=== PATIENT | female | born 1975 | race Caucasian/White ===

== ENCOUNTER 2018-01-26 22:02 | Emergency (ER) | payer MEDICARE, MEDICAID, SELFPAY ==
[2018-01-26 22:21] VITALS: BP 124/90; PULSE 96; RESP 17; TEMP 36.3; O2SAT 100; BMI 39.9
[2018-01-26 22:28] VITALS: BP 124/90; PULSE 86; O2SAT 95
[2018-01-26 22:32] VITALS: BP 124/90; PULSE 86; RESP 17; TEMP 36.3; O2SAT 95; BMI 39.9
--- NOTE | 2018-01-26 22:41 | PC.NURSE ---
Pt states increased swelling in bi-lat legs x 5 days, takes Lasix daily. 2+ pitting edema with pedal pulses present and 5/10 pain. Denies CP/SOB, states diffuse rash all over trunk and under neath breasts onset yesterday with itching, hx of staph infections.
--- NOTE | 2018-01-26 22:48 | DI.RAD.S_ITS ---
PROCEDURE: XR CHEST 2V INDICATIONS: swelling TECHNIQUE: 2 views of the chest were acquired. COMPARISON: [facility], , CHEST 2VW, 08/28/2010, 13:34. FINDINGS: Surgical changes and devices: None. Lungs and pleura: No pleural effusions or pneumothorax. Lungs showed diffuse, bilateral perihilar interstitial infiltrate, extending into both upper lobes, right greater than left. No septal lines or pleural effusions. Mediastinum: Mediastinal contours are normal. Heart size is normal. Bones and chest wall: No suspicious bony abnormalities. Soft tissues appear unremarkable. IMPRESSION: 1. Bilateral perihilar pulmonary infiltrates, likely pneumonia but other etiologies including allergenic or noncardiac pulmonary edema not excluded. Dictated by: Ramon Butcher M.D. on 01/27/2018 at 8:00 Approved by: Ramon Butcher M.D. on 01/27/2018 at 8:03
[2018-01-26] MEDS: HYDROMORPHONE 0.5 MG INJ IV (23:00)
[2018-01-26 23:02] LABS: Add Manual Diff / Slide Review NO; Basophils Percent Auto 0.6 % (0-2); Eosinophils Percent Auto 2.7 % (2-4); Hematocrit 34.4 % (36-46); Hemoglobin 11.4 g/dL (12.0-16.0); Lymphocytes Percent Auto 36.1 % (25-40); Mean Corpuscular HGB Conc 33.1 % (30-36); Mean Corpuscular Hemoglobin 26.9 PG (26-34); Mean Corpuscular Volume 81.3 fL (80-100); Monocytes Percent Auto 8.6 % (3-14); Neutrophils Absolute Auto 5600 /uL (3000-5900); Platelet Count 364 X10^3/uL (150-400); Red Blood Cell Count 4.23 X10^6/uL (4.0-5.2); Red Cell Distribution Width 16.5 % (11.6-14.8); White Blood Cell Count 10.8 X10^3/uL (4.5-11.0)
[2018-01-26 23:05] LABS: BUN Creatinine Ratio 14.3 (6-22); Blood Urea Nitrogen 10 mg/dL (7-17); Calcium 9.3 mg/dL (8.4-10.2); Carbon Dioxide 30 mmol/L (22-32); Chloride 100 mmol/L (98-107); Estimated Glomerular Filt Rate > 60.0 mL/min (>60); Glucose 98 mg/dL (70-100); HEMOLYSIS < 15 (0-50); Potassium 3.9 mmol/L (3.4-5.1); Sodium 139 mmol/L (137-145)
[2018-01-26 23:20] LABS: Procalcitonin < 0.05 ng/mL (<0.5)
[2018-01-26 23:25] LABS: B Type Natriuretic Peptide 51.4 (<100)
[2018-01-26 23:48] VITALS: BP 107/67; PULSE 78; O2SAT 97
[2018-01-27] MEDS: OXYCODONE/ACETAMINOPHEN 5/325 TABLET 2 TAB PO (00:06)
--- NOTE | 2018-01-27 04:52 | ED_ITS ---
HPI - Extremity Problem General Chief complaint: Extremity Problem,Nontraumatic Stated complaint: STATES ADEMA IN LEGS,RASH ON BODY Time Seen by Provider: 01/26/18 22:19 Source: patient and family Mode of arrival: ambulatory Limitations: no limitations History of Present Illness HPI Narrative: Patient presents with some mild lower extremity edema over the past few days. She denies pain, erythema, warmth or injury. She has a history of lower extremity edema and has been taking Lasix for sometime. She does state that she's been taking a bit of extra lasix daily for the past few days. She denies SOB, fever, or chills. Additionally patient complains of episodes of rash on her back that are intermittent and currently resolved. Finally she complains of some rectal pain on BM, she denies blood on her stool MD Complaint: extremity swelling Onset (ago): day(s) Pain Consistency: constant Location: lower extremity Quality: aching Radiation: none Relieving factors: nothing Exacerbating factors: nothing Associated symptoms: rash Related Data Home Medications Medication Instructions Recorded Confirmed Acetaminophen/Aspirin/Caffei 1 tab PO PRN #0 05/14/11 (#EXCEDRIN 250 MG-250 MG-65 MG) HYDROXYZINE HCL (#ATARAX) 50 mg PO TID #0 05/14/11 LIDOCAINE 1 patch TOPICAL QDAYP #0 05/14/11 Loratadine 10 mg PO Q DAY #0 05/14/11 duloxetine [Cymbalta] 60 mg PO Q DAY #0 05/14/11 omeprazole magnesium [Prilosec OTC] 20 mg PO BID #0 05/14/11 [FIORICET] PRN #0 05/12/12 Previous Rx's Medication Instructions Recorded azithromycin [Zithromax Z-Rikki] 250 mg PO QDAY #6 tab 05/08/17 oxycodone-acetaminophen [Percocet] 1 tab PO Q4HP PRN #7 tab 05/08/17 Allergies Allergy/AdvReac Type Severity Reaction Status Date / Time levofloxacin [LEVOFLOXACIN] Allergy Unknown Verified 01/26/18 22:59 Penicillins [PENICILLINS] Allergy Unknown Verified 01/26/18 22:59 Sulfa (Sulfonamide Allergy Unknown Verified 01/26/18 22:59 Antibiotics) [SULFA (SULFONAMIDE ANTIBIOTICS)] trimethoprim [TRIMETHOPRIM] Allergy Unknown Verified 01/26/18 22:59 Review of Systems Review of Systems All systems reviewed & are unremarkable except as noted in HPI and below Constitutional Denies chills, Denies fever(s), Denies lethargy and Denies weakness Eyes Denies change in vision, Denies eye discharge, Denies irritation and Denies loss of vision ENT Ears, Nose, Mouth, and Throat: Denies change in voice, Denies neck pain and Denies sore throat Cardiovascular Denies chest pain, Denies irregular heart rhythm, Denies lightheadedness, Denies palpitations, Denies dyspnea, Denies dyspnea on exertion and Denies orthopnea Respiratory Denies cough, Denies dyspnea, Denies dyspnea on exertion and Denies wheezing Gastrointestinal Gastrointestinal: Reports as per HPI, Denies abdominal pain, Denies change in bowel habits, Denies diarrhea, Denies nausea and Denies vomiting Genitourinary Denies hematuria, Denies flank pain, Denies urinary incontinence and Denies urinary urgency Musculoskeletal Denies neck pain Integumentary/Breasts Denies pruritus, Denies erythema, Reports rash and Denies wounds Neurologic Denies confusion, Denies loss of vision and Denies weakness Psychiatric Denies anxiety, Denies confusion, Denies depression, Denies homicidal ideation and Denies suicidal ideation Endocrine Denies palpitations Hematologic/Lymphatic Denies easy bruising Allergic/Immunologic Denies wheezing Exam Narrative Exam Narrative: 42F appears uncomfortable and a bit anxious Initial Vital Signs Initial Vital Signs: Vital Signs Temperature 97.4 F L 01/26/18 22:21 Pulse Rate 96 H 01/26/18 22:21 Respiratory Rate 17 01/26/18 22:21 Blood Pressure 124/90 H 01/26/18 22:21 Pulse Oximetry 100 01/26/18 22:21 Const General: cooperative, well developed and in distress Nutritional Appearance: well nourished Orientation: alert, awake, oriented x3 and not confused HENNM Head: normocephalic and atraumatic Ears: external ears normal and TM's normal bilaterally Nose: external nose normal and No nasal discharge Face and sinus: sinuses nontender, face symmetric, no sinus tenderness and No dry mucous membranes Mouth: oral mucosae normal and moist mucous membranes Teeth and gingiva: dentition normal Throat: tonsils normal and uvula midline Neck Neck: normal visual inspection, trachea midline, No lymphadenopathy, No midline deformity and No JVD Lymphatic: No lymphedema Chest Chest: normal inspection of the chest Cardio Rate: regular rate Rhythm: regular rhythm Heart Sounds: no click, no gallops, no murmurs and no rubs Pulses: normal peripheral pulses Back/Spine/Pelvis Back: normal to inspection Cervical Spine: normal cervical lordosis Thoracic/Lumbar Spine: thoracic and lumbar spine normal to inspection Skin General: no rashes or lesions noted, No jaundice and No petechiae Neuro General: alert, awake and oriented x3 Cognition: normal cognition Speech: speech normal Gait: normal gait Motor: muscle tone normal throughout Sensory Exam: no sensory deficits noted DTR's: Rt Patellar: 1+ and Lt Patellar: 1+ Extrem Right lower extremity: edema Details: pitting and 1+ Left lower extremity: edema Details: pitting and 1+ Psych Appearance: well kempt Mental Status: mental status grossly normal Attitude: cooperative Thought Content: normal and suicidality Judgment: judgment good Course Orders Ordered: ED Orders 01/26/18 22:25 B Type Natriuretic Peptide Stat Basic Metabolic Panel Stat Complete Blood Count AUTO DIFF Stat Procalcitonin Stat 01/26/18 22:48 XR chest 2V Stat Discontinued Medications Hydromorphone HCl (Dilaudid) 0.5 mg IV NOW ONE Stop: 01/26/18 22:50 Last Admin: 01/26/18 23:00 Dose: 0.5 mg Oxycodone/Acetaminophen (Percocet 5/325) 2 tab PO NOW ONE Stop: 01/27/18 00:01 Last Admin: 01/27/18 00:06 Dose: 2 tab Vital Signs - 8 hr 01/26/18 22:21 01/26/18 22:28 01/26/18 22:32 Temperature 97.4 F L 97.4 F L Pulse Rate 96 H 86 86 Respiratory Rate 17 17 Blood Pressure 124/90 H 124/90 H Blood Pressure [Left Arm] 124/90 H Pulse Oximetry 100 95 95 01/26/18 23:48 Temperature Pulse Rate 78 Respiratory Rate Blood Pressure Blood Pressure [Left Arm] 107/67 Pulse Oximetry 97 MDM - Extremity (Nontraumatic) Lab Data Result diagrams: 01/26/18 22:25 01/26/18 22:25 Lab Results 01/26/18 01/26/18 01/26/18 Range/Units 22:25 22:25 22:25 WBC 10.8 (4.5-11.0) X10^3/uL RBC 4.23 (4.0-5.2) X10^6/uL Hgb 11.4 L (12.0-16.0) g/dL Hct 34.4 L (36-46) % MCV 81.3 (80-100) fL MCH 26.9 (26-34) PG MCHC 33.1 (30-36) % RDW 16.5 H (11.6-14.8) % Plt Count 364 (150-400) X10^3/uL Neut % (Auto) 52.0 (50-75) % Lymph % (Auto) 36.1 (25-40) % Bollinger % (Auto) 8.6 (3-14) % Eos % (Auto) 2.7 (2-4) % Baso % (Auto) 0.6 (0-2) % Neut # (Auto) 5600 (7952-0757) /uL Sodium 139 (137-145) mmol/L Potassium 3.9 (3.4-5.1) mmol/L Chloride 100 (98-107) mmol/L Carbon Dioxide 30 (22-32) mmol/L BUN 10 (7-17) mg/dL Creatinine 0.70 (0.52-1.04) mg/dL Estimated GFR > 60.0 (>60) mL/min BUN/Creatinine Ratio 14.3 (6-22) Glucose 98 (70-100) mg/dL Calcium 9.3 (8.4-10.2) mg/dL B-Natriuretic Peptide 51.4 (<100) Procalcitonin < 0.05 (<0.5) ng/mL Discharge Plan Departure Patient Disposition: Home, Self-Care Clinical Impression: Dependent edema, External hemorrhoid Discharge Date/Time: 01/27/18 00:15 Interventions: ED Discharge Assessment Last Done: 01/27/18 00:14 Instructions: DI for Hemorrhoids, DI for Dependent Edema Activity Restrictions/Additional Instructions: *You have been diagnosed with [ bilateral dependent edema ] *What to do: * continue to take medications as directed, but please call when you get home so we can discuss how to alter your Lasix *Follow up with your primary care provider in 2-3 days, call tomrorow for appointment *Return to ER if you should have any new, worsening or concerning symptoms Prescriptions: No Action duloxetine [Cymbalta] 60 MG capsule,delayed release(DR/EC) 60 mg PO Q DAY Qty: 0 RF: 0 omeprazole magnesium [Prilosec OTC] 20 MG tablet,delayed release (DR/EC) 20 mg PO BID Qty: 0 RF: 0 HYDROXYZINE HCL (#ATARAX) 50 mg PO TID Qty: 0 RF: 0 Acetaminophen/Aspirin/Caffei (#EXCEDRIN 250 MG-250 MG-65 MG) 1 tab PO PRN Qty: 0 RF: 0 LIDOCAINE 1 patch Topical QDAYP Qty: 0 RF: 0 Loratadine 10 mg PO Q DAY Qty: 0 RF: 0 [FIORICET] PRN Qty: 0 RF: 0 azithromycin [Zithromax Z-Rikki] 250 MG tablet 250 mg PO QDAY Qty: 6 RF: 0 oxycodone-acetaminophen [Percocet] 5 MG/325 MG tablet 1 tab PO Q4HP PRNQty: 7 RF: 0 Referrals: Alex Montoya MD [Primary Care Provider] -
== END 2018-01-27 00:15 | disposition home or self-care (01) ==
PROVIDERS: Emergency Provider Emergency Medicine; Family Provider Anesthesiology Pain Medicine; PCP Internal Medicine
DX: K64.4 Residual hemorrhoidal skin tags (principal); R60.9 Edema, unspecified
CPT/HCPCS: 36591; 71046; 80048; 81003; 83880; 84145; 85025; 96374; 99282; 99285; J1170

== ENCOUNTER 2018-10-31 08:04 | Emergency (ER) | payer MEDICARE, MEDICAID, SELFPAY ==
[2018-10-31] VITALS (29 sets, daily range): BP systolic 91–130; BP diastolic 47–106; PULSE 15–102; RESP 9–24; TEMP 36.7; O2SAT 81–99; BMI 45.7
--- NOTE | 2018-10-31 08:18 | ED.SOB ---
HPI - SOB/Dyspnea General Chief Complaint: Shortness of Breath/Dyspnea Stated Complaint: Pneumonia Time Seen by Provider: 10/31/18 08:11 Source: patient, family and EMS Mode of arrival: EMS Limitations: no limitations History of Present Illness 43-year-old female smoker with extensive medical history including cryptogenic organizing pneumonia, chronic pain on methadone, morbid obesity presents from the methadone clinic where they noted her pulse ox to be 42%. They activated EMS, administered bronchodilators. On arrival EMS noted her pulse ox to be 57 and patient in moderate respiratory distress. She was continued on bronchodilators and put on a non-rebreather and pulse ox pumped to the mid to upper 80s. On arrival patient is admittedly a bit better but still clearly working period 2 weeks ago she was discharged from [facility] after a 10 day visit including an intubation, for hypoxic respiratory failure thought likely due to a viral etiology. She has multiple antibiotic allergies and was treated with aztreonam, azithromycin, and vancomycin. MD Complaint: shortness of breath and cough Onset (ago): hour(s) Context: recent illness Related Data Home Medications Medication Instructions Recorded Confirmed oidswtr-lcgzpfikbzhwu-zaepweow 1 tab PO PRN PRN #0 05/14/11 10/31/18 [Excedrin Extra Strength] duloxetine [Cymbalta] 60 mg PO BID #0 05/14/11 10/31/18 albuterol sulfate [ProAir HFA] 1 puff INHALATION BID 10/31/18 10/31/18 ptznztogtc-xsfnmfjmuncxg-xyqb 1 tab PO BID PRN 10/31/18 10/31/18 dapsone 100 mg PO DAILY 10/31/18 10/31/18 diclofenac sodium [Voltaren] 1 applic TOPICAL PRN PRN 10/31/18 10/31/18 fluticasone propion-salmeterol 1 puff INHALATION BID 10/31/18 10/31/18 [Advair Diskus] fluticasone propionate 1 spray INTRANASAL DAILY 10/31/18 10/31/18 gabapentin 900 mg PO TID 10/31/18 10/31/18 glipizide 5 mg PO DAILY 10/31/18 10/31/18 hydroxyzine pamoate 50 mg PO DAILY 10/31/18 10/31/18 levothyroxine 300 mcg PO DAILY 10/31/18 10/31/18 methadone 145 mg PO DAILY 10/31/18 10/31/18 omeprazole 40 mg PO BID 10/31/18 10/31/18 prednisone 1 dose PO DIRECTED 10/31/18 10/31/18 quetiapine 300 mg PO QPM 10/31/18 10/31/18 Allergies Allergy/AdvReac Type Severity Reaction Status Date / Time levofloxacin [LEVOFLOXACIN] Allergy Unknown Verified 01/26/18 22:59 Penicillins [PENICILLINS] Allergy Unknown Verified 01/26/18 22:59 Sulfa (Sulfonamide Allergy Unknown Verified 01/26/18 22:59 Antibiotics) [SULFA (SULFONAMIDE ANTIBIOTICS)] trimethoprim [TRIMETHOPRIM] Allergy Unknown Verified 01/26/18 22:59 Review of Systems Constitutional Denies chills, Denies fever(s), Denies lethargy and Denies weakness Eyes Denies change in vision, Denies eye discharge, Denies irritation and Denies loss of vision ENT Ears, Nose, Mouth, and Throat: Denies change in voice, Denies neck pain and Denies sore throat Cardiovascular Denies chest pain, Denies irregular heart rhythm, Denies lightheadedness, Denies palpitations, Reports dyspnea, Reports dyspnea on exertion and Denies orthopnea Respiratory Reports cough, Reports dyspnea, Reports dyspnea on exertion and Denies wheezing Gastrointestinal Gastrointestinal: Denies abdominal pain, Denies change in bowel habits, Denies diarrhea, Denies nausea and Denies vomiting Genitourinary Denies hematuria, Denies flank pain, Denies urinary incontinence and Denies urinary urgency Musculoskeletal Denies neck pain Integumentary/Breasts Denies pruritus, Denies erythema, Denies rash and Denies wounds Neurologic Denies confusion, Denies loss of vision and Denies weakness Psychiatric Denies anxiety, Denies confusion, Denies depression, Denies homicidal ideation and Denies suicidal ideation Endocrine Denies palpitations Hematologic/Lymphatic Denies easy bruising Allergic/Immunologic Denies wheezing PFSH Social History Smoking Status: Current every day smoker Social History Smoking Status: Current every day smoker Exam Narrative Exam Narrative: GENERAL: 43F severely ill, morbidly obese in respiratory distress HEAD: Atraumatic. Normocephalic. No temporal or scalp tenderness. EYES: Pupils equal round and reactive. Extraocular motions intact. No scleral icterus. No injection or drainage. ENT: Nose without bleeding, purulent drainage or septal hematoma. Throat without erythema, tonsillar hypertrophy or exudate. Uvula midline. Airway patent. NECK: Trachea midline. No JVD or lymphadenopathy. Supple, nontender, no meningeal signs. CARDIOVASCULAR: Regular rate and rhythm without murmurs, gallops, or rubs. RESPIRATORY: Decreased breath sounds bilaterally with prolonged expiratory phase, crackles throughout and expiratory wheeze GASTROINTESTINAL: Abdomen soft, non-tender, nondistended. No hepato-splenomegaly, or palpable masses. No guarding. EXTREMITIES: No clubbing, cyanosis, or edema. No joint tenderness, effusion, or edema noted. BACK: Nontender without deformity or crepitance. No flank tenderness. NEURO: AOx3. SKIN: No rash or erythema. Initial Vital Signs Initial Vital Signs: Vital Signs Temperature 98.1 F 10/31/18 08:16 Pulse Rate 102 H 10/31/18 08:16 Respiratory Rate 24 10/31/18 08:16 Blood Pressure 91/65 10/31/18 08:16 Pulse Oximetry 82 L 10/31/18 08:16 Course Course Narrative: sepsis considered a possibility on arrival. Patient pancultured, respiratory panel ordered. Records requested from [facility] Patient met criteria for severe sepsis at 8:34 a.m. with lactate of 5.2. Fluid bolus of 30 cc/kilogram initiated Orders Ordered: ED Orders 10/31/18 08:12 XR chest 1V Stat 10/31/18 08:34 B Type Natriuretic Peptide Stat Complete Blood Count AUTO DIFF Stat Comprehensive Metabolic Panel Stat Lactate (Lactic Acid) Stat Procalcitonin Stat Respiratory Panel (Film Array) Stat Troponin & CK Cardiac Panel Stat 10/31/18 08:37 Arterial Blood Gas Stat 10/31/18 09:03 Blood Culture Stat 10/31/18 09:40 UA Complete [Urinalysis and Microscopic] Stat 10/31/18 09:57 CT angio chest PE protocol Stat 10/31/18 10:40 Lactate 2HR (Lactic Acid Rflx) Stat 10/31/18 11:49 Arterial Blood Gas Stat 10/31/18 15:06 Lactate 2HR (Lactic Acid Rflx) Stat Discontinued Medications Aztreonam 1 gm/ Dextrose 50 mls @ 100 mls/hr IV NOW ONE Stop: 10/31/18 08:53 Last Infusion: 10/31/18 09:58 Dose: 0 mls/hr Admin: 10/31/18 09:21 Dose: 100 mls/hr Azithromycin 500 mg/ Dextrose 250 mls @ 250 mls/hr IV NOW ONE Stop: 10/31/18 08:54 Last Infusion: 10/31/18 11:19 Dose: 0 mls/hr Admin: 10/31/18 10:12 Dose: 250 mls/hr Sodium Chloride (Normal Saline 0.9%) 3,742.14 mls @ 1,247.38 mls/hr 30 ml/kg infuse over 3 hr (3742.14 ml) IV NOW ONE Stop: 10/31/18 12:07 Last Infusion: 10/31/18 12:19 Dose: 0 mls/hr Admin: 10/31/18 09:20 Dose: 1,247.38 mls/hr Methylprednisolone (Solu-Medrol 125 Mg Vial) 125 mg IV NOW ONE Stop: 10/31/18 08:42 Last Admin: 10/31/18 08:52 Dose: 125 mg Reevaluation(s) Reevaluation #1: patient beginning to decompensate, some mental status change and sats are now in the low 80s. I have called for BiPAP patient doing quite well on BiPap, will not need intubation. [facility] can transport BiPap. Awaiting bed assignement Time: 11:04 Consultations Consultation #1: With just received a call back from [facility] and given clinical information to the transfer center. Images have been pushed Dr. Banuelos ([facility]) consulted and he agrees patient will require transfer. Will accept patient, will call back with bed assignment Time: 11:04 Consultation #2: call back from [facility]. We can now activate [facility], they have a bed Time: 15:37 Vital Signs - 8 hr 10/31/18 08:16 10/31/18 08:30 10/31/18 09:18 Temperature 98.1 F Pulse Rate 102 H 102 H 94 H Respiratory Rate 24 22 22 Blood Pressure 91/65 Blood Pressure [Left Arm] 101/57 L 119/64 Pulse Oximetry 82 L 91 90 L 10/31/18 09:43 10/31/18 09:51 10/31/18 10:18 Temperature Pulse Rate 97 H 95 H 88 Respiratory Rate 22 20 Blood Pressure Blood Pressure [Left Arm] 104/79 112/69 116/60 Pulse Oximetry 97 94 87 L 10/31/18 10:54 10/31/18 11:10 10/31/18 11:30 Temperature Pulse Rate 91 H 87 Respiratory Rate 22 Blood Pressure 109/79 Blood Pressure [Left Arm] 103/67 104/76 Pulse Oximetry 81 L 99 10/31/18 11:39 10/31/18 11:43 10/31/18 12:19 Temperature Pulse Rate 91 H 90 15 L Respiratory Rate 18 15 Blood Pressure Blood Pressure [Left Arm] 108/64 108/64 124/103 H Pulse Oximetry 96 99 89 L 10/31/18 12:48 10/31/18 13:30 10/31/18 14:15 Temperature Pulse Rate 89 89 84 Respiratory Rate 18 20 12 Blood Pressure Blood Pressure [Left Arm] 130/90 124/106 H 118/76 Pulse Oximetry 91 94 94 10/31/18 14:36 10/31/18 15:21 Temperature Pulse Rate 82 70 Respiratory Rate 11 L 9 L Blood Pressure Blood Pressure [Left Arm] 112/73 115/59 L Pulse Oximetry 95 88 L MDM - SOB/Dyspnea Lab Data Result diagrams: 10/31/18 08:34 10/31/18 08:34 Lab Results 10/31/18 10/31/18 10/31/18 Range/Units 08:34 08:34 08:34 WBC (4.5-11.0) X10^3/uL RBC (4.0-5.2) X10^6/uL Hgb (12.0-16.0) g/dL Hct (36-46) % MCV (80-100) fL MCH (26-34) PG MCHC (30-36) % RDW (11.6-14.8) % Plt Count (150-400) X10^3/uL Neut % (Auto) (50-75) % Lymph % (Auto) (25-40) % [place] % (Auto) (3-14) % Eos % (Auto) (2-4) % Baso % (Auto) (0-2) % Neut # (Auto) (9802-7094) /uL Lymph # (Auto) (6005-3101) /uL [place] # (Auto) (0-900) /uL Eos # (Auto) (0-450) /uL Baso # (Auto) (0-100) /uL ABG pH (7.35-7.45) ABG pCO2 (35-45) mmHg ABG pO2 (80-100) mmHg ABG HCO3 (22-26) mmol/L ABG Total CO2 (21-31) mmol/L ABG O2 Saturation (95-100) % ABG Base Excess (-2-2) mmol/L FiO2 Sodium (137-145) mmol/L Potassium (3.4-5.1) mmol/L Chloride (98-107) mmol/L Carbon Dioxide (22-32) mmol/L BUN (7-17) mg/dL Creatinine (0.52-1.04) mg/dL Estimated GFR (>60) mL/min BUN/Creatinine Ratio (6-22) Glucose (70-100) mg/dL Lactate (0.7-2.1) mmol/L Calcium (8.4-10.2) mg/dL Total Bilirubin (0.2-1.3) mg/dL AST (14-36) IU/L ALT (9-52) IU/L Alkaline Phosphatase (38-126) U/L Total Creatine Kinase 96 (30-135) U/L CK-MB (CK-2) TNP CK-MB (CK-2) Rel Index TNP Troponin I < 0.012 (0.01-0.034) ng/mL B-Natriuretic Peptide 153 H (<100) Total Protein (6.3-8.2) g/dL Albumin (3.5-5.0) g/dL Globulin (1.7-4.1) g/dL Albumin/Globulin Ratio (1.0-2.8) Procalcitonin (<0.5) ng/mL Urine Color Urine Appearance Urine pH (4.5-8.0) Ur Specific [place] (1.000-1.035) Urine Protein (Negative) Urine Glucose (UA) (Negative) g/dL Urine Ketones (NEGATIVE) Urine Occult Blood (Negative) Urine Nitrate (Negative) Urine Bilirubin (NEGATIVE) Urine Urobilinogen (0.2) E.U./dL Ur Leukocyte Esterase (NEGATIVE) Urine RBC (0-5/HPF) Urine WBC (0-5/HPF) Ur Squamous Epith Cells (0-5/HPF) Urine Bacteria (None) Ur Culture Indicated? Chlamy pneumoniae PCR Not detected (Not Detect) Adenovirus (PCR) Not detected (Not Detect) B.parapertussis DNA PCR Not detected (Not Detect) Coronavirus OC43 (PCR) Not detected (Not Detect) Coronavirus HKU1 (PCR) Not detected (Not Detect) Coronavirus 229E (PCR) Not detected (Not Detect) Coronavirus NL63 (PCR) Not detected (Not Detect) Human Metapneumovir PCR Not detected (Not Detect) Influenza Type A (PCR) Not detected (Not Detect) Influenza Type B (PCR) Not detected (Not Detect) M. pneumoniae (PCR) Not detected (Not Detect) Parainfluenza 1 (PCR) Not detected (Not Detect) Parainfluenza 2 (PCR) Not detected (Not Detect) Parainfluenza 3 (PCR) Not detected (Not Detect) Parainfluenza 4 (PCR) Not detected (Not Detect) RSV (PCR) Not detected (Not Detect) Entero/Rhino (PCR) Not detected (Not Detect) 10/31/18 10/31/18 10/31/18 Range/Units 08:34 08:34 08:34 WBC 16.0 H (4.5-11.0) X10^3/uL RBC 4.16 (4.0-5.2) X10^6/uL Hgb 10.2 L (12.0-16.0) g/dL Hct 32.5 L (36-46) % MCV 78.0 L (80-100) fL MCH 24.4 L (26-34) PG MCHC 31.3 (30-36) % RDW 20.0 H (11.6-14.8) % Plt Count 402 H (150-400) X10^3/uL Neut % (Auto) 88.0 H (50-75) % Lymph % (Auto) 8.2 L (25-40) % [place] % (Auto) 2.6 L (3-14) % Eos % (Auto) 0.2 L (2-4) % Baso % (Auto) 1.0 (0-2) % Neut # (Auto) 65803 H (6976-3830) /uL Lymph # (Auto) 1300 (9397-9289) /uL [place] # (Auto) 400 (0-900) /uL Eos # (Auto) 0 (0-450) /uL Baso # (Auto) 200 H (0-100) /uL ABG pH (7.35-7.45) ABG pCO2 (35-45) mmHg ABG pO2 (80-100) mmHg ABG HCO3 (22-26) mmol/L ABG Total CO2 (21-31) mmol/L ABG O2 Saturation (95-100) % ABG Base Excess (-2-2) mmol/L FiO2 Sodium 137 (137-145) mmol/L Potassium 4.0 (3.4-5.1) mmol/L Chloride 100 (98-107) mmol/L Carbon Dioxide 24 (22-32) mmol/L BUN 18 H (7-17) mg/dL Creatinine 0.80 (0.52-1.04) mg/dL Estimated GFR > 60.0 (>60) mL/min BUN/Creatinine Ratio 22.5 H (6-22) Glucose 197 H (70-100) mg/dL Lactate (0.7-2.1) mmol/L Calcium 9.0 (8.4-10.2) mg/dL Total Bilirubin 0.7 (0.2-1.3) mg/dL AST 58 H (14-36) IU/L ALT 23 (9-52) IU/L Alkaline Phosphatase 112 (38-126) U/L Total Creatine Kinase (30-135) U/L CK-MB (CK-2) CK-MB (CK-2) Rel Index Troponin I (0.01-0.034) ng/mL B-Natriuretic Peptide (<100) Total Protein 6.5 (6.3-8.2) g/dL Albumin 3.4 L (3.5-5.0) g/dL Globulin 3.1 (1.7-4.1) g/dL Albumin/Globulin Ratio 1.1 (1.0-2.8) Procalcitonin 2.17 H (<0.5) ng/mL Urine Color Urine Appearance Urine pH (4.5-8.0) Ur Specific [place] (1.000-1.035) Urine Protein (Negative) Urine Glucose (UA) (Negative) g/dL Urine Ketones (NEGATIVE) Urine Occult Blood (Negative) Urine Nitrate (Negative) Urine Bilirubin (NEGATIVE) Urine Urobilinogen (0.2) E.U./dL Ur Leukocyte Esterase (NEGATIVE) Urine RBC (0-5/HPF) Urine WBC (0-5/HPF) Ur Squamous Epith Cells (0-5/HPF) Urine Bacteria (None) Ur Culture Indicated? Chlamy pneumoniae PCR (Not Detect) Adenovirus (PCR) (Not Detect) B.parapertussis DNA PCR (Not Detect) Coronavirus OC43 (PCR) (Not Detect) Coronavirus HKU1 (PCR) (Not Detect) Coronavirus 229E (PCR) (Not Detect) Coronavirus NL63 (PCR) (Not Detect) Human Metapneumovir PCR (Not Detect) Influenza Type A (PCR) (Not Detect) Influenza Type B (PCR) (Not Detect) M. pneumoniae (PCR) (Not Detect) Parainfluenza 1 (PCR) (Not Detect) Parainfluenza 2 (PCR) (Not Detect) Parainfluenza 3 (PCR) (Not Detect) Parainfluenza 4 (PCR) (Not Detect) RSV (PCR) (Not Detect) Entero/Rhino (PCR) (Not Detect) 10/31/18 10/31/18 10/31/18 Range/Units 08:34 08:37 09:40 WBC (4.5-11.0) X10^3/uL RBC (4.0-5.2) X10^6/uL Hgb (12.0-16.0) g/dL Hct (36-46) % MCV (80-100) fL MCH (26-34) PG MCHC (30-36) % RDW (11.6-14.8) % Plt Count (150-400) X10^3/uL Neut % (Auto) (50-75) % Lymph % (Auto) (25-40) % [place] % (Auto) (3-14) % Eos % (Auto) (2-4) % Baso % (Auto) (0-2) % Neut # (Auto) (7704-2825) /uL Lymph # (Auto) (3053-9523) /uL [place] # (Auto) (0-900) /uL Eos # (Auto) (0-450) /uL Baso # (Auto) (0-100) /uL ABG pH 7.38 (7.35-7.45) ABG pCO2 39.1 (35-45) mmHg ABG pO2 73 L (80-100) mmHg ABG HCO3 23 (22-26) mmol/L ABG Total CO2 24 (21-31) mmol/L ABG O2 Saturation 94 L (95-100) % ABG Base Excess -2.0 (-2-2) mmol/L FiO2 100 Sodium (137-145) mmol/L Potassium (3.4-5.1) mmol/L Chloride (98-107) mmol/L Carbon Dioxide (22-32) mmol/L BUN (7-17) mg/dL Creatinine (0.52-1.04) mg/dL Estimated GFR (>60) mL/min BUN/Creatinine Ratio (6-22) Glucose (70-100) mg/dL Lactate 5.2 H (0.7-2.1) mmol/L Calcium (8.4-10.2) mg/dL Total Bilirubin (0.2-1.3) mg/dL AST (14-36) IU/L ALT (9-52) IU/L Alkaline Phosphatase (38-126) U/L Total Creatine Kinase (30-135) U/L CK-MB (CK-2) CK-MB (CK-2) Rel Index Troponin I (0.01-0.034) ng/mL B-Natriuretic Peptide (<100) Total Protein (6.3-8.2) g/dL Albumin (3.5-5.0) g/dL Globulin (1.7-4.1) g/dL Albumin/Globulin Ratio (1.0-2.8) Procalcitonin (<0.5) ng/mL Urine Color Yellow Urine Appearance Clear Urine pH 5.0 (4.5-8.0) Ur Specific [place] >=1.030 H (1.000-1.035) Urine Protein 1+ H (Negative) Urine Glucose (UA) Negative (Negative) g/dL Urine Ketones Negative (NEGATIVE) Urine Occult Blood Negative (Negative) Urine Nitrate Negative (Negative) Urine Bilirubin Negative (NEGATIVE) Urine Urobilinogen 1.0 (0.2) E.U./dL Ur Leukocyte Esterase Negative (NEGATIVE) Urine RBC None seen (0-5/HPF) Urine WBC None seen (0-5/HPF) Ur Squamous Epith Cells >30 /hpf H (0-5/HPF) Urine Bacteria Moderate (10-30) H (None) Ur Culture Indicated? Cult not indicated Chlamy pneumoniae PCR (Not Detect) Adenovirus (PCR) (Not Detect) B.parapertussis DNA PCR (Not Detect) Coronavirus OC43 (PCR) (Not Detect) Coronavirus HKU1 (PCR) (Not Detect) Coronavirus 229E (PCR) (Not Detect) Coronavirus NL63 (PCR) (Not Detect) Human Metapneumovir PCR (Not Detect) Influenza Type A (PCR) (Not Detect) Influenza Type B (PCR) (Not Detect) M. pneumoniae (PCR) (Not Detect) Parainfluenza 1 (PCR) (Not Detect) Parainfluenza 2 (PCR) (Not Detect) Parainfluenza 3 (PCR) (Not Detect) Parainfluenza 4 (PCR) (Not Detect) RSV (PCR) (Not Detect) Entero/Rhino (PCR) (Not Detect) 10/31/18 10/31/18 10/31/18 Range/Units 10:40 11:49 15:06 WBC (4.5-11.0) X10^3/uL RBC (4.0-5.2) X10^6/uL Hgb (12.0-16.0) g/dL Hct (36-46) % MCV (80-100) fL MCH (26-34) PG MCHC (30-36) % RDW (11.6-14.8) % Plt Count (150-400) X10^3/uL Neut % (Auto) (50-75) % Lymph % (Auto) (25-40) % [place] % (Auto) (3-14) % Eos % (Auto) (2-4) % Baso % (Auto) (0-2) % Neut # (Auto) (2266-7015) /uL Lymph # (Auto) (9660-6411) /uL [place] # (Auto) (0-900) /uL Eos # (Auto) (0-450) /uL Baso # (Auto) (0-100) /uL ABG pH 7.31 L (7.35-7.45) ABG pCO2 43.6 (35-45) mmHg ABG pO2 163 H (80-100) mmHg ABG HCO3 22 (22-26) mmol/L ABG Total CO2 23 (21-31) mmol/L ABG O2 Saturation 99 (95-100) % ABG Base Excess -4.0 L (-2-2) mmol/L FiO2 100 Sodium (137-145) mmol/L Potassium (3.4-5.1) mmol/L Chloride (98-107) mmol/L Carbon Dioxide (22-32) mmol/L BUN (7-17) mg/dL Creatinine (0.52-1.04) mg/dL Estimated GFR (>60) mL/min BUN/Creatinine Ratio (6-22) Glucose (70-100) mg/dL Lactate 5.2 H 2.6 H (0.7-2.1) mmol/L Calcium (8.4-10.2) mg/dL Total Bilirubin (0.2-1.3) mg/dL AST (14-36) IU/L ALT (9-52) IU/L Alkaline Phosphatase (38-126) U/L Total Creatine Kinase (30-135) U/L CK-MB (CK-2) CK-MB (CK-2) Rel Index Troponin I (0.01-0.034) ng/mL B-Natriuretic Peptide (<100) Total Protein (6.3-8.2) g/dL Albumin (3.5-5.0) g/dL Globulin (1.7-4.1) g/dL Albumin/Globulin Ratio (1.0-2.8) Procalcitonin (<0.5) ng/mL Urine Color Urine Appearance Urine pH (4.5-8.0) Ur Specific [place] (1.000-1.035) Urine Protein (Negative) Urine Glucose (UA) (Negative) g/dL Urine Ketones (NEGATIVE) Urine Occult Blood (Negative) Urine Nitrate (Negative) Urine Bilirubin (NEGATIVE) Urine Urobilinogen (0.2) E.U./dL Ur Leukocyte Esterase (NEGATIVE) Urine RBC (0-5/HPF) Urine WBC (0-5/HPF) Ur Squamous Epith Cells (0-5/HPF) Urine Bacteria (None) Ur Culture Indicated? Chlamy pneumoniae PCR (Not Detect) Adenovirus (PCR) (Not Detect) B.parapertussis DNA PCR (Not Detect) Coronavirus OC43 (PCR) (Not Detect) Coronavirus HKU1 (PCR) (Not Detect) Coronavirus 229E (PCR) (Not Detect) Coronavirus NL63 (PCR) (Not Detect) Human Metapneumovir PCR (Not Detect) Influenza Type A (PCR) (Not Detect) Influenza Type B (PCR) (Not Detect) M. pneumoniae (PCR) (Not Detect) Parainfluenza 1 (PCR) (Not Detect) Parainfluenza 2 (PCR) (Not Detect) Parainfluenza 3 (PCR) (Not Detect) Parainfluenza 4 (PCR) (Not Detect) RSV (PCR) (Not Detect) Entero/Rhino (PCR) (Not Detect) Imaging Data CT scan - chest: Radiologist's impression: Patient: Carissa Gallardo RMR#: [id number] : 1975Acct:[id number] Age/Sex: 43 / FDate of Service: 10/31/18 Loc: ED Accession Number: [id number] Procedure: CT angio chest PE protocol Ordering Provider: Yadiel Bernal D.O. PROCEDURE: CT ANGIO CHEST PE PROTOCOL INDICATIONS: sudden hypoxia, chronic illness, recent prolonged admission TECHNIQUE: After the administration of intravenous contrast, 2 mm thick sections acquired from the pulmonary apices to the posterior costophrenic angles. 3-dimensional maximum intensity projection (MIP) coronal and sagittal reformats were then acquired through the thorax. For radiation dose reduction, the following was used: automated exposure control, adjustment of mA and/or kV according to patient size. COMPARISON: [facility], CT, CHEST HI-RESOLUTION, 11/28/2010, 17:02. [facility], CR, XR CHEST 2V, 01/26/2018, 22:31. [facility], CR, XR CHEST 1V, 10/31/2018, 8:32. FINDINGS: Image quality: Excellent. Pulmonary arteries: Pulmonary arteries are normal in size, and demonstrate no intraluminal filling defects to suggest central pulmonary embolism. Lungs and pleura: There are severe, widespread ill-defined patchy consolidative and diffuse groundglass opacities. In some areas possible crazy paving appearance. No definite focal consolidation. 8mm nodule seen within the right middle lobe on image 25 series 5. No pleural effusions or pneumothorax. Central and peripheral airways are patent. Mediastinum: Heart size is normal, without pericardial effusion. Mildly enlarged diffuse mediastinal or hilar adenopathy. Thoracic aorta is normal in caliber and enhancement. Esophagus is normal in caliber, without hiatal hernia. Bones and chest wall: No suspicious bony lesions. Ribs and thoracic spine appear intact throughout. Thyroid gland grossly unremarkable. No axillary or supraclavicular adenopathy. Abdomen: Visualized upper abdominal solid organs appear normal in the early arterial phase of enhancement. IMPRESSION: No evidence of pulmonary embolism. Severe extensive bilateral upper and lower lobe patchy consolidative and diffuse groundglass opacities. Findings raise possibility of atypical/viral pneumonia, potentially other inflammatory possibilities such as cryptogenic organizing pneumonia. Given the diffuse groundglass appearance, other statistically much less likely possibility such as pneumocystis infection versus pulmonary alveolar proteinosis, or chronic interstitial lung disease in the differential. Recommend close clinical correlation, and pulmonology consultation if not already performed. Widespread bilateral hilar and mediastinal lymphadenopathy of unknown age or clinical significance. Nonspecific 8 mm pulmonary nodule involving the right middle lobe. If clinically warranted followup with repeat noncontrast chest CT and 3 months to exclude malignant/metastatic possibilities (which would be unusual in this age demographic). Findings personally telephoned and discussed with Dr. Bernal in the emergency department at the time of study dictation. Dictated by: Tobias Rojas M.D. on 10/31/2018 at 10:21 Approved by: Tobias Rojas M.D. on 10/31/2018 at 10:36 Critical Care Time Critical Care Time: Yes Total Critical Care Time: 60 Attestation: The high probability of a clinically significant, sudden or life threatening deterioration of the respiratory[] system(s) required my full and direct attention, intervention and personal management. The aggregate critical care time was [60] minutes. This time is in addition to time spent performing reported procedures but includes the following: [x] Data Review and interpretation [x] Patient assessment and monitoring of vital signs [x] Documentation [x] Medication orders and management Discharge Plan Departure Patient Disposition: [facility] Clinical Impression: Acute and chronic respiratory failure with hypoxia, Severe sepsis Pneumonia Qualifiers: Pneumonia type: due to unspecified organism Laterality: bilateral Lung location: unspecified part of lung Qualified Code(s): J18.9 - Pneumonia, unspecified organism Prescriptions: No Action duloxetine [Cymbalta] 60 MG capsule,delayed release(DR/EC) 60 mg PO BID Qty: 0 RF: 0 Excedrin Extra Strength 250-250-65 mg Tablet 1 tab PO PRN PRN (Reason: PAIN OR HEADACHE) Qty: 0 RF: 0 fluticasone propion-salmeterol [Advair Diskus] 250-50 mcg/dose blister with device 1 puff Inhalation BID RF: 0 quetiapine 300 mg tablet 300 mg PO QPM RF: 0 levothyroxine 300 mcg tablet 300 mcg PO DAILY RF: 0 prednisone 20 mg tablet 1 dose PO DIRECTED RF: 0 hydroxyzine pamoate 50 mg capsule 50 mg PO DAILY RF: 0 omeprazole 40 mg capsule,delayed release(DR/EC) 40 mg PO BID RF: 0 [id number]-cvbylolgbdptn-cxbs 50-325-40 mg tablet 1 tab PO BID PRN (Reason: headache) RF: 0 dapsone 100 mg tablet 100 mg PO DAILY RF: 0 gabapentin 300 mg capsule 900 mg PO TID RF: 0 albuterol sulfate [ProAir HFA] 90 mcg/actuation HFA aerosol inhaler 1 puff Inhalation BID RF: 0 fluticasone propionate 50 mcg/actuation spray,suspension 1 spray Intranasal DAILY RF: 0 glipizide 5 mg tablet 5 mg PO DAILY RF: 0 diclofenac sodium [Voltaren] 1 % gel 1 applic topical PRN PRN (Reason: pain) RF: 0 methadone 10 mg Tablet 145 mg PO DAILY RF: 0 Referrals: Alex Montoya MD [Primary Care Provider] -
[2018-10-31 08:47] LABS: Add Manual Diff / Slide Review NO; Basophils Absolute Auto 200 /uL (0-100); Eosinophils Absolute Auto 0 /uL (0-450); Eosinophils Percent Auto 0.2 % (2-4); Hematocrit 32.5 % (36-46); Hemoglobin 10.2 g/dL (12.0-16.0); Lymphocytes Absolute Auto 1300 /uL (1100-4500); Lymphocytes Percent Auto 8.2 % (25-40); Mean Corpuscular HGB Conc 31.3 % (30-36); Mean Corpuscular Hemoglobin 24.4 PG (26-34); Monocytes Absolute Auto 400 /uL (0-900); Monocytes Percent Auto 2.6 % (3-14); Neutrophils Absolute Auto 14100 /uL (1500-7000); Platelet Count 402 X10^3/uL (150-400); Red Blood Cell Count 4.16 X10^6/uL (4.0-5.2)
[2018-10-31] MEDS: methylPREDNISolone 125 MG/2 ML VIAL IV (08:52)
[2018-10-31 08:57] LABS: Creatine Kinase 96 U/L (30-135)
[2018-10-31 08:59] LABS: Alanine Aminotransferase 23 IU/L (9-52); Albumin 3.4 g/dL (3.5-5.0); Albumin Globulin Ratio 1.1 (1.0-2.8); Alkaline Phosphatase 112 U/L (38-126); Aspartate Aminotransferase 58 IU/L (14-36); BUN Creatinine Ratio 22.5 (6-22); Bilirubin Total 0.7 mg/dL (0.2-1.3); Blood Urea Nitrogen 18 mg/dL (7-17); Carbon Dioxide 24 mmol/L (22-32); Chloride 100 mmol/L (98-107); Estimated Glomerular Filt Rate > 60.0 mL/min (>60); Globulin 3.1 g/dL (1.7-4.1); Glucose 197 mg/dL (70-100); HEMOLYSIS < 15 (0-50); Lactate (Lactic Acid) 5.2 mmol/L (0.7-2.1); Sodium 137 mmol/L (137-145); Total Protein 6.5 g/dL (6.3-8.2)
[2018-10-31 09:02] LABS: Fractionated Inspired Oxygen 100; HCO3 ABG 23 mmol/L (22-26); Oxygen Saturation ABG 94 % (95-100); PCO2 ABG 39.1 mmHg (35-45); PO2 ABG 73 mmHg (80-100); TCO2 ABG 24 mmol/L (21-31); pH ABG 7.38 (7.35-7.45)
--- NOTE | 2018-10-31 09:05 | ED_ITS ---
HPI - SOB/Dyspnea General Chief Complaint: Shortness of Breath/Dyspnea Stated Complaint: Pneumonia Time Seen by Provider: 10/31/18 08:11 Source: patient, family and EMS Mode of arrival: EMS Limitations: no limitations History of Present Illness 43-year-old female smoker with extensive medical history including cryptogenic organizing pneumonia, chronic pain on methadone, morbid obesity presents from the methadone clinic where they noted her pulse ox to be 42%. They activated EMS, administered bronchodilators. On arrival EMS noted her pulse ox to be 57 and patient in moderate respiratory distress. She was continued on bronchodilators and put on a non-rebreather and pulse ox pumped to the mid to upper 80s. On arrival patient is admittedly a bit better but still clearly working period 2 weeks ago she was discharged from [facility] after a 10 day visit including an intubation, for hypoxic respiratory failure thought likely due to a viral etiology. She has multiple antibiotic allergies and was treated with aztreonam, azithromycin, and vancomycin. MD Complaint: shortness of breath and cough Onset (ago): hour(s) Context: recent illness Related Data Home Medications Medication Instructions Recorded Confirmed gykudvs-htkrziujpckpo-erdyfluo 1 tab PO PRN PRN #0 05/14/11 10/31/18 [Excedrin Extra Strength] duloxetine [Cymbalta] 60 mg PO BID #0 05/14/11 10/31/18 albuterol sulfate [ProAir HFA] 1 puff INHALATION BID 10/31/18 10/31/18 iwrqhdatzq-rvvnqhqovuluy-htpr 1 tab PO BID PRN 10/31/18 10/31/18 dapsone 100 mg PO DAILY 10/31/18 10/31/18 diclofenac sodium [Voltaren] 1 applic TOPICAL PRN PRN 10/31/18 10/31/18 fluticasone propion-salmeterol 1 puff INHALATION BID 10/31/18 10/31/18 [Advair Diskus] fluticasone propionate 1 spray INTRANASAL DAILY 10/31/18 10/31/18 gabapentin 900 mg PO TID 10/31/18 10/31/18 glipizide 5 mg PO DAILY 10/31/18 10/31/18 hydroxyzine pamoate 50 mg PO DAILY 10/31/18 10/31/18 levothyroxine 300 mcg PO DAILY 10/31/18 10/31/18 methadone 145 mg PO DAILY 10/31/18 10/31/18 omeprazole 40 mg PO BID 10/31/18 10/31/18 prednisone 1 dose PO DIRECTED 10/31/18 10/31/18 quetiapine 300 mg PO QPM 10/31/18 10/31/18 Allergies Allergy/AdvReac Type Severity Reaction Status Date / Time levofloxacin [LEVOFLOXACIN] Allergy Unknown Verified 01/26/18 22:59 Penicillins [PENICILLINS] Allergy Unknown Verified 01/26/18 22:59 Sulfa (Sulfonamide Allergy Unknown Verified 01/26/18 22:59 Antibiotics) [SULFA (SULFONAMIDE ANTIBIOTICS)] trimethoprim [TRIMETHOPRIM] Allergy Unknown Verified 01/26/18 22:59 Review of Systems Constitutional Denies chills, Denies fever(s), Denies lethargy and Denies weakness Eyes Denies change in vision, Denies eye discharge, Denies irritation and Denies loss of vision ENT Ears, Nose, Mouth, and Throat: Denies change in voice, Denies neck pain and Denies sore throat Cardiovascular Denies chest pain, Denies irregular heart rhythm, Denies lightheadedness, Denies palpitations, Reports dyspnea, Reports dyspnea on exertion and Denies orthopnea Respiratory Reports cough, Reports dyspnea, Reports dyspnea on exertion and Denies wheezing Gastrointestinal Gastrointestinal: Denies abdominal pain, Denies change in bowel habits, Denies diarrhea, Denies nausea and Denies vomiting Genitourinary Denies hematuria, Denies flank pain, Denies urinary incontinence and Denies urinary urgency Musculoskeletal Denies neck pain Integumentary/Breasts Denies pruritus, Denies erythema, Denies rash and Denies wounds Neurologic Denies confusion, Denies loss of vision and Denies weakness Psychiatric Denies anxiety, Denies confusion, Denies depression, Denies homicidal ideation a nd Denies suicidal ideation Endocrine Denies palpitations Hematologic/Lymphatic Denies easy bruising Allergic/Immunologic Denies wheezing PFSH Social History Smoking Status: Current every day smoker Social History Smoking Status: Current every day smoker Exam Narrative Exam Narrative: GENERAL: 43F severely ill, morbidly obese in respiratory distress HEAD: Atraumatic. Normocephalic. No temporal or scalp tenderness. EYES: Pupils equal round and reactive. Extraocular motions intact. No scleral icterus. No injection or drainage. ENT: Nose without bleeding, purulent drainage or septal hematoma. Throat without erythema, tonsillar hypertrophy or exudate. Uvula midline. Airway patent. NECK: Trachea midline. No JVD or lymphadenopathy. Supple, nontender, no meningeal signs. CARDIOVASCULAR: Regular rate and rhythm without murmurs, gallops, or rubs. RESPIRATORY: Decreased breath sounds bilaterally with prolonged expiratory p hase, crackles throughout and expiratory wheeze GASTROINTESTINAL: Abdomen soft, non-tender, nondistended. No hepato- splenomegaly, or palpable masses. No guarding. EXTREMITIES: No clubbing, cyanosis, or edema. No joint tenderness, effusion, or edema noted. BACK: Nontender without deformity or crepitance. No flank tenderness. NEURO: AOx3. SKIN: No rash or erythema. Initial Vital Signs Initial Vital Signs: Vital Signs Temperature 98.1 F 10/31/18 08:16 Pulse Rate 102 H 10/31/18 08:16 Respiratory Rate 24 10/31/18 08:16 Blood Pressure 91/65 10/31/18 08:16 Pulse Oximetry 82 L 10/31/18 08:16 Course Course Narrative: sepsis considered a possibility on arrival. Patient pancultured, respiratory panel ordered. Records requested from [facility] Patient met criteria for severe sepsis at 8:34 a.m. with lactate of 5.2. Fluid bolus of 30 cc/kilogram initiated Orders Ordered: ED Orders 10/31/18 08:12 XR chest 1V Stat 10/31/18 08:34 B Type Natriuretic Peptide Stat Complete Blood Count AUTO DIFF Stat Comprehensive Metabolic Panel Stat Lactate (Lactic Acid) Stat Procalcitonin Stat Respiratory Panel (Film Array) Stat Troponin & CK Cardiac Panel Stat 10/31/18 08:37 Arterial Blood Gas Stat 10/31/18 09:03 Blood Culture Stat 10/31/18 09:40 UA Complete [Urinalysis and Microscopic] Stat 10/31/18 09:57 CT angio chest PE protocol Stat 10/31/18 10:40 Lactate 2HR (Lactic Acid Rflx) Stat 10/31/18 11:49 Arterial Blood Gas Stat 10/31/18 15:06 Lactate 2HR (Lactic Acid Rflx) Stat Discontinued Medications Aztreonam 1 gm/ Dextrose 50 mls @ 100 mls/hr IV NOW ONE Stop: 10/31/18 08:53 Last Infusion: 10/31/18 09:58 Dose: 0 mls/hr Admin: 10/31/18 09:21 Dose: 100 mls/hr Azithromycin 500 mg/ Dextrose 250 mls @ 250 mls/hr IV NOW ONE Stop: 10/31/18 08:54 Last Infusion: 10/31/18 11:19 Dose: 0 mls/hr Admin: 10/31/18 10:12 Dose: 250 mls/hr Sodium Chloride (Normal Saline 0.9%) 3,742.14 mls @ 1,247.38 mls/hr 30 ml/kg infuse over 3 hr (3742.14 ml) IV NOW ONE Stop: 10/31/18 12:07 Last Infusion: 10/31/18 12:19 Dose: 0 mls/hr Admin: 10/31/18 09:20 Dose: 1,247.38 mls/hr Methylprednisolone (Solu-Medrol 125 Mg Vial) 125 mg IV NOW ONE Stop: 10/31/18 08:42 Last Admin: 10/31/18 08:52 Dose: 125 mg Reevaluation(s) Reevaluation #1: patient beginning to decompensate, some mental status change and sats are now in the low 80s. I have called for BiPAP patient doing quite well on BiPap, will not need intubation. [facility] can transport BiPap. Awaiting bed assignement Time: 11:04 Consultations Consultation #1: With just received a call back from [facility] and given clinical information to the transfer center. Images have been pushed Dr. Banuelos ([facility]) consulted and he agrees patient will require transfer. Will accept patient, will call back with bed assignment Time: 11:04 Consultation #2: call back from [facility]. We can now activate [facility], they have a bed Time: 15:37 Vital Signs - 8 hr 10/31/18 08:16 10/31/18 08:30 10/31/18 09:18 Temperature 98.1 F Pulse Rate 102 H 102 H 94 H Respiratory Rate 24 22 22 Blood Pressure 91/65 Blood Pressure [Left Arm] 101/57 L 119/64 Pulse Oximetry 82 L 91 90 L 10/31/18 09:43 10/31/18 09:51 10/31/18 10:18 Temperature Pulse Rate 97 H 95 H 88 Respiratory Rate 22 20 Blood Pressure Blood Pressure [Left Arm] 104/79 112/69 116/60 Pulse Oximetry 97 94 87 L 10/31/18 10:54 10/31/18 11:10 10/31/18 11:30 Temperature Pulse Rate 91 H 87 Respiratory Rate 22 Blood Pressure 109/79 Blood Pressure [Left Arm] 103/67 104/76 Pulse Oximetry 81 L 99 10/31/18 11:39 10/31/18 11:43 10/31/18 12:19 Temperature Pulse Rate 91 H 90 15 L Respiratory Rate 18 15 Blood Pressure Blood Pressure [Left Arm] 108/64 108/64 124/103 H Pulse Oximetry 96 99 89 L 10/31/18 12:48 10/31/18 13:30 10/31/18 14:15 Temperature Pulse Rate 89 89 84 Respiratory Rate 18 20 12 Blood Pressure Blood Pressure [Left Arm] 130/90 124/106 H 118/76 Pulse Oximetry 91 94 94 10/31/18 14:36 10/31/18 15:21 Temperature Pulse Rate 82 70 Respiratory Rate 11 L 9 L Blood Pressure Blood Pressure [Left Arm] 112/73 115/59 L Pulse Oximetry 95 88 L MDM - SOB/Dyspnea Lab Data Result diagrams: 10/31/18 08:34 10/31/18 08:34 Lab Results 10/31/18 10/31/18 10/31/18 Range/Units 08:34 08:34 08:34 WBC (4.5-11.0) X10^3/uL RBC (4.0-5.2) X10^6/uL Hgb (12.0-16.0) g/dL Hct (36-46) % MCV (80-100) fL MCH (26-34) PG MCHC (30-36) % RDW (11.6-14.8) % Plt Count (150-400) X10^3/uL Neut % (Auto) (50-75) % Lymph % (Auto) (25-40) % [place] % (Auto) (3-14) % Eos % (Auto) (2-4) % Baso % (Auto) (0-2) % Neut # (Auto) (6015-8179) /uL Lymph # (Auto) (1060-0012) /uL [place] # (Auto) (0-900) /uL Eos # (Auto) (0-450) /uL Baso # (Auto) (0-100) /uL ABG pH (7.35-7.45) ABG pCO2 (35-45) mmHg ABG pO2 (80-100) mmHg ABG HCO3 (22-26) mmol/L ABG Total CO2 (21-31) mmol/L ABG O2 Saturation (95-100) % ABG Base Excess (-2-2) mmol/L FiO2 Sodium (137-145) mmol/L Potassium (3.4-5.1) mmol/L Chloride (98-107) mmol/L Carbon Dioxide (22-32) mmol/L BUN (7-17) mg/dL Creatinine (0.52-1.04) mg/dL Estimated GFR (>60) mL/min BUN/Creatinine Ratio (6-22) Glucose (70-100) mg/dL Lactate (0.7-2.1) mmol/L Calcium (8.4-10.2) mg/dL Total Bilirubin (0.2-1.3) mg/dL AST (14-36) IU/L ALT (9-52) IU/L Alkaline Phosphatase (38-126) U/L Total Creatine Kinase 96 (30-135) U/L CK-MB (CK-2) TNP CK-MB (CK-2) Rel Index TNP Troponin I < 0.012 (0.01-0.034) ng/mL B-Natriuretic Peptide 153 H (<100) Total Protein (6.3-8.2) g/dL Albumin (3.5-5.0) g/dL Globulin (1.7-4.1) g/dL Albumin/Globulin Ratio (1.0-2.8) Procalcitonin (<0.5) ng/mL Urine Color Urine Appearance Urine pH (4.5-8.0) Ur Specific Boaz (1.000-1.035) Urine Protein (Negative) Urine Glucose (UA) (Negative) g/dL Urine Ketones (NEGATIVE) Urine Occult Blood (Negative) Urine Nitrate (Negative) Urine Bilirubin (NEGATIVE) Urine Urobilinogen (0.2) E.U./dL Ur Leukocyte Esterase (NEGATIVE) Urine RBC (0-5/HPF) Urine WBC (0-5/HPF) Ur Squamous Epith Cells (0-5/HPF) Urine Bacteria (None) Ur Culture Indicated? Chlamy pneumoniae PCR Not detected (Not Detect) Adenovirus (PCR) Not detected (Not Detect) B.parapertussis DNA PCR Not detected (Not Detect) Coronavirus OC43 (PCR) Not detected (Not Detect) Coronavirus HKU1 (PCR) Not detected (Not Detect) Coronavirus 229E (PCR) Not detected (Not Detect) Coronavirus NL63 (PCR) Not detected (Not Detect) Human Metapneumovir PCR Not detected (Not Detect) Influenza Type A (PCR) Not detected (Not Detect) Influenza Type B (PCR) Not detected (Not Detect) M. pneumoniae (PCR) Not detected (Not Detect) Parainfluenza 1 (PCR) Not detected (Not Detect) Parainfluenza 2 (PCR) Not detected (Not Detect) Parainfluenza 3 (PCR) Not detected (Not Detect) Parainfluenza 4 (PCR) Not detected (Not Detect) RSV (PCR) Not detected (Not Detect) Entero/Rhino (PCR) Not detected (Not Detect) 10/31/18 10/31/18 10/31/18 Range/Units 08:34 08:34 08:34 WBC 16.0 H (4.5-11.0) X10^3/uL RBC 4.16 (4.0-5.2) X10^6/uL Hgb 10.2 L (12.0-16.0) g/dL Hct 32.5 L (36-46) % MCV 78.0 L (80-100) fL MCH 24.4 L (26-34) PG MCHC 31.3 (30-36) % RDW 20.0 H (11.6-14.8) % Plt Count 402 H (150-400) X10^3/uL Neut % (Auto) 88.0 H (50-75) % Lymph % (Auto) 8.2 L (25-40) % [place] % (Auto) 2.6 L (3-14) % Eos % (Auto) 0.2 L (2-4) % Baso % (Auto) 1.0 (0-2) % Neut # (Auto) 51850 H (2227-8811) /uL Lymph # (Auto) 1300 (7332-8529) /uL [place] # (Auto) 400 (0-900) /uL Eos # (Auto) 0 (0-450) /uL Baso # (Auto) 200 H (0-100) /uL ABG pH (7.35-7.45) ABG pCO2 (35-45) mmHg ABG pO2 (80-100) mmHg ABG HCO3 (22-26) mmol/L ABG Total CO2 (21-31) mmol/L ABG O2 Saturation (95-100) % ABG Base Excess (-2-2) mmol/L FiO2 Sodium 137 (137-145) mmol/L Potassium 4.0 (3.4-5.1) mmol/L Chloride 100 (98-107) mmol/L Carbon Dioxide 24 (22-32) mmol/L BUN 18 H (7-17) mg/dL Creatinine 0.80 (0.52-1.04) mg/dL Estimated GFR > 60.0 (>60) mL/min BUN/Creatinine Ratio 22.5 H (6-22) Glucose 197 H (70-100) mg/dL Lactate (0.7-2.1) mmol/L Calcium 9.0 (8.4-10.2) mg/dL Total Bilirubin 0.7 (0.2-1.3) mg/dL AST 58 H (14-36) IU/L ALT 23 (9-52) IU/L Alkaline Phosphatase 112 (38-126) U/L Total Creatine Kinase (30-135) U/L CK-MB (CK-2) CK-MB (CK-2) Rel Index Troponin I (0.01-0.034) ng/mL B-Natriuretic Peptide (<100) Total Protein 6.5 (6.3-8.2) g/dL Albumin 3.4 L (3.5-5.0) g/dL Globulin 3.1 (1.7-4.1) g/dL Albumin/Globulin Ratio 1.1 (1.0-2.8) Procalcitonin 2.17 H (<0.5) ng/mL Urine Color Urine Appearance Urine pH (4.5-8.0) Ur Specific Boaz (1.000-1.035) Urine Protein (Negative) Urine Glucose (UA) (Negative) g/dL Urine Ketones (NEGATIVE) Urine Occult Blood (Negative) Urine Nitrate (Negative) Urine Bilirubin (NEGATIVE) Urine Urobilinogen (0.2) E.U./dL Ur Leukocyte Esterase (NEGATIVE) Urine RBC (0-5/HPF) Urine WBC (0-5/HPF) Ur Squamous Epith Cells (0-5/HPF) Urine Bacteria (None) Ur Culture Indicated? Chlamy pneumoniae PCR (Not Detect) Adenovirus (PCR) (Not Detect) B.parapertussis DNA PCR (Not Detect) Coronavirus OC43 (PCR) (Not Detect) Coronavirus HKU1 (PCR) (Not Detect) Coronavirus 229E (PCR) (Not Detect) Coronavirus NL63 (PCR) (Not Detect) Human Metapneumovir PCR (Not Detect) Influenza Type A (PCR) (Not Detect) Influenza Type B (PCR) (Not Detect) M. pneumoniae (PCR) (Not Detect) Parainfluenza 1 (PCR) (Not Detect) Parainfluenza 2 (PCR) (Not Detect) Parainfluenza 3 (PCR) (Not Detect) Parainfluenza 4 (PCR) (Not Detect) RSV (PCR) (Not Detect) Entero/Rhino (PCR) (Not Detect) 10/31/18 10/31/18 10/31/18 Range/Units 08:34 08:37 09:40 WBC (4.5-11.0) X10^3/uL RBC (4.0-5.2) X10^6/uL Hgb (12.0-16.0) g/dL Hct (36-46) % MCV (80-100) fL MCH (26-34) PG MCHC (30-36) % RDW (11.6-14.8) % Plt Count (150-400) X10^3/uL Neut % (Auto) (50-75) % Lymph % (Auto) (25-40) % [place] % (Auto) (3-14) % Eos % (Auto) (2-4) % Baso % (Auto) (0-2) % Neut # (Auto) (5380-0923) /uL Lymph # (Auto) (7712-5468) /uL [place] # (Auto) (0-900) /uL Eos # (Auto) (0-450) /uL Baso # (Auto) (0-100) /uL ABG pH 7.38 (7.35-7.45) ABG pCO2 39.1 (35-45) mmHg ABG pO2 73 L (80-100) mmHg ABG HCO3 23 (22-26) mmol/L ABG Total CO2 24 (21-31) mmol/L ABG O2 Saturation 94 L (95-100) % ABG Base Excess -2.0 (-2-2) mmol/L FiO2 100 Sodium (137-145) mmol/L Potassium (3.4-5.1) mmol/L Chloride (98-107) mmol/L Carbon Dioxide (22-32) mmol/L BUN (7-17) mg/dL Creatinine (0.52-1.04) mg/dL Estimated GFR (>60) mL/min BUN/Creatinine Ratio (6-22) Glucose (70-100) mg/dL Lactate 5.2 H (0.7-2.1) mmol/L Calcium (8.4-10.2) mg/dL Total Bilirubin (0.2-1.3) mg/dL AST (14-36) IU/L ALT (9-52) IU/L Alkaline Phosphatase (38-126) U/L Total Creatine Kinase (30-135) U/L CK-MB (CK-2) CK-MB (CK-2) Rel Index Troponin I (0.01-0.034) ng/mL B-Natriuretic Peptide (<100) Total Protein (6.3-8.2) g/dL Albumin (3.5-5.0) g/dL Globulin (1.7-4.1) g/dL Albumin/Globulin Ratio (1.0-2.8) Procalcitonin (<0.5) ng/mL Urine Color Yellow Urine Appearance Clear Urine pH 5.0 (4.5-8.0) Ur Specific Boaz >=1.030 H (1.000-1.035) Urine Protein 1+ H (Negative) Urine Glucose (UA) Negative (Negative) g/dL Urine Ketones Negative (NEGATIVE) Urine Occult Blood Negative (Negative) Urine Nitrate Negative (Negative) Urine Bilirubin Negative (NEGATIVE) Urine Urobilinogen 1.0 (0.2) E.U./dL Ur Leukocyte Esterase Negative (NEGATIVE) Urine RBC None seen (0-5/HPF) Urine WBC None seen (0-5/HPF) Ur Squamous Epith Cells >30 /hpf H (0-5/HPF) Urine Bacteria Moderate (10-30) H (None) Ur Culture Indicated? Cult not indicated Chlamy pneumoniae PCR (Not Detect) Adenovirus (PCR) (Not Detect) B.parapertussis DNA PCR (Not Detect) Coronavirus OC43 (PCR) (Not Detect) Coronavirus HKU1 (PCR) (Not Detect) Coronavirus 229E (PCR) (Not Detect) Coronavirus NL63 (PCR) (Not Detect) Human Metapneumovir PCR (Not Detect) Influenza Type A (PCR) (Not Detect) Influenza Type B (PCR) (Not Detect) M. pneumoniae (PCR) (Not Detect) Parainfluenza 1 (PCR) (Not Detect) Parainfluenza 2 (PCR) (Not Detect) Parainfluenza 3 (PCR) (Not Detect) Parainfluenza 4 (PCR) (Not Detect) RSV (PCR) (Not Detect) Entero/Rhino (PCR) (Not Detect) 10/31/18 10/31/18 10/31/18 Range/Units 10:40 11:49 15:06 WBC (4.5-11.0) X10^3/uL RBC (4.0-5.2) X10^6/uL Hgb (12.0-16.0) g/dL Hct (36-46) % MCV (80-100) fL MCH (26-34) PG MCHC (30-36) % RDW (11.6-14.8) % Plt Count (150-400) X10^3/uL Neut % (Auto) (50-75) % Lymph % (Auto) (25-40) % [place] % (Auto) (3-14) % Eos % (Auto) (2-4) % Baso % (Auto) (0-2) % Neut # (Auto) (5097-6572) /uL Lymph # (Auto) (0603-9468) /uL [place] # (Auto) (0-900) /uL Eos # (Auto) (0-450) /uL Baso # (Auto) (0-100) /uL ABG pH 7.31 L (7.35-7.45) ABG pCO2 43.6 (35-45) mmHg ABG pO2 163 H (80-100) mmHg ABG HCO3 22 (22-26) mmol/L ABG Total CO2 23 (21-31) mmol/L ABG O2 Saturation 99 (95-100) % ABG Base Excess -4.0 L (-2-2) mmol/L FiO2 100 Sodium (137-145) mmol/L Potassium (3.4-5.1) mmol/L Chloride (98-107) mmol/L Carbon Dioxide (22-32) mmol/L BUN (7-17) mg/dL Creatinine (0.52-1.04) mg/dL Estimated GFR (>60) mL/min BUN/Creatinine Ratio (6-22) Glucose (70-100) mg/dL Lactate 5.2 H 2.6 H (0.7-2.1) mmol/L Calcium (8.4-10.2) mg/dL Total Bilirubin (0.2-1.3) mg/dL AST (14-36) IU/L ALT (9-52) IU/L Alkaline Phosphatase (38-126) U/L Total Creatine Kinase (30-135) U/L CK-MB (CK-2) CK-MB (CK-2) Rel Index Troponin I (0.01-0.034) ng/mL B-Natriuretic Peptide (<100) Total Protein (6.3-8.2) g/dL Albumin (3.5-5.0) g/dL Globulin (1.7-4.1) g/dL Albumin/Globulin Ratio (1.0-2.8) Procalcitonin (<0.5) ng/mL Urine Color Urine Appearance Urine pH (4.5-8.0) Ur Specific Boaz (1.000-1.035) Urine Protein (Negative) Urine Glucose (UA) (Negative) g/dL Urine Ketones (NEGATIVE) Urine Occult Blood (Negative) Urine Nitrate (Negative) Urine Bilirubin (NEGATIVE) Urine Urobilinogen (0.2) E.U./dL Ur Leukocyte Esterase (NEGATIVE) Urine RBC (0-5/HPF) Urine WBC (0-5/HPF) Ur Squamous Epith Cells (0-5/HPF) Urine Bacteria (None) Ur Culture Indicated? Chlamy pneumoniae PCR (Not Detect) Adenovirus (PCR) (Not Detect) B.parapertussis DNA PCR (Not Detect) Coronavirus OC43 (PCR) (Not Detect) Coronavirus HKU1 (PCR) (Not Detect) Coronavirus 229E (PCR) (Not Detect) Coronavirus NL63 (PCR) (Not Detect) Human Metapneumovir PCR (Not Detect) Influenza Type A (PCR) (Not Detect) Influenza Type B (PCR) (Not Detect) M. pneumoniae (PCR) (Not Detect) Parainfluenza 1 (PCR) (Not Detect) Parainfluenza 2 (PCR) (Not Detect) Parainfluenza 3 (PCR) (Not Detect) Parainfluenza 4 (PCR) (Not Detect) RSV (PCR) (Not Detect) Entero/Rhino (PCR) (Not Detect) Imaging Data CT scan - chest: Radiologist's impression: Patient: Carissa Gallardo RMR#: [id number] : 1975Acct:[id number] Age/Sex: 43 / FDate of Service: 10/31/18 Loc: ED Accession Number: [id number] Procedure: CT angio chest PE protocol Ordering Provider: Yadiel Bernal D.O. PROCEDURE: CT ANGIO CHEST PE PROTOCOL INDICATIONS: sudden hypoxia, chronic illness, recent prolonged admission TECHNIQUE: After the administration of intravenous contrast, 2 mm thick sections acquired from the pulmonary apices to the posterior costophrenic angles. 3-dimensional maximum intensity projection (MIP) coronal and sagittal reformats were then acquired through the thorax. For radiation dose reduction, the following was used: automated exposure control, adjustment of mA and/or kV according to patient size. COMPARISON: [facility], CT, CHEST HI-RESOLUTION, 11/28/2010, 17:02. [facility], CR, XR CHEST 2V, 01/26/2018, 22:31. [facility], CR, XR CHEST 1V, 10/31/2018, 8:32. FINDINGS: Image quality: Excellent. Pulmonary arteries: Pulmonary arteries are normal in size, and demonstrate no intraluminal filling defects to suggest central pulmonary embolism. Lungs and pleura: There are severe, widespread ill-defined patchy consolidative and diffuse groundglass opacities. In some areas possible crazy paving appearance. No definite focal consolidation. 8mm nodule seen within the right middle lobe on image 25 series 5. No pleural effusions or pneumothorax. Central and peripheral airways are patent. Mediastinum: Heart size is normal, without pericardial effusion. Mildly enlarged diffuse mediastinal or hilar adenopathy. Thoracic aorta is normal in caliber and enhancement. Esophagus is normal in caliber, without hiatal hernia. Bones and chest wall: No suspicious bony lesions. Ribs and thoracic spine appear intact throughout. Thyroid gland grossly unremarkable. No axillary or supraclavicular adenopathy. Abdomen: Visualized upper abdominal solid organs appear normal in the early arterial phase of enhancement. IMPRESSION: No evidence of pulmonary embolism. Severe extensive bilateral upper and lower lobe patchy consolidative and diffuse groundglass opacities. Findings raise possibility of atypical/viral pneumonia, potentially other inflammatory possibilities such as cryptogenic organizing pneumonia. Given the diffuse groundglass appearance, other statistically much less likely possibility such as pneumocystis infection versus pulmonary alveolar proteinosis, or chronic interstitial lung disease in the differential. Recommend close clinical correlation, and pulmonology consultation if not already performed. Widespread bilateral hilar and mediastinal lymphadenopathy of unknown age or clinical significance. Nonspecific 8 mm pulmonary nodule involving the right middle lobe. If clinically warranted followup with repeat noncontrast chest CT and 3 months to exclude malignant/metastatic possibilities (which would be unusual in this age demographic). Findings personally telephoned and discussed with Dr. Bernal in the emergency department at the time of study dictation. Dictated by: Tobias Rojas M.D. on 10/31/2018 at 10:21 Approved by: Tobias Rojas M.D. on 10/31/2018 at 10:36 Critical Care Time Critical Care Time: Yes Total Critical Care Time: 60 Attestation: The high probability of a clinically significant, sudden or life threatening deterioration of the respiratory[] system(s) required my full and direct attention, intervention and personal management. The aggregate critical care time was [60] minutes. This time is in addition to time spent performing reported procedures but includes the following: [x] Data Review and interpretation [x] Patient assessment and monitoring of vital signs [x] Documentation [x] Medication orders and management Discharge Plan Departure Patient Disposition: [facility] Clinical Impression: Acute and chronic respiratory failure with hypoxia, Severe sepsis Pneumonia Qualifiers: Pneumonia type: due to unspecified organism Laterality: bilateral Lung location: unspecified part of lung Qualified Code(s): J18.9 - Pneumonia, unspecified organism Prescriptions: No Action duloxetine [Cymbalta] 60 MG capsule,delayed release(DR/EC) 60 mg PO BID Qty: 0 RF: 0 Excedrin Extra Strength 250-250-65 mg Tablet 1 tab PO PRN PRN (Reason: PAIN OR HEADACHE) Qty: 0 RF: 0 fluticasone propion-salmeterol [Advair Diskus] 250-50 mcg/dose blister with device 1 puff Inhalation BID RF: 0 quetiapine 300 mg tablet 300 mg PO QPM RF: 0 levothyroxine 300 mcg tablet 300 mcg PO DAILY RF: 0 prednisone 20 mg tablet 1 dose PO DIRECTED RF: 0 hydroxyzine pamoate 50 mg capsule 50 mg PO DAILY RF: 0 omeprazole 40 mg capsule,delayed release(DR/EC) 40 mg PO BID RF: 0 rlxjtgpmpw-jhnuspjarwvaw-ppdp 50-325-40 mg tablet 1 tab PO BID PRN (Reason: headache) RF: 0 dapsone 100 mg tablet 100 mg PO DAILY RF: 0 gabapentin 300 mg capsule 900 mg PO TID RF: 0 albuterol sulfate [ProAir HFA] 90 mcg/actuation HFA aerosol inhaler 1 puff Inhalation BID RF: 0 fluticasone propionate 50 mcg/actuation spray,suspension 1 spray Intranasal DAILY RF: 0 glipizide 5 mg tablet 5 mg PO DAILY RF: 0 diclofenac sodium [Voltaren] 1 % gel 1 applic topical PRN PRN (Reason: pain) RF: 0 methadone 10 mg Tablet 145 mg PO DAILY RF: 0 Referrals: Alex Montoya MD [Primary Care Provider] -
[2018-10-31 09:11] LABS: Troponin I < 0.012 ng/mL (0.01-0.034)
[2018-10-31 09:12] LABS: B Type Natriuretic Peptide 153 (<100)
--- NOTE | 2018-10-31 09:16 | PC.NURSE ---
Assisted pt on the bedside commode and back to bed, with exertion, pt desat to 70's with NRB.
[2018-10-31] MEDS: SODIUM CHLORIDE 0.9% 1247.38 ML IV (09:20)
[2018-10-31] MEDS: AZTREONAM 1 GM in DEXTROSE 5 % IN WATER 50 ML 100 ML IV (09:21)
[2018-10-31 09:24] LABS: Procalcitonin 2.17 ng/mL (<0.5)
--- NOTE | 2018-10-31 09:57 | DI.CT.S_ITS ---
PROCEDURE: CT ANGIO CHEST PE PROTOCOL INDICATIONS: sudden hypoxia, chronic illness, recent prolonged admission TECHNIQUE: After the administration of intravenous contrast, 2 mm thick sections acquired from the pulmonary apices to the posterior costophrenic angles. 3-dimensional maximum intensity projection (MIP) coronal and sagittal reformats were then acquired through the thorax. For radiation dose reduction, the following was used: automated exposure control, adjustment of mA and/or kV according to patient size. COMPARISON: [facility], CT, CHEST HI-RESOLUTION, 11/28/2010, 17:02. [facility], CR, XR CHEST 2V, 01/26/2018, 22:31. [facility], CR, XR CHEST 1V, 10/31/2018, 8:32. FINDINGS: Image quality: Excellent. Pulmonary arteries: Pulmonary arteries are normal in size, and demonstrate no intraluminal filling defects to suggest central pulmonary embolism. Lungs and pleura: There are severe, widespread ill-defined patchy consolidative and diffuse groundglass opacities. In some areas possible crazy paving appearance. No definite focal consolidation. 8mm nodule seen within the right middle lobe on image 25 series 5. No pleural effusions or pneumothorax. Central and peripheral airways are patent. Mediastinum: Heart size is normal, without pericardial effusion. Mildly enlarged diffuse mediastinal or hilar adenopathy. Thoracic aorta is normal in caliber and enhancement. Esophagus is normal in caliber, without hiatal hernia. Bones and chest wall: No suspicious bony lesions. Ribs and thoracic spine appear intact throughout. Thyroid gland grossly unremarkable. No axillary or supraclavicular adenopathy. Abdomen: Visualized upper abdominal solid organs appear normal in the early arterial phase of enhancement. IMPRESSION: No evidence of pulmonary embolism. Severe extensive bilateral upper and lower lobe patchy consolidative and diffuse groundglass opacities. Findings raise possibility of atypical/viral pneumonia, potentially other inflammatory possibilities such as cryptogenic organizing pneumonia. Given the diffuse groundglass appearance, other statistically much less likely possibility such as pneumocystis infection versus pulmonary alveolar proteinosis, or chronic interstitial lung disease in the differential. Recommend close clinical correlation, and pulmonology consultation if not already performed. Widespread bilateral hilar and mediastinal lymphadenopathy of unknown age or clinical significance. Nonspecific 8 mm pulmonary nodule involving the right middle lobe. If clinically warranted followup with repeat noncontrast chest CT and 3 months to exclude malignant/metastatic possibilities (which would be unusual in this age demographic). Findings personally telephoned and discussed with Dr. Bernal in the emergency department at the time of study dictation. Dictated by: Tobias Rojas M.D. on 10/31/2018 at 10:21 Approved by: Tobias Rojas M.D. on 10/31/2018 at 10:36
[2018-10-31 10:12] LABS: Adenovirus Not Detected (Not Detect); Bordetella pertussis Not Detected (Not Detect); Chlamydophila pneumoniae Not Detected (Not Detect); Coronavirus 229E Not Detected (Not Detect); Coronavirus HKU1 Not Detected (Not Detect); Coronavirus NL 63 Not Detected (Not Detect); Coronavirus OC43 Not Detected (Not Detect); Human Metapneumovirus Not Detected (Not Detect); Human Rhinovirus/Enterovirus Not Detected (Not Detect); Influenza A Not Detected (Not Detect); Influenza B Not Detected (Not Detect); Mycoplasma pneumoniae Not Detected (Not Detect); Parainfluenza Virus 1 Not Detected (Not Detect); Parainfluenza Virus 2 Not Detected (Not Detect); Parainfluenza Virus 3 Not Detected (Not Detect); Parainfluenza Virus 4 Not Detected (Not Detect); Respiratory Syncytial Virus Not Detected (Not Detect)
[2018-10-31] MEDS: AZITHROMYCIN 500 MG in DEXTROSE 5% IN WATER 250 ML IV (10:12)
[2018-10-31 10:40] LABS: Reflexed Lactate in 2 Hours Y
--- NOTE | 2018-10-31 10:57 | PC.NURSE ---
pt's lung sound increased coarse and appears to be more frequently sleepy but easily aroused from sleep. O2 sat to 80-83% on NRB,>15L at this time. Informed DR. Bernal and RT.
[2018-10-31 11:02] LABS: Appearance Urine UA CLEAR; Bilirubin Urine UA NEGATIVE (NEGATIVE); Color Urine UA YELLOW; Glucose Urine UA NEGATIVE (Negative); Ketones Urine UA NEGATIVE (NEGATIVE); Leukocyte Esterase Urine UA NEGATIVE (NEGATIVE); Nitrite Urine UA NEGATIVE (Negative); Occult Blood Urine UA NEGATIVE (Negative); Protein Urine UA 1+ (Negative); Specific Gravity Urine UA >=1.030 (1.000-1.035)
[2018-10-31 11:03] LABS: RBC Urine None Seen (0-5/HPF); WBC Urine None Seen (0-5/HPF)
[2018-10-31 11:11] LABS: Lactate 2HR (Lactic Acid Rflx) 5.2 mmol/L (0.7-2.1)
[2018-10-31 11:11] LABS: Bacteria Urine Moderate (10-30); Culture Indicated Urine Cult Not Indicated; Squamous Epithelial Cell Urine >30 /HPF (0-5/HPF)
--- NOTE | 2018-10-31 11:20 | PC.NURSE ---
Bipap started per RTs at bedside and pt tolerating this well. O2 sat increased to 100%. Setting managed by RTs.
[2018-10-31 12:11] LABS: HCO3 ABG 22 mmol/L (22-26); Oxygen Saturation ABG 99 % (95-100); PCO2 ABG 43.6 mmHg (35-45); PO2 ABG 163 mmHg (80-100); TCO2 ABG 23 mmol/L (21-31); pH ABG 7.31 (7.35-7.45)
[2018-10-31 12:12] LABS: Fractionated Inspired Oxygen 100
--- NOTE | 2018-10-31 12:28 | PC.NURSE ---
Called Respiratory to come back and see patient related to her O2sat was dropping and so he bumped her Bipap up to 85%. Now she is satting around 93%.
[2018-10-31 15:20] LABS: Lactate 2HR (Lactic Acid Rflx) 2.6 mmol/L (0.7-2.1)
--- NOTE | 2018-10-31 15:37 | PC.NURSE ---
Phone report called to SUKI Wang at [address] for direct admit. All questions answered for continuation of care.
== END 2018-10-31 16:27 | disposition short-term general hospital (02) ==
PROVIDERS: Emergency Provider Emergency Medicine; Family Provider Anesthesiology Pain Medicine; PCP Internal Medicine
DX: J96.21 Acute and chronic respiratory failure with hypoxia (principal); A41.9 Sepsis, unspecified organism; J18.9 Pneumonia, unspecified organism
CPT/HCPCS: 36415; 36600; 51701; 71045; 71275; 80053; 81001; 82550; 82805; 83605; 83880; 84145; 84484; 85025; 87040; 87633; 93005; 93010; 94660; 96361; 96365; 96367; 99285; 99291; 99292; J2930; Q9967

== ENCOUNTER 2019-01-11 12:24 | Emergency (ER) | payer MEDICARE, MEDICAID, SELFPAY ==
[2018-10-31 11:30] VITALS: PULSE 88; RESP 19; O2SAT 98
[2019-01-11 12:30] VITALS: BP 122/110; PULSE 114; RESP 33; TEMP 36.6; O2SAT 96
[2019-01-11 13:00] VITALS: BP 129/86; PULSE 108; RESP 12
--- NOTE | 2019-01-11 13:02 | DI.RAD.S_ITS ---
PROCEDURE: XR CHEST 1V INDICATIONS: sob TECHNIQUE: One view of the chest was acquired. COMPARISON: [facility], CR, XR CHEST 2V, 01/26/2018, 22:31. [facility], CR, XR CHEST 1V, 10/31/2018, 8:32. FINDINGS: Surgical changes and devices: None. Lungs and pleura: Moderate chronic appearing interstitial pulmonary opacity. No definite superimposed acute process.. No pleural effusions or pneumothorax. Mediastinum: Mediastinal contours appear normal. Heart size is normal. Bones and chest wall: No suspicious bony lesions. Overlying soft tissues appear unremarkable. IMPRESSION: Moderate chronic interstitial lung disease. No definite acute superimposed process. Dictated by: Gregor Rodriguez M.D. on 01/11/2019 at 13:36 Approved by: Gregor Rodriguez M.D. on 01/11/2019 at 13:36
[2019-01-11 13:37] LABS: Add Manual Diff / Slide Review NO; Basophils Absolute Auto 100 /uL (0-100); Basophils Percent Auto 0.5 % (0-2); Eosinophils Absolute Auto 400 /uL (0-450); Eosinophils Percent Auto 1.9 % (2-4); Hematocrit 31.9 % (36-46); Hemoglobin 9.6 g/dL (12.0-16.0); Lymphocytes Absolute Auto 2300 /uL (1100-4500); Lymphocytes Percent Auto 10.8 % (25-40); Mean Corpuscular HGB Conc 30.2 % (30-36); Mean Corpuscular Hemoglobin 21.8 PG (26-34); Mean Corpuscular Volume 72.4 fL (80-100); Monocytes Absolute Auto 700 /uL (0-900); Monocytes Percent Auto 3.2 % (3-14); Neutrophils Absolute Auto 17500 /uL (1500-7000); Neutrophils Percent Auto 83.6 % (50-75); Platelet Count 400 X10^3/uL (150-400); Red Cell Distribution Width 22.3 % (11.6-14.8)
[2019-01-11 13:47] LABS: Alanine Aminotransferase 29 IU/L (9-52); Albumin 4.6 g/dL (3.5-5.0); Albumin Globulin Ratio 1.5 (1.0-2.8); Alkaline Phosphatase 80 U/L (38-126); Aspartate Aminotransferase 30 IU/L (14-36); BUN Creatinine Ratio 23.3 (6-22); Bilirubin Total 0.4 mg/dL (0.2-1.3); Blood Urea Nitrogen 14 mg/dL (7-17); Calcium 10.1 mg/dL (8.4-10.2); Carbon Dioxide 32 mmol/L (22-32); Chloride 91 mmol/L (98-107); Estimated Glomerular Filt Rate > 60.0 mL/min (>60); Globulin 3.1 g/dL (1.7-4.1); Glucose 212 mg/dL (70-100); HEMOLYSIS < 15 (0-50); Potassium 3.6 mmol/L (3.4-5.1); Sodium 137 mmol/L (137-145); Total Protein 7.7 g/dL (6.3-8.2)
[2019-01-11] MEDS: SODIUM CHLORIDE 0.9% 1,000 ML 500 ML IV (13:50)
[2019-01-11 14:00] VITALS: BP 106/91; PULSE 110; RESP 19; O2SAT 93
[2019-01-11 14:00] LABS: B Type Natriuretic Peptide < 100 (<100)
[2019-01-11] MEDS: KETOROLAC 60 MG/2 ML VIAL 30 MG IV (14:20)
[2019-01-11 14:25] LABS: Polychromasia 1+
[2019-01-11 14:26] LABS: Anisocytosis 2+; Hypochromasia 1+
[2019-01-11] MEDS: HYDROMORPHONE 1 MG INJ IV (14:29)
[2019-01-11 14:30] VITALS: BP 113/84; PULSE 110; RESP 26; O2SAT 97
--- NOTE | 2019-01-11 14:34 | DI.CT.S_ITS ---
PROCEDURE: CT CHEST W CON INDICATIONS: shortness of breath TECHNIQUE: After the administration of intravenous contrast, 5 mm thick sections acquired from the pulmonary apices to the posterior costophrenic angles. 7 mm thick coronal and sagittal MIP reformats were acquired. For radiation dose reduction, the following was used: automated exposure control, adjustment of mA and/or kV according to patient size. COMPARISON: [facility], CR, XR CHEST 1V, 01/11/2019, 14:05. [facility], CT, CT ANGIO CHEST PE PROTOCOL, 10/31/2018, 9:54. FINDINGS: Image quality: Excellent. Lungs and pleura: No acute air space opacities. Moderate chronic interstitial lung disease is present, as seen by same day plain film examination. No pleural effusions or pneumothorax. Central and peripheral airways are patent and normal in caliber. Mediastinum: Heart size is normal. No pericardial effusion. Decreased, a 14 mm short axis subcarinal adenopathy. Decreased, 10 mm short axis bilateral hilar adenopathy. Thoracic aorta and central pulmonary arteries are normal in size. Esophagus is normal in caliber. No hiatal hernia. Bones and chest wall: No suspicious bony lesions. No vertebral body compression fractures. No axillary or supraclavicular adenopathy by size criteria. Thyroid gland is within normal limits. Abdomen: Visualized upper abdominal solid organs appear normal. Upper abdominal bowel loops are normal in caliber. IMPRESSION: 1. No acute process. 2. Moderate chronic interstitial lung disease. 3. Resolving mediastinal and hilar adenopathy. Dictated by: Gregor Rodriguez M.D. on 01/11/2019 at 14:33 Approved by: Gregor Rodirguez M.D. on 01/11/2019 at 14:35
[2019-01-11 16:39] VITALS: BP 121/74; PULSE 119; RESP 21
[2019-01-11] MEDS: OXYCODONE/ACETAMINOPHEN 5/325 TABLET 2 TAB PO (16:53)
[2019-01-11 17:15] VITALS: BP 113/78; PULSE 115; RESP 18; O2SAT 95
--- NOTE | 2019-01-11 19:56 | ED.SOB ---
HPI - SOB/Dyspnea General Chief Complaint: Shortness of Breath/Dyspnea Stated Complaint: SOB with chest pain Source: patient and family Mode of arrival: EMS Limitations: no limitations History of Present Illness Patient comes to the emergency department complaining of shortness of breath after being discharged from [facility] several days ago. She states that she does not think that her oxygen concentrator is giving her enough oxygen. Patient was sent to [facility] after being found to have a complicated pneumonia, and proceeded to have a complicated course including respiratory failure, sepsis, and prolonged ventilator dependence. Patient states that after she was weaned from the ventilator, that respiratory therapy and physical therapy did work with her in the hospital. She also states that the interstate planner worked extensively to set up an outpatient plan for when the patient returned to [facility]. Patient states that she is still in the process of trying to get home health set up, but that her main problem right now is that her oxygen concentrator does not seem to be giving her as much oxygen at the same settings as the wall oxygen she received in the hospital. She states she has a cut the cellular equipment installer set at 5 L, which is what she normally uses at baseline. She states that sometimes after walking or exerting herself, and she has to turn the oxygen up to 6 L. Patient states that even when she turns the oxygen up to 6 L, still does not feel as though she is getting enough oxygen. Patient states she became so short of breath that her boyfriend checked the patient's oxygen saturation, was found to be 70% on her supplemental O2. Boyfriend called EMS, who found the patient initial oxygen level to be 84 on their monitor, but state that her sats quickly radha throughout the ride to the ED. Patient states that now, on our wall oxygen, she feels fine and has no complaints. Patient denies any return of fevers. No worsening cough. No other complaints at this time. Patient does note that her boyfriend is home all the time, and can help her with activities of daily living. Related Data Home Medications Medication Instructions Recorded Confirmed [id number]-[id number] 1 tab PO PRN PRN #0 05/14/11 10/31/18 [Excedrin Extra Strength] duloxetine [Cymbalta] 60 mg PO BID #0 05/14/11 10/31/18 albuterol sulfate [ProAir HFA] 1 puff INHALATION BID 10/31/18 10/31/18 xzqfkluqcu-bhflufwafcbxc-eijr 1 tab PO BID PRN 10/31/18 10/31/18 dapsone 100 mg PO DAILY 10/31/18 10/31/18 diclofenac sodium [Voltaren] 1 applic TOPICAL PRN PRN 10/31/18 10/31/18 fluticasone propion-salmeterol 1 puff INHALATION BID 10/31/18 10/31/18 [Advair Diskus] fluticasone propionate 1 spray INTRANASAL DAILY 10/31/18 10/31/18 gabapentin 900 mg PO TID 10/31/18 10/31/18 glipizide 5 mg PO DAILY 10/31/18 10/31/18 hydroxyzine pamoate 50 mg PO DAILY 10/31/18 10/31/18 levothyroxine 300 mcg PO DAILY 10/31/18 10/31/18 methadone 145 mg PO DAILY 10/31/18 10/31/18 omeprazole 40 mg PO BID 10/31/18 10/31/18 prednisone 1 dose PO DIRECTED 10/31/18 10/31/18 quetiapine 300 mg PO QPM 10/31/18 10/31/18 Allergies Allergy/AdvReac Type Severity Reaction Status Date / Time levofloxacin [LEVOFLOXACIN] Allergy Unknown Verified 01/11/19 12:30 Penicillins [PENICILLINS] Allergy Unknown Verified 01/11/19 12:30 Sulfa (Sulfonamide Allergy Unknown Verified 01/11/19 12:30 Antibiotics) [SULFA (SULFONAMIDE ANTIBIOTICS)] trimethoprim [TRIMETHOPRIM] Allergy Unknown Verified 01/11/19 12:30 morphine AdvReac Gastrointestinal Verified 01/11/19 14:24 Upset Review of Systems Review of Systems ROS Unobtainable: All systems reviewed & are unremarkable except as noted in HPI and below Constitutional Denies chills, Denies fever(s), Denies lethargy and Denies weakness Eyes Denies change in vision, Denies eye discharge, Denies irritation and Denies loss of vision ENT Ears, Nose, Mouth, and Throat: Denies change in voice, Denies neck pain and Denies sore throat Cardiovascular Denies chest pain, Denies irregular heart rhythm, Denies lightheadedness, Denies palpitations, Reports dyspnea, Reports dyspnea on exertion and Denies orthopnea Respiratory Denies cough, Reports dyspnea, Reports dyspnea on exertion and Denies wheezing Gastrointestinal Gastrointestinal: Denies abdominal pain, Denies change in bowel habits, Denies diarrhea, Denies nausea and Denies vomiting Genitourinary Denies hematuria, Denies flank pain, Denies urinary incontinence and Denies urinary urgency Musculoskeletal Denies neck pain Integumentary/Breasts Denies pruritus, Denies erythema, Denies rash and Denies wounds Neurologic Denies confusion, Denies loss of vision and Denies weakness Psychiatric Denies anxiety, Denies confusion, Denies depression, Denies homicidal ideation and Denies suicidal ideation Endocrine Denies palpitations Hematologic/Lymphatic Denies easy bruising Allergic/Immunologic Denies wheezing [facility] Social History Smoking Status: Former smoker Exam Initial Vital Signs Initial Vital Signs: Vital Signs Temperature 97.8 F 01/11/19 12:30 Pulse Rate 114 H 01/11/19 12:30 Respiratory Rate 33 H 01/11/19 12:30 Blood Pressure 122/110 H 01/11/19 12:30 Pulse Oximetry 96 01/11/19 12:30 Const General: cooperative and well developed Nutritional Appearance: well nourished Orientation: alert, awake, oriented x3 and not confused HENMT Head: normocephalic and atraumatic Ears: external ears normal and TM's normal bilaterally Nose: external nose normal and No nasal discharge Face and sinus: sinuses nontender, face symmetric, no sinus tenderness and No dry mucous membranes Mouth: oral mucosae normal and moist mucous membranes Teeth and gingiva: dentition normal Throat: tonsils normal and uvula midline Eyes General: appearance normal, both eyes and all related structures Eyelids: eyelids normal Conjunctivae: conjunctivae normal Sclera: sclerae normal Pupils: PERRL EOM: EOM intact bilaterally Neck Neck: normal visual inspection, trachea midline, No lymphadenopathy, No midline deformity and No JVD Lymphatic: No lymphedema Chest Chest: normal inspection of the chest Resp Effort & Inspection: normal respiratory effort, able to speak in complete sentences, no respiratory distress and no use of accessory muscles Auscultation: clear to auscultation bilaterally, diminished lung sounds (Mild, bilateral), no rhonchi and no wheezes Other: Patient speaks in full sentences without difficulty. Cardio Rate: regular rate Rhythm: regular rhythm Heart Sounds: no click, no gallops, no murmurs and no rubs Pulses: normal peripheral pulses GI Inspection: non-distended Palpation: soft, no hepatosplenomegaly, No guarding, No pulsatile mass and No tender Auscultation: normal bowel sounds Back/Spine/Pelvis Back: No CVA tenderness Cervical Spine: cervical ROM normal and No pain with cervical ROM Thoracic/Lumbar Spine: thoracic and lumbar spine normal to inspection Skin General: no rashes or lesions noted, No jaundice and No petechiae Neuro General: alert, oriented x3, gait normal and no focal motor deficits Speech: speech normal Extrem General: full ROM, no clubbing, cyanosis or edema, no pedal edema and no calf tenderness Psych Appearance: well kempt Mental Status: mental status grossly normal Attitude: cooperative Thought Content: normal and suicidality Judgment: judgment good Course Course Narrative: Patient was placed on her baseline 5 L of oxygen in the emergency department, and found to be feeling much better. She was worked up with labs, EKG, chest x-ray, and ultimately, CT scan of the chest. She was not found to have any further evidence of pneumonia. I felt that the patient's main issue was likely to do with her oxygen concentrator, I did have the respiratory therapist consult, and speak with Tim, who provides the patient's oxygen services. Tim did agree to go and meet the patient at her home after her emergency department visit this evening to provide her with an oxygen setup provide which she eats. Patient was feeling much better, and she was agreeable to the plan of discharge. We have discussed home management of symptoms, as well as the usual indications for return. Orders Ordered: Discontinued Medications Hydromorphone HCl (Dilaudid) 1 mg IV NOW ONE Stop: 01/11/19 14:28 Last Admin: 01/11/19 14:29 Dose: 1 mg Sodium Chloride (Normal Saline 0.9%) 1,000 mls @ 500 mls/hr IV BOLUS ONE Stop: 01/11/19 15:01 Last Infusion: 01/11/19 15:49 Dose: 0 mls/hr Admin: 01/11/19 13:50 Dose: 500 mls/hr Ketorolac Tromethamine (Toradol) 30 mg IV NOW ONE Stop: 01/11/19 14:06 Last Admin: 01/11/19 14:20 Dose: 30 mg Morphine Sulfate (Morphine) 4 mg IV NOW ONE Stop: 01/11/19 14:06 Last Admin: 01/11/19 14:29 Dose: Not Given Oxycodone/Acetaminophen (Percocet 5/325) 2 tab PO NOW ONE Stop: 01/11/19 16:50 Last Admin: 01/11/19 16:53 Dose: 2 tab Vital Signs - 8 hr 01/11/19 12:30 01/11/19 13:00 01/11/19 14:00 Temperature 97.8 F Pulse Rate 114 H 108 H 110 H Respiratory Rate 33 H 12 19 Blood Pressure 122/110 H Blood Pressure [Right Arm] 129/86 106/91 H Pulse Oximetry 96 93 01/11/19 14:30 01/11/19 16:39 01/11/19 17:15 Temperature Pulse Rate 110 H 119 H 115 H Respiratory Rate 26 H 21 18 Blood Pressure 113/78 Blood Pressure [Right Arm] 113/84 121/74 Pulse Oximetry 97 95 MDM - SOB/Dyspnea Medical Records Attestation: I reviewed the patient's medical records. Lab Data Attestation: I reviewed the patient's lab results. Result diagrams: 01/11/19 13:25 01/11/19 13:25 Lab Results 01/11/19 01/11/19 Range/Units 13:25 13:25 WBC 21.0 H (4.5-11.0) X10^3/uL RBC 4.40 (4.0-5.2) X10^6/uL Hgb 9.6 L (12.0-16.0) g/dL Hct 31.9 L (36-46) % MCV 72.4 L (80-100) fL MCH 21.8 L (26-34) PG MCHC 30.2 (30-36) % RDW 22.3 H (11.6-14.8) % Plt Count 400 (150-400) X10^3/uL Neut % (Auto) 83.6 H (50-75) % Lymph % (Auto) 10.8 L (25-40) % Adams % (Auto) 3.2 (3-14) % Eos % (Auto) 1.9 L (2-4) % Baso % (Auto) 0.5 (0-2) % Neut # (Auto) 78995 H (0914-5295) /uL Lymph # (Auto) 2300 (5477-3855) /uL Adams # (Auto) 700 (0-900) /uL Eos # (Auto) 400 (0-450) /uL Baso # (Auto) 100 (0-100) /uL RBC Morphology See below Polychromasia 1+ H Hypochromasia 1+ H Anisocytosis 2+ H Sodium 137 (137-145) mmol/L Potassium 3.6 (3.4-5.1) mmol/L Chloride 91 L (98-107) mmol/L Carbon Dioxide 32 (22-32) mmol/L BUN 14 (7-17) mg/dL Creatinine 0.60 (0.52-1.04) mg/dL Estimated GFR > 60.0 (>60) mL/min BUN/Creatinine Ratio 23.3 H (6-22) Glucose 212 H (70-100) mg/dL Calcium 10.1 (8.4-10.2) mg/dL Total Bilirubin 0.4 (0.2-1.3) mg/dL AST 30 (14-36) IU/L ALT 29 (9-52) IU/L Alkaline Phosphatase 80 (38-126) U/L B-Natriuretic Peptide < 100 (<100) Total Protein 7.7 (6.3-8.2) g/dL Albumin 4.6 (3.5-5.0) g/dL Globulin 3.1 (1.7-4.1) g/dL Albumin/Globulin Ratio 1.5 (1.0-2.8) Imaging Data Chest x-ray: Radiologist's impression: [address] [address] XRay Report Signed Patient: Carissa Gallardo RMR#: [id number] : 1975Acct:[id number] Age/Sex: 43 / FDate of Service: 01/11/19 Loc: ED Accession Number: [id number] Procedure: XR chest 1V Ordering Provider: Dorothy Guillermo MD PROCEDURE: XR CHEST 1V INDICATIONS: sob TECHNIQUE: One view of the chest was acquired. COMPARISON: [facility], CR, XR CHEST 2V, 01/26/2018, 22:31. [facility], CR, XR CHEST 1V, 10/31/2018, 8:32. FINDINGS: Surgical changes and devices: None. Lungs and pleura: Moderate chronic appearing interstitial pulmonary opacity. No definite superimposed acute process.. No pleural effusions or pneumothorax. Mediastinum: Mediastinal contours appear normal. Heart size is normal. Bones and chest wall: No suspicious bony lesions. Overlying soft tissues appear unremarkable. IMPRESSION: Moderate chronic interstitial lung disease. No definite acute superimposed process. Dictated by: Gregor Rodriguez M.D. on 01/11/2019 at 13:[address] scan - chest: Radiologist's impression: PROCEDURE: CT CHEST W CON INDICATIONS: shortness of breath TECHNIQUE: After the administration of intravenous contrast, 5 mm thick sections acquired from the pulmonary apices to the posterior costophrenic angles. 7 mm thick coronal and sagittal MIP reformats were acquired. For radiation dose reduction, the following was used: automated exposure control, adjustment of mA and/or kV according to patient size. COMPARISON: [facility], CR, XR CHEST 1V, 01/11/2019, 14:05. [facility], CT, CT ANGIO CHEST PE PROTOCOL, 10/31/2018, 9:54. FINDINGS: Image quality: Excellent. Lungs and pleura: No acute air space opacities. Moderate chronic interstitial lung disease is present, as seen by same day plain film examination. No pleural effusions or pneumothorax. Central and peripheral airways are patent and normal in caliber. Mediastinum: Heart size is normal. No pericardial effusion. Decreased, a 14 mm short axis subcarinal adenopathy. Decreased, 10 mm short axis bilateral hilar adenopathy. Thoracic aorta and central pulmonary arteries are normal in size. Esophagus is normal in caliber. No hiatal hernia. Bones and chest wall: No suspicious bony lesions. No vertebral body compression fractures. No axillary or supraclavicular adenopathy by size criteria. Thyroid gland is within normal limits. Abdomen: Visualized upper abdominal solid organs appear normal. Upper abdominal bowel loops are normal in caliber. IMPRESSION: 1. No acute process. 2. Moderate chronic interstitial lung disease. 3. Resolving mediastinal and hilar adenopathy. Dictated by: Gregor Rodriguez M.D. on 01/11/2019 at 14:33 Approved by: Gregor Rodriguez M.D. on 01/11/2019 at 14:35 Discharge Plan Departure Patient Disposition: Home Clinical Impression: Acute dyspnea, Hypoxia Discharge Date/Time: 01/11/19 17:17 Interventions: ED Discharge Assessment Last Done: 01/11/19 17:15 Instructions: DI for Shortness of Breath Activity Restrictions/Additional Instructions: Your labs, overall, looks good. Your white blood cell count is elevated, but given the steroids you have been on, this is not surprising. There is no evidence of an acute infection, and in fact, your CT scan shows that your lungs are improving. Tim has been contacted, and they will be coming to your house this evening to set up a better oxygen situation for you. Please continue your plans to meet with the home health representatives to make a plan that will work for assistance for you at home. Prescriptions: No Action duloxetine [Cymbalta] 60 MG capsule,delayed release(DR/EC) 60 mg PO BID Qty: 0 RF: 0 Excedrin Extra Strength 250-250-65 mg Tablet 1 tab PO PRN PRN (Reason: PAIN OR HEADACHE) Qty: 0 RF: 0 fluticasone propion-salmeterol [Advair Diskus] 250-50 mcg/dose blister with device 1 puff Inhalation BID RF: 0 quetiapine 300 mg tablet 300 mg PO QPM RF: 0 levothyroxine 300 mcg tablet 300 mcg PO DAILY RF: 0 prednisone 20 mg tablet 1 dose PO DIRECTED RF: 0 hydroxyzine pamoate 50 mg capsule 50 mg PO DAILY RF: 0 omeprazole 40 mg capsule,delayed release(DR/EC) 40 mg PO BID RF: 0 yzodgewlxb-qkaccanimnwvs-homs 50-325-40 mg tablet 1 tab PO BID PRN (Reason: headache) RF: 0 dapsone 100 mg tablet 100 mg PO DAILY RF: 0 gabapentin 300 mg capsule 900 mg PO TID RF: 0 albuterol sulfate [ProAir HFA] 90 mcg/actuation HFA aerosol inhaler 1 puff Inhalation BID RF: 0 fluticasone propionate 50 mcg/actuation spray,suspension 1 spray Intranasal DAILY RF: 0 glipizide 5 mg tablet 5 mg PO DAILY RF: 0 diclofenac sodium [Voltaren] 1 % gel 1 applic topical PRN PRN (Reason: pain) RF: 0 methadone 10 mg Tablet 145 mg PO DAILY RF: 0 Referrals: Alex Mnotoya MD [Primary Care Provider] -
== END 2019-01-11 17:17 | disposition home or self-care (01) ==
PROVIDERS: Emergency Provider Emergency Medicine; Family Provider Anesthesiology Pain Medicine; PCP Internal Medicine
DX: R06.00 Dyspnea, unspecified (principal); R09.02 Hypoxemia
CPT/HCPCS: 36591; 71045; 71260; 80053; 83880; 85025; 93005; 93010; 94770; 96361; 96374; 96375; 99284; 99285; J1170; J1885; J2270; Q9967

== ENCOUNTER 2020-05-24 13:49 | Emergency (ER) | payer MEDICARE, MEDICAID, SELFPAY ==
[2018-10-31 11:30] VITALS: PULSE 88; RESP 19; O2SAT 98
[2020-05-24] VITALS (28 sets, daily range): BP systolic 108–164; BP diastolic 63–96; PULSE 93–134; RESP 12–35; TEMP 36.7–38.3; O2SAT 92–100; BMI 44.9
--- NOTE | 2020-05-24 14:06 | DI.RAD.S_ITS ---
PROCEDURE: XR CHEST 1V INDICATIONS: cough TECHNIQUE: One view of the chest was acquired. COMPARISON: [facility], CT, CT CHEST W CON, 01/11/2019, 15:08. [facility], CR, XR CHEST 2V, 01/26/2018, 22:31. [facility], CR, XR CHEST 1V, 01/11/2019, 14:05. [facility], CR, XR CHEST 1V, 10/31/2018, 8:32. FINDINGS: Surgical changes and devices: None. Lungs and pleura: Lungs are abnormal, with a persistent alveolar prominence seen in this patient over several years, including 01/26/18. Alveolitis and pulmonary fibrosis appears superimposed. No pleural effusions or pneumothorax. Mediastinum: Mediastinal contours appear normal. Heart size is normal. Bones and chest wall: No suspicious bony lesions. Overlying soft tissues appear unremarkable. IMPRESSION: Alveolitis and pulmonary fibrosis appear superimpose associated with mildly reduced inspiratory volume and persistent interstitial prominence. Head Of Biology consultation is recommended if this has not yet been obtained. No definite focal new pneumonia found. Dictated by: Khai Garrett M.D. on 05/24/2020 at 15:47 Approved by: Khai Garrett M.D. on 05/24/2020 at 15:49
[2020-05-24 14:33] LABS: Add Manual Diff / Slide Review NO; Basophils Absolute Auto 100 /uL (0-100); Eosinophils Absolute Auto 200 /uL (0-450); Eosinophils Percent Auto 1.4 % (2-4); Hematocrit 36.7 % (36-46); Hemoglobin 11.5 g/dL (12.0-16.0); Lymphocytes Absolute Auto 4400 /uL (1100-4500); Lymphocytes Percent Auto 28.6 % (25-40); Mean Corpuscular HGB Conc 31.5 % (30-36); Mean Corpuscular Hemoglobin 25.1 PG (26-34); Mean Corpuscular Volume 79.6 fL (80-100); Monocytes Absolute Auto 1900 /uL (0-900); Monocytes Percent Auto 12.5 % (3-14); Neutrophils Absolute Auto 8600 /uL (1500-7000); Neutrophils Percent Auto 56.5 % (50-75); Platelet Count 369 X10^3/uL (150-400); Red Blood Cell Count 4.61 X10^6/uL (4.0-5.2); Red Cell Distribution Width 20.5 % (11.6-14.8); White Blood Cell Count 15.2 X10^3/uL (4.5-11.0)
[2020-05-24 14:45] LABS: Alanine Aminotransferase 33 IU/L (<35); Albumin 4.7 g/dL (3.5-5.0); Albumin Globulin Ratio 1.1 (1.0-2.8); Alkaline Phosphatase 131 U/L (38-126); Aspartate Aminotransferase 36 IU/L (14-36); BUN Creatinine Ratio 61.4 (6-22); Bilirubin Total 0.5 mg/dL (0.2-1.3); Blood Urea Nitrogen 54 mg/dL (7-17); Calcium 10.3 mg/dL (8.4-10.2); Chloride 81 mmol/L (98-107); Estimated Glomerular Filt Rate > 60.0 mL/min (>60); Globulin 4.1 g/dL (1.7-4.1); Glucose 476 mg/dL (70-100); Potassium 3.8 mmol/L (3.4-5.1); Sodium 132 mmol/L (137-145); Total Protein 8.8 g/dL (6.3-8.2)
[2020-05-24 14:46] LABS: Lactate (Lactic Acid) 3.4 mmol/L (0.7-2.1)
[2020-05-24 14:51] LABS: Anisocytosis 1+
[2020-05-24 14:52] LABS: HEMOLYSIS 16 (0-50)
[2020-05-24 14:53] LABS: Carbon Dioxide 40 mmol/L (22-32)
[2020-05-24 14:59] LABS: COVID19 -Nasal RAPID Negative (Negative)
[2020-05-24 15:04] LABS: Lipase 38 U/L (23-300); Magnesium 2.3 mg/dL (1.6-2.3)
[2020-05-24 15:06] LABS: Ketones (Beta-Hydroxybutyrate) 0.03 mmol/L (<0.27)
--- NOTE | 2020-05-24 15:08 | ED.GENADULT ---
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 She presents with increasing exertional dyspnea for the past 6 days, increasing sputum production over her baseline (chronically on dapsone and azithromycin), prolific vomiting yesterday who was significant nausea over the last 6 days, low-grade fevers and developing a blister over the heel of her right foot did increasingly painful. She is supposed to be taking chronic prednisone but has not been taking this recently because it makes her feel bad. She has been checking blood sugars at home and is noticed that they have been significantly elevated. She has not been formally diagnosed with diabetes but has been on insulin while hospitalized and on high doses of prednisone previously. Additionally she complains that her chronic low back pain seems to be worse, she has sciatic pain radiating into her left leg with numbness into the buttock and over the dorsum of the foot with increased paresthesias and hypersensitivity in the same distribution. She does not note increasing lower extremity edema and does not complain of orthopnea. Related Data Home Medications Medication Instructions Recorded Confirmed [id number] 1 tab PO PRN PRN #0 05/14/11 10/31/18 [Excedrin Extra Strength] duloxetine [Cymbalta] 60 mg PO BID #0 05/14/11 10/31/18 albuterol sulfate [ProAir HFA] 1 puff INHALATION BID 10/31/18 10/31/18 [id number] 1 tab PO BID PRN 10/31/18 10/31/18 dapsone 100 mg PO DAILY 10/31/18 10/31/18 diclofenac sodium [Voltaren] 1 applic TOPICAL PRN PRN 10/31/18 10/31/18 fluticasone propion-salmeterol 1 puff INHALATION BID 10/31/18 10/31/18 [Advair Diskus] fluticasone propionate 1 spray INTRANASAL DAILY 10/31/18 10/31/18 gabapentin 900 mg PO TID 10/31/18 10/31/18 glipizide 5 mg PO DAILY 10/31/18 10/31/18 hydroxyzine pamoate 50 mg PO DAILY 10/31/18 10/31/18 levothyroxine 300 mcg PO DAILY 10/31/18 10/31/18 methadone 145 mg PO DAILY 10/31/18 10/31/18 omeprazole 40 mg PO BID 10/31/18 10/31/18 prednisone 1 dose PO DIRECTED 10/31/18 10/31/18 quetiapine 300 mg PO QPM 10/31/18 10/31/18 Allergies Allergy/AdvReac Type Severity Reaction Status Date / Time levofloxacin [LEVOFLOXACIN] Allergy Unknown Verified 05/24/20 14:03 Penicillins [PENICILLINS] Allergy Unknown Verified 05/24/20 14:03 Sulfa (Sulfonamide Allergy Unknown Verified 05/24/20 14:03 Antibiotics) [SULFA (SULFONAMIDE ANTIBIOTICS)] trimethoprim [TRIMETHOPRIM] Allergy Unknown Verified 05/24/20 14:03 morphine AdvReac Gastrointestinal Verified 05/24/20 14:03 Upset Review of Systems <Yaneli Hay MD - Last Filed: 06/01/20 04:06> Review of Systems Narrative: Pertinent positive and negative findings as per HPI Remainder of review of systems is otherwise unremarkable for ENT: No sore throat, neck pain, ear pain : Dysuria, hematuria, flank pain MS: Muscle weakness, numbness, joint swelling or warmth Neuro: Syncope, dizziness, Psych: Depression, anxiety, suicidal ideation Patient History <Yaneli Hay MD - Last Filed: 06/01/20 04:06> Medical History Diabetes (Acute) Interstitial lung disease (Acute) Right sided sciatica (Acute) Surgical History H/O enucleation of right eyeball (Acute) Social History Smoking Status: Former smoker Smoking Status: Former smoker alcohol intake frequency: holidays/special occasions only Substance Use Type: does not use Exam <Yaneli Hay MD - Last Filed: 06/01/20 04:06> Narrative Exam Narrative: General: Healthy appearing, in mild distress. Able to give a complete and coherent history. 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 Left sclera and pupil are unremarkable Neck: No JVD, supple Respiratory: Lungs with crackles bilaterally in lower lung [place] without significant wheeze or consolidated findings. Full and symmetrical air movement, able to speak in full sentences but complains of significant dyspnea by the end of sentences despite oxygen saturations remaining in the upper 90s Cardiac: Mild tachycardia but otherwise Regular rate and rhythm no murmurs no bruits Abdomen: Soft, obese, nontender good bowel tones, no flank pain Skin: Warm and dry, slight flushing over her forearms and upper back without overt rash. Neurologic: Grossly neurologically intact with no obvious asymmetries or abnormalities Extremities: No trauma, well perfused, no lower extremity edema. A 1.5 cm in diameter blister over the right heel that is tender to the touch without significant surrounding erythema. Psych: Cooperative, appropriate insight and affect Heel blister is gently unroofed with an 18 gauge needle with non purulence serosanguineous fluid returned that is sent for culture Initial Vital Signs Initial Vital Signs: Vital Signs Temperature 98.1 F 05/24/20 13:52 Pulse Rate 112 H 05/24/20 13:52 Respiratory Rate 18 05/24/20 13:52 Blood Pressure 130/90 05/24/20 13:52 Pulse Oximetry 99 05/24/20 13:52 <Haris Mondragon MD - Last Filed: 05/25/20 07:27> Initial Vital Signs Initial Vital Signs: Vital Signs Temperature 98.1 F 05/24/20 13:52 Pulse Rate 112 H 05/24/20 13:52 Respiratory Rate 18 05/24/20 13:52 Blood Pressure 130/90 05/24/20 13:52 Pulse Oximetry 99 05/24/20 13:52 Course <Yaneli Hay MD - Last Filed: 06/01/20 04:06> Orders Ordered: Discontinued Medications Albuterol/Ipratropium (Duoneb) 3 ml INH NOW ONE Stop: 05/24/20 15:08 Last Admin: 05/24/20 15:39 Dose: Not Given Documented by: ANH Albuterol/Ipratropium (Duoneb) 3 ml INH NOW ONE Stop: 05/24/20 19:35 Last Admin: 05/24/20 19:45 Dose: 3 ml Documented by: ELMER Diphenhydramine HCl (Benadryl) 50 mg IV NOW ONE Stop: 05/24/20 19:43 Last Admin: 05/24/20 19:51 Dose: 50 mg Documented by: EMILE Diphenhydramine HCl (Benadryl) 25 mg IV NOW ONE Stop: 05/25/20 02:05 Last Admin: 05/25/20 02:12 Dose: 25 mg Documented by: MIGDALIA Hydromorphone HCl (Dilaudid) 0.5 mg IV Q15MIN PRN PRN Reason: Pain, Last Admin: 05/25/20 13:17 Dose: 0.5 mg Documented by: Admin: 05/25/20 04:25 Dose: 0.5 mg Documented by: Admin: 05/24/20 17:48 Dose: 0.5 mg Documented by: Admin: 05/24/20 16:10 Dose: 0.5 mg Documented by: EMILE Sodium Chloride (Normal Saline 0.9%) 1,000 mls @ 1,000 mls/hr IV BOLUS ONE Stop: 05/24/20 15:04 Last Infusion: 05/24/20 17:48 Dose: 0 mls/hr Documented by: Admin: 05/24/20 15:21 Dose: 1,000 mls/hr Documented by: EMILE Imipenem/Cilastatin Sodium 1, (000 mg/ Sodium Chloride) 250 mls @ 250 mls/hr IV NOW ONE Stop: 05/24/20 15:42 Last Infusion: 05/24/20 17:23 Dose: 0 mls/hr Documented by: Admin: 05/24/20 16:10 Dose: 250 mls/hr Documented by: EMILE Sodium Chloride (Normal Saline 0.9%) 1,000 mls @ 1,000 mls/hr IV BOLUS PRN PRN Reason: Fluid replacement Imipenem/Cilastatin Sodium 1, (000 mg/ Sodium Chloride) 250 mls @ 250 mls/hr IV NOW ONE Stop: 05/25/20 03:45 Last Infusion: 05/25/20 05:34 Dose: 0 mls/hr Documented by: Admin: 05/25/20 04:25 Dose: 250 mls/hr Documented by: MIGDALIA Sodium Chloride (Normal Saline 0.9%) 1,000 mls @ 150 mls/hr IV CONT SCOTTY Last Infusion: 05/25/20 13:28 Dose: 0 mls/hr Documented by: Infusion: 05/25/20 07:01 Dose: 150 mls/hr Documented by: Infusion: 05/25/20 05:11 Dose: 0 mls/hr Documented by: Admin: 05/25/20 04:24 Dose: 150 mls/hr Documented by: MIGDALIA Imipenem/Cilastatin Sodium 1, (000 mg/ Sodium Chloride) 250 mls @ 250 mls/hr IV NOW ONE Stop: 05/25/20 04:16 Last Admin: 05/25/20 04:27 Dose: Not Given Documented by: MIGDALIA Sodium Chloride (Normal Saline 0.9%) 1,000 mls @ 1,000 mls/hr IV BOLUS ONE Stop: 05/25/20 05:33 Last Infusion: 05/25/20 07:01 Dose: 0 mls/hr Documented by: Admin: 05/25/20 05:17 Dose: 1,000 mls/hr Documented by: MIGDALIA Sodium Chloride (Normal Saline 0.9%) 1,000 mls @ 1,000 mls/hr IV BOLUS PRN PRN Reason: Fluid replacement Insulin Human Regular (Humulin R) 10 unit SUBCUT NOW ONE Stop: 05/25/20 05:07 Last Admin: 05/25/20 05:12 Dose: 10 unit Documented by: MIGDALIA Cosigned by: HGUBERN Insulin Human Regular (Humulin R) 10 unit SUBCUT NOW ONE Stop: 05/25/20 12:35 Last Admin: 05/25/20 12:38 Dose: 10 unit Documented by: JOHN Cosigned by: KBARNHA Metoclopramide HCl (Reglan) 10 mg IV NOW ONE Stop: 05/25/20 02:05 Last Admin: 05/25/20 02:12 Dose: 10 mg Documented by: MIGDALIA Ondansetron HCl (Zofran) 4 mg IV NOW ONE Stop: 05/24/20 19:30 Last Admin: 05/24/20 19:37 Dose: 4 mg Documented by: EMILE Ondansetron HCl (Zofran) 4 mg IV NOW ONE Stop: 05/25/20 11:00 Last Admin: 05/25/20 11:05 Dose: 4 mg Documented by: DELL Oxycodone/Acetaminophen (Percocet 5/325) 2 tab PO NOW ONE Stop: 05/24/20 19:29 Last Admin: 05/24/20 19:37 Dose: 2 tab Documented by: EMILE Oxycodone/Acetaminophen (Percocet 5/325) 2 tab PO NOW ONE Stop: 05/24/20 23:23 Last Admin: 05/24/20 23:44 Dose: 2 tab Documented by: MIGDALIA Oxycodone/Acetaminophen (Percocet 5/325) 2 tab PO NOW ONE Stop: 05/25/20 07:12 Last Admin: 05/25/20 07:15 Dose: 2 tab Documented by: MIGDALIA Oxycodone/Acetaminophen (Percocet 5/325) 2 tab PO NOW ONE Stop: 05/25/20 11:00 Last Admin: 05/25/20 11:04 Dose: 2 tab Documented by: DELL Prednisone (Deltasone) 20 mg PO NOW ONE Stop: 05/24/20 18:28 Last Admin: 05/24/20 18:34 Dose: 20 mg Documented by: EMILE Prednisone (Deltasone) 20 mg PO NOW ONE Stop: 05/24/20 22:35 Last Admin: 05/24/20 22:37 Dose: 20 mg Documented by: EMILE Vital Signs Vital signs: Vital Signs - 8 hr 05/24/20 23:30 05/24/20 23:37 05/25/20 00:00 Temperature Pulse Rate 116 H 134 H 114 H Respiratory Rate 19 26 H 18 Blood Pressure 145/73 H 151/83 H Pulse Oximetry 96 92 98 05/25/20 00:30 05/25/20 01:00 05/25/20 01:12 Temperature Pulse Rate 114 H 114 H 131 H Respiratory Rate 16 22 Blood Pressure 153/79 H Pulse Oximetry 96 97 92 05/25/20 01:30 05/25/20 02:00 05/25/20 02:16 Temperature Pulse Rate 112 H 112 H 119 H Respiratory Rate Blood Pressure 155/69 H Pulse Oximetry 96 97 95 05/25/20 02:30 05/25/20 03:00 05/25/20 03:30 Temperature Pulse Rate 114 H 110 H 84 Respiratory Rate 24 29 H 15 Blood Pressure Pulse Oximetry 98 93 90 L 05/25/20 04:00 05/25/20 04:30 05/25/20 05:00 Temperature Pulse Rate 94 H 90 89 Respiratory Rate 14 15 14 Blood Pressure Pulse Oximetry 94 96 97 05/25/20 05:10 05/25/20 05:30 05/25/20 05:33 Temperature 98.5 F Pulse Rate 92 H 97 H Respiratory Rate 24 16 Blood Pressure 101/61 Pulse Oximetry 94 98 05/25/20 05:37 05/25/20 06:00 05/25/20 06:01 Temperature Pulse Rate 94 H 105 H 104 H Respiratory Rate 16 18 16 Blood Pressure 130/64 151/70 H Pulse Oximetry 99 97 97 05/25/20 06:30 05/25/20 07:00 05/25/20 07:03 Temperature Pulse Rate 97 H 99 H 100 H Respiratory Rate 14 13 25 H Blood Pressure 122/78 Pulse Oximetry 95 97 97 <Haris Mondragon MD - Last Filed: 05/25/20 07:27> Course Course Narrative: 06:50. 05/25/20. Care was transitioned from Dr. Hay at change of shift. The patient has restrictive airway disease, she is on 6 L of oxygen nasal cannula at home as a baseline. She arrived with productive cough, increased dyspnea. She underwent extensive evaluation. She has no fever, but she had elevated WBC count with a lactic acid level of 3.5. She has multiple medication allergies, imipenem was chosen as the antibiotic. IV fluids were initiated. A full bolus of IV fluids was paused by Dr. Hay, her evaluation was expanded. EKG shows normal sinus rhythm with no acute ST changes. Troponin and D-dimer were normal. A CT of chest revealed he restrictive airway disease, there was no evidence of PE. It is notable that an infiltrate was also not identified. Dr. Hay consult with the patient's paper core machine operator at the [facility], Dr. Wilson. The patient is supposed take prednisone, but voids prednisone to to not feeling well on the medication, and significant hyperglycemia. In addition antibiotic she was giving prednisone. With initial care her lactic acid decreased to 2.4. I evaluated the patient. She had bibasilar rales, but good movement of air. Cardiac evaluation was normal. She has been vomiting with cough in recent days. Her abdominal exam was benign. A urine sample revealed no is evidence of infection. She has productive cough, with underlying airway disease. She is treated as pneumonia and sepsis. The hospitalist at this hospital declined the patient, suggesting necessary treatment a facility with more capabilities. Dr. Snow had also discussed the case with another local hospital well as well as the [facility]. Multiple other hospitals were consulted, with no bed availability. I did discuss the case with at [facility]. I felt the patient was improving. Transfer was initially declined, from the patient was improving. However, with ongoing your evaluation, it is noted that her lactic acid level increased to 3.7. Imipenem has been repeated. IV fluids continue. The patient's vitals are stable. She is resting comfortably, she still appears to have improved. However with the ongoing concern of sepsis,Dr Malik was again consulted and has graciously accepted the patient. She will be transferred ALS to [facility] in [place]. Repeat labs, including another lactic acid level have been drawn prior to transfer. Danial Mondragon MD Orders Ordered: Discontinued Medications Albuterol/Ipratropium (Duoneb) 3 ml INH NOW ONE Stop: 05/24/20 15:08 Last Admin: 05/24/20 15:39 Dose: Not Given Documented by: ANH Albuterol/Ipratropium (Duoneb) 3 ml INH NOW ONE Stop: 05/24/20 19:35 Last Admin: 05/24/20 19:45 Dose: 3 ml Documented by: ELMER Diphenhydramine HCl (Benadryl) 50 mg IV NOW ONE Stop: 05/24/20 19:43 Last Admin: 05/24/20 19:51 Dose: 50 mg Documented by: EMILE Diphenhydramine HCl (Benadryl) 25 mg IV NOW ONE Stop: 05/25/20 02:05 Last Admin: 05/25/20 02:12 Dose: 25 mg Documented by: MIGDALIA Hydromorphone HCl (Dilaudid) 0.5 mg IV Q15MIN PRN PRN Reason: Pain, Last Admin: 05/25/20 13:17 Dose: 0.5 mg Documented by: Admin: 05/25/20 04:25 Dose: 0.5 mg Documented by: Admin: 05/24/20 17:48 Dose: 0.5 mg Documented by: Admin: 05/24/20 16:10 Dose: 0.5 mg Documented by: EMILE Sodium Chloride (Normal Saline 0.9%) 1,000 mls @ 1,000 mls/hr IV BOLUS ONE Stop: 05/24/20 15:04 Last Infusion: 05/24/20 17:48 Dose: 0 mls/hr Documented by: Admin: 05/24/20 15:21 Dose: 1,000 mls/hr Documented by: EMILE Imipenem/Cilastatin Sodium 1, (000 mg/ Sodium Chloride) 250 mls @ 250 mls/hr IV NOW ONE Stop: 05/24/20 15:42 Last Infusion: 05/24/20 17:23 Dose: 0 mls/hr Documented by: Admin: 05/24/20 16:10 Dose: 250 mls/hr Documented by: EMILE Sodium Chloride (Normal Saline 0.9%) 1,000 mls @ 1,000 mls/hr IV BOLUS PRN PRN Reason: Fluid replacement Imipenem/Cilastatin Sodium 1, (000 mg/ Sodium Chloride) 250 mls @ 250 mls/hr IV NOW ONE Stop: 05/25/20 03:45 Last Infusion: 05/25/20 05:34 Dose: 0 mls/hr Documented by: Admin: 05/25/20 04:25 Dose: 250 mls/hr Documented by: MIGDALIA Sodium Chloride (Normal Saline 0.9%) 1,000 mls @ 150 mls/hr IV CONT SCOTTY Last Infusion: 05/25/20 13:28 Dose: 0 mls/hr Documented by: Infusion: 05/25/20 07:01 Dose: 150 mls/hr Documented by: Infusion: 05/25/20 05:11 Dose: 0 mls/hr Documented by: Admin: 05/25/20 04:24 Dose: 150 mls/hr Documented by: MIGDALIA Imipenem/Cilastatin Sodium 1, (000 mg/ Sodium Chloride) 250 mls @ 250 mls/hr IV NOW ONE Stop: 05/25/20 04:16 Last Admin: 05/25/20 04:27 Dose: Not Given Documented by: MIGDALIA Sodium Chloride (Normal Saline 0.9%) 1,000 mls @ 1,000 mls/hr IV BOLUS ONE Stop: 05/25/20 05:33 Last Infusion: 05/25/20 07:01 Dose: 0 mls/hr Documented by: Admin: 05/25/20 05:17 Dose: 1,000 mls/hr Documented by: MIGDALIA Sodium Chloride (Normal Saline 0.9%) 1,000 mls @ 1,000 mls/hr IV BOLUS PRN PRN Reason: Fluid replacement Insulin Human Regular (Humulin R) 10 unit SUBCUT NOW ONE Stop: 05/25/20 05:07 Last Admin: 05/25/20 05:12 Dose: 10 unit Documented by: MIGDALIA Cosigned by: HGALMA Insulin Human Regular (Humulin R) 10 unit SUBCUT NOW ONE Stop: 05/25/20 12:35 Last Admin: 05/25/20 12:38 Dose: 10 unit Documented by: JOHN Cosigned by: KBARPAM Metoclopramide HCl (Reglan) 10 mg IV NOW ONE Stop: 05/25/20 02:05 Last Admin: 05/25/20 02:12 Dose: 10 mg Documented by: MIGDALIA Ondansetron HCl (Zofran) 4 mg IV NOW ONE Stop: 05/24/20 19:30 Last Admin: 05/24/20 19:37 Dose: 4 mg Documented by: EMILE Ondansetron HCl (Zofran) 4 mg IV NOW ONE Stop: 05/25/20 11:00 Last Admin: 05/25/20 11:05 Dose: 4 mg Documented by: DELL Oxycodone/Acetaminophen (Percocet 5/325) 2 tab PO NOW ONE Stop: 05/24/20 19:29 Last Admin: 05/24/20 19:37 Dose: 2 tab Documented by: EMILE Oxycodone/Acetaminophen (Percocet 5/325) 2 tab PO NOW ONE Stop: 05/24/20 23:23 Last Admin: 05/24/20 23:44 Dose: 2 tab Documented by: MIGDALIA Oxycodone/Acetaminophen (Percocet 5/325) 2 tab PO NOW ONE Stop: 05/25/20 07:12 Last Admin: 05/25/20 07:15 Dose: 2 tab Documented by: MIGDALIA Oxycodone/Acetaminophen (Percocet 5/325) 2 tab PO NOW ONE Stop: 05/25/20 11:00 Last Admin: 05/25/20 11:04 Dose: 2 tab Documented by: EDLL Prednisone (Deltasone) 20 mg PO NOW ONE Stop: 05/24/20 18:28 Last Admin: 05/24/20 18:34 Dose: 20 mg Documented by: EMILE Prednisone (Deltasone) 20 mg PO NOW ONE Stop: 05/24/20 22:35 Last Admin: 05/24/20 22:37 Dose: 20 mg Documented by: EMILE Vital Signs Vital signs: Vital Signs - 8 hr 05/24/20 23:30 05/24/20 23:37 05/25/20 00:00 Temperature Pulse Rate 116 H 134 H 114 H Respiratory Rate 19 26 H 18 Blood Pressure 145/73 H 151/83 H Pulse Oximetry 96 92 98 05/25/20 00:30 05/25/20 01:00 05/25/20 01:12 Temperature Pulse Rate 114 H 114 H 131 H Respiratory Rate 16 22 Blood Pressure 153/79 H Pulse Oximetry 96 97 92 05/25/20 01:30 05/25/20 02:00 05/25/20 02:16 Temperature Pulse Rate 112 H 112 H 119 H Respiratory Rate Blood Pressure 155/69 H Pulse Oximetry 96 97 95 05/25/20 02:30 05/25/20 03:00 05/25/20 03:30 Temperature Pulse Rate 114 H 110 H 84 Respiratory Rate 24 29 H 15 Blood Pressure Pulse Oximetry 98 93 90 L 05/25/20 04:00 05/25/20 04:30 05/25/20 05:00 Temperature Pulse Rate 94 H 90 89 Respiratory Rate 14 15 14 Blood Pressure Pulse Oximetry 94 96 97 05/25/20 05:10 05/25/20 05:30 05/25/20 05:33 Temperature 98.5 F Pulse Rate 92 H 97 H Respiratory Rate 24 16 Blood Pressure 101/61 Pulse Oximetry 94 98 05/25/20 05:37 05/25/20 06:00 05/25/20 06:01 Temperature Pulse Rate 94 H 105 H 104 H Respiratory Rate 16 18 16 Blood Pressure 130/64 151/70 H Pulse Oximetry 99 97 97 05/25/20 06:30 05/25/20 07:00 05/25/20 07:03 Temperature Pulse Rate 97 H 99 H 100 H Respiratory Rate 14 13 25 H Blood Pressure 122/78 Pulse Oximetry 95 97 97 Medical Decision Making <Yaneli Hay MD - Last Filed: 06/01/20 04:06> Medical Records Medical records reviewed: Yes I reviewed the patient's medical records. Lab Data Lab results reviewed: Yes I reviewed the patient's lab results. Lab results narrative: Anion gap of 11 Result diagrams: 05/25/20 06:44 05/25/20 06:44 Labs: Lab Results 05/24/20 05/24/20 05/24/20 Range/Units 14:20 14:20 14:20 WBC 15.2 H (4.5-11.0) X10^3/uL RBC 4.61 (4.0-5.2) X10^6/uL Hgb 11.5 L (12.0-16.0) g/dL Hct 36.7 (36-46) % MCV 79.6 L (80-100) fL MCH 25.1 L (26-34) PG MCHC 31.5 (30-36) % RDW 20.5 H (11.6-14.8) % Plt Count 369 (150-400) X10^3/uL Neut % (Auto) 56.5 (50-75) % Lymph % (Auto) 28.6 (25-40) % [place] % (Auto) 12.5 (3-14) % Eos % (Auto) 1.4 L (2-4) % Baso % (Auto) 1.0 (0-2) % Neut # (Auto) 8600 H (9833-4234) /uL Lymph # (Auto) 4400 (6596-1528) /uL [place] # (Auto) 1900 H (0-900) /uL Eos # (Auto) 200 (0-450) /uL Baso # (Auto) 100 (0-100) /uL RBC Morphology See below Hypochromasia Anisocytosis 1+ H D-Dimer (<230) ng/mL ABG pH (7.35-7.45) ABG pCO2 (35-45) mmHg ABG pO2 (80-100) mmHg ABG HCO3 (22-26) mmol/L ABG Total CO2 (21-31) mmol/L ABG O2 Saturation (95-100) % ABG Base Excess (-2-2) mmol/L FiO2 Sodium 132 L (137-145) mmol/L Potassium 3.8 (3.4-5.1) mmol/L Chloride 81 L (98-107) mmol/L Carbon Dioxide 40 H* (22-32) mmol/L BUN 54 H (7-17) mg/dL Creatinine 0.88 (0.52-1.04) mg/dL Estimated GFR > 60.0 (>60) mL/min BUN/Creatinine Ratio 61.4 H (6-22) Glucose 476 H (70-100) mg/dL Lactate (0.7-2.1) mmol/L Calcium 10.3 H (8.4-10.2) mg/dL Magnesium 2.3 (1.6-2.3) mg/dL Total Bilirubin 0.5 (0.2-1.3) mg/dL AST 36 (14-36) IU/L ALT 33 (<35) IU/L Alkaline Phosphatase 131 H (38-126) U/L Troponin I < 0.012 (0.01-0.034) ng/mL NT-Pro-B Natriuret Pep (<125) pg/mL Total Protein 8.8 H (6.3-8.2) g/dL Albumin 4.7 (3.5-5.0) g/dL Globulin 4.1 (1.7-4.1) g/dL Albumin/Globulin Ratio 1.1 (1.0-2.8) Lipase 38 (23-300) U/L Procalcitonin (<0.5) ng/mL Urine Color Urine Appearance Urine pH (4.5-8.0) Ur Specific [place] (1.000-1.035) Urine Protein (Negative) Urine Glucose (UA) (Negative) g/dL Urine Ketones (NEGATIVE) Urine Occult Blood (Negative) Urine Nitrate (Negative) Urine Bilirubin (NEGATIVE) Urine Urobilinogen (0.2) E.U./dL Ur Leukocyte Esterase (NEGATIVE) Urine RBC (0-5/HPF) Urine WBC (0-5/HPF) Ur Squamous Epith Cells (0-5/HPF) Urine Bacteria (None) Ur Culture Indicated? Ketones 0.03 (<0.27) mmol/L COVID-19 PCR (Negative) 05/24/20 05/24/20 05/24/20 Range/Units 14:20 14:20 14:20 WBC (4.5-11.0) X10^3/uL RBC (4.0-5.2) X10^6/uL Hgb (12.0-16.0) g/dL Hct (36-46) % MCV (80-100) fL MCH (26-34) PG MCHC (30-36) % RDW (11.6-14.8) % Plt Count (150-400) X10^3/uL Neut % (Auto) (50-75) % Lymph % (Auto) (25-40) % [place] % (Auto) (3-14) % Eos % (Auto) (2-4) % Baso % (Auto) (0-2) % Neut # (Auto) (5073-6650) /uL Lymph # (Auto) (8384-8935) /uL [place] # (Auto) (0-900) /uL Eos # (Auto) (0-450) /uL Baso # (Auto) (0-100) /uL RBC Morphology Hypochromasia Anisocytosis D-Dimer (<230) ng/mL ABG pH (7.35-7.45) ABG pCO2 (35-45) mmHg ABG pO2 (80-100) mmHg ABG HCO3 (22-26) mmol/L ABG Total CO2 (21-31) mmol/L ABG O2 Saturation (95-100) % ABG Base Excess (-2-2) mmol/L FiO2 Sodium (137-145) mmol/L Potassium (3.4-5.1) mmol/L Chloride (98-107) mmol/L Carbon Dioxide (22-32) mmol/L BUN (7-17) mg/dL Creatinine (0.52-1.04) mg/dL Estimated GFR (>60) mL/min BUN/Creatinine Ratio (6-22) Glucose (70-100) mg/dL Lactate 3.4 H (0.7-2.1) mmol/L Calcium (8.4-10.2) mg/dL Magnesium (1.6-2.3) mg/dL Total Bilirubin (0.2-1.3) mg/dL AST (14-36) IU/L ALT (<35) IU/L Alkaline Phosphatase (38-126) U/L Troponin I (0.01-0.034) ng/mL NT-Pro-B Natriuret Pep 110 (<125) pg/mL Total Protein (6.3-8.2) g/dL Albumin (3.5-5.0) g/dL Globulin (1.7-4.1) g/dL Albumin/Globulin Ratio (1.0-2.8) Lipase (23-300) U/L Procalcitonin 0.13 (<0.5) ng/mL Urine Color Urine Appearance Urine pH (4.5-8.0) Ur Specific [place] (1.000-1.035) Urine Protein (Negative) Urine Glucose (UA) (Negative) g/dL Urine Ketones (NEGATIVE) Urine Occult Blood (Negative) Urine Nitrate (Negative) Urine Bilirubin (NEGATIVE) Urine Urobilinogen (0.2) E.U./dL Ur Leukocyte Esterase (NEGATIVE) Urine RBC (0-5/HPF) Urine WBC (0-5/HPF) Ur Squamous Epith Cells (0-5/HPF) Urine Bacteria (None) Ur Culture Indicated? Ketones (<0.27) mmol/L COVID-19 PCR (Negative) 05/24/20 05/24/20 05/24/20 Range/Units 14:38 15:00 17:35 WBC (4.5-11.0) X10^3/uL RBC (4.0-5.2) X10^6/uL Hgb (12.0-16.0) g/dL Hct (36-46) % MCV (80-100) fL MCH (26-34) PG MCHC (30-36) % RDW (11.6-14.8) % Plt Count (150-400) X10^3/uL Neut % (Auto) (50-75) % Lymph % (Auto) (25-40) % [place] % (Auto) (3-14) % Eos % (Auto) (2-4) % Baso % (Auto) (0-2) % Neut # (Auto) (3171-0980) /uL Lymph # (Auto) (6558-1030) /uL [place] # (Auto) (0-900) /uL Eos # (Auto) (0-450) /uL Baso # (Auto) (0-100) /uL RBC Morphology Hypochromasia Anisocytosis D-Dimer < 200 (<230) ng/mL ABG pH (7.35-7.45) ABG pCO2 (35-45) mmHg ABG pO2 (80-100) mmHg ABG HCO3 (22-26) mmol/L ABG Total CO2 (21-31) mmol/L ABG O2 Saturation (95-100) % ABG Base Excess (-2-2) mmol/L FiO2 Sodium (137-145) mmol/L Potassium (3.4-5.1) mmol/L Chloride (98-107) mmol/L Carbon Dioxide (22-32) mmol/L BUN (7-17) mg/dL Creatinine (0.52-1.04) mg/dL Estimated GFR (>60) mL/min BUN/Creatinine Ratio (6-22) Glucose (70-100) mg/dL Lactate 2.4 H (0.7-2.1) mmol/L Calcium (8.4-10.2) mg/dL Magnesium (1.6-2.3) mg/dL Total Bilirubin (0.2-1.3) mg/dL AST (14-36) IU/L ALT (<35) IU/L Alkaline Phosphatase (38-126) U/L Troponin I (0.01-0.034) ng/mL NT-Pro-B Natriuret Pep (<125) pg/mL Total Protein (6.3-8.2) g/dL Albumin (3.5-5.0) g/dL Globulin (1.7-4.1) g/dL Albumin/Globulin Ratio (1.0-2.8) Lipase (23-300) U/L Procalcitonin (<0.5) ng/mL Urine Color Urine Appearance Urine pH (4.5-8.0) Ur Specific [place] (1.000-1.035) Urine Protein (Negative) Urine Glucose (UA) (Negative) g/dL Urine Ketones (NEGATIVE) Urine Occult Blood (Negative) Urine Nitrate (Negative) Urine Bilirubin (NEGATIVE) Urine Urobilinogen (0.2) E.U./dL Ur Leukocyte Esterase (NEGATIVE) Urine RBC (0-5/HPF) Urine WBC (0-5/HPF) Ur Squamous Epith Cells (0-5/HPF) Urine Bacteria (None) Ur Culture Indicated? Ketones (<0.27) mmol/L COVID-19 PCR Negative (Negative) 05/24/20 05/25/20 05/25/20 Range/Units 18:06 00:20 03:55 WBC (4.5-11.0) X10^3/uL RBC (4.0-5.2) X10^6/uL Hgb (12.0-16.0) g/dL Hct (36-46) % MCV (80-100) fL MCH (26-34) PG MCHC (30-36) % RDW (11.6-14.8) % Plt Count (150-400) X10^3/uL Neut % (Auto) (50-75) % Lymph % (Auto) (25-40) % [place] % (Auto) (3-14) % Eos % (Auto) (2-4) % Baso % (Auto) (0-2) % Neut # (Auto) (3599-8106) /uL Lymph # (Auto) (6921-9768) /uL [place] # (Auto) (0-900) /uL Eos # (Auto) (0-450) /uL Baso # (Auto) (0-100) /uL RBC Morphology Hypochromasia Anisocytosis D-Dimer (<230) ng/mL ABG pH 7.42 (7.35-7.45) ABG pCO2 58.6 H (35-45) mmHg ABG pO2 109 H (80-100) mmHg ABG HCO3 38 H (22-26) mmol/L ABG Total CO2 40 H (21-31) mmol/L ABG O2 Saturation 98 (95-100) % ABG Base Excess 14.0 H (-2-2) mmol/L FiO2 48 Sodium (137-145) mmol/L Potassium (3.4-5.1) mmol/L Chloride (98-107) mmol/L Carbon Dioxide (22-32) mmol/L BUN (7-17) mg/dL Creatinine (0.52-1.04) mg/dL Estimated GFR (>60) mL/min BUN/Creatinine Ratio (6-22) Glucose (70-100) mg/dL Lactate 3.5 H (0.7-2.1) mmol/L Calcium (8.4-10.2) mg/dL Magnesium (1.6-2.3) mg/dL Total Bilirubin (0.2-1.3) mg/dL AST (14-36) IU/L ALT (<35) IU/L Alkaline Phosphatase (38-126) U/L Troponin I (0.01-0.034) ng/mL NT-Pro-B Natriuret Pep (<125) pg/mL Total Protein (6.3-8.2) g/dL Albumin (3.5-5.0) g/dL Globulin (1.7-4.1) g/dL Albumin/Globulin Ratio (1.0-2.8) Lipase (23-300) U/L Procalcitonin (<0.5) ng/mL Urine Color Yellow Urine Appearance Clear Urine pH 7.0 (4.5-8.0) Ur Specific [place] 1.010 (1.000-1.035) Urine Protein Negative (Negative) Urine Glucose (UA) 2+ H (Negative) g/dL Urine Ketones Negative (NEGATIVE) Urine Occult Blood Trace-intact (Negative) Urine Nitrate Negative (Negative) Urine Bilirubin Negative (NEGATIVE) Urine Urobilinogen 0.2 (0.2) E.U./dL Ur Leukocyte Esterase Negative (NEGATIVE) Urine RBC None seen (0-5/HPF) Urine WBC None seen (0-5/HPF) Ur Squamous Epith Cells 0-1 /hpf D (0-5/HPF) Urine Bacteria Occasional (0-1) D (None) Ur Culture Indicated? Cult not indicated Ketones (<0.27) mmol/L COVID-19 PCR (Negative) 05/25/20 05/25/20 05/25/20 Range/Units 06:44 06:44 06:44 WBC 13.0 H (4.5-11.0) X10^3/uL RBC 4.20 (4.0-5.2) X10^6/uL Hgb 10.4 L (12.0-16.0) g/dL Hct 33.5 L (36-46) % MCV 79.6 L (80-100) fL MCH 24.7 L (26-34) PG MCHC 31.1 (30-36) % RDW 20.3 H (11.6-14.8) % Plt Count 327 (150-400) X10^3/uL Neut % (Auto) 64.1 (50-75) % Lymph % (Auto) 25.7 (25-40) % [place] % (Auto) 9.6 (3-14) % Eos % (Auto) 0.1 L (2-4) % Baso % (Auto) 0.5 (0-2) % Neut # (Auto) 8300 H (2377-7547) /uL Lymph # (Auto) 3400 (6448-2740) /uL [place] # (Auto) 1300 H (0-900) /uL Eos # (Auto) 0 (0-450) /uL Baso # (Auto) 100 (0-100) /uL RBC Morphology Not Reportable Hypochromasia 2+ H Anisocytosis 1+ H D-Dimer (<230) ng/mL ABG pH (7.35-7.45) ABG pCO2 (35-45) mmHg ABG pO2 (80-100) mmHg ABG HCO3 (22-26) mmol/L ABG Total CO2 (21-31) mmol/L ABG O2 Saturation (95-100) % ABG Base Excess (-2-2) mmol/L FiO2 Sodium 132 L (137-145) mmol/L Potassium 3.8 (3.4-5.1) mmol/L Chloride 85 L (98-107) mmol/L Carbon Dioxide 36 H (22-32) mmol/L BUN 39 H (7-17) mg/dL Creatinine 0.96 (0.52-1.04) mg/dL Estimated GFR > 60.0 (>60) mL/min BUN/Creatinine Ratio 40.6 H (6-22) Glucose 441 H (70-100) mg/dL Lactate 2.7 H (0.7-2.1) mmol/L Calcium 8.9 (8.4-10.2) mg/dL Magnesium (1.6-2.3) mg/dL Total Bilirubin 0.4 (0.2-1.3) mg/dL AST 34 (14-36) IU/L ALT 33 (<35) IU/L Alkaline Phosphatase 125 (38-126) U/L Troponin I (0.01-0.034) ng/mL NT-Pro-B Natriuret Pep (<125) pg/mL Total Protein 7.9 (6.3-8.2) g/dL Albumin 4.4 (3.5-5.0) g/dL Globulin 3.5 (1.7-4.1) g/dL Albumin/Globulin Ratio 1.3 (1.0-2.8) Lipase 40 (23-300) U/L Procalcitonin (<0.5) ng/mL Urine Color Urine Appearance Urine pH (4.5-8.0) Ur Specific [place] (1.000-1.035) Urine Protein (Negative) Urine Glucose (UA) (Negative) g/dL Urine Ketones (NEGATIVE) Urine Occult Blood (Negative) Urine Nitrate (Negative) Urine Bilirubin (NEGATIVE) Urine Urobilinogen (0.2) E.U./dL Ur Leukocyte Esterase (NEGATIVE) Urine RBC (0-5/HPF) Urine WBC (0-5/HPF) Ur Squamous Epith Cells (0-5/HPF) Urine Bacteria (None) Ur Culture Indicated? Ketones (<0.27) mmol/L COVID-19 PCR (Negative) 05/25/20 Range/Units 09:28 WBC (4.5-11.0) X10^3/uL RBC (4.0-5.2) X10^6/uL Hgb (12.0-16.0) g/dL Hct (36-46) % MCV (80-100) fL MCH (26-34) PG MCHC (30-36) % RDW (11.6-14.8) % Plt Count (150-400) X10^3/uL Neut % (Auto) (50-75) % Lymph % (Auto) (25-40) % [place] % (Auto) (3-14) % Eos % (Auto) (2-4) % Baso % (Auto) (0-2) % Neut # (Auto) (9396-4777) /uL Lymph # (Auto) (5689-5653) /uL [place] # (Auto) (0-900) /uL Eos # (Auto) (0-450) /uL Baso # (Auto) (0-100) /uL RBC Morphology Hypochromasia Anisocytosis D-Dimer (<230) ng/mL ABG pH (7.35-7.45) ABG pCO2 (35-45) mmHg ABG pO2 (80-100) mmHg ABG HCO3 (22-26) mmol/L ABG Total CO2 (21-31) mmol/L ABG O2 Saturation (95-100) % ABG Base Excess (-2-2) mmol/L FiO2 Sodium (137-145) mmol/L Potassium (3.4-5.1) mmol/L Chloride (98-107) mmol/L Carbon Dioxide (22-32) mmol/L BUN (7-17) mg/dL Creatinine (0.52-1.04) mg/dL Estimated GFR (>60) mL/min BUN/Creatinine Ratio (6-22) Glucose (70-100) mg/dL Lactate 2.6 H (0.7-2.1) mmol/L Calcium (8.4-10.2) mg/dL Magnesium (1.6-2.3) mg/dL Total Bilirubin (0.2-1.3) mg/dL AST (14-36) IU/L ALT (<35) IU/L Alkaline Phosphatase (38-126) U/L Troponin I (0.01-0.034) ng/mL NT-Pro-B Natriuret Pep (<125) pg/mL Total Protein (6.3-8.2) g/dL Albumin (3.5-5.0) g/dL Globulin (1.7-4.1) g/dL Albumin/Globulin Ratio (1.0-2.8) Lipase (23-300) U/L Procalcitonin (<0.5) ng/mL Urine Color Urine Appearance Urine pH (4.5-8.0) Ur Specific [place] (1.000-1.035) Urine Protein (Negative) Urine Glucose (UA) (Negative) g/dL Urine Ketones (NEGATIVE) Urine Occult Blood (Negative) Urine Nitrate (Negative) Urine Bilirubin (NEGATIVE) Urine Urobilinogen (0.2) E.U./dL Ur Leukocyte Esterase (NEGATIVE) Urine RBC (0-5/HPF) Urine WBC (0-5/HPF) Ur Squamous Epith Cells (0-5/HPF) Urine Bacteria (None) Ur Culture Indicated? Ketones (<0.27) mmol/L COVID-19 PCR (Negative) Point of Care Testing Glucose POC 350 Point of care testing: Point of Care Testing Glucose POC 350 ECG Data Attestation: I personally reviewed and interpreted this ECG as follows: Interpretation: Sinus rhythm at a rate of 100 Prolonged QT at 5:44 a.m. Normal axis no acute ischemic changes MDM Narrative Medical decision making narrative: 45-year-old woman with 6 days of increasing exertional dyspnea, increasingly productive cough fevers and elevated blood sugars with significant vomiting over the last 24 hours. Anion gap is 11 and she does not appear to be in acute DKA however with a blood sugar of almost 500 this certainly confirms a diagnosis of diabetes for her. She has not been taking her prednisone recently. Lactic acid is elevated and the possibility is sepsis is considered. She is not hypotensive and with her severe pulmonary lung disease and possibility of developing congestive heart failure aggressive fluid replacement is not initiated. With volume loss secondary to her vomiting yesterday gentle hydration is initiated and lactic acid will be replaced. Heel wound is cultured that this does not appear to be infected. She is Covid negative today will see if we can obtain a sputum sample. Possibility of PE is certainly entertain in a PE study will be ordered. She will be started on antibiotics in the form of imipenem given her multiple allergies and current dapsone and azithromycin regimen. 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 4:45 Dr Orr, case is reviewed. In light of the fever and increased sputum production he did recommend hospitalization with IV abx. Agreed with initial imipenem. Did recommend 20mg prdnisone daily. Would like to see her in his clinic in 1-2 weeks to follow-up on the interval appearance of the right middle lobe nodule described on the CT scan. CT scan is reviewed with him and with the absence of pulmonary embolism in absence of obvious dramatic progression of her interstitial disease or consolidated pneumonia did not feel that tertiary care admission would be required at this time. She will need at treatment and further management for her diabetes and may benefit from echocardiogram given the exertional dyspnea component of which she complains. Will review with our hospitalist for admission at this time. 5:[address] Mackey. She requested ABG, repeat lactic and BNP. Concerned that this may be too complex for [facility]. Will discuss as labs return. 5:50 Talked with Pulmonolgist at [facility], Dr Mcintyre, who recommends hospitalization at [facility], given her severe baseline disease and inability to offer additional pulmonary treatment should her condition worsen. <Haris Mondragon MD - Last Filed: 05/25/20 07:27> Lab Data Labs: Lab Results 05/24/20 05/24/20 05/24/20 Range/Units 14:20 14:20 14:20 WBC 15.2 H (4.5-11.0) X10^3/uL RBC 4.61 (4.0-5.2) X10^6/uL Hgb 11.5 L (12.0-16.0) g/dL Hct 36.7 (36-46) % MCV 79.6 L (80-100) fL MCH 25.1 L (26-34) PG MCHC 31.5 (30-36) % RDW 20.5 H (11.6-14.8) % Plt Count 369 (150-400) X10^3/uL Neut % (Auto) 56.5 (50-75) % Lymph % (Auto) 28.6 (25-40) % [place] % (Auto) 12.5 (3-14) % Eos % (Auto) 1.4 L (2-4) % Baso % (Auto) 1.0 (0-2) % Neut # (Auto) 8600 H (0360-2476) /uL Lymph # (Auto) 4400 (7071-6443) /uL [place] # (Auto) 1900 H (0-900) /uL Eos # (Auto) 200 (0-450) /uL Baso # (Auto) 100 (0-100) /uL RBC Morphology See below Hypochromasia Anisocytosis 1+ H D-Dimer (<230) ng/mL ABG pH (7.35-7.45) ABG pCO2 (35-45) mmHg ABG pO2 (80-100) mmHg ABG HCO3 (22-26) mmol/L ABG Total CO2 (21-31) mmol/L ABG O2 Saturation (95-100) % ABG Base Excess (-2-2) mmol/L FiO2 Sodium 132 L (137-145) mmol/L Potassium 3.8 (3.4-5.1) mmol/L Chloride 81 L (98-107) mmol/L Carbon Dioxide 40 H* (22-32) mmol/L BUN 54 H (7-17) mg/dL Creatinine 0.88 (0.52-1.04) mg/dL Estimated GFR > 60.0 (>60) mL/min BUN/Creatinine Ratio 61.4 H (6-22) Glucose 476 H (70-100) mg/dL Lactate (0.7-2.1) mmol/L Calcium 10.3 H (8.4-10.2) mg/dL Magnesium 2.3 (1.6-2.3) mg/dL Total Bilirubin 0.5 (0.2-1.3) mg/dL AST 36 (14-36) IU/L ALT 33 (<35) IU/L Alkaline Phosphatase 131 H (38-126) U/L Troponin I < 0.012 (0.01-0.034) ng/mL NT-Pro-B Natriuret Pep (<125) pg/mL Total Protein 8.8 H (6.3-8.2) g/dL Albumin 4.7 (3.5-5.0) g/dL Globulin 4.1 (1.7-4.1) g/dL Albumin/Globulin Ratio 1.1 (1.0-2.8) Lipase 38 (23-300) U/L Procalcitonin (<0.5) ng/mL Urine Color Urine Appearance Urine pH (4.5-8.0) Ur Specific [place] (1.000-1.035) Urine Protein (Negative) Urine Glucose (UA) (Negative) g/dL Urine Ketones (NEGATIVE) Urine Occult Blood (Negative) Urine Nitrate (Negative) Urine Bilirubin (NEGATIVE) Urine Urobilinogen (0.2) E.U./dL Ur Leukocyte Esterase (NEGATIVE) Urine RBC (0-5/HPF) Urine WBC (0-5/HPF) Ur Squamous Epith Cells (0-5/HPF) Urine Bacteria (None) Ur Culture Indicated? Ketones 0.03 (<0.27) mmol/L COVID-19 PCR (Negative) 05/24/20 05/24/20 05/24/20 Range/Units 14:20 14:20 14:20 WBC (4.5-11.0) X10^3/uL RBC (4.0-5.2) X10^6/uL Hgb (12.0-16.0) g/dL Hct (36-46) % MCV (80-100) fL MCH (26-34) PG MCHC (30-36) % RDW (11.6-14.8) % Plt Count (150-400) X10^3/uL Neut % (Auto) (50-75) % Lymph % (Auto) (25-40) % [place] % (Auto) (3-14) % Eos % (Auto) (2-4) % Baso % (Auto) (0-2) % Neut # (Auto) (1585-3730) /uL Lymph # (Auto) (7808-9413) /uL [place] # (Auto) (0-900) /uL Eos # (Auto) (0-450) /uL Baso # (Auto) (0-100) /uL RBC Morphology Hypochromasia Anisocytosis D-Dimer (<230) ng/mL ABG pH (7.35-7.45) ABG pCO2 (35-45) mmHg ABG pO2 (80-100) mmHg ABG HCO3 (22-26) mmol/L ABG Total CO2 (21-31) mmol/L ABG O2 Saturation (95-100) % ABG Base Excess (-2-2) mmol/L FiO2 Sodium (137-145) mmol/L Potassium (3.4-5.1) mmol/L Chloride (98-107) mmol/L Carbon Dioxide (22-32) mmol/L BUN (7-17) mg/dL Creatinine (0.52-1.04) mg/dL Estimated GFR (>60) mL/min BUN/Creatinine Ratio (6-22) Glucose (70-100) mg/dL Lactate 3.4 H (0.7-2.1) mmol/L Calcium (8.4-10.2) mg/dL Magnesium (1.6-2.3) mg/dL Total Bilirubin (0.2-1.3) mg/dL AST (14-36) IU/L ALT (<35) IU/L Alkaline Phosphatase (38-126) U/L Troponin I (0.01-0.034) ng/mL NT-Pro-B Natriuret Pep 110 (<125) pg/mL Total Protein (6.3-8.2) g/dL Albumin (3.5-5.0) g/dL Globulin (1.7-4.1) g/dL Albumin/Globulin Ratio (1.0-2.8) Lipase (23-300) U/L Procalcitonin 0.13 (<0.5) ng/mL Urine Color Urine Appearance Urine pH (4.5-8.0) Ur Specific [place] (1.000-1.035) Urine Protein (Negative) Urine Glucose (UA) (Negative) g/dL Urine Ketones (NEGATIVE) Urine Occult Blood (Negative) Urine Nitrate (Negative) Urine Bilirubin (NEGATIVE) Urine Urobilinogen (0.2) E.U./dL Ur Leukocyte Esterase (NEGATIVE) Urine RBC (0-5/HPF) Urine WBC (0-5/HPF) Ur Squamous Epith Cells (0-5/HPF) Urine Bacteria (None) Ur Culture Indicated? Ketones (<0.27) mmol/L COVID-19 PCR (Negative) 05/24/20 05/24/20 05/24/20 Range/Units 14:38 15:00 17:35 WBC (4.5-11.0) X10^3/uL RBC (4.0-5.2) X10^6/uL Hgb (12.0-16.0) g/dL Hct (36-46) % MCV (80-100) fL MCH (26-34) PG MCHC (30-36) % RDW (11.6-14.8) % Plt Count (150-400) X10^3/uL Neut % (Auto) (50-75) % Lymph % (Auto) (25-40) % [place] % (Auto) (3-14) % Eos % (Auto) (2-4) % Baso % (Auto) (0-2) % Neut # (Auto) (6935-1849) /uL Lymph # (Auto) (1895-7779) /uL [place] # (Auto) (0-900) /uL Eos # (Auto) (0-450) /uL Baso # (Auto) (0-100) /uL RBC Morphology Hypochromasia Anisocytosis D-Dimer < 200 (<230) ng/mL ABG pH (7.35-7.45) ABG pCO2 (35-45) mmHg ABG pO2 (80-100) mmHg ABG HCO3 (22-26) mmol/L ABG Total CO2 (21-31) mmol/L ABG O2 Saturation (95-100) % ABG Base Excess (-2-2) mmol/L FiO2 Sodium (137-145) mmol/L Potassium (3.4-5.1) mmol/L Chloride (98-107) mmol/L Carbon Dioxide (22-32) mmol/L BUN (7-17) mg/dL Creatinine (0.52-1.04) mg/dL Estimated GFR (>60) mL/min BUN/Creatinine Ratio (6-22) Glucose (70-100) mg/dL Lactate 2.4 H (0.7-2.1) mmol/L Calcium (8.4-10.2) mg/dL Magnesium (1.6-2.3) mg/dL Total Bilirubin (0.2-1.3) mg/dL AST (14-36) IU/L ALT (<35) IU/L Alkaline Phosphatase (38-126) U/L Troponin I (0.01-0.034) ng/mL NT-Pro-B Natriuret Pep (<125) pg/mL Total Protein (6.3-8.2) g/dL Albumin (3.5-5.0) g/dL Globulin (1.7-4.1) g/dL Albumin/Globulin Ratio (1.0-2.8) Lipase (23-300) U/L Procalcitonin (<0.5) ng/mL Urine Color Urine Appearance Urine pH (4.5-8.0) Ur Specific [place] (1.000-1.035) Urine Protein (Negative) Urine Glucose (UA) (Negative) g/dL Urine Ketones (NEGATIVE) Urine Occult Blood (Negative) Urine Nitrate (Negative) Urine Bilirubin (NEGATIVE) Urine Urobilinogen (0.2) E.U./dL Ur Leukocyte Esterase (NEGATIVE) Urine RBC (0-5/HPF) Urine WBC (0-5/HPF) Ur Squamous Epith Cells (0-5/HPF) Urine Bacteria (None) Ur Culture Indicated? Ketones (<0.27) mmol/L COVID-19 PCR Negative (Negative) 05/24/20 05/25/20 05/25/20 Range/Units 18:06 00:20 03:55 WBC (4.5-11.0) X10^3/uL RBC (4.0-5.2) X10^6/uL Hgb (12.0-16.0) g/dL Hct (36-46) % MCV (80-100) fL MCH (26-34) PG MCHC (30-36) % RDW (11.6-14.8) % Plt Count (150-400) X10^3/uL Neut % (Auto) (50-75) % Lymph % (Auto) (25-40) % [place] % (Auto) (3-14) % Eos % (Auto) (2-4) % Baso % (Auto) (0-2) % Neut # (Auto) (6152-4989) /uL Lymph # (Auto) (6292-2983) /uL [place] # (Auto) (0-900) /uL Eos # (Auto) (0-450) /uL Baso # (Auto) (0-100) /uL RBC Morphology Hypochromasia Anisocytosis D-Dimer (<230) ng/mL ABG pH 7.42 (7.35-7.45) ABG pCO2 58.6 H (35-45) mmHg ABG pO2 109 H (80-100) mmHg ABG HCO3 38 H (22-26) mmol/L ABG Total CO2 40 H (21-31) mmol/L ABG O2 Saturation 98 (95-100) % ABG Base Excess 14.0 H (-2-2) mmol/L FiO2 48 Sodium (137-145) mmol/L Potassium (3.4-5.1) mmol/L Chloride (98-107) mmol/L Carbon Dioxide (22-32) mmol/L BUN (7-17) mg/dL Creatinine (0.52-1.04) mg/dL Estimated GFR (>60) mL/min BUN/Creatinine Ratio (6-22) Glucose (70-100) mg/dL Lactate 3.5 H (0.7-2.1) mmol/L Calcium (8.4-10.2) mg/dL Magnesium (1.6-2.3) mg/dL Total Bilirubin (0.2-1.3) mg/dL AST (14-36) IU/L ALT (<35) IU/L Alkaline Phosphatase (38-126) U/L Troponin I (0.01-0.034) ng/mL NT-Pro-B Natriuret Pep (<125) pg/mL Total Protein (6.3-8.2) g/dL Albumin (3.5-5.0) g/dL Globulin (1.7-4.1) g/dL Albumin/Globulin Ratio (1.0-2.8) Lipase (23-300) U/L Procalcitonin (<0.5) ng/mL Urine Color Yellow Urine Appearance Clear Urine pH 7.0 (4.5-8.0) Ur Specific [place] 1.010 (1.000-1.035) Urine Protein Negative (Negative) Urine Glucose (UA) 2+ H (Negative) g/dL Urine Ketones Negative (NEGATIVE) Urine Occult Blood Trace-intact (Negative) Urine Nitrate Negative (Negative) Urine Bilirubin Negative (NEGATIVE) Urine Urobilinogen 0.2 (0.2) E.U./dL Ur Leukocyte Esterase Negative (NEGATIVE) Urine RBC None seen (0-5/HPF) Urine WBC None seen (0-5/HPF) Ur Squamous Epith Cells 0-1 /hpf D (0-5/HPF) Urine Bacteria Occasional (0-1) D (None) Ur Culture Indicated? Cult not indicated Ketones (<0.27) mmol/L COVID-19 PCR (Negative) 05/25/20 05/25/20 05/25/20 Range/Units 06:44 06:44 06:44 WBC 13.0 H (4.5-11.0) X10^3/uL RBC 4.20 (4.0-5.2) X10^6/uL Hgb 10.4 L (12.0-16.0) g/dL Hct 33.5 L (36-46) % MCV 79.6 L (80-100) fL MCH 24.7 L (26-34) PG MCHC 31.1 (30-36) % RDW 20.3 H (11.6-14.8) % Plt Count 327 (150-400) X10^3/uL Neut % (Auto) 64.1 (50-75) % Lymph % (Auto) 25.7 (25-40) % [place] % (Auto) 9.6 (3-14) % Eos % (Auto) 0.1 L (2-4) % Baso % (Auto) 0.5 (0-2) % Neut # (Auto) 8300 H (8317-4793) /uL Lymph # (Auto) 3400 (5925-8888) /uL [place] # (Auto) 1300 H (0-900) /uL Eos # (Auto) 0 (0-450) /uL Baso # (Auto) 100 (0-100) /uL RBC Morphology Not Reportable Hypochromasia 2+ H Anisocytosis 1+ H D-Dimer (<230) ng/mL ABG pH (7.35-7.45) ABG pCO2 (35-45) mmHg ABG pO2 (80-100) mmHg ABG HCO3 (22-26) mmol/L ABG Total CO2 (21-31) mmol/L ABG O2 Saturation (95-100) % ABG Base Excess (-2-2) mmol/L FiO2 Sodium 132 L (137-145) mmol/L Potassium 3.8 (3.4-5.1) mmol/L Chloride 85 L (98-107) mmol/L Carbon Dioxide 36 H (22-32) mmol/L BUN 39 H (7-17) mg/dL Creatinine 0.96 (0.52-1.04) mg/dL Estimated GFR > 60.0 (>60) mL/min BUN/Creatinine Ratio 40.6 H (6-22) Glucose 441 H (70-100) mg/dL Lactate 2.7 H (0.7-2.1) mmol/L Calcium 8.9 (8.4-10.2) mg/dL Magnesium (1.6-2.3) mg/dL Total Bilirubin 0.4 (0.2-1.3) mg/dL AST 34 (14-36) IU/L ALT 33 (<35) IU/L Alkaline Phosphatase 125 (38-126) U/L Troponin I (0.01-0.034) ng/mL NT-Pro-B Natriuret Pep (<125) pg/mL Total Protein 7.9 (6.3-8.2) g/dL Albumin 4.4 (3.5-5.0) g/dL Globulin 3.5 (1.7-4.1) g/dL Albumin/Globulin Ratio 1.3 (1.0-2.8) Lipase 40 (23-300) U/L Procalcitonin (<0.5) ng/mL Urine Color Urine Appearance Urine pH (4.5-8.0) Ur Specific [place] (1.000-1.035) Urine Protein (Negative) Urine Glucose (UA) (Negative) g/dL Urine Ketones (NEGATIVE) Urine Occult Blood (Negative) Urine Nitrate (Negative) Urine Bilirubin (NEGATIVE) Urine Urobilinogen (0.2) E.U./dL Ur Leukocyte Esterase (NEGATIVE) Urine RBC (0-5/HPF) Urine WBC (0-5/HPF) Ur Squamous Epith Cells (0-5/HPF) Urine Bacteria (None) Ur Culture Indicated? Ketones (<0.27) mmol/L COVID-19 PCR (Negative) 05/25/20 Range/Units 09:28 WBC (4.5-11.0) X10^3/uL RBC (4.0-5.2) X10^6/uL Hgb (12.0-16.0) g/dL Hct (36-46) % MCV (80-100) fL MCH (26-34) PG MCHC (30-36) % RDW (11.6-14.8) % Plt Count (150-400) X10^3/uL Neut % (Auto) (50-75) % Lymph % (Auto) (25-40) % [place] % (Auto) (3-14) % Eos % (Auto) (2-4) % Baso % (Auto) (0-2) % Neut # (Auto) (5294-2403) /uL Lymph # (Auto) (2101-3867) /uL [place] # (Auto) (0-900) /uL Eos # (Auto) (0-450) /uL Baso # (Auto) (0-100) /uL RBC Morphology Hypochromasia Anisocytosis D-Dimer (<230) ng/mL ABG pH (7.35-7.45) ABG pCO2 (35-45) mmHg ABG pO2 (80-100) mmHg ABG HCO3 (22-26) mmol/L ABG Total CO2 (21-31) mmol/L ABG O2 Saturation (95-100) % ABG Base Excess (-2-2) mmol/L FiO2 Sodium (137-145) mmol/L Potassium (3.4-5.1) mmol/L Chloride (98-107) mmol/L Carbon Dioxide (22-32) mmol/L BUN (7-17) mg/dL Creatinine (0.52-1.04) mg/dL Estimated GFR (>60) mL/min BUN/Creatinine Ratio (6-22) Glucose (70-100) mg/dL Lactate 2.6 H (0.7-2.1) mmol/L Calcium (8.4-10.2) mg/dL Magnesium (1.6-2.3) mg/dL Total Bilirubin (0.2-1.3) mg/dL AST (14-36) IU/L ALT (<35) IU/L Alkaline Phosphatase (38-126) U/L Troponin I (0.01-0.034) ng/mL NT-Pro-B Natriuret Pep (<125) pg/mL Total Protein (6.3-8.2) g/dL Albumin (3.5-5.0) g/dL Globulin (1.7-4.1) g/dL Albumin/Globulin Ratio (1.0-2.8) Lipase (23-300) U/L Procalcitonin (<0.5) ng/mL Urine Color Urine Appearance Urine pH (4.5-8.0) Ur Specific [place] (1.000-1.035) Urine Protein (Negative) Urine Glucose (UA) (Negative) g/dL Urine Ketones (NEGATIVE) Urine Occult Blood (Negative) Urine Nitrate (Negative) Urine Bilirubin (NEGATIVE) Urine Urobilinogen (0.2) E.U./dL Ur Leukocyte Esterase (NEGATIVE) Urine RBC (0-5/HPF) Urine WBC (0-5/HPF) Ur Squamous Epith Cells (0-5/HPF) Urine Bacteria (None) Ur Culture Indicated? Ketones (<0.27) mmol/L COVID-19 PCR (Negative) Point of Care Testing Glucose POC 350 Point of care testing: Point of Care Testing Glucose POC 350 Imaging Data Chest x-ray: Radiologist's Impression: [address] [address] XRay Report Signed Patient: Carissa Gallardo RMR#: [id number] : 1975Acct:[id number] Age/Sex: 45 / FDate of Service: 05/24/20 Loc: ED Accession Number: [id number] Procedure: XR chest 1V Ordering Provider: Yaneli Hay MD PROCEDURE: XR CHEST 1V INDICATIONS: cough TECHNIQUE: One view of the chest was acquired. COMPARISON: [facility], CT, CT CHEST W CON, 01/11/2019, 15:08. [facility], CR, XR CHEST 2V, 01/26/2018, 22:31. [facility], CR, XR CHEST 1V, 01/11/2019, 14:05. [facility], CR, XR CHEST 1V, 10/31/2018, 8:32. FINDINGS: Surgical changes and devices: None. Lungs and pleura: Lungs are abnormal, with a persistent alveolar prominence seen in this patient over several years, including 01/26/18. Alveolitis and pulmonary fibrosis appears superimposed. No pleural effusions or pneumothorax. Mediastinum: Mediastinal contours appear normal. Heart size is normal. Bones and chest wall: No suspicious bony lesions. Overlying soft tissues appear unremarkable. IMPRESSION: Alveolitis and pulmonary fibrosis appear superimpose associated with mildly reduced inspiratory volume and persistent interstitial prominence. [employer] consultation is recommended if this has not yet been obtained. No definite focal new pneumonia found. Dictated by: Khai Garrett M.D. on 05/24/2020 at 15:47 Approved by: Khai Garrett M.D. on 05/24/2020 at 15:49 CTA Chest: Radiologist's Impression: 42 Haris Mondragon MD Find Patient Imaging - Carissa Gallardo 45 F 1975 ACTIVITY DATE EXAM STATUS AUTHOR 05/24/20 15:59 Signed Breonna Ojeda 05/24/20 14:06 Signed Khai Garrett ORDER STATUS ORDER START ORDER DETAIL CT head/brain wo con Cancelled 05/24/20 20:[address] [place] [address] CT Scan Report Signed Patient: Carissa Gallardo RMR#: [id number] : 1975Acct:[id number] Age/Sex: 45 / FDate of Service: 05/24/20 Loc: ED Accession Number: [id number] Procedure: CT angio chest PE protocol Ordering Provider: Yaneli Hay MD PROCEDURE: CT ANGIO CHEST PE PROTOCOL INDICATIONS: exertional dypnea TECHNIQUE: After the administration of intravenous contrast, 2 mm thick sections acquired from the pulmonary apices to the posterior costophrenic angles. 3-dimensional maximum intensity projection (MIP) coronal and sagittal reformats were then acquired through the thorax. For radiation dose reduction, the following was used: automated exposure control, adjustment of mA and/or kV according to patient size. COMPAR[facility]: [facility] [place], [place], CT ANGIO CHEST PE PROTOCOL, 10/31/2018, 9:54. [facility] [place], CT, CT CHEST W CON, 01/11/2019, 15:08. FINDINGS: Image quality: Excellent. Pulmonary arteries: Pulmonary arteries are normal in size, and demonstrate no intraluminal filling defects to suggest central pulmonary embolism. Lungs and pleura: Prominent chronic interstitial lung disease is present, minimally progressive compared to 2019. No pleural effusions or consolidations are identified. There is a nodule identified within the right middle lobe on series 5, image 102 measuring 10 mm. This was not present in 2019. No pleural effusions or pneumothorax. Central and peripheral airways are patent. Mediastinum: Heart size is normal, without pericardial effusion. Mildly prominent mediastinal and hilar lymph nodes are present, relatively unchanged compared to prior exam. Thoracic aorta is normal in caliber and enhancement. Esophagus is normal in caliber, without hiatal hernia. Bones and chest wall: No suspicious bony lesions. Ribs and thoracic spine appear intact throughout. Thyroid gland is not visualized. No axillary or supraclavicular adenopathy. Abdomen: Visualized upper abdominal solid organs appear normal in the early arterial phase of enhancement. IMPRESSION: 1. No pulmonary embolism. 2. Mild progression of chronic interstitial lung disease. 3. Interval appearance of 10 mm right middle lobe nodule as above. It is overall nonspecific. Recommend interval follow-up as below. Fleischner Society criteria for SOLID lung nodule followup. Nodule size (mm)Low-risk patientHigh-risk patient<6 (single or multiple)No routine followup.Optional CT at 12 months. 6-8 (single or multiple)CT at 6-12 months, then optional CT at 18-24 mo.CT at 6-12 months, then CT at 18-24 months. >8 (single)CT, PET-CT, or biopsy at 3 months. Same as for low-risk pts. >8 (multiple)CT at 3-6 months, then optional CT at 18-24 mo.CT at 3-6 months, then CT at 18-24 months. Recommendations do not apply to lung cancer screening, patients with immunosuppression, or patients with known primary cancer. Dictated by: Breonna Ojeda M.D. on 05/24/2020 at 16:32 Approved by: Breonna Ojeda M.D. on 05/24/2020 at 16:36 <Haris Mondragon MD - Last Filed: 05/25/20 07:27> Critical Care Time Critical Care Time: Yes Total Critical Care Time: 120 Attestation: Critical care included initial evaluation of patient, review of EKG, radiology and lab data, multiple clinical decisions, and multiple consultations as detailed above. Discharge Plan Departure Patient Disposition: [facility] Clinical Impression: Interstitial lung disease, Acute hyperglycemia, Exertional dyspnea, Pneumonia Sepsis Qualifiers: Sepsis type: sepsis due to unspecified organism Sepsis acute organ dysfunction status: unspecified Qualified Code(s): A41.9 - Sepsis, unspecified organism Diabetes Qualifiers: Diabetes mellitus type: type 2 Diabetes mellitus manager long term care insulin use: without manager long term care use Discharge Date/Time: 05/25/20 13:30 Prescriptions: No Action duloxetine [Cymbalta] 60 MG capsule,delayed release(DR/EC) 60 mg PO BID Qty: 0 RF: 0 Excedrin Extra Strength 250-250-65 mg Tablet 1 tab PO PRN PRN (Reason: PAIN OR HEADACHE) Qty: 0 RF: 0 fluticasone propion-salmeterol [Advair Diskus] 250-50 mcg/dose blister with device 1 puff Inhalation BID RF: 0 quetiapine 300 mg tablet 300 mg PO QPM RF: 0 levothyroxine 300 mcg tablet 300 mcg PO DAILY RF: 0 prednisone 20 mg tablet 1 dose PO DIRECTED RF: 0 hydroxyzine pamoate 50 mg capsule 50 mg PO DAILY RF: 0 omeprazole 40 mg capsule,delayed release(DR/EC) 40 mg PO BID RF: 0 llkuuffpzk-ayqhtuwwgsbip-uqlg 50-325-40 mg tablet 1 tab PO BID PRN (Reason: headache) RF: 0 dapsone 100 mg tablet 100 mg PO DAILY RF: 0 gabapentin 300 mg capsule 900 mg PO TID RF: 0 albuterol sulfate [ProAir HFA] 90 mcg/actuation HFA aerosol inhaler 1 puff Inhalation BID RF: 0 fluticasone propionate 50 mcg/actuation spray,suspension 1 spray Intranasal DAILY RF: 0 glipizide 5 mg tablet 5 mg PO DAILY RF: 0 diclofenac sodium [Voltaren] 1 % gel 1 applic topical PRN PRN (Reason: pain) RF: 0 methadone 10 mg Tablet 145 mg PO DAILY RF: 0 Referrals: Alex Montoya MD [Primary Care Provider] - ED Sign-out <Yaneli aHy MD - Last Filed: 06/01/20 04:06> Cosign ED Attending Yeimiature Attestation: I was immediately available in the department for consultation throughout this patient's visit. I agree with documentation as above. Yaneli Hay MD
[2020-05-24 15:09] LABS: Procalcitonin 0.13 ng/mL (<0.5)
[2020-05-24 15:17] LABS: Troponin I < 0.012 ng/mL (0.01-0.034)
[2020-05-24] MEDS: SODIUM CHLORIDE 0.9% 1,000 ML 1000 ML IV (15:21)
[2020-05-24 15:27] LABS: D Dimer < 200 ng/mL (<230)
--- NOTE | 2020-05-24 15:59 | DI.CT.S_ITS ---
PROCEDURE: CT ANGIO CHEST PE PROTOCOL INDICATIONS: exertional dypnea TECHNIQUE: After the administration of intravenous contrast, 2 mm thick sections acquired from the pulmonary apices to the posterior costophrenic angles. 3-dimensional maximum intensity projection (MIP) coronal and sagittal reformats were then acquired through the thorax. For radiation dose reduction, the following was used: automated exposure control, adjustment of mA and/or kV according to patient size. COMPARISON: [facility], CT, CT ANGIO CHEST PE PROTOCOL, 10/31/2018, 9:54. [facility], CT, CT CHEST W CON, 01/11/2019, 15:08. FINDINGS: Image quality: Excellent. Pulmonary arteries: Pulmonary arteries are normal in size, and demonstrate no intraluminal filling defects to suggest central pulmonary embolism. Lungs and pleura: Prominent chronic interstitial lung disease is present, minimally progressive compared to 2019. No pleural effusions or consolidations are identified. There is a nodule identified within the right middle lobe on series 5, image 102 measuring 10 mm. This was not present in 2019. No pleural effusions or pneumothorax. Central and peripheral airways are patent. Mediastinum: Heart size is normal, without pericardial effusion. Mildly prominent mediastinal and hilar lymph nodes are present, relatively unchanged compared to prior exam. Thoracic aorta is normal in caliber and enhancement. Esophagus is normal in caliber, without hiatal hernia. Bones and chest wall: No suspicious bony lesions. Ribs and thoracic spine appear intact throughout. Thyroid gland is not visualized. No axillary or supraclavicular adenopathy. Abdomen: Visualized upper abdominal solid organs appear normal in the early arterial phase of enhancement. IMPRESSION: 1. No pulmonary embolism. 2. Mild progression of chronic interstitial lung disease. 3. Interval appearance of 10 mm right middle lobe nodule as above. It is overall nonspecific. Recommend interval follow-up as below. Fleischner Society criteria for SOLID lung nodule followup. Nodule size (mm)Low-risk patientHigh-risk patient<6 (single or multiple)No routine followup.Optional CT at 12 months. 6-8 (single or multiple)CT at 6-12 months, then optional CT at 18-24 mo.CT at 6-12 months, then CT at 18-24 months. >8 (single)CT, PET-CT, or biopsy at 3 months. Same as for low-risk pts. >8 (multiple)CT at 3-6 months, then optional CT at 18-24 mo.CT at 3-6 months, then CT at 18-24 months. Recommendations do not apply to lung cancer screening, patients with immunosuppression, or patients with known primary cancer. Dictated by: Breonna Ojeda M.D. on 05/24/2020 at 16:32 Approved by: Breonna Ojeda M.D. on 05/24/2020 at 16:36
[2020-05-24] MEDS: HYDROMORPHONE 0.5 MG INJ IV ×2 (16:10→17:48)
[2020-05-24] MEDS: IMIPENEM/CILASTATIN 1,000 MG in SODIUM CHLORIDE 0.9% 250 ML IV (16:10)
[2020-05-24 16:29] LABS: Reflexed Lactate in 2 Hours Y
[2020-05-24 17:56] LABS: Lactate 2HR (Lactic Acid Rflx) 2.4 mmol/L (0.7-2.1)
[2020-05-24] MEDS: predniSONE 20 MG TABLET PO ×2 (18:34→22:37)
[2020-05-24 19:00] LABS: Fractionated Inspired Oxygen 48; HCO3 ABG 38 mmol/L (22-26); Oxygen Saturation ABG 98 % (95-100); PCO2 ABG 58.6 mmHg (35-45); PO2 ABG 109 mmHg (80-100); TCO2 ABG 40 mmol/L (21-31); pH ABG 7.42 (7.35-7.45)
[2020-05-24 19:19] LABS: NT-proBNP (BNP-Adult 18+) 110 pg/mL (<125)
[2020-05-24] MEDS: OXYCODONE/ACETAMINOPHEN 5/325 TABLET 2 TAB PO ×2 (19:37→23:44)
[2020-05-24] MEDS: ONDANSETRON 4 MG/2 ML INJ IV (19:37)
[2020-05-24] MEDS: ALBUTEROL/IPRATROPIUM 3 ML AMPUL INH (19:45)
[2020-05-24] MEDS: diphenhydrAMINE 50 MG/ML VIAL IV (19:51)
--- NOTE | 2020-05-24 22:40 | PC.NURSE ---
On arrival patient also has a pustule/blister to her right foot.
--- NOTE | 2020-05-24 22:53 | PC.NURSE ---
Pt had episode Severe SOB, Sats on 6 LPM NC at 86% HR at 145BPM ST on monitor. Pt stated it will pass. Tachypneic at 50 RR. Pt returned to her usual rate of 120 on and 95% on 6LPM NC RR18. Notified Dr Mondragon, and new order received from Giancarlo to increase her steroids. Pt states this is not unusual to have these episodes.
[2020-05-24] MEDS: ONDANSETRON 4 MG/2 ML INJ (23:03)
[2020-05-25] VITALS (37 sets, daily range): BP systolic 101–155; BP diastolic 61–79; PULSE 84–131; RESP 13–35; TEMP 36.9–37.7; O2SAT 90–99
[2020-05-25 00:23] LABS: RBC Urine None Seen (0-5/HPF); WBC Urine None Seen (0-5/HPF)
[2020-05-25 00:24] LABS: Appearance Urine UA CLEAR; Bilirubin Urine UA NEGATIVE (NEGATIVE); Color Urine UA YELLOW; Glucose Urine UA 2+ g/dL (Negative); Ketones Urine UA NEGATIVE (NEGATIVE); Leukocyte Esterase Urine UA NEGATIVE (NEGATIVE); Nitrite Urine UA NEGATIVE (Negative); Occult Blood Urine UA TRACE-INTACT (Negative); Protein Urine UA NEGATIVE (Negative); Urobilinogen Urine UA 0.2 E.U./dL (0.2)
[2020-05-25 00:32] LABS: Squamous Epithelial Cell Urine 0-1 /HPF (0-5/HPF)
[2020-05-25 00:34] LABS: Bacteria Urine Occasional (0-1); Culture Indicated Urine Cult Not Indicated
[2020-05-25] MEDS: METOCLOPRAMIDE 10 MG/2 ML INJ IV (02:12)
[2020-05-25] MEDS: diphenhydrAMINE 50 MG/ML VIAL 25 MG IV (02:12)
[2020-05-25 04:14] LABS: Lactate (Lactic Acid) 3.5 mmol/L (0.7-2.1)
[2020-05-25] MEDS: SODIUM CHLORIDE 0.9% 1,000 ML 150 ML IV (04:24)
[2020-05-25] MEDS: IMIPENEM/CILASTATIN 1,000 MG in SODIUM CHLORIDE 0.9% 250 ML IV (04:25)
[2020-05-25] MEDS: HYDROMORPHONE 0.5 MG INJ IV ×2 (04:25→13:17)
[2020-05-25] MEDS: INSULIN REGULAR 100 UNIT/ML 3 ML VIAL 10 UNIT SUBCUT ×2 (05:12→12:38)
[2020-05-25] MEDS: SODIUM CHLORIDE 0.9% 1,000 ML 1000 ML IV (05:17)
[2020-05-25 06:01] LABS: Reflexed Lactate in 2 Hours Y
--- NOTE | 2020-05-25 06:59 | PC.NURSE ---
Report given to SUKI Carballo at [facility]. Will call back with bed #
[2020-05-25 07:07] LABS: Add Manual Diff / Slide Review NO; Basophils Absolute Auto 100 /uL (0-100); Basophils Percent Auto 0.5 % (0-2); Eosinophils Absolute Auto 0 /uL (0-450); Eosinophils Percent Auto 0.1 % (2-4); Hematocrit 33.5 % (36-46); Hemoglobin 10.4 g/dL (12.0-16.0); Lymphocytes Absolute Auto 3400 /uL (1100-4500); Lymphocytes Percent Auto 25.7 % (25-40); Mean Corpuscular HGB Conc 31.1 % (30-36); Mean Corpuscular Hemoglobin 24.7 PG (26-34); Mean Corpuscular Volume 79.6 fL (80-100); Monocytes Absolute Auto 1300 /uL (0-900); Monocytes Percent Auto 9.6 % (3-14); Neutrophils Absolute Auto 8300 /uL (1500-7000); Neutrophils Percent Auto 64.1 % (50-75); Platelet Count 327 X10^3/uL (150-400); Red Cell Distribution Width 20.3 % (11.6-14.8)
[2020-05-25] MEDS: OXYCODONE/ACETAMINOPHEN 5/325 TABLET 2 TAB PO ×2 (07:15→11:04)
[2020-05-25 07:20] LABS: Lactate (Lactic Acid) 2.7 mmol/L (0.7-2.1)
[2020-05-25 07:21] LABS: Alanine Aminotransferase 33 IU/L (<35); Albumin 4.4 g/dL (3.5-5.0); Albumin Globulin Ratio 1.3 (1.0-2.8); Alkaline Phosphatase 125 U/L (38-126); Aspartate Aminotransferase 34 IU/L (14-36); BUN Creatinine Ratio 40.6 (6-22); Bilirubin Total 0.4 mg/dL (0.2-1.3); Blood Urea Nitrogen 39 mg/dL (7-17); Calcium 8.9 mg/dL (8.4-10.2); Chloride 85 mmol/L (98-107); Estimated Glomerular Filt Rate > 60.0 mL/min (>60); Globulin 3.5 g/dL (1.7-4.1); Glucose 441 mg/dL (70-100); HEMOLYSIS < 15 (0-50); Lipase 40 U/L (23-300); Potassium 3.8 mmol/L (3.4-5.1); Sodium 132 mmol/L (137-145); Total Protein 7.9 g/dL (6.3-8.2)
[2020-05-25 07:27] LABS: Carbon Dioxide 36 mmol/L (22-32)
[2020-05-25 08:10] LABS: Anisocytosis 1+; Hypochromasia 2+
[2020-05-25 09:03] LABS: Reflexed Lactate in 2 Hours Y
[2020-05-25 09:50] LABS: Lactate 2HR (Lactic Acid Rflx) 2.6 mmol/L (0.7-2.1)
[2020-05-25] MEDS: ONDANSETRON 4 MG/2 ML INJ IV (11:05)
== END 2020-05-25 13:30 | disposition short-term general hospital (02) ==
PROVIDERS: Emergency Medicine; Emergency Provider Emergency Medicine; Family Provider Anesthesiology Pain Medicine; PCP Internal Medicine
DX: J84.9 Interstitial pulmonary disease, unspecified (principal); A41.9 Sepsis, unspecified organism; E11.65 Type 2 diabetes mellitus with hyperglycemia; Z79.4 Long term (current) use of insulin; R11.2 Nausea with vomiting, unspecified; R50.9 Fever, unspecified; S90.821A Blister (nonthermal), right foot, initial encounter
CPT/HCPCS: 36415; 36600; 71045; 71275; 80053; 81001; 82009; 82805; 82962; 83605; 83690; 83735; 83880; 84145; 84484; 85025; 85379; 87040; 87070; 87075; 87205; 87635; 93005; 94640; 96361; 96365; 96366; 96372; 96375; 96376; 99285; 99291; 99292; J0743; J1170; J1200; J2405; J2765; Q9967

== ENCOUNTER 2020-08-05 22:16 | Inpatient (IN) | payer MEDICARE, MEDICAID, SELFPAY ==
[2018-10-31 11:30] VITALS: PULSE 88; RESP 19; O2SAT 98
[2020-08-05 22:27] VITALS: BP 144/94; PULSE 95; RESP 20; TEMP 37.3; O2SAT 96; BMI 46.5
[2020-08-05 22:46] VITALS: PULSE 88; RESP 23; O2SAT 94
--- NOTE | 2020-08-05 22:51 | ED_ITS ---
HPI - Skin/Abscess/Foreign Bdy General Chief complaint: Shortness of Breath/Dyspnea Stated complaint: FEVER RASH ON THE RIGHT OF FACE SOB Time Seen by Provider: 08/05/20 22:16 Source: patient and family Mode of arrival: Wheelchair Limitations: no limitations History of Present Illness HPI narrative: 45F former smoker with interstitial lung disease, and immune compromise presents with a few days of worsening pain, swelling, and redness to the left side of her face. She felt some numbness and tingling prior to the presence of the rash. She has some pain and tingling in her nose and her left ear. She has some watering of her eye and claims some blurring to vision. She denies chest pain, N/V. She's had fever as high as 102 at home. She is chronically on 6 L of oxygen by nasal cannula and required increased rate upon arrival here. She has been noticing low grade fevers and increased work of breathing with increased oxygen use at home with minimal exertion. She is immunocompromised and takes Mycophenolate. Related Data Home Medications Medication Instructions Recorded Confirmed [id number]-tvanvvqlhkzvq-[id number] 1 tab PO PRN PRN #0 05/14/11 10/31/18 [Excedrin Extra Strength] duloxetine [Cymbalta] 60 mg PO BID #0 05/14/11 10/31/18 albuterol sulfate [ProAir HFA] 1 puff INHALATION BID 10/31/18 10/31/18 [id number]-fevnsrteebenw-yfim 1 tab PO BID PRN 10/31/18 10/31/18 dapsone 100 mg PO DAILY 10/31/18 10/31/18 diclofenac sodium [Voltaren] 1 applic TOPICAL PRN PRN 10/31/18 10/31/18 fluticasone propion-salmeterol 1 puff INHALATION BID 10/31/18 10/31/18 [Advair Diskus] fluticasone propionate 1 spray INTRANASAL DAILY 10/31/18 10/31/18 gabapentin 900 mg PO TID 10/31/18 10/31/18 glipizide 5 mg PO DAILY 10/31/18 10/31/18 hydroxyzine pamoate 50 mg PO DAILY 10/31/18 10/31/18 levothyroxine 300 mcg PO DAILY 10/31/18 10/31/18 methadone 145 mg PO DAILY 10/31/18 10/31/18 omeprazole 40 mg PO BID 10/31/18 10/31/18 prednisone 1 dose PO DIRECTED 10/31/18 10/31/18 quetiapine 300 mg PO QPM 10/31/18 10/31/18 Previous Rx's Medication Instructions Recorded doxycycline hyclate 100 mg PO BID #20 tab 08/06/20 valacyclovir 1,000 mg PO TID 10 Days #30 tab 08/06/20 Allergies Allergy/AdvReac Type Severity Reaction Status Date / Time levofloxacin [LEVOFLOXACIN] Allergy Unknown Verified 08/05/20 22:27 Penicillins [PENICILLINS] Allergy Unknown Verified 08/05/20 22:27 Sulfa (Sulfonamide Allergy Unknown Verified 08/05/20 22:27 Antibiotics) [SULFA (SULFONAMIDE ANTIBIOTICS)] trimethoprim [TRIMETHOPRIM] Allergy Unknown Verified 08/05/20 22:27 morphine AdvReac Gastrointestinal Verified 08/05/20 22:27 Upset Review of Systems Constitutional Constitutional: Denies chills, Denies fatigue, Denies fever(s), Denies frequent falls, Denies lethargy and Denies weakness Eyes Eyes: Reports change in vision, Denies eye discharge, Reports irritation and Denies loss of vision ENT Ears, Nose, Mouth, and Throat: Denies change in voice, Denies dizziness, Denies neck pain, Denies sore throat and Denies throat swelling Cardiovascular Cardiovascular: Denies chest pain, Denies irregular heart rhythm, Denies lightheadedness, Denies palpitations, Reports dyspnea, Denies dyspnea on ex ertion and Denies orthopnea Respiratory Respiratory: Denies cough, Reports dyspnea, Denies dyspnea on exertion and Denies wheezing Gastrointestinal Gastrointestinal: Denies abdominal pain, Denies change in bowel habits, Denies diarrhea, Denies nausea and Denies vomiting Musculoskeletal Musculoskeletal: Denies neck pain and Denies numbness Integumentary/Breasts Skin/Breast: Denies pruritus, Denies erythema, Denies rash and Denies wounds Neurologic Neurologic: Denies behavioral changes, Denies confusion, Denies dizziness, Denies frequent falls, Denies loss of vision, Denies numbness and Denies weak ness Psychiatric Psychiatric: Denies anxiety, Denies behavioral changes, Denies confusion, Denies depression, Denies homicidal ideation and Denies suicidal ideation Endocrine Endocrine: Denies fatigue, Denies flushing and Denies palpitations Hematologic/Lymphatic Hematologic/Lymphatic: Denies easy bruising Allergic/Immunologic Allergic/Immunologic: Denies urticaria, Denies throat swelling and Denies wheezing Patient History Medical History (Updated 08/06/20 @ 04:19 by Yadiel Bernal DO) Diabetes Interstitial lung disease Right sided sciatica Surgical History H/O enucleation of right eyeball Social History Smoking Status: Former smoker Smoking Status: Former smoker alcohol intake frequency: holidays/special occasions only Substance Use Type: does not use Exam Narrative Exam Narrative: GENERAL: [45] year old patient appears stated age. Well- nourished, well-developed patient, in mild distress. HEAD: Redness and warmth with tenderness to palpation of skin on forhead, temporal, left ear, left nostril. No drainage. No vessibles. EYES: Pupils equal round and reactive. Extraocular motions intact. No scleral icterus. No injection or drainage. No foreign body noted with Wood's lamp, upper lid inverted. No dye uptake with fluorescein and UV lamp. ENT: Nose without bleeding, purulent drainage. Throat without erythema, tonsillar hypertrophy or exudate. Airway patent. NECK: Trachea midline. Non tender CARDIOVASCULAR: Regular rate and rhythm without murmurs, gallops, or rubs. RESPIRATORY:Faint crackles throughout, no significant work of breathing. GASTROINTESTINAL: Abdomen soft, non-tender, nondistended. EXTREMITIES:1+ lower extremity, no joint tenderness. BACK: Nontender without deformity or crepitance. No flank tenderness. NEURO: AOx3. SKIN: No rash or erythema of visible areas Initial Vital Signs Initial Vital Signs: Vital Signs Temperature 99.1 F 08/05/20 22:27 Pulse Rate 95 H 08/05/20 22:27 Respiratory Rate 20 08/05/20 22:27 Blood Pressure 144/94 H 08/05/20 22:27 Pulse Oximetry 96 08/05/20 22:27 Course Course Course Narrative: ABG ordered, but she was difficult stick and venous sample obtained Orders Ordered: ED Orders 08/05/20 22:40 EKG-12 Lead Stat 08/05/20 23:10 Blood Culture Stat C-Reactive Protein Quant Stat Complete Blood Count AUTO DIFF Stat Comprehensive Metabolic Panel Stat D Dimer Stat Lactate Dehydrogenase Stat Lipase Stat Magnesium Stat NT-proBNP (BNP-Adult 18+) Stat Prothrombin Time INR Stat Troponin & CK Cardiac Panel Stat 08/05/20 23:18 COVID19 Stat 08/06/20 00:45 XR chest 1V Stat 08/06/20 01:29 Wound Culture and Gram Stain Stat 08/06/20 01:35 CT angio chest PE protocol Stat 08/06/20 02:52 Arterial Blood Gas Stat 08/06/20 04:09 Lactate (Lactic Acid) Stat 08/06/20 04:10 Procalcitonin Stat 08/06/20 04:15 Respiratory Panel (Film Array) Stat Sodium Chloride (Normal Saline 0.9%) 1,000 mls @ 125 mls/hr IV CONT SCOTTY Last Admin: 08/05/20 23:27 Dose: 125 mls/hr Documented by: FABIEN Ceftriaxone Sodium/Dextrose (Rocephin) 2 gm in 50 mls @ 100 mls/hr IV NOW ONE Stop: 08/06/20 04:30 Discontinued Medications Gabapentin (Gabapentin 300 Mg Capsule) 300 mg PO NOW ONE Stop: 08/05/20 23:47 Last Admin: 08/06/20 00:04 Dose: 300 mg Documented by: FABIEN Hydromorphone HCl (Hydromorphone 0.5 Mg Inj) 0.5 mg IV NOW ONE Stop: 08/06/20 00:47 Last Admin: 08/06/20 01:02 Dose: 0.5 mg Documented by: BAILEY Hydromorphone HCl (Hydromorphone 0.5 Mg Inj) 0.5 mg IV NOW ONE Stop: 08/06/20 01:46 Last Admin: 08/06/20 01:56 Dose: 0.5 mg Documented by: SCANAPO Hydromorphone HCl (Hydromorphone 1 Mg Inj) 1 mg IV NOW ONE Stop: 08/06/20 04:00 Vancomycin HCl/Dextrose (Vancomycin) 2,000 mg in 400 mls @ 200 mls/hr IV NOW ONE Stop: 08/06/20 01:40 Last Infusion: 08/06/20 02:12 Dose: 0 mls/hr Documented by: Admin: 08/06/20 00:04 Dose: 200 mls/hr Documented by: FABIEN Azithromycin 500 mg/ Dextrose 250 mls @ 250 mls/hr IV NOW ONE Stop: 08/06/20 04:00 Methylprednisolone (Methylprednisolone 125 Mg/2 Ml Vial) 125 mg IV NOW ONE Stop: 08/06/20 04:00 Proparacaine HCl (Proparacaine 0.5% Ophth Elaine) 1 drops EYE-RIGHT NOW ONE Stop: 08/05/20 22:38 Last Admin: 08/05/20 23:28 Dose: 1 drop Documented by: FABIEN Vital Signs Vital signs: Vital Signs - 8 hr 08/05/20 22:27 08/05/20 22:46 08/05/20 23:00 Temperature 99.1 F Pulse Rate 95 H 88 85 Respiratory Rate 20 23 22 Blood Pressure 144/94 H Pulse Oximetry 96 94 95 08/05/20 23:30 08/06/20 00:00 08/06/20 00:30 Temperature Pulse Rate 81 85 84 Respiratory Rate 23 30 H 23 Blood Pressure Pulse Oximetry 94 95 95 08/06/20 01:00 08/06/20 01:30 08/06/20 02:00 Temperature Pulse Rate 82 81 81 Respiratory Rate 24 19 22 Blood Pressure Pulse Oximetry 93 92 93 08/06/20 02:59 08/06/20 03:00 08/06/20 03:30 Temperature Pulse Rate 103 H 100 H 90 Respiratory Rate 29 H 18 26 H Blood Pressure 149/73 H Pulse Oximetry 83 L 86 L 92 MDM - Skin/Abscess/Foreign Bdy Lab Data Result diagrams: 08/05/20 23:10 08/05/20 23:10 Labs: Lab Results 08/05/20 08/05/20 08/05/20 Range/Units 23:10 23:10 23:10 WBC 15.0 H (4.5-11.0) X10^3/uL RBC 4.49 (4.0-5.2) X10^6/uL Hgb 10.6 L (12.0-16.0) g/dL Hct 34.8 L (36-46) % MCV 77.6 L (80-100) fL MCH 23.5 L (26-34) PG MCHC 30.3 (30-36) % RDW 24.9 H (11.6-14.8) % Plt Count 304 (150-400) X10^3/uL Neut % (Auto) 54.5 (50-75) % Lymph % (Auto) 32.9 (25-40) % [place] % (Auto) 6.6 (3-14) % Eos % (Auto) 5.7 H (2-4) % Baso % (Auto) 0.3 (0-2) % Neut # (Auto) 8200 H (0450-0524) /uL Lymph # (Auto) 4900 H (9934-4516) /uL [place] # (Auto) 1000 H (0-900) /uL Eos # (Auto) 900 H (0-450) /uL Baso # (Auto) 0 (0-100) /uL RBC Morphology See below Anisocytosis 3+ H PT (10.1-12.7) SECONDS INR (0.9-1.3) D-Dimer < 200 (<230) ng/mL ABG pH (7.35-7.45) ABG pCO2 (35-45) mmHg ABG pO2 (80-100) mmHg ABG HCO3 (22-26) mmol/L ABG Total CO2 (21-31) mmol/L ABG O2 Saturation (95-100) % ABG Base Excess (-2-2) mmol/L FiO2 Sodium (137-145) mmol/L Potassium (3.4-5.1) mmol/L Chloride (98-107) mmol/L Carbon Dioxide (22-32) mmol/L BUN (7-17) mg/dL Creatinine (0.52-1.04) mg/dL Estimated GFR (>60) mL/min BUN/Creatinine Ratio (6-22) Glucose (70-100) mg/dL Lactate (0.7-2.1) mmol/L Calcium (8.4-10.2) mg/dL Magnesium (1.6-2.3) mg/dL Total Bilirubin (0.2-1.3) mg/dL AST (14-36) IU/L ALT (<35) IU/L Alkaline Phosphatase (38-126) U/L Lactate Dehydrogenase 576 (313-618) U/L Total Creatine Kinase (30-135) U/L CK-MB (CK-2) (<2.37) ng/mL CK-MB (CK-2) Rel Index (1.5-5.0) % Troponin I (0.01-0.034) ng/mL C-Reactive Protein 2.6 H (<1.0) mg/dL NT-Pro-B Natriuret Pep (<125) pg/mL Total Protein (6.3-8.2) g/dL Albumin (3.5-5.0) g/dL Globulin (1.7-4.1) g/dL Albumin/Globulin Ratio (1.0-2.8) Lipase (23-300) U/L SARS-CoV-2 (PCR) (Negative) 08/05/20 08/05/20 08/05/20 Range/Units 23:10 23:10 23:10 WBC (4.5-11.0) X10^3/uL RBC (4.0-5.2) X10^6/uL Hgb (12.0-16.0) g/dL Hct (36-46) % MCV (80-100) fL MCH (26-34) PG MCHC (30-36) % RDW (11.6-14.8) % Plt Count (150-400) X10^3/uL Neut % (Auto) (50-75) % Lymph % (Auto) (25-40) % [place] % (Auto) (3-14) % Eos % (Auto) (2-4) % Baso % (Auto) (0-2) % Neut # (Auto) (5199-1038) /uL Lymph # (Auto) (6582-8932) /uL [place] # (Auto) (0-900) /uL Eos # (Auto) (0-450) /uL Baso # (Auto) (0-100) /uL RBC Morphology Anisocytosis PT 14.1 H (10.1-12.7) SECONDS INR 1.2 (0.9-1.3) D-Dimer (<230) ng/mL ABG pH (7.35-7.45) ABG pCO2 (35-45) mmHg ABG pO2 (80-100) mmHg ABG HCO3 (22-26) mmol/L ABG Total CO2 (21-31) mmol/L ABG O2 Saturation (95-100) % ABG Base Excess (-2-2) mmol/L FiO2 Sodium 137 (137-145) mmol/L Potassium 4.6 (3.4-5.1) mmol/L Chloride 96 L (98-107) mmol/L Carbon Dioxide 38 H (22-32) mmol/L BUN 19 H (7-17) mg/dL Creatinine 1.04 (0.52-1.04) mg/dL Estimated GFR 57.6 L (>60) mL/min BUN/Creatinine Ratio 18.3 (6-22) Glucose 164 H (70-100) mg/dL Lactate 1.6 (0.7-2.1) mmol/L Calcium 10.1 (8.4-10.2) mg/dL Magnesium 1.9 (1.6-2.3) mg/dL Total Bilirubin 0.3 (0.2-1.3) mg/dL AST 26 (14-36) IU/L ALT 25 (<35) IU/L Alkaline Phosphatase 77 (38-126) U/L Lactate Dehydrogenase (313-618) U/L Total Creatine Kinase 148 H (30-135) U/L CK-MB (CK-2) 6.65 H (<2.37) ng/mL CK-MB (CK-2) Rel Index 4.5 (1.5-5.0) % Troponin I < 0.012 (0.01-0.034) ng/mL C-Reactive Protein (<1.0) mg/dL NT-Pro-B Natriuret Pep 50 (<125) pg/mL Total Protein 7.9 (6.3-8.2) g/dL Albumin 4.4 (3.5-5.0) g/dL Globulin 3.5 (1.7-4.1) g/dL Albumin/Globulin Ratio 1.3 (1.0-2.8) Lipase 19 L (23-300) U/L SARS-CoV-2 (PCR) (Negative) 08/05/20 08/06/20 Range/Units 23:18 02:52 WBC (4.5-11.0) X10^3/uL RBC (4.0-5.2) X10^6/uL Hgb (12.0-16.0) g/dL Hct (36-46) % MCV (80-100) fL MCH (26-34) PG MCHC (30-36) % RDW (11.6-14.8) % Plt Count (150-400) X10^3/uL Neut % (Auto) (50-75) % Lymph % (Auto) (25-40) % [place] % (Auto) (3-14) % Eos % (Auto) (2-4) % Baso % (Auto) (0-2) % Neut # (Auto) (8149-9110) /uL Lymph # (Auto) (9522-5981) /uL [place] # (Auto) (0-900) /uL Eos # (Auto) (0-450) /uL Baso # (Auto) (0-100) /uL RBC Morphology Anisocytosis PT (10.1-12.7) SECONDS INR (0.9-1.3) D-Dimer (<230) ng/mL ABG pH 7.35 (7.35-7.45) ABG pCO2 57.5 H (35-45) mmHg ABG pO2 23 L* (80-100) mmHg ABG HCO3 32 H (22-26) mmol/L ABG Total CO2 33 H (21-31) mmol/L ABG O2 Saturation 33 L* (95-100) % ABG Base Excess 6.0 H (-2-2) mmol/L FiO2 44 Sodium (137-145) mmol/L Potassium (3.4-5.1) mmol/L Chloride (98-107) mmol/L Carbon Dioxide (22-32) mmol/L BUN (7-17) mg/dL Creatinine (0.52-1.04) mg/dL Estimated GFR (>60) mL/min BUN/Creatinine Ratio (6-22) Glucose (70-100) mg/dL Lactate (0.7-2.1) mmol/L Calcium (8.4-10.2) mg/dL Magnesium (1.6-2.3) mg/dL Total Bilirubin (0.2-1.3) mg/dL AST (14-36) IU/L ALT (<35) IU/L Alkaline Phosphatase (38-126) U/L Lactate Dehydrogenase (313-618) U/L Total Creatine Kinase (30-135) U/L CK-MB (CK-2) (<2.37) ng/mL CK-MB (CK-2) Rel Index (1.5-5.0) % Troponin I (0.01-0.034) ng/mL C-Reactive Protein (<1.0) mg/dL NT-Pro-B Natriuret Pep (<125) pg/mL Total Protein (6.3-8.2) g/dL Albumin (3.5-5.0) g/dL Globulin (1.7-4.1) g/dL Albumin/Globulin Ratio (1.0-2.8) Lipase (23-300) U/L SARS-CoV-2 (PCR) Negative (Negative) MDM Narrative Medical decision making narrative: Complex patient with complex history and multiple complaints. She will require hospitalization due to increased oxygen demand and bilateral pneumonia on chest CT. Her painful face rash has elements consistent with shingles with possible cellulitis superinfection. She would likely benefit from antiviral therapy. She is sick but stable, with normal lactate, BP in the 140s, HR in the 80s unless ambulatory. Critical Care Time Critical Care Time Critical Care Time: Yes Total Critical Care Time: 40 Attestation: The high probability of a clinically significant, sudden or life threatening deterioration of the [CV] system(s) required my full and direct attention, intervention and personal management. The aggregate critical care time was [40] minutes. This time is in addition to time spent performing reported procedures but includes the following: [x] Data Review and interpretation [x] Patient assessment and monitoring of vital signs [x] Documentation [x] Medication orders and management Discharge Plan Departure Patient Disposition: Admitted As Inpatient Clinical Impression: Acute on chronic respiratory failure with hypoxemia, Cellulitis of face Pneumonia Qualifiers: Pneumonia type: due to unspecified organism Laterality: bilateral Lung location: unspecified part of lung Qualified Code(s): J18.9 - Pneumonia, unspecified organism Shingles rash Qualifiers: Herpes zoster complications: unspecified herpes zoster complication Qualified Code(s): B02.8 - Zoster with other complications Admit Date/Time: 08/06/20 04:16 Admit Provider: Katie Rojas
[2020-08-05 23:00] VITALS: PULSE 85; RESP 22; O2SAT 95
[2020-08-05] MEDS: SODIUM CHLORIDE 0.9% 1,000 ML 125 ML IV (23:27)
[2020-08-05] MEDS: PROPARACAINE 0.5% OPHTH SOL 1 DROPS EYE-RIGHT (23:28)
[2020-08-05] MEDS: FLUORESCEIN 1 MG STRIP (23:28)
[2020-08-05 23:30] VITALS: PULSE 81; RESP 23; O2SAT 94
[2020-08-05 23:32] LABS: Basophils Absolute Auto 0 /uL (0-100); Basophils Percent Auto 0.3 % (0-2); Eosinophils Absolute Auto 900 /uL (0-450); Eosinophils Percent Auto 5.7 % (2-4); Hematocrit 34.8 % (36-46); Hemoglobin 10.6 g/dL (12.0-16.0); Lymphocytes Absolute Auto 4900 /uL (1100-4500); Lymphocytes Percent Auto 32.9 % (25-40); Mean Corpuscular HGB Conc 30.3 % (30-36); Mean Corpuscular Hemoglobin 23.5 PG (26-34); Mean Corpuscular Volume 77.6 fL (80-100); Monocytes Absolute Auto 1000 /uL (0-900); Monocytes Percent Auto 6.6 % (3-14); Neutrophils Absolute Auto 8200 /uL (1500-7000); Neutrophils Percent Auto 54.5 % (50-75); Platelet Count 304 X10^3/uL (150-400); Red Blood Cell Count 4.49 X10^6/uL (4.0-5.2); Red Cell Distribution Width 24.9 % (11.6-14.8)
[2020-08-05 23:33] LABS: Add Manual Diff / Slide Review SLIDE REVIEW
[2020-08-05 23:38] LABS: INR 1.2 (0.9-1.3); Prothrombin Time 14.1 SECONDS (10.1-12.7)
[2020-08-05 23:43] LABS: Alanine Aminotransferase 25 IU/L (<35); Albumin 4.4 g/dL (3.5-5.0); Albumin Globulin Ratio 1.3 (1.0-2.8); Alkaline Phosphatase 77 U/L (38-126); Aspartate Aminotransferase 26 IU/L (14-36); BUN Creatinine Ratio 18.3 (6-22); Bilirubin Total 0.3 mg/dL (0.2-1.3); Blood Urea Nitrogen 19 mg/dL (7-17); Calcium 10.1 mg/dL (8.4-10.2); Carbon Dioxide 38 mmol/L (22-32); Chloride 96 mmol/L (98-107); Creatine Kinase 148 U/L (30-135); Estimated Glomerular Filt Rate 57.6 mL/min (>60); Globulin 3.5 g/dL (1.7-4.1); Glucose 164 mg/dL (70-100); HEMOLYSIS < 15 (0-50); Lipase 19 U/L (23-300); Magnesium 1.9 mg/dL (1.6-2.3); Potassium 4.6 mmol/L (3.4-5.1); Sodium 137 mmol/L (137-145); Total Protein 7.9 g/dL (6.3-8.2)
[2020-08-05 23:45] LABS: C-Reactive Protein Quant 2.6 mg/dL (<1.0); Lactate Dehydrogenase 576 U/L (313-618)
[2020-08-05 23:46] LABS: COVID19 -Nasal RAPID Negative (Negative)
[2020-08-05 23:54] LABS: NT-proBNP (BNP-Adult 18+) 50 pg/mL (<125); Troponin I < 0.012 ng/mL (0.01-0.034)
[2020-08-05 23:58] LABS: CKMB % Relative Index 4.5 % (1.5-5.0); Creatine Kinase MB 6.65 ng/mL (<2.37)
[2020-08-06] VITALS (17 sets, daily range): BP systolic 82–149; BP diastolic 45–95; PULSE 68–122; RESP 9–30; TEMP 36.3–37.7; O2SAT 83–95; BMI 46.5
[2020-08-06] MEDS: GABAPENTIN 300 MG CAPSULE PO (00:04)
[2020-08-06] MEDS: VANCOMYCIN 2,000 MG/400 ML PIGGYBACK 200 MG IV (00:04)
--- NOTE | 2020-08-06 00:45 | DI.RAD.S_ITS ---
PROCEDURE: XR CHEST 1V INDICATIONS: shortness of breath TECHNIQUE: One view of the chest was acquired. COMPARISON: [facility], CT, CT ANGIO CHEST PE PROTOCOL, 08/06/2020, 2:02. [facility], CT, CT ANGIO CHEST PE PROTOCOL, 05/24/2020, 16:07. [facility], CT, CT CHEST W CON, 01/11/2019, 15:08. [facility], CR, XR CHEST 1V, 05/24/2020, 15:11. FINDINGS: Surgical changes and devices: None. Lungs and pleura: Generalized interstitial prominence is seen, which is worse than on the 05/24/2020 examination. Low lung volumes are noted. This causes a crowded appearance to the lung markings and limits evaluation. No pneumothorax or pleural effusions are seen. Mediastinum: The cardiac contours are within normal limits. The aorta demonstrates calcification and tortuosity. Bones and chest wall: No suspicious bony lesions. Age-appropriate bony degenerative changes are seen. Overlying soft tissues appear unremarkable. IMPRESSION: Interstitial prominence is seen throughout. The interstitial prominence is nonspecific, yet may be related to pulmonary edema. Note: No significant discrepancy from the preliminary report. Dictated by: Dm Whitmore M.D. on 08/06/2020 at 7:46 Approved by: Dm Whitmore M.D. on 08/06/2020 at 7:49
[2020-08-06] MEDS: HYDROMORPHONE 0.5 MG INJ IV ×7 (01:02→19:53)
--- NOTE | 2020-08-06 01:35 | DI.CT.S_ITS ---
PROCEDURE: CT ANGIO CHEST PE PROTOCOL INDICATIONS: shortness of breath, hypoxia TECHNIQUE: After the administration of intravenous contrast, 2 mm thick sections acquired from the pulmonary apices to the posterior costophrenic angles. 3-dimensional maximum intensity projection (MIP) coronal and sagittal reformats were then acquired through the thorax. For radiation dose reduction, the following was used: automated exposure control, adjustment of mA and/or kV according to patient size. COMPARISON: [facility], CR, XR CHEST 1V, 08/06/2020, 0:51. [facility], CR, XR CHEST 1V, 05/24/2020, 15:11. [facility], CT, CT CHEST W CON, 01/11/2019, 15:08. [facility], CR, XR CHEST 1V, 01/11/2019, 14:05. [facility], CT, CT ANGIO CHEST PE PROTOCOL, 10/31/2018, 9:54. [facility], CT, CT ANGIO CHEST PE PROTOCOL, 05/24/2020, 16:07. FINDINGS: Image quality: Excellent. Pulmonary arteries: Pulmonary arteries are normal in size, and demonstrate no intraluminal filling defects to suggest central pulmonary embolism. Lungs and pleura: Multiple areas of interstitial prominence can be seen. Emphysematous changes can be seen. A 1 cm right middle lobe pulmonary nodule is again seen. No pleural effusions or pneumothorax. Central and peripheral airways are patent. Mediastinum: Heart size is normal, without pericardial effusion. Mildly enlarged mediastinal and perihilar lymph nodes can be seen. Thoracic aorta is normal in caliber and enhancement. Esophagus is normal in caliber. There is a small hiatal hernia. Bones and chest wall: No suspicious bony lesions. Ribs and thoracic spine appear intact throughout. Thyroid gland is not well seen. No axillary or supraclavicular adenopathy. Abdomen: Visualized upper abdominal solid organs appear normal in the early arterial phase of enhancement. IMPRESSION: Negative for pulmonary embolism. Generalized interstitial prominence is seen. Pulmonary edema is suspected, although differential diagnosis includes infection. Emphysematous changes are seen. Borderline prominent mediastinal and perihilar lymph nodes are seen. 1 cm right middle lobe pulmonary nodule again seen. Incidental note is made of: Small hiatal hernia Note: No significant discrepancy from the preliminary report. Dictated by: Dm Whitmore M.D. on 08/06/2020 at 7:50 Approved by: Dm Whitmore M.D. on 08/06/2020 at 7:54
[2020-08-06 01:47] LABS: D Dimer < 200 ng/mL (<230)
[2020-08-06 02:18] LABS: Anisocytosis 3+
[2020-08-06 03:24] LABS: pH ABG 7.35 (7.35-7.45)
[2020-08-06 03:25] LABS: Fractionated Inspired Oxygen 44; HCO3 ABG 32 mmol/L (22-26); PCO2 ABG 57.5 mmHg (35-45); TCO2 ABG 33 mmol/L (21-31)
[2020-08-06 03:26] LABS: PO2 ABG 23 mmHg (80-100)
[2020-08-06 04:14] LABS: Lactate (Lactic Acid) 1.6 mmol/L (0.7-2.1)
[2020-08-06] MEDS: HYDROMORPHONE 1 MG INJ IV (04:20)
[2020-08-06] MEDS: methylPREDNISolone 125 MG/2 ML VIAL IV (04:20)
[2020-08-06] MEDS: CEFTRIAXONE 2 GM/50 ML FROZ.PIGGY IV (04:24)
[2020-08-06 04:41] LABS: Procalcitonin < 0.05 ng/mL (<0.5)
--- NOTE | 2020-08-06 06:37 | PM.HP.1 ---
History of Present Illness History of Present Illness Date Patient Seen: 08/06/20 Time Patient Seen: 05:30 Chief complaint: FEVER RASH ON THE RIGHT OF FACE SOB Narrative: Carissa Gallardo is a 45-year-old home O2 dependent female with a complicated medical history that includes interstitial lung disease, morbid obesity, diabetes type 2, history of acute exacerbation of bronchiectasis, chronic respiratory failure with hypoxia and hypercapnia and chronic pain presented to the emergency room with pain in her face predominantly the left side. She was treated for a cellulitis and a possible herpes zoster in the ED. she then ambulated to the bathroom and became quite hypoxic into the 60s and low 80s. She was then evaluated and found to have a bilateral basilar pneumonia based on findings it on CT. The patient was recently discharged from [facility] in May of this year for an acute exacerbation of bronchiectasis and acute respiratory failure and was given high dose steroids at that time. Given her diabetes they had to make a lot of insulin adjustments to correct for her increased hyperglycemia. The patient's main complaint is that since she has returned from [facility], her respiratory reserve seem to be decreasing and she can barely walk more than 20 ft before she gets winded. She uses 6 L of oxygen at home and when she ambulates she has to bump up the oxygen to 10 L. She is afebrile, denies chest pain, nausea vomiting, abdominal pain, dysuria, diarrhea or constipation. 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. Patient normally goes to the [facility] pulmonary service for respiratory issues. Her last hospitalization however was at [facility] and we do have records from [facility] from that hospital stay. Patient is afebrile, blood pressure 137/67, heart rate 100, respiratory rate of 19, oxygen saturation of 90% on 6 L, she weighs 127 kg with a BMI of 46.5. WBC was 15, RBC 4.49, hemoglobin 10.6, hematocrit 34.8, platelet count 304, VBG pH was 7.35 VBG pCO2 was 57.5 VBG PO2 was 23 VBG bicarb was 32 VBG total CO2 was 33 VBG oxygen saturation was 33% with an FiO2 of 44. Sodium is 137 potassium 4.6, chloride 96, CO2 38, creatinine 1.04, BUN 19, GFR is 57.6, glucose 164, lactate 1.6, calcium 10.1, magnesium 1.9, liver enzymes are within normal limits, total creatinine kinase was 148, CK-MB was 6.65, CRP was 2.6, procalcitonin was within normal limits, viral panel including COVID-19 PCRs were all negative. Patient History Medical History Diabetes Interstitial lung disease Right sided sciatica Surgical History H/O enucleation of right eyeball Family & Social History Family History (Updated 08/06/20 @ 06:55 by CLINTON Massey) Mother Adopted Other [id number] deficiency Social History: household members significant other,other Prior Living Arrangements Apartment/Condo Safety & Behavioral: Feels Safe in Current Yes Environment Been Physically Hurt or No Threatened By a Person Suicidal Ideation Description None Suicide Plan Description No Plan Tobacco & Substance use: Smoking Status Former smoker alcohol intake frequency holiday/special occasion Substance Use Type does not use Meds Home Medications and Allergies Home Medications Medication Instructions Recorded Confirmed Type albuterol sulfate [ProAir HFA] 1 puff INHALATION BID 10/31/18 08/06/20 History [id number] 1 tab PO BID PRN 10/31/18 08/06/20 History dapsone 100 mg PO DAILY 10/31/18 08/06/20 History diclofenac sodium [Voltaren] 1 applic TOPICAL PRN PRN 10/31/18 08/06/20 History fluticasone propion-salmeterol 1 puff INHALATION BID 10/31/18 08/06/20 History [Advair Diskus] fluticasone propionate 1 spray INTRANASAL DAILY 10/31/18 08/06/20 History gabapentin 900 mg PO TID 10/31/18 08/06/20 History hydroxyzine pamoate 50 mg PO DAILY 10/31/18 08/06/20 History levothyroxine 300 mcg PO DAILY 10/31/18 08/06/20 History methadone 190 mg PO DAILY 10/31/18 08/06/20 History omeprazole 40 mg PO BID 10/31/18 08/06/20 History quetiapine 300 mg PO QPM 10/31/18 08/06/20 History azithromycin 250 mg PO Q OTHER DAY 08/06/20 08/06/20 History doxycycline hyclate 100 mg PO BID #20 tab 08/06/20 Rx insulin NPH isoph U-100 human 60 unit SUBCUT QAM 08/06/20 08/06/20 History [Novolin N Flexpen] insulin NPH isoph U-100 human 15 unit SUBCUT BEDTIME 08/06/20 08/06/20 History [Novolin N NPH U-100 Insulin] metformin 500 mg PO DAILY 08/06/20 08/06/20 History valacyclovir 1,000 mg PO TID 10 Days #30 tab 08/06/20 Rx Allergies Allergy/AdvReac Type Severity Reaction Status Date / Time levofloxacin [LEVOFLOXACIN] Allergy Unknown Verified 08/05/20 22:27 Penicillins [PENICILLINS] Allergy Unknown Verified 08/05/20 22:27 Sulfa (Sulfonamide Allergy Unknown Verified 08/05/20 22:27 Antibiotics) [SULFA (SULFONAMIDE ANTIBIOTICS)] trimethoprim [TRIMETHOPRIM] Allergy Unknown Verified 08/05/20 22:27 morphine AdvReac Gastrointestinal Verified 08/05/20 22:27 Upset Review of Systems Review of Systems ROS: Yes All systems reviewed with the patient and are negative except as otherwise documented Exam Vital Signs (past 8 hours): - 08/05/20 22:46 08/05/20 23:00 08/05/20 23:30 Temperature Pulse Rate 88 85 81 Respiratory Rate 23 22 23 Blood Pressure Pulse Oximetry 94 95 94 08/06/20 00:00 08/06/20 00:30 08/06/20 01:00 Temperature Pulse Rate 85 84 82 Respiratory Rate 30 H 23 24 Blood Pressure Pulse Oximetry 95 95 93 08/06/20 01:30 08/06/20 02:00 08/06/20 02:59 Temperature Pulse Rate 81 81 103 H Respiratory Rate 19 22 29 H Blood Pressure Pulse Oximetry 92 93 83 L 08/06/20 03:00 08/06/20 03:30 08/06/20 05:18 Temperature 98.2 F Pulse Rate 100 H 90 100 H Respiratory Rate 18 26 H 19 Blood Pressure 149/73 H 137/67 Pulse Oximetry 86 L 92 90 L Oxygen Delivery Method Nasal Cannula Narrative Exam Narrative: Gen: Alert, oriented, morbidly obese 45 y.o. female, appears chronically ill HEENT: Right eye is enucleated, normocephalic, atraumatic, conjunctiva clear, sclera non-icteric, oral mucosa pink and moist Neck: supple, full ROM, no JVD, trachea is midline Resp: Diminished lung sounds, non-labored breathing on 6 liters CV: RRR, no murmur or rubs Abd: soft, non-tender, normoactive BTs Skin: Has sharply demarcated lesions on both sides of her forehead and the left side of her face with dry yellow deposits at her hairline Neuro: Alert and oriented X 4 w/no focal deficits. Speech clear and coherent. Extremities: moves all 4 extremities, is ambulatory, point tenderness of medial left calf and dorsal aspect of left foot Psyche: normal mood and affect. Objective Labs Result Diagrams: 08/05/20 23:10 08/05/20 23:10 Labs: Laboratory Results - last 24 hr 08/05/20 08/05/20 08/05/20 23:10 23:10 23:10 WBC 15.0 H RBC 4.49 Hgb 10.6 L Hct 34.8 L MCV 77.6 L MCH 23.5 L MCHC 30.3 RDW 24.9 H Plt Count 304 Neut % (Auto) 54.5 Lymph % (Auto) 32.9 [place] % (Auto) 6.6 Eos % (Auto) 5.7 H Baso % (Auto) 0.3 Neut # (Auto) 8200 H Lymph # (Auto) 4900 H [place] # (Auto) 1000 H Eos # (Auto) 900 H Baso # (Auto) 0 RBC Morphology See below Anisocytosis 3+ H PT INR D-Dimer < 200 ABG pH ABG pCO2 ABG pO2 ABG HCO3 ABG Total CO2 ABG O2 Saturation ABG Base Excess FiO2 Sodium Potassium Chloride Carbon Dioxide BUN Creatinine Estimated GFR BUN/Creatinine Ratio Glucose Lactate Calcium Magnesium Total Bilirubin AST ALT Alkaline Phosphatase Lactate Dehydrogenase 576 Total Creatine Kinase CK-MB (CK-2) CK-MB (CK-2) Rel Index Troponin I C-Reactive Protein 2.6 H NT-Pro-B Natriuret Pep Total Protein Albumin Globulin Albumin/Globulin Ratio Lipase Procalcitonin SARS-CoV-2 (PCR) 08/05/20 08/05/20 08/05/20 23:10 23:10 23:10 WBC RBC Hgb Hct MCV MCH MCHC RDW Plt Count Neut % (Auto) Lymph % (Auto) [place] % (Auto) Eos % (Auto) Baso % (Auto) Neut # (Auto) Lymph # (Auto) [place] # (Auto) Eos # (Auto) Baso # (Auto) RBC Morphology Anisocytosis PT 14.1 H INR 1.2 D-Dimer ABG pH ABG pCO2 ABG pO2 ABG HCO3 ABG Total CO2 ABG O2 Saturation ABG Base Excess FiO2 Sodium 137 Potassium 4.6 Chloride 96 L Carbon Dioxide 38 H BUN 19 H Creatinine 1.04 Estimated GFR 57.6 L BUN/Creatinine Ratio 18.3 Glucose 164 H Lactate 1.6 Calcium 10.1 Magnesium 1.9 Total Bilirubin 0.3 AST 26 ALT 25 Alkaline Phosphatase 77 Lactate Dehydrogenase Total Creatine Kinase 148 H CK-MB (CK-2) 6.65 H CK-MB (CK-2) Rel Index 4.5 Troponin I < 0.012 C-Reactive Protein NT-Pro-B Natriuret Pep 50 Total Protein 7.9 Albumin 4.4 Globulin 3.5 Albumin/Globulin Ratio 1.3 Lipase 19 L Procalcitonin SARS-CoV-2 (PCR) 08/05/20 08/05/20 08/06/20 23:10 23:18 02:52 WBC RBC Hgb Hct MCV MCH MCHC RDW Plt Count Neut % (Auto) Lymph % (Auto) [place] % (Auto) Eos % (Auto) Baso % (Auto) Neut # (Auto) Lymph # (Auto) [place] # (Auto) Eos # (Auto) Baso # (Auto) RBC Morphology Anisocytosis PT INR D-Dimer ABG pH 7.35 ABG pCO2 57.5 H ABG pO2 23 L* ABG HCO3 32 H ABG Total CO2 33 H ABG O2 Saturation 33 L* ABG Base Excess 6.0 H FiO2 44 Sodium Potassium Chloride Carbon Dioxide BUN Creatinine Estimated GFR BUN/Creatinine Ratio Glucose Lactate Calcium Magnesium Total Bilirubin AST ALT Alkaline Phosphatase Lactate Dehydrogenase Total Creatine Kinase CK-MB (CK-2) CK-MB (CK-2) Rel Index Troponin I C-Reactive Protein NT-Pro-B Natriuret Pep Total Protein Albumin Globulin Albumin/Globulin Ratio Lipase Procalcitonin < 0.05 SARS-CoV-2 (PCR) Negative Assessment & Plan Assessment & Plan narrative: Carissa Sami is a 45 y.o. female with a complex medical history include including poorly controlled diabetes type 2, morbid obesity, suspected interstitial lung disease, chronic pain will be admitted for further management of acute on chronic respiratory failure, and a suspected facial infection of a bacterial or candidal source. Acute on chronic respiratory failure, present on admission -when the patient ambulates her oxygen saturations dropped down into the 70s to mid low 80s on 6 L of O2 -I have requested respiratory see the patient for further management -she started on ceftriaxone and oral azithromycin, her 1st doses were administered to her in the emergency department -she was given Solu-Medrol 125 mg IV in the emergency department -CT was reported to me to have ruled out a PE, but had bilateral pleural effusions Facial cellulitis vs fungal infection -Ceftriaxone and valcyclovir was ordered to cover for this -After examination of the patient, this appears to be fungal in nature, or possibly a bacterial infection superimposed on a fungal infection and have not continued the valacyclovir -Wet mount and a fungal culture pending Poorly controlled diabetes type 2 -Her A1c was 9 in May 2020 and is now 6.8 -Steroid use also contributed to poor control -She will have lantus 50 units during the day and 15 units at night, medium dose correctional scale Chronic pain syndrome -Continue gabapentin 300 mg po tid -She takes methadone 190 mg daily and we will need to find out how she takes it throughout the day. It is dispensed from [facility] which is a [facility] VTE prophylaxis: Wells risk score: 0 Enoxaparin 40 mg subQ daily Consults: none Patient is admitted under inpatient status with expected length of stay greater than 2 midnights due to severity of presenting symptoms, risk of adverse event, and complexity of treatment plan. FEN:Saline lock, heart healty diet, BMP and magnesium in the am. Dispo: unknown at this time Code Status: Full code as discussed with patient COVID-19 COVID-19 status: Negative Result date/Date tested (Pos, Neg/Pending): 08/06/20 Scores Wells' Criteria for PE Clinical signs and symptoms of DVT: No PE is #1 Dx or equally likely: No Heart rate > 100: No Immobilization at least 3 days or surg in previous 4 weeks: No History of PE or DVT: No Hemoptysis: No Malignancy w/Treatment within 6 months or palliative: No Wells' PE Score total: 0
[2020-08-06 06:40] LABS: Adenovirus Not Detected (Not Detect); Bordetella pertussis Not Detected (Not Detect); Chlamydophila pneumoniae Not Detected (Not Detect); Coronavirus 229E Not Detected (Not Detect); Coronavirus HKU1 Not Detected (Not Detect); Coronavirus NL 63 Not Detected (Not Detect); Coronavirus OC43 Not Detected (Not Detect); Human Metapneumovirus Not Detected (Not Detect); Human Rhinovirus/Enterovirus Not Detected (Not Detect); Influenza A Not Detected (Not Detect); Influenza B Not Detected (Not Detect); Mycoplasma pneumoniae Not Detected (Not Detect); Parainfluenza Virus 1 Not Detected (Not Detect); Parainfluenza Virus 2 Not Detected (Not Detect); Parainfluenza Virus 3 Not Detected (Not Detect); Parainfluenza Virus 4 Not Detected (Not Detect); Respiratory Syncytial Virus Not Detected (Not Detect); SARS- CoV-2 Not Detected (Not Detecte)
[2020-08-06] MEDS: AZITHROMYCIN 500 MG in DEXTROSE 5% IN WATER 250 ML IV (06:58)
[2020-08-06] MEDS: KETOROLAC 30 MG/ML VIAL IV ×2 (06:58→16:48)
[2020-08-06 07:02] LABS: Hemoglobin A1C% w Est Avg Glu 6.8 % (4.0-6.0)
[2020-08-06 07:33] LABS: TSH w/ Reflex to FT4 < 0.02 uIU/mL (0.47-4.68)
[2020-08-06] MEDS: ALBUTEROL HFA MDI 60 PUFF/8 GM INHALER INH ×2 (08:34→21:59)
[2020-08-06] MEDS: FLUTICASONE/SALMETEROL 250/50 60 PUFF DISKUS INH ×2 (08:34→21:59)
[2020-08-06 08:47] LABS: Free T4, Direct Thyroxine 1.28 ng/dL (0.78-2.19)
[2020-08-06] MEDS: INSULIN ASPART 100 UNIT/ML INSULN PEN SUBCUT ×4 (10:01→22:22)
[2020-08-06] MEDS: INSULIN GLARGINE 100 UNIT/ML 3ML PEN 15 UNIT SUBCUT (10:02)
[2020-08-06] MEDS: ENOXAPARIN 40 MG/0.4 ML SYRINGE SUBCUT ×2 (10:04→21:47)
[2020-08-06] MEDS: LEVOTHYROXINE 100 MCG TABLET 300 MCG PO (10:04)
[2020-08-06] MEDS: hydrOXYzine pamoate 25 MG CAPSULE 50 MG PO (10:05)
[2020-08-06] MEDS: PANTOPRAZOLE 40 MG TABLET PO ×2 (10:05→21:46)
[2020-08-06] MEDS: ACETAMINOPHEN 325 MG TABLET 650 MG PO ×2 (10:05→16:56)
[2020-08-06] MEDS: GABAPENTIN 300 MG CAPSULE 900 MG PO ×3 (10:05→21:46)
[2020-08-06] MEDS: FLUTICASONE 120 SPRAY/16 GM SPRAY.SUSP NASAL (10:06)
[2020-08-06] MEDS: DAPSONE 100 MG TABLET PO (10:06)
--- NOTE | 2020-08-06 12:26 | CM.DANOTE ---
DCP: Case received, EMR reviewed. Called patient via her room phone, due to isolation precautions. Introduced self and role over the phone. Was able to get information from patient regarding her baseline mobility, as well as her current living situation prior to admission. DCP assessment completed with information currently available. Patient is a 45 year old female who admitted early this morning to the care of the hospitalist team. PCP: Dr. Montoya. Payer: confirmed: Medicare/Medicaid. Patient came to the hospital via private vehicle secondary to having a rash on her face, as well as some increased shortness of breath. Patient is immuno-compromised, and has history of interstitual lung disease. She is on 6 liters of oxygen at home. She also has had some history of falls. She holds current diagnosis of shingles, as well as pneumonia. Called patient in her room. She is alert and oriented. Stated, she is ambulatory, but does have a wheel-chair at home and a walker if needed. She resides in [place] with her family. Stated this is her mother and father, as well as sibling. P: DCP to continue to follow. Patient should be able to go home when she is medically stable. Vannessa Crain, SUKI/Machine Plate [employer]acker
[2020-08-06] MEDS: METHADONE INTENSOL 10 MG/ML ORAL.CONC 190 MG PO (12:33)
[2020-08-06] MEDS: TIZANIDINE 4 MG TABLET PO ×2 (14:29→21:47)
[2020-08-06 15:07] LABS: Add Manual Diff / Slide Review NO; Basophils Absolute Auto 0 /uL (0-100); Basophils Percent Auto 0.2 % (0-2); Eosinophils Absolute Auto 0 /uL (0-450); Eosinophils Percent Auto 0.1 % (2-4); Hemoglobin 10.3 g/dL (12.0-16.0); Lymphocytes Absolute Auto 1400 /uL (1100-4500); Lymphocytes Percent Auto 11.7 % (25-40); Mean Corpuscular HGB Conc 30.2 % (30-36); Mean Corpuscular Hemoglobin 23.8 PG (26-34); Mean Corpuscular Volume 78.8 fL (80-100); Monocytes Absolute Auto 200 /uL (0-900); Monocytes Percent Auto 1.5 % (3-14); Neutrophils Absolute Auto 10400 /uL (1500-7000); Neutrophils Percent Auto 86.5 % (50-75); Platelet Count 312 X10^3/uL (150-400); Red Blood Cell Count 4.31 X10^6/uL (4.0-5.2)
[2020-08-06 15:14] LABS: NT-proBNP (BNP-Adult 18+) 464 pg/mL (<125)
--- NOTE | 2020-08-06 15:29 | PM.PN.1 ---
Subjective Subjective Date Patient Seen: 08/06/20 Time Patient Seen: 16:17 Interval history: This is a 45-year-old female who looks approximately 20-30 years older than her real age. She has a large number of chronic medical issues, most notably chronic hypoxia, 6 L nasal cannula oxygen dependent for interstitial lung disease. She is also on methadone at high doses for a history of heroin use. ?I only smoked it, I didn't inject it.? She is refusing her diabetic diet. Her male friend, in the room with her informs me in a loud voice that he is her power of workers compensation defense attorney and knows all the details. He appears to be somewhat hypomanic in his nearly shouting description of her past medical events. It is sometimes hard for her to speak or for myself to discuss with her due to his interjections. She has a lot of medical detail to go over. 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 We discussed her facial rash which apparently was quite bright red but now has lightened up to light pink. At this point, given the dandruff present in her hairline, it appears to be a fairly severe seborrheic dermatitis rash but it may also have lightened in color because of the IV steroid dose given last night. It does not, any longer, appear to be viral or fungal or bacterial as had previously been discussed. She is apparently on 6 L nasal cannula oxygen at home with a chronic severe lung disease treated at [facility]. Exam Vital Signs (past 8 hours): - 08/06/20 08:00 08/06/20 08:34 08/06/20 12:00 Temperature 99 F 99.8 F H Pulse Rate 99 H 68 122 H Respiratory Rate 24 16 24 Blood Pressure 127/50 L 133/91 H Pulse Oximetry 95 93 94 Oxygen Delivery Method Nasal Cannula Oxygen Flow Rate 6 Narrative Exam Narrative: Alert and oriented x3. Striking appearance, significantly older than her actual age. Right eye missing Significant left-sided facial/hairline rash, light pink, slightly crossing the midline of the forehead, extending back into the hairline and behind the left ear, with concurrent left-sided hair dandruff. Heart is tachycardic with regular rhythm and there is no murmur. Lungs have wheezing on the left side. Extremities have no ankle edema Objective Labs Result Diagrams: 08/06/20 14:45 08/05/20 23:10 Labs: Laboratory Results - last 24 hr 08/05/20 08/05/20 08/05/20 23:10 23:10 23:10 WBC 15.0 H RBC 4.49 Hgb 10.6 L Hct 34.8 L MCV 77.6 L MCH 23.5 L MCHC 30.3 RDW 24.9 H Plt Count 304 Neut % (Auto) 54.5 Lymph % (Auto) 32.9 [place] % (Auto) 6.6 Eos % (Auto) 5.7 H Baso % (Auto) 0.3 Neut # (Auto) 8200 H Lymph # (Auto) 4900 H [place] # (Auto) 1000 H Eos # (Auto) 900 H Baso # (Auto) 0 RBC Morphology See below Anisocytosis 3+ H PT INR D-Dimer < 200 ABG pH ABG pCO2 ABG pO2 ABG HCO3 ABG Total CO2 ABG O2 Saturation ABG Base Excess FiO2 Sodium Potassium Chloride Carbon Dioxide BUN Creatinine Estimated GFR BUN/Creatinine Ratio Glucose Hemoglobin A1c Lactate Calcium Magnesium Total Bilirubin AST ALT Alkaline Phosphatase Lactate Dehydrogenase 576 Total Creatine Kinase CK-MB (CK-2) CK-MB (CK-2) Rel Index Troponin I C-Reactive Protein 2.6 H NT-Pro-B Natriuret Pep Total Protein Albumin Globulin Albumin/Globulin Ratio Lipase Procalcitonin TSH Free T4 Chlamy pneumoniae PCR Adenovirus (PCR) B.parapertussis DNA PCR Coronavirus OC43 (PCR) Coronavirus HKU1 (PCR) Coronavirus 229E (PCR) SARS-CoV-2 (PCR) Coronavirus NL63 (PCR) Human Metapneumovir PCR Influenza Type A (PCR) Influenza Type B (PCR) M. pneumoniae (PCR) Parainfluenza 1 (PCR) Parainfluenza 2 (PCR) Parainfluenza 3 (PCR) Parainfluenza 4 (PCR) RSV (PCR) Entero/Rhino (PCR) 08/05/20 08/05/20 08/05/20 23:10 23:10 23:10 WBC RBC Hgb Hct MCV MCH MCHC RDW Plt Count Neut % (Auto) Lymph % (Auto) [place] % (Auto) Eos % (Auto) Baso % (Auto) Neut # (Auto) Lymph # (Auto) [place] # (Auto) Eos # (Auto) Baso # (Auto) RBC Morphology Anisocytosis PT 14.1 H INR 1.2 D-Dimer ABG pH ABG pCO2 ABG pO2 ABG HCO3 ABG Total CO2 ABG O2 Saturation ABG Base Excess FiO2 Sodium 137 Potassium 4.6 Chloride 96 L Carbon Dioxide 38 H BUN 19 H Creatinine 1.04 Estimated GFR 57.6 L BUN/Creatinine Ratio 18.3 Glucose 164 H Hemoglobin A1c Lactate 1.6 Calcium 10.1 Magnesium 1.9 Total Bilirubin 0.3 AST 26 ALT 25 Alkaline Phosphatase 77 Lactate Dehydrogenase Total Creatine Kinase 148 H CK-MB (CK-2) 6.65 H CK-MB (CK-2) Rel Index 4.5 Troponin I < 0.012 C-Reactive Protein NT-Pro-B Natriuret Pep 50 Total Protein 7.9 Albumin 4.4 Globulin 3.5 Albumin/Globulin Ratio 1.3 Lipase 19 L Procalcitonin TSH Free T4 Chlamy pneumoniae PCR Adenovirus (PCR) B.parapertussis DNA PCR Coronavirus OC43 (PCR) Coronavirus HKU1 (PCR) Coronavirus 229E (PCR) SARS-CoV-2 (PCR) Coronavirus NL63 (PCR) Human Metapneumovir PCR Influenza Type A (PCR) Influenza Type B (PCR) M. pneumoniae (PCR) Parainfluenza 1 (PCR) Parainfluenza 2 (PCR) Parainfluenza 3 (PCR) Parainfluenza 4 (PCR) RSV (PCR) Entero/Rhino (PCR) 08/05/20 08/05/20 08/05/20 23:10 23:10 23:10 WBC RBC Hgb Hct MCV MCH MCHC RDW Plt Count Neut % (Auto) Lymph % (Auto) [place] % (Auto) Eos % (Auto) Baso % (Auto) Neut # (Auto) Lymph # (Auto) [place] # (Auto) Eos # (Auto) Baso # (Auto) RBC Morphology Anisocytosis PT INR D-Dimer ABG pH ABG pCO2 ABG pO2 ABG HCO3 ABG Total CO2 ABG O2 Saturation ABG Base Excess FiO2 Sodium Potassium Chloride Carbon Dioxide BUN Creatinine Estimated GFR BUN/Creatinine Ratio Glucose Hemoglobin A1c 6.8 H Lactate Calcium Magnesium Total Bilirubin AST ALT Alkaline Phosphatase Lactate Dehydrogenase Total Creatine Kinase CK-MB (CK-2) CK-MB (CK-2) Rel Index Troponin I C-Reactive Protein NT-Pro-B Natriuret Pep Total Protein Albumin Globulin Albumin/Globulin Ratio Lipase Procalcitonin < 0.05 TSH < 0.02 L Free T4 1.28 Chlamy pneumoniae PCR Adenovirus (PCR) B.parapertussis DNA PCR Coronavirus OC43 (PCR) Coronavirus HKU1 (PCR) Coronavirus 229E (PCR) SARS-CoV-2 (PCR) Coronavirus NL63 (PCR) Human Metapneumovir PCR Influenza Type A (PCR) Influenza Type B (PCR) M. pneumoniae (PCR) Parainfluenza 1 (PCR) Parainfluenza 2 (PCR) Parainfluenza 3 (PCR) Parainfluenza 4 (PCR) RSV (PCR) Entero/Rhino (PCR) 08/05/20 08/06/20 08/06/20 23:18 02:52 05:03 WBC RBC Hgb Hct MCV MCH MCHC RDW Plt Count Neut % (Auto) Lymph % (Auto) [place] % (Auto) Eos % (Auto) Baso % (Auto) Neut # (Auto) Lymph # (Auto) [place] # (Auto) Eos # (Auto) Baso # (Auto) RBC Morphology Anisocytosis PT INR D-Dimer ABG pH 7.35 ABG pCO2 57.5 H ABG pO2 23 L* ABG HCO3 32 H ABG Total CO2 33 H ABG O2 Saturation 33 L* ABG Base Excess 6.0 H FiO2 44 Sodium Potassium Chloride Carbon Dioxide BUN Creatinine Estimated GFR BUN/Creatinine Ratio Glucose Hemoglobin A1c Lactate Calcium Magnesium Total Bilirubin AST ALT Alkaline Phosphatase Lactate Dehydrogenase Total Creatine Kinase CK-MB (CK-2) CK-MB (CK-2) Rel Index Troponin I C-Reactive Protein NT-Pro-B Natriuret Pep Total Protein Albumin Globulin Albumin/Globulin Ratio Lipase Procalcitonin TSH Free T4 Chlamy pneumoniae PCR Not detected Adenovirus (PCR) Not detected B.parapertussis DNA PCR Not detected Coronavirus OC43 (PCR) Not detected Coronavirus HKU1 (PCR) Not detected Coronavirus 229E (PCR) Not detected SARS-CoV-2 (PCR) Negative Not detected Coronavirus NL63 (PCR) Not detected Human Metapneumovir PCR Not detected Influenza Type A (PCR) Not detected Influenza Type B (PCR) Not detected M. pneumoniae (PCR) Not detected Parainfluenza 1 (PCR) Not detected Parainfluenza 2 (PCR) Not detected Parainfluenza 3 (PCR) Not detected Parainfluenza 4 (PCR) Not detected RSV (PCR) Not detected Entero/Rhino (PCR) Not detected 08/06/20 14:45 WBC 12.0 H RBC 4.31 Hgb 10.3 L Hct 34.0 L MCV 78.8 L MCH 23.8 L MCHC 30.2 RDW 25.0 H Plt Count 312 Neut % (Auto) 86.5 H D Lymph % (Auto) 11.7 L D [place] % (Auto) 1.5 L Eos % (Auto) 0.1 L Baso % (Auto) 0.2 Neut # (Auto) 00394 H Lymph # (Auto) 1400 [place] # (Auto) 200 Eos # (Auto) 0 Baso # (Auto) 0 RBC Morphology Anisocytosis PT INR D-Dimer ABG pH ABG pCO2 ABG pO2 ABG HCO3 ABG Total CO2 ABG O2 Saturation ABG Base Excess FiO2 Sodium Potassium Chloride Carbon Dioxide BUN Creatinine Estimated GFR BUN/Creatinine Ratio Glucose Hemoglobin A1c Lactate Calcium Magnesium Total Bilirubin AST ALT Alkaline Phosphatase Lactate Dehydrogenase Total Creatine Kinase CK-MB (CK-2) CK-MB (CK-2) Rel Index Troponin I C-Reactive Protein NT-Pro-B Natriuret Pep Total Protein Albumin Globulin Albumin/Globulin Ratio Lipase Procalcitonin TSH Free T4 Chlamy pneumoniae PCR Adenovirus (PCR) B.parapertussis DNA PCR Coronavirus OC43 (PCR) Coronavirus HKU1 (PCR) Coronavirus 229E (PCR) SARS-CoV-2 (PCR) Coronavirus NL63 (PCR) Human Metapneumovir PCR Influenza Type A (PCR) Influenza Type B (PCR) M. pneumoniae (PCR) Parainfluenza 1 (PCR) Parainfluenza 2 (PCR) Parainfluenza 3 (PCR) Parainfluenza 4 (PCR) RSV (PCR) Entero/Rhino (PCR) [facility] Medical History (Updated 08/06/20 @ 16:42 by Nathan Chaparro MD) Diabetes Hypothyroidism (acquired) Interstitial lung disease Opioid use disorder Pulmonary edema Right sided sciatica Surgical History H/O enucleation of right eyeball Family History (Updated 08/06/20 @ 06:55 by CLINTON Massey) Mother Adopted Other [id number] deficiency Social History household members: significant other and other Smoking Status: Former smoker Assessment & Plan Assessment and plan (1) Opioid use disorder: Status: Acute Assessment & Plan narrative: Carissa Gallardo is a 45 y.o. female with a complex medical history include including poorly controlled diabetes type 2, morbid obesity, suspected interstitial lung disease and chronic pain who was admitted for chronic respiratory failure, and a suspected facial infection of a bacterial or candidal source. Acute on chronic respiratory failure, present on admission -when the patient ambulates her oxygen saturations dropped down into the 70s to mid low 80s on 6 L of O2 -she is on ceftriaxone and oral azithromycin, her 1st doses were administered to her in the emergency department -she was given Solu-Medrol 125 mg IV in the emergency department, with oral prednisone to be continued -CTA of the chest ruled out PE but did show bilateral pulmonary edema. It is unclear whether that is changed from her chronic appearance. Contrary to the initial verbal report there was no pleural effusion. -apparently due to missing 1 days dose of her torsemide the BNP is now up from 50 on admission 08/05 to 464 so the torsemide will be resumed. She insists that she does not have a significant congestive heart failure condition and takes the diuretic only for ?fluid retention.? -the white blood count has dropped from 15.0 to 12.0 on 08/06 Severe seborrheic dermatitis facial rash, present on admission, acute -Ceftriaxone and valcyclovir was ordered to cover for initial impressions of possible viral or bacterial cellulitis. -on the admission examination of the patient, this appeared to be fungal in nature, or possibly a bacterial infection superimposed on a fungal infection and so the valacyclovir was stopped -Wet mount and a fungal culture pending -08/06 exam is more consistent with seborrheic dermatitis so Nizoral cream and shampoo was added. The appearance may have changed significantly due to the IV steroids given on 08/05? Continue daily re-evaluation. Poorly controlled diabetes type 2 -Her A1c was 9 in May 2020 and is now 6.8 -Steroid use also contributed to poor control -She will have lantus 50 units during the day and 15 units at night, medium dose correctional scale -resume metformin and follow blood sugars Chronic pain syndrome -Continue gabapentin 300 mg po tid -She takes methadone 190 mg daily and we will need to find out how she takes it throughout the day. It is dispensed from the [facility] which is a [facility] Opiate use disorder, present on admission. Chronic -continue methadone 190 mg daily Hypothyroidism, present on admission. Chronic -on the admitting dose of 0.3 mg levothyroxine her TSH is less than 0.02 and the T4 is 1.28. -will decrease levothyroxine to 0.15 mg and defer further adjustments to her outpatient clinic. VTE prophylaxis: Wells risk score: 0 Enoxaparin 40 mg subQ daily Consults: none FEN:Saline lock, change to regular diet at patient insistence, BMP and magnesium in the am. Dispo: unknown at this time Code Status: Full code as discussed with patient
[2020-08-06 16:24] LABS: Anisocytosis 3+; Hypochromasia 1+; Microcytosis 1+
[2020-08-06] MEDS: KETOCONAZOLE 2% 1 APPLIC TOP (19:53)
[2020-08-06] MEDS: SENNOSIDES 8.6 MG TABLET 17.2 MG PO (21:46)
[2020-08-06] MEDS: predniSONE 20 MG TABLET PO (21:46)
[2020-08-06] MEDS: BENZONATATE 100 MG CAPSULE PO (21:46)
[2020-08-06] MEDS: QUETIAPINE 100 MG TABLET 400 MG PO (21:46)
[2020-08-06] MEDS: MIRTAZAPINE 15 MG TABLET 30 MG PO (21:47)
[2020-08-06] MEDS: INSULIN GLARGINE 100 UNIT/ML 3ML PEN 50 UNIT SUBCUT (21:48)
[2020-08-07] VITALS (10 sets, daily range): BP systolic 91–127; BP diastolic 49–75; PULSE 79–111; RESP 10–20; TEMP 36.8–37.6; O2SAT 90–98
[2020-08-07] MEDS: NALOXONE 0.4 MG/ML VIAL 0.2 MG IV (01:09)
[2020-08-07] MEDS: HYDROMORPHONE 0.5 MG INJ IV ×6 (01:12→18:45)
[2020-08-07 01:31] LABS: Enterococcus species Not Detected (Not Detect); Listeria monocytogenes Not Detected (Not Detect)
[2020-08-07 01:32] LABS: Acinetobacter baumannii Not Detected (Not Detect); E. coli Not Detected (Not Detect); Enterobacter cloacae complex Not Detected (Not Detect); Enterobacteriaceae species Not Detected (Not Detect); Haemophilus influenzae Not Detected (Not Detect); Methicillin-resistant gene Not Detected (Not Detect); Neisseria meningitidis Not Detected (Not Detect); Proteus species Not Detected (Not Detect); Pseudomonas aeruginosa Not Detected (Not Detect); Serratia marcescens Not Detected (Not Detect); Staphylococcus species Detected (Not Detect); Streptococcus agalactiae (Gr B Not Detected (Not Detect); Streptococcus pneumonia Not Detected (Not Detect); Streptococcus pyogenes (Gr A) Not Detected (Not Detect); Streptococcus species Not Detected (Not Detect)
[2020-08-07 01:33] LABS: Candida albicans Not Detected (Not Detect); Candida glabrata Not Detected (Not Detect); Candida krusei Not Detected (Not Detect); Candida parapsilosis Not Detected (Not Detect); Candida tropicalis Not Detected (Not Detect)
--- NOTE | 2020-08-07 03:30 | PC.NURSE ---
Addendum entered by Sveta Rossa R.N. 08/07/20 04:08: Lab called at 0115 to inform that blood cultures taken 08/05/2020 at 2310 tested positive for Staph Species. Provider RICHARD and charge SAHRON informed, no orders given. Original Note: At approx 0040 this RN entered room 208 to assess and take the vitals of pt. Pt was asleep in bed, on side, one hand clutching a carton of milk with dried milk crusted on the side of her face. This RN attempted to rouse her by voice, pt did not respond. Louder voice, no response again. Arm shake and sternal rub provided minimal response. This RN attempted to get a blood pressure reading while pt was lying on R side [0051]- BP 82/45, HR 82, RR 8-10, & SPO2 88% on 6L NC. This RN attempted to rouse pt again, received minimal response. Pulled pt over to back, pt slightly opened eyes to vigorous sternal rub, vitals taken [0054] supine- BP 96/49, HR 79, RR 10, SPO2 90% 6L NC. This RN called for another RN to bring her Narcan and administered 0.2 mg at around 0100. Pt awake within 20 seconds, HR elevated 130s-150s, expressing anxiety, AOx4, and upset. This RN remained at pt's side to assist in keeping her safe and calm. Pt stood to BSC and urinated approx 200 mL, shaking and upset, insisting that this RN provide ativan to calm down. This RN guided the pt through breathing exercises to bring HR down and SPO2 up. Pt eventually climbed back into bed and at 0105, expressing extreme pain and inability to move any further- 0.5 mg dilaudid given after discussing potential side effects and concerns over state of consciousness. Vitals were taken again lying right side [0110]- BP 123/73, HR 111, RR 14, SPO2 98% on 6L NC. Pt assured this RN that she felt better but still desired ativan. This RN left the room to examine the telemetry event at the station in the ICU and reported the event to coordinator SHARON and provider RICHARD. No abnormal rhythm noted. No orders received. Brief check on patient at 0151 showed pt lying R side, asleep, snoring, HR 98, RR 12, and SPO2 94% 6L NC.
[2020-08-07] MEDS: LEVOTHYROXINE 150 MCG TABLET PO (05:39)
[2020-08-07] MEDS: AZITHROMYCIN 250 MG TABLET 500 MG PO (05:39)
[2020-08-07] MEDS: KETOROLAC 30 MG/ML VIAL IV ×3 (05:39→22:15)
[2020-08-07] MEDS: CEFTRIAXONE 2 GM/50 ML FROZ.PIGGY IV (05:41)
[2020-08-07 06:32] LABS: Basophils Absolute Auto 100 /uL (0-100); Basophils Percent Auto 0.8 % (0-2); Eosinophils Absolute Auto 0 /uL (0-450); Eosinophils Percent Auto 0.2 % (2-4); Hematocrit 30.6 % (36-46); Hemoglobin 9.4 g/dL (12.0-16.0); Lymphocytes Absolute Auto 2700 /uL (1100-4500); Lymphocytes Percent Auto 18.8 % (25-40); Mean Corpuscular HGB Conc 30.6 % (30-36); Mean Corpuscular Hemoglobin 23.8 PG (26-34); Mean Corpuscular Volume 77.9 fL (80-100); Monocytes Absolute Auto 1000 /uL (0-900); Monocytes Percent Auto 7.3 % (3-14); Neutrophils Absolute Auto 10500 /uL (1500-7000); Neutrophils Percent Auto 72.9 % (50-75); Platelet Count 271 X10^3/uL (150-400); Red Blood Cell Count 3.93 X10^6/uL (4.0-5.2); Red Cell Distribution Width 24.9 % (11.6-14.8); White Blood Cell Count 14.4 X10^3/uL (4.5-11.0)
[2020-08-07 06:37] LABS: Add Manual Diff / Slide Review SLIDE REVIEW
[2020-08-07 06:42] LABS: BUN Creatinine Ratio 31.4 (6-22); Blood Urea Nitrogen 22 mg/dL (7-17); Calcium 9.9 mg/dL (8.4-10.2); Carbon Dioxide 31 mmol/L (22-32); Chloride 99 mmol/L (98-107); Estimated Glomerular Filt Rate > 60.0 mL/min (>60); Glucose 252 mg/dL (70-100); HEMOLYSIS < 15 (0-50); Potassium 4.7 mmol/L (3.4-5.1); Sodium 138 mmol/L (137-145)
[2020-08-07 06:46] LABS: C-Reactive Protein Quant 2.2 mg/dL (<1.0)
[2020-08-07 06:51] LABS: NT-proBNP (BNP-Adult 18+) 748 pg/mL (<125)
[2020-08-07 08:36] LABS: Anisocytosis 3+; Hypochromasia 1+; Poikilocytosis 1+
[2020-08-07] MEDS: INSULIN GLARGINE 100 UNIT/ML 3ML PEN 15 UNIT SUBCUT (09:32)
[2020-08-07] MEDS: INSULIN ASPART 100 UNIT/ML INSULN PEN SUBCUT ×3 (09:33→16:57)
[2020-08-07] MEDS: ENOXAPARIN 40 MG/0.4 ML SYRINGE SUBCUT ×2 (09:35→22:15)
[2020-08-07] MEDS: LORATADINE 10 MG TABLET PO (09:36)
[2020-08-07] MEDS: predniSONE 20 MG TABLET PO ×2 (09:36→22:18)
[2020-08-07] MEDS: hydrOXYzine pamoate 25 MG CAPSULE 50 MG PO (09:36)
[2020-08-07] MEDS: GABAPENTIN 300 MG CAPSULE 900 MG PO ×3 (09:36→22:17)
[2020-08-07] MEDS: PANTOPRAZOLE 40 MG TABLET PO ×2 (09:36→22:20)
[2020-08-07] MEDS: KETOCONAZOLE 2% 1 APPLIC TOP (09:36)
[2020-08-07] MEDS: METFORMIN XR 500 MG TABLET PO (09:37)
[2020-08-07] MEDS: MYCOPHENOLATE MOFETIL 500 MG TABLET 1000 MG PO ×2 (09:37→22:19)
[2020-08-07] MEDS: TORSEMIDE 100 MG TABLET PO (09:38)
[2020-08-07] MEDS: TIZANIDINE 4 MG TABLET PO (09:38)
[2020-08-07] MEDS: POTASSIUM CHLORIDE 10 MEQ TAB PO (09:38)
[2020-08-07] MEDS: FLUTICASONE 120 SPRAY/16 GM SPRAY.SUSP NASAL (09:49)
[2020-08-07] MEDS: SODIUM CHLORIDE 0.9% FLUSH 10 ML IV ×3 (09:50→15:45)
[2020-08-07] MEDS: ALBUTEROL HFA MDI 60 PUFF/8 GM INHALER INH ×2 (10:04→21:57)
[2020-08-07] MEDS: FLUTICASONE/SALMETEROL 250/50 60 PUFF DISKUS INH ×2 (10:04→21:57)
[2020-08-07] MEDS: BENZONATATE 100 MG CAPSULE PO ×2 (10:30→22:17)
[2020-08-07] MEDS: DAPSONE 100 MG TABLET PO (10:31)
[2020-08-07 12:00] LABS: Oxygen Saturation ABG 36 % (95-100)
[2020-08-07] MEDS: METHADONE INTENSOL 10 MG/ML ORAL.CONC 190 MG PO (12:08)
--- NOTE | 2020-08-07 14:15 | DI.CT.S_ITS ---
PROCEDURE: CT CHEST HIGH RESOLUTION INDICATIONS: ILD TECHNIQUE: Noncontrast 1.0 and 5.0 mm thick contiguous axial sections from the pulmonary apex to the posterior costophrenic angles, with 7 mm thick coronal and sagittal MIP reformats. 1 mm thick dynamic expiratory images acquired through the upper, mid, and lower lungs. 1.0 mm thick axial sections acquired from the pratima to the posterior costophrenic angles in the prone end-inspiration position. For radiation dose reduction, the following was used: automated exposure control, adjustment of mA and/or kV according to patient size. COMPARISON: [facility], CT, CT ANGIO CHEST PE PROTOCOL, 05/24/2020, 16:07. CT, CHEST HI-RESOLUTION, 07/26/2010, 16:02. [facility], CT, CT ANGIO CHEST PE PROTOCOL, 10/31/2018, 9:54. [facility], CT, CT ANGIO CHEST PE PROTOCOL, 08/06/2020, 2:02. FINDINGS: Image quality: Excellent. Lungs: Moderate to severe pulmonary fibrosis with honeycombing. There may be slight predilection to the upper lobes. Overall the ground-glass opacity appears resolved compared to 10/31/2018. The pulmonary process is substantially worsened compared to 2010. There is mild bronchiectasis. The central airways are clear. Right upper lobe pulmonary nodule measuring at 0.8 x 0.7 cm, (3/118), previously 1 x 0.9 cm on 10/31/2018. No significant air trapping. Pleura: No pleural effusions or pneumothorax. Mediastinum: Heart size is normal. No pericardial effusion. Thoracic aorta and central pulmonary arteries are normal in size. Esophagus is normal in caliber. Small hiatal hernia. Bones and chest wall: No suspicious bony lesions. No vertebral body compression fractures. Abdomen: Visualized upper abdominal solid organs and bowel loops appear normal. IMPRESSION: 1. Moderate to severe pulmonary fibrosis in this young patient. 2. Mild bronchiectasis. 3. Small right upper lobe pulmonary nodule measuring at 8 mm, stable since October 2018. Dictated by: Christian Busby M.D. on 08/07/2020 at 19:43 Approved by: Christian Busby M.D. on 08/07/2020 at 19:57
[2020-08-07] MEDS: TIZANIDINE 4 MG TABLET 6 MG PO ×2 (14:56→22:20)
--- NOTE | 2020-08-07 15:37 | PC.NURSE ---
Shift summary: Patient awake and alert, repositions independently in bed and up to BSC. continuous pulse ox shows o2 88-96% on 6L NC. Eating all her meals, voiding in BSC and had BM today. Rash to face and scalp improving per patient and her , area appears fungal light pink and dry skin flakes. Patient reports that it deutsch throughout the day. Patient complains of pain on and off, burning from her rash, intermittent back pain (chronic) and intermittent generalized pain. She reports the dilaudid as ordered has been the only medication that helps with her pain. She states the toradol as ordered is what helps with her other chronic generalized and back pain. Patient frequently calling to for snacks and juices or milk, patient educated on avoiding sugary drinks as she is on a carb controlled diet and has elevated blood sugars. Patient with call light within reach.
--- NOTE | 2020-08-07 15:51 | PM.PN.1 ---
Subjective Subjective Date Patient Seen: 08/07/20 Interval history: The patient is a 45-year-old female with a history of interstitial lung disease, chronic respiratory failure usually maintained on 6 L of oxygen, and some seborrheic dermatitis. The patient's rash around her face and scalp is improving. However that rash in the head persists. The patient has been under the care of Dr. gutierres at the [facility]. She has had multiple admissions to various institutions for worsening shortness of breath. She describes hypoxia with activity which is worse from her baseline. When she walks 20 ft she will desaturate into the 70s and 80s which is unusual for her. When she has had increasing episodes of hypoxia she has been hospitalized with antibiotic treatment and had had improvement of her symptoms. She presented again with acute on chronic respiratory failure prior to this admission. She came into the hospital as requested by her providers. She is undergoing care at the [facility] and has plans to follow-up with Dr. mcmanus to following a high-resolution CT and pulmonary function studies. Last evening the patient was found to be lethargic, there was concern regarding over sedation from narcotics, she was given Narcan. Patient reports she felt awful afterwards with twitching and jerking. She thought she was having a panic attack. She has been managed on her methadone for sometimes and tolerates it fairly well. Exam Vital Signs (past 8 hours): - 08/07/20 08:00 08/07/20 10:04 08/07/20 12:00 Temperature 98.3 F 98.8 F Pulse Rate 94 H 94 H 86 Respiratory Rate 19 18 20 Blood Pressure 92/64 91/53 L Pulse Oximetry 92 92 93 08/07/20 14:40 Temperature Pulse Rate Respiratory Rate Blood Pressure Pulse Oximetry 92 Oxygen Delivery Method Nasal Cannula Oxygen Flow Rate 6 Narrative Exam Narrative: Ill-appearing obese female lying in bed HEENT: Erythematous macular eruption around the scalp line in side of the face, there is mild erythema, there is denuding of the skin as well. Scalp has multiple patches as well Lungs: Decreased breath sounds bilaterally Cardiac exam: Regular rate rhythm normal S1-S2 Abdomen: Obese soft nontender Extremities: Exquisite hypersensitivity in the left lower extremity with minimal palpation, mild tender and tenderness in the right lower extremity Objective Labs Result Diagrams: 08/07/20 06:20 08/07/20 06:20 Labs: Laboratory Results - last 24 hr 08/05/20 08/06/20 08/06/20 23:10 02:52 14:45 WBC RBC Hgb Hct MCV MCH MCHC RDW Plt Count Neut % (Auto) Lymph % (Auto) [place] % (Auto) Eos % (Auto) Baso % (Auto) Neut # (Auto) Lymph # (Auto) [place] # (Auto) Eos # (Auto) Baso # (Auto) RBC Morphology Not Reportable Hypochromasia 1+ H Poikilocytosis Anisocytosis 3+ H Microcytosis 1+ H ABG O2 Saturation 36 L* Sodium Potassium Chloride Carbon Dioxide BUN Creatinine Estimated GFR BUN/Creatinine Ratio Glucose Calcium Magnesium C-Reactive Protein NT-Pro-B Natriuret Pep A. baumannii (PCR) Not detected Marianne albicans (PCR) Not detected C. glabrata (PCR) Not detected C. krusei (PCR) Not detected C. parapsilosis (PCR) Not detected C. tropicalis (PCR) Not detected Enterobacteriac sp PCR Not detected E. cloacae complex PCR Not detected Enterococcus sp PCR Not detected E. coli (PCR) Not detected H. influenzae (PCR) Not detected Klebsiella oxytoca PCR Not detected Klebsiella pneumoniae Not detected List. monocytogenes PCR Not detected N. meningitidis (PCR) Not detected Proteus species (PCR) Not detected Serratia marcescens PCR Not detected Staphylococcus sp PCR Detected H Staph aureus (PCR) Not detected mecA-Methicil Res Gene Not detected Streptococcus sp PCR Not detected Group A Strep (PCR) Not detected Strep agalactiae (PCR) Not detected Strep pneumoniae (PCR) Not detected P. aeruginosa (PCR) Not detected Oneyda/B-Vanco Res Genes Not Reportable KPC-Carbap Res Gene PCR Not Reportable 08/07/20 08/07/20 08/07/20 06:20 06:20 06:20 WBC 14.4 H RBC 3.93 L Hgb 9.4 L Hct 30.6 L MCV 77.9 L MCH 23.8 L MCHC 30.6 RDW 24.9 H Plt Count 271 Neut % (Auto) 72.9 Lymph % (Auto) 18.8 L [place] % (Auto) 7.3 Eos % (Auto) 0.2 L Baso % (Auto) 0.8 Neut # (Auto) 39606 H Lymph # (Auto) 2700 [place] # (Auto) 1000 H Eos # (Auto) 0 Baso # (Auto) 100 RBC Morphology See below Hypochromasia 1+ H Poikilocytosis 1+ H Anisocytosis 3+ H Microcytosis ABG O2 Saturation Sodium 138 Potassium 4.7 Chloride 99 Carbon Dioxide 31 BUN 22 H Creatinine 0.70 Estimated GFR > 60.0 BUN/Creatinine Ratio 31.4 H Glucose 252 H Calcium 9.9 Magnesium 2.0 C-Reactive Protein 2.2 H NT-Pro-B Natriuret Pep 748 H A. baumannii (PCR) Marianne albicans (PCR) C. glabrata (PCR) C. krusei (PCR) C. parapsilosis (PCR) C. tropicalis (PCR) Enterobacteriac sp PCR E. cloacae complex PCR Enterococcus sp PCR E. coli (PCR) H. influenzae (PCR) Klebsiella oxytoca PCR Klebsiella pneumoniae List. monocytogenes PCR N. meningitidis (PCR) Proteus species (PCR) Serratia marcescens PCR Staphylococcus sp PCR Staph aureus (PCR) mecA-Methicil Res Gene Streptococcus sp PCR Group A Strep (PCR) Strep agalactiae (PCR) Strep pneumoniae (PCR) P. aeruginosa (PCR) Oneyda/B-Vanco Res Genes KPC-Carbap Res Gene PCR PFSH Medical History (Updated 08/06/20 @ 16:42 by Nathan Chaparro MD) Diabetes Hypothyroidism (acquired) Interstitial lung disease Opioid use disorder Pulmonary edema Right sided sciatica Surgical History H/O enucleation of right eyeball Family History (Updated 08/06/20 @ 06:55 by CLINTON Massey) Mother Adopted Other [id number] deficiency Social History household members: significant other and other Smoking Status: Former smoker Assessment & Plan Assessment & Plan narrative: Rebekah Gallardo is a 45 y.o. female with a complex medical history include including poorly controlled diabetes type 2, morbid obesity, suspected interstitial lung disease and chronic pain who was admitted for chronic respiratory failure, and a suspected facial infection of a bacterial or candidal source. Acute on chronic respiratory failure, present on admission -patient has had a worsening of her chronic respiratory failure. She typically is maintained on 6 L of oxygen at home. However prior to admission she was desaturating significantly with minimal activity. This is new. -when the patient ambulates her oxygen saturations dropped down into the 70s to mid low 80s on 6 L of O2 -she is on ceftriaxone and oral azithromycin, her 1st doses were administered to her in the emergency department -she was given Solu-Medrol 125 mg IV in the emergency department, with oral prednisone to be continued -CTA of the chest ruled out PE but did show bilateral pulmonary edema. It is unclear whether that is changed from her chronic appearance. Contrary to the initial verbal report there was no pleural effusion. -apparently due to missing 1 days dose of her torsemide the BNP is now up from 50 on admission 08/05 to 464 so the torsemide will be resumed. She insists that she does not have a significant congestive heart failure condition and takes the diuretic only for ?fluid retention.? -will obtain high-resolution CT -will consult Dr. Dunn for further recommendations Severe seborrheic dermatitis facial rash, present on admission, acute -Ceftriaxone and valcyclovir was ordered to cover for initial impressions of possible viral or bacterial cellulitis. -on the admission examination of the patient, this appeared to be fungal in nature, or possibly a bacterial infection superimposed on a fungal infection and so the valacyclovir was stopped -Wet mount and a fungal culture pending -08/06 exam is more consistent with seborrheic dermatitis so Nizoral cream and shampoo was added. The appearance may have changed significantly due to the IV steroids given on 08/05? Continue daily re-evaluation. -Ms. Stubbs role shampoo ordered for the scalp as well Poorly controlled diabetes type 2 -Her A1c was 9 in May 2020 and is now 6.8 -Steroid use also contributed to poor control -She will have lantus 50 units during the day and 15 units at night, medium dose correctional scale -resume metformin and follow blood sugars Chronic pain syndrome -Continue gabapentin 300 mg po tid -She takes methadone 190 mg daily and we will need to find out how she takes it throughout the day. It is dispensed from the [facility] which is a [facility] center -patient is on methadone for chronic pain Opiate use disorder, present on admission. Chronic -continue methadone 190 mg daily Hypothyroidism, present on admission. Chronic -on the admitting dose of 0.3 mg levothyroxine her TSH is less than 0.02 and the T4 is 1.28. -will decrease levothyroxine to 0.15 mg and defer further adjustments to her outpatient clinic.
--- NOTE | 2020-08-07 17:38 | RT ---
Patient oxygen saturation decreased to 88% with ambulation on 6L NC, oxygen increased to 8L and patient oxygen saturation came back to 90%,. When patient is at rest 6L oxygen seems to be sufficient, she requires 8L with ambulation. Her concentrator at home is a 10L concentrator and allows her the freedom to make those changes. Patient may benefit from pulmonary rehab.
--- NOTE | 2020-08-07 17:40 | PC.NURSE ---
Addendum entered by Sara Marsh R.N. 08/07/20 23:35: Requests pain meds for 01/28 generalized pain. Toradol administered per emar. Spouse leaves for the evening. R.T. has administered treatment and replaced pulse oximeter following pt's shower this evening shift. Addendum entered by Sara Marsh R.N. 08/07/20 21:13: Pt sleeping soundly in bed. R.T. defers treatment until pt awake. Pt's spouse requests this sports book writer defer waking patient for meds at this time allowing pt to continue to sleep. Addendum entered by Sara Marsh R.N. 08/07/20 18:05: Informed Dr. Bermudez who is in house of pt's blood sugars greater than 400. Also informed MD of pt's diet order and the high concentration of carbohydrate foods arriving on pt's tray. Informed MD this sports book writer changed pt's diet order to carb consistent. Per Dr. Lara MD to adjust insulin for this patient as Dr. Bermudez reports pt has stated will not eat diabetic diet. This sports book writer corrected diet to original order of heart healthy. Original Note: Pt with blood sugar of 432. Dinner tray arrives and is heart healthy with mashed potatoes, mac and cheese, two milk cartons, two glasses of orange juice, dish of sliced oranges, christin food cake with strawberries and salad. One carton of milk removed from tray as well as both glasses of orange juice. Pt's diet changed to carbohydrate consistent by this sports book writer. IV dilaudid administered per pt request for generalized pain 01/28. 02 @ 6L per nc with continuous oximeter in place with saturation levels 94%. Spouse is rooming in. Contact precautions observed. Anti-fungal shampoo not available per pharmacy and this sports book writer informed pharmacist has spoken to Dr. Bermudez.
[2020-08-07] MEDS: INSULIN ASPART 100 UNIT/ML INSULN PEN 10 UNIT SUBCUT (18:45)
[2020-08-07] MEDS: INSULIN GLARGINE 100 UNIT/ML 3ML PEN 50 UNIT SUBCUT (22:13)
[2020-08-07] MEDS: SENNOSIDES 8.6 MG TABLET 17.2 MG PO (22:18)
[2020-08-07] MEDS: MIRTAZAPINE 15 MG TABLET 30 MG PO (22:19)
[2020-08-08] VITALS: BP 108/54; PULSE 84; RESP 18; TEMP 37.4; O2SAT 93
[2020-08-08] MEDS: HYDROMORPHONE 0.5 MG INJ IV ×6 (00:32→21:16)
[2020-08-08] MEDS: INSULIN ASPART 100 UNIT/ML INSULN PEN 10 UNIT SUBCUT ×4 (00:32→18:40)
[2020-08-08] MEDS: AZITHROMYCIN 250 MG TABLET 500 MG PO (06:07)
[2020-08-08] MEDS: CEFTRIAXONE 2 GM/50 ML FROZ.PIGGY IV (06:07)
[2020-08-08] MEDS: LEVOTHYROXINE 150 MCG TABLET PO (06:08)
[2020-08-08] MEDS: KETOROLAC 30 MG/ML VIAL IV ×2 (06:10→16:38)
[2020-08-08 08:00] VITALS: BP 110/54; PULSE 85; RESP 18; TEMP 36.6; O2SAT 95
[2020-08-08] MEDS: ALBUTEROL HFA MDI 60 PUFF/8 GM INHALER INH ×2 (08:50→20:35)
[2020-08-08] MEDS: FLUTICASONE/SALMETEROL 250/50 60 PUFF DISKUS INH ×2 (08:50→20:36)
[2020-08-08 08:51] VITALS: PULSE 72; RESP 14; O2SAT 98
[2020-08-08] MEDS: INSULIN GLARGINE 100 UNIT/ML 3ML PEN 30 UNIT SUBCUT (09:04)
[2020-08-08] MEDS: ENOXAPARIN 40 MG/0.4 ML SYRINGE SUBCUT ×2 (09:18→21:16)
[2020-08-08] MEDS: POTASSIUM CHLORIDE 10 MEQ TAB PO (09:19)
[2020-08-08] MEDS: MYCOPHENOLATE MOFETIL 500 MG TABLET 1000 MG PO ×2 (09:19→21:14)
[2020-08-08] MEDS: TIZANIDINE 4 MG TABLET 6 MG PO ×3 (09:19→21:13)
[2020-08-08] MEDS: hydrOXYzine pamoate 25 MG CAPSULE 50 MG PO (09:20)
[2020-08-08] MEDS: DAPSONE 100 MG TABLET PO (09:20)
[2020-08-08] MEDS: BUTALB/APAP/CAFFEINE 50/325/40 TABLET 1 EACH PO (09:20)
[2020-08-08] MEDS: TORSEMIDE 100 MG TABLET PO (09:20)
[2020-08-08] MEDS: LORATADINE 10 MG TABLET PO (09:21)
[2020-08-08] MEDS: BENZONATATE 100 MG CAPSULE PO ×2 (09:21→21:12)
[2020-08-08] MEDS: PANTOPRAZOLE 40 MG TABLET PO ×2 (09:21→21:12)
[2020-08-08] MEDS: GABAPENTIN 300 MG CAPSULE 900 MG PO ×2 (09:22→14:44)
[2020-08-08] MEDS: FLUTICASONE 120 SPRAY/16 GM SPRAY.SUSP NASAL (09:23)
[2020-08-08] MEDS: KETOCONAZOLE 2% 1 APPLIC TOP (09:29)
--- NOTE | 2020-08-08 11:23 | PC.NURSE ---
Patient called this morning upset and angry about her new diet restrictions regarding heart healthy and carb controlled changes to her diet. Patient states I am a grown ass woman and I will choose what I eat. Patient refused her prednisone stating if that's the problem with my sugars and you won't let me eat what I want Im not taking that. Dr. Bermudez notified and diet changed to regular diet.
[2020-08-08] MEDS: predniSONE 20 MG TABLET PO ×2 (12:38→21:16)
[2020-08-08] MEDS: METHADONE 10 MG TABLET 190 MG PO (13:42)
--- NOTE | 2020-08-08 15:27 | DIET.PN ---
Dietary Progress Note Assessment: Mrs Gallardo is a 45-year-old female with a past medical history that includes interstitial lung disease, home O2 dependence (6L), morbid obesity, diabetes type 2, history of acute exacerbation of bronchiectasis, chronic respiratory failure and chronic pain presented to the emergency room with pain in her face on the left side. She was treated for a cellulitis and a possible herpes zoster in the ED. She became quite hypoxic into the 60s and low 80s and was found to have a bilateral basilar pneumonia. She was placed on a heart healthy diet, but was not content with this decision and was placed on general. She reports improved appetite although she does not care for the hospital menu. She prefers red meat to our heart healthy menu. She is predominately immobile. HT: 65in WT: 280lb UBW: BMI: 46 (obese) Labs: A1c: 6.8 MNA: 10 Aníbal: 19 Nutrition Diagnosis: Overweight/obesity r/t not ready for diet/lifestyle change, physical inactivity aeb BMI more than normative standards (Obese class III), over consumption of high fat/energy dense foods, large amounts fo sedentary activity, physical limitation r/t diagnosis. Interventions: 1. Reviewed menu. Discussed importance of heart heathy/low sodium/carb consistent choices for improved lung function and fluid retention. Recommended moderate protein, high fiber for healthy weight management. Diet Order: General EER: 1900 michael @15 michael/kg (morbid obese); 100 g pro (0.8g/kg actual weight; 1.2g/kg adjusted weight) Monitoring/Evaluations: PO's, labs
[2020-08-08 16:30] VITALS: BP 120/84; PULSE 73; RESP 22; TEMP 37.1; O2SAT 92
--- NOTE | 2020-08-08 17:18 | P.PN_ITS ---
Subjective Subjective Date Patient Seen: 08/08/20 Interval history: Patient is a 45-year-old female with a history of interstitial lung disease who presented to the hospital for progressive hypoxemia with activity. The patient is normally on 6-10 L. she has had multiple hospitalizations over the past 10 months where she will get IV azithromycin and improvement in her lung function and then gradually have a decline in her functional status. This results in desaturation of her oxygenation with activity. Prior to this hospitalization she was desatting into the 70% range just with walking 20 ft or going to the bathroom. The patient is under the care of Dr. gutierres at the [facility]. He has scheduled several studies for her for further evaluation. In addition the patient has seborrheic dermatitis which was fairly severe on admission with treatment with the [place] a rail and [place] Blue for her scalp it has improved remarkably. She continues to be short of breath with minimal exertion. She continues to desaturate with minimal activity. Exam Vital Signs (past 8 hours): - 08/08/20 16:30 Temperature 98.8 F Pulse Rate 73 Respiratory Rate 22 Blood Pressure 120/84 Pulse Oximetry 92 Oxygen Delivery Method Nasal Cannula Oxygen Flow Rate 9 Narrative Exam Narrative: Pleasant female resting comfortably Lungs: Decreased breath sounds with coarse breath sounds bilaterally, no Velcro crackles are noted Cardiac exam: Regular rate and rhythm normal S1-S2 Abdomen: Soft nontender nondistended without hepatosplenomegaly Extremities: She has hypersensitivity of both extremities right greater than left Objective Labs Result Diagrams: 08/07/20 06:20 08/07/20 06:20 [facility] Medical History (Updated 08/06/20 @ 16:42 by Nathan Chaparro MD) Diabetes Hypothyroidism (acquired) Interstitial lung disease Opioid use disorder Pulmonary edema Right sided sciatica Surgical History H/O enucleation of right eyeball Family History (Updated 08/06/20 @ 06:55 by CLINTON Massey) Mother Adopted Other [id number] deficiency Social History household members: significant other and other Smoking Status: Former smoker Assessment & Plan Assessment & Plan narrative: Acute on chronic respiratory failure, present on admission -patient has had a worsening of her chronic respiratory failure. She typically is maintained on 6 L of oxygen at home. However prior to admission she was desaturating significantly with minimal activity. This is new. -when the patient ambulates her oxygen saturations dropped down into the 70s to mid low 80s on 6 L of O2 -she is on ceftriaxone and oral azithromycin, her 1st doses were administered to her in the emergency department -she was given Solu-Medrol 125 mg IV in the emergency department, with oral prednisone to be continued -CTA of the chest ruled out PE but did show bilateral pulmonary edema. It is unclear whether that is changed from her chronic appearance. Contrary to the initial verbal report there was no pleural effusion. -apparently due to missing 1 days dose of her torsemide the BNP is now up from 50 on admission 08/05 to 464 so the torsemide will be resumed. She insists that she does not have a significant congestive heart failure condition and takes the diuretic only for ?fluid retention.? -will obtain high-resolution CT, results reveal moderate to severe pulmonary fibrosis -will consult Dr. Dunn for further recommendations, he is out of the office today will follow-up with him tomorrow regarding further recommendation Severe seborrheic dermatitis facial rash, present on admission, acute -Ceftriaxone and valcyclovir was ordered to cover for initial impressions of possible viral or bacterial cellulitis. -on the admission examination of the patient, this appeared to be fungal in nature, or possibly a bacterial infection superimposed on a fungal infection and so the valacyclovir was stopped -Wet mount and a fungal culture pending -08/06 exam is more consistent with seborrheic dermatitis so Nizoral cream and shampoo was added. The appearance may have changed significantly due to the IV steroids given on 08/05? Continue daily re-evaluation. -Ms. Stubbs role shampoo ordered for the scalp as well -significantly improved Poorly controlled diabetes type 2 -Her A1c was 9 in May 2020 and is now 6.8 -Steroid use also contributed to poor control -She will have lantus 50 units during the day and 15 units at night, medium dose correctional scale -resume metformin and follow blood sugars -will continue to adjust insulin Chronic pain syndrome -discontinue gabapentin will start Lyrica -She takes methadone 190 mg daily and we will need to find out how she takes it throughout the day. It is dispensed from the [facility] which is a [facility] center -patient is on methadone for chronic pain Opiate use disorder, present on admission. Chronic -continue methadone 190 mg daily Hypothyroidism, present on admission. Chronic -on the admitting dose of 0.3 mg levothyroxine her TSH is less than 0.02 and the T4 is 1.28. -will decrease levothyroxine to 0.15 mg and defer further adjustments to her outpatient clinic.
[2020-08-08] MEDS: ACETAMINOPHEN 325 MG TABLET 650 MG PO (19:22)
[2020-08-08 20:36] VITALS: PULSE 70; RESP 18; O2SAT 92
[2020-08-08] MEDS: PREGABALIN 50 MG CAPSULE PO (21:12)
[2020-08-08] MEDS: MIRTAZAPINE 15 MG TABLET 30 MG PO (21:15)
[2020-08-08] MEDS: SENNOSIDES 8.6 MG TABLET 17.2 MG PO (21:15)
[2020-08-08] MEDS: QUETIAPINE 100 MG TABLET 400 MG PO (21:26)
[2020-08-08] MEDS: INSULIN GLARGINE 100 UNIT/ML 3ML PEN 60 UNIT SUBCUT (21:37)
--- NOTE | 2020-08-08 22:56 | PC.NURSE ---
Report received, care assumed 1530. Drowsy but arousable. Oriented x4. Borderline sats on 6-8 LNC, desats with activity. Otherwise VSS. C/o r/t facial rash; reports a burning sensation, improved with Dilaudid. Independent in room to BSC.
[2020-08-09 00:05] VITALS: BP 108/81; PULSE 90; RESP 18; TEMP 36.9; O2SAT 91
[2020-08-09] MEDS: INSULIN ASPART 100 UNIT/ML INSULN PEN 10 UNIT SUBCUT ×2 (00:50→08:20)
[2020-08-09] MEDS: HYDROMORPHONE 0.5 MG INJ IV ×3 (01:04→08:26)
[2020-08-09] MEDS: AZITHROMYCIN 250 MG TABLET 500 MG PO (04:41)
[2020-08-09] MEDS: CEFTRIAXONE 2 GM/50 ML FROZ.PIGGY IV (04:41)
[2020-08-09] MEDS: LEVOTHYROXINE 150 MCG TABLET PO (05:47)
[2020-08-09 06:15] LABS: Basophils Absolute Auto 100 /uL (0-100); Basophils Percent Auto 0.8 % (0-2); Eosinophils Absolute Auto 100 /uL (0-450); Eosinophils Percent Auto 0.8 % (2-4); Hematocrit 30.2 % (36-46); Hemoglobin 9.4 g/dL (12.0-16.0); Lymphocytes Absolute Auto 3000 /uL (1100-4500); Lymphocytes Percent Auto 22.1 % (25-40); Mean Corpuscular HGB Conc 31.2 % (30-36); Mean Corpuscular Hemoglobin 24.1 PG (26-34); Mean Corpuscular Volume 77.4 fL (80-100); Monocytes Absolute Auto 1400 /uL (0-900); Monocytes Percent Auto 10.3 % (3-14); Neutrophils Absolute Auto 9000 /uL (1500-7000); Platelet Count 277 X10^3/uL (150-400); Red Cell Distribution Width 25.2 % (11.6-14.8); White Blood Cell Count 13.6 X10^3/uL (4.5-11.0)
[2020-08-09 06:17] LABS: BUN Creatinine Ratio 49.3 (6-22); Blood Urea Nitrogen 37 mg/dL (7-17); Calcium 9.1 mg/dL (8.4-10.2); Carbon Dioxide 38 mmol/L (22-32); Chloride 90 mmol/L (98-107); Estimated Glomerular Filt Rate > 60.0 mL/min (>60); Glucose 330 mg/dL (70-100); HEMOLYSIS < 15 (0-50); Potassium 4.4 mmol/L (3.4-5.1); Sodium 133 mmol/L (137-145)
[2020-08-09 06:25] LABS: Add Manual Diff / Slide Review SLIDE REVIEW
[2020-08-09 07:25] LABS: Anisocytosis 2+
[2020-08-09 08:00] VITALS: BP 116/63; PULSE 72; RESP 16; TEMP 37.3; O2SAT 92
[2020-08-09] MEDS: FLUTICASONE/SALMETEROL 250/50 60 PUFF DISKUS INH ×2 (08:00→21:09)
[2020-08-09] MEDS: ALBUTEROL HFA MDI 60 PUFF/8 GM INHALER INH ×2 (08:00→21:08)
[2020-08-09 08:07] VITALS: PULSE 76; RESP 16; O2SAT 92
[2020-08-09] MEDS: FLUTICASONE 120 SPRAY/16 GM SPRAY.SUSP NASAL (08:07)
[2020-08-09] MEDS: KETOCONAZOLE 2% 1 APPLIC TOP (08:08)
[2020-08-09] MEDS: PANTOPRAZOLE 40 MG TABLET PO ×2 (08:13→21:02)
[2020-08-09] MEDS: hydrOXYzine pamoate 25 MG CAPSULE 50 MG PO (08:13)
[2020-08-09] MEDS: POTASSIUM CHLORIDE 10 MEQ TAB PO (08:13)
[2020-08-09] MEDS: KETOROLAC 30 MG/ML VIAL IV (08:13)
[2020-08-09] MEDS: LORATADINE 10 MG TABLET PO (08:13)
[2020-08-09] MEDS: PREGABALIN 50 MG CAPSULE PO ×2 (08:13→21:01)
[2020-08-09] MEDS: MYCOPHENOLATE MOFETIL 500 MG TABLET 1000 MG PO ×2 (08:13→21:01)
[2020-08-09] MEDS: ENOXAPARIN 40 MG/0.4 ML SYRINGE SUBCUT ×2 (08:14→21:01)
[2020-08-09] MEDS: predniSONE 20 MG TABLET PO ×2 (08:14→21:02)
[2020-08-09] MEDS: TIZANIDINE 4 MG TABLET 6 MG PO ×3 (08:14→21:02)
[2020-08-09] MEDS: TORSEMIDE 100 MG TABLET PO (08:14)
[2020-08-09] MEDS: INSULIN ASPART 100 UNIT/ML INSULN PEN SUBCUT ×4 (08:21→21:04)
[2020-08-09] MEDS: INSULIN GLARGINE 100 UNIT/ML 3ML PEN 40 UNIT SUBCUT (08:21)
[2020-08-09] MEDS: DAPSONE 100 MG TABLET PO (08:26)
[2020-08-09] MEDS: BENZONATATE 100 MG CAPSULE PO ×2 (08:26→21:02)
--- NOTE | 2020-08-09 11:15 | DIET.PN ---
Dietary Progress Note RD Note: Pt unhappy with Carb Consistent diet restrictions, pt to be on 30g limit per meal secondary to high BG (279, 322, 371, 305 this admit), to support lung function (mod/severe pulmonary fibrosis) and to support healing of rash (fungal/bacterial) on face. Pt called kitchen, left message to order breakfast which consisted of 204g CHO including: blueberry muffin, oatmeal c brown sugar and raisins, maldivian toast, breakfast potatoes, strawberry yogurt, 2 oranges, 2 orange juices, 2 milks and sausage. Pt received oatmeal, breakfast potatoes, sausage and 2 milks. Called kitchen 10x requesting missing items. Pts diet changed to general, pt received items. Pt declines ordering from Room Service and prefers to leave order on messaging system.
[2020-08-09] MEDS: HYDROMORPHONE 2 MG TABLET PO ×2 (12:11→21:19)
[2020-08-09] MEDS: METHADONE 10 MG TABLET 190 MG PO (12:12)
[2020-08-09 12:17] VITALS: BP 119/77; PULSE 71; RESP 16; TEMP 37.1; O2SAT 92
[2020-08-09] MEDS: INSULIN ASPART 100 UNIT/ML INSULN PEN 15 UNIT SUBCUT ×3 (12:18→21:04)
--- NOTE | 2020-08-09 14:48 | PM.CHAP ---
Short behavioral health therapist introduction. Pt not comfortable with longer visit. Will follow up. Pasha Edwards, Pastoral Care [phone]
--- NOTE | 2020-08-09 16:09 | PM.PN.1 ---
Subjective Subjective Date Patient Seen: 08/09/20 Interval history: Patient is a 45-year-old female with a history of interstitial lung disease who presented to the hospital for progressive hypoxemia with activity. The patient is normally on 6-10 L. she has had multiple hospitalizations over the past 10 months where she will get IV azithromycin and improvement in her lung function and then gradually have a decline in her functional status. This results in desaturation of her oxygenation with activity. Patient states her breathing is stable address but has not tried walking yet. Blood sugars have been quite high in the 400s since on steroids. Exam Vital Signs (past 8 hours): - 08/09/20 12:17 Temperature 98.8 F Pulse Rate 71 Respiratory Rate 16 Blood Pressure 119/77 Pulse Oximetry 92 Oxygen Delivery Method Nasal Cannula,Humidification Oxygen Flow Rate 8 Narrative Exam Narrative: General: Alert and in no acute distress at rest in bed Lungs: Coarse bilateral breath sounds without crackles or wheeze Abdomen: Soft and nontender Extremities: No edema Objective Labs Result Diagrams: 08/09/20 05:50 08/09/20 05:50 Labs: Laboratory Results - last 24 hr 08/09/20 08/09/20 05:50 05:50 WBC 13.6 H RBC 3.90 L Hgb 9.4 L Hct 30.2 L MCV 77.4 L MCH 24.1 L MCHC 31.2 RDW 25.2 H Plt Count 277 Neut % (Auto) 66.0 Lymph % (Auto) 22.1 L [place] % (Auto) 10.3 Eos % (Auto) 0.8 L Baso % (Auto) 0.8 Neut # (Auto) 9000 H Lymph # (Auto) 3000 [place] # (Auto) 1400 H Eos # (Auto) 100 Baso # (Auto) 100 RBC Morphology See below Anisocytosis 2+ H Sodium 133 L Potassium 4.4 Chloride 90 L Carbon Dioxide 38 H BUN 37 H Creatinine 0.75 Estimated GFR > 60.0 BUN/Creatinine Ratio 49.3 H Glucose 330 H Calcium 9.1 PFSH Medical History (Updated 08/06/20 @ 16:42 by Nathan Chaparro MD) Diabetes Hypothyroidism (acquired) Interstitial lung disease Opioid use disorder Pulmonary edema Right sided sciatica Surgical History H/O enucleation of right eyeball Family History (Updated 08/06/20 @ 06:55 by CLINTON Massey) Mother Adopted Other [id number] deficiency Social History household members: significant other and other Smoking Status: Former smoker Assessment & Plan Assessment & Plan narrative: 1. Acute on chronic respiratory failure, present on admission -patient has had a worsening of her chronic respiratory failure. She typically is maintained on 6 L of oxygen at home. However prior to admission she was desaturating significantly with minimal activity. This is new. -when the patient ambulates her oxygen saturations dropped down into the 70s to mid low 80s on 6 L of O2 -on high-resolution CT, results reveal moderate to severe pulmonary fibrosis -continue Rocephin and Zithromax -she was given Solu-Medrol 125 mg IV in the emergency department, with oral prednisone 40 mg q.d. to be continued -CTA of the chest ruled out PE -apparently due to missing 1 days dose of her torsemide the BNP is now up from 50 on admission 08/05 to 464 so the torsemide will be resumed. She insists that she does not have a significant congestive heart failure condition and takes the diuretic only for ?fluid retention.? -I have left a message for Dr Orr to call me regarding further recommendations on patient's care, he is her relay tester helper's and she is well-known to him 2. Severe seborrheic dermatitis facial rash, present on admission, acute -continue Nizoral cream and shampoo 3. Poorly controlled diabetes type 2 -acute hyperglycemia secondary to steroid and dietary non discretion, patient refuses carb controlled diet -Her A1c was 9 in May 2020 and is now 6.8 -Steroid use also contributed to poor control -She will have lantus 50 units during the day and 15 units at night -change sliding scale to high dose -resume metformin and follow blood sugars -will continue to adjust insulin 4. Chronic pain syndrome -discontinue gabapentin will start Lyrica -She takes methadone 190 mg daily and we will need to find out how she takes it throughout the day. It is dispensed from the [facility] which is a [facility] center -patient is on methadone for chronic pain 5. Opiate use disorder, present on admission. Chronic -continue methadone 190 mg daily 6. Hypothyroidism, present on admission. Chronic -on the admitting dose of 0.3 mg levothyroxine her TSH is less than 0.02 and the T4 is 1.28. -will decrease levothyroxine to 0.15 mg and defer further adjustments to her outpatient clinic.
[2020-08-09] MEDS: METFORMIN HCL 500 MG TABLET 1000 MG PO (17:15)
[2020-08-09 18:36] VITALS: BP 140/93; PULSE 74; RESP 20; TEMP 37.2; O2SAT 94
[2020-08-09] MEDS: MIRTAZAPINE 15 MG TABLET 30 MG PO (21:01)
[2020-08-09] MEDS: SENNOSIDES 8.6 MG TABLET 17.2 MG PO (21:02)
[2020-08-09 21:10] VITALS: PULSE 78; RESP 16; O2SAT 95
--- NOTE | 2020-08-09 23:26 | PC.NURSE ---
Patient reported pain 7/10, given PRN dilaudid with mild relief. Patient wanted to wait on taking her Quetiapine until maintenance technician 3rd shift comes on. She is independent in room. B, 303. Currently on 8 L o2 stating at 95.
[2020-08-10] VITALS (7 sets, daily range): BP systolic 97–118; BP diastolic 64–78; PULSE 69–75; RESP 18–22; TEMP 36.4–37.3; O2SAT 87–97
[2020-08-10] MEDS: QUETIAPINE 100 MG TABLET 400 MG PO ×2 (00:07→16:41)
[2020-08-10] MEDS: INSULIN GLARGINE 100 UNIT/ML 3ML PEN 60 UNIT SUBCUT ×2 (00:08→22:39)
--- NOTE | 2020-08-10 02:07 | PC.NURSE ---
Informed patient she has now had her PIV in the left AC for 4 days, and this is the time we usually discontinue the IV (after 4 days) and start a new IV. She declined and stated, I'm a very difficult stick. I'd like to keep this one in as long as we can. I've been babying it. Flushed PIV; it is still patent, intact and asymptomatic.
[2020-08-10] MEDS: CEFTRIAXONE 2 GM/50 ML FROZ.PIGGY IV (04:59)
[2020-08-10] MEDS: AZITHROMYCIN 250 MG TABLET 500 MG PO (04:59)
[2020-08-10] MEDS: LEVOTHYROXINE 150 MCG TABLET PO (05:00)
[2020-08-10] MEDS: HYDROMORPHONE 2 MG TABLET PO ×3 (05:03→20:27)
[2020-08-10] MEDS: KETOROLAC 30 MG/ML VIAL IV (05:05)
--- NOTE | 2020-08-10 05:15 | PC.NURSE ---
Addendum entered by Radha Oquendo R.N. 08/10/20 05:25: Pt states, Please tell the doctor I don't want the water pill today. Original Note: 0500 Pt reports 8/10 pain, all over. I offered to give her Toradol, and she said, Just give me all of the pain meds. I want the dilaudid, too. I told her I can give her the dilaudid and the anti-inflammatory, Toradol, but cannot administer anymore than that without dangers. Pt agreed.
[2020-08-10] MEDS: INSULIN ASPART 100 UNIT/ML INSULN PEN 15 UNIT SUBCUT ×3 (09:12→17:14)
[2020-08-10] MEDS: INSULIN ASPART 100 UNIT/ML INSULN PEN SUBCUT ×4 (09:12→22:40)
[2020-08-10] MEDS: INSULIN GLARGINE 100 UNIT/ML 3ML PEN 40 UNIT SUBCUT (09:13)
[2020-08-10] MEDS: KETOCONAZOLE 2% 1 APPLIC TOP (09:14)
[2020-08-10] MEDS: DICLOFENAC 1% GEL 100 GM 1 APPLIC TOP (09:16)
[2020-08-10] MEDS: PANTOPRAZOLE 40 MG TABLET PO ×2 (09:25→22:32)
[2020-08-10] MEDS: POTASSIUM CHLORIDE 10 MEQ TAB PO (09:25)
[2020-08-10] MEDS: MYCOPHENOLATE MOFETIL 500 MG TABLET 1000 MG PO ×2 (09:26→22:33)
[2020-08-10] MEDS: TIZANIDINE 4 MG TABLET 6 MG PO ×3 (09:26→22:32)
[2020-08-10] MEDS: hydrOXYzine pamoate 25 MG CAPSULE 50 MG PO (09:26)
[2020-08-10] MEDS: LORATADINE 10 MG TABLET PO (09:26)
[2020-08-10] MEDS: predniSONE 20 MG TABLET PO (09:26)
[2020-08-10] MEDS: PREGABALIN 50 MG CAPSULE PO ×2 (09:27→22:32)
[2020-08-10] MEDS: ENOXAPARIN 40 MG/0.4 ML SYRINGE SUBCUT (09:30)
[2020-08-10] MEDS: BENZONATATE 100 MG CAPSULE PO ×2 (09:35→22:33)
[2020-08-10] MEDS: DAPSONE 100 MG TABLET PO (09:35)
[2020-08-10] MEDS: METFORMIN HCL 500 MG TABLET 1000 MG PO ×2 (10:06→16:42)
[2020-08-10] MEDS: ALBUTEROL HFA MDI 60 PUFF/8 GM INHALER INH ×2 (10:17→19:56)
[2020-08-10] MEDS: FLUTICASONE/SALMETEROL 250/50 60 PUFF DISKUS INH ×2 (10:17→19:56)
[2020-08-10] MEDS: FLUTICASONE 120 SPRAY/16 GM SPRAY.SUSP NASAL (12:03)
[2020-08-10] MEDS: METHADONE 10 MG TABLET 190 MG PO (12:22)
--- NOTE | 2020-08-10 13:32 | P.PN_ITS ---
Subjective Subjective Date Patient Seen: 08/10/20 Interval history: Patient is a 45-year-old female with a history of interstitial lung disease who presented to the hospital for progressive hypoxemia with activity. The patient is normally on 6-10 L. she has had multiple hospitalizations over the past 10 months where she will get IV azithromycin and improvement in her lung function and then gradually have a decline in her functional status. This results in desaturation of her oxygenation with activity. Patient's blood sugars have remained quite high in the 400s on prednisone and di etary noncompliance. She also has been refusing her routine torsemide for diagnosis of pulmonary hypertension. She is presently on 8 L O2. Exam Vital Signs (past 8 hours): - 08/10/20 10:10 08/10/20 10:17 Temperature 98.3 F Pulse Rate 69 69 Respiratory Rate 18 18 Blood Pressure 115/76 Pulse Oximetry 92 96 Oxygen Delivery Method High Flow Nasal Cannula Oxygen Flow Rate 8 Narrative Exam Narrative: General: Alert and in no acute distress at rest in bed Lungs: Clear to auscultation Abdomen: Soft and nontender Extremities: No edema Objective Labs Result Diagrams: 08/09/20 05:50 08/09/20 05:50 [facility] Medical History (Updated 08/06/20 @ 16:42 by Nathan Chaparro MD) Diabetes Hypothyroidism (acquired) Interstitial lung disease Opioid use disorder Pulmonary edema Right sided sciatica Surgical History H/O enucleation of right eyeball Family History (Updated 08/06/20 @ 06:55 by CLINTON Massey) Mother Adopted Other [id number] deficiency Social History household members: significant other and other Smoking Status: Former smoker Assessment & Plan Assessment & Plan narrative: 1. Acute on chronic hypoxic respiratory failure, present on admission -patient has diagnoses of chronic bronchiectasis, interstitial lung disease/pulmonary fibrosis and pulmonary hypertension -she is maintained on 6 L of oxygen at home. However prior to admission she was desaturating into the 70's with minimal activity. This is new. -on high-resolution CT, results reveal moderate to severe pulmonary fibrosis, 8 mm right upper lung nodule stable since October 2018; CTA ruled out pulmonary embolism -continue Rocephin and Zithromax -decrease prednisone to 20 mg q.d. due to severe hyperglycemia, she was given Solu-Medrol 125 mg IV in the emergency department -continue torsemide 100 mg q.d. which I recommended patient try taking at least 3 days a week if she can't tolerate it every day -continue dapsone and mycophenolate per home routine -left message on 08/09 for patient's electrical wiring lineman Dr Haris Orr at [facility] requesting a call regarding further recommendations on patient's care but have not heard back yet -requested ambulatory trial this a.m. to assess patient's O2 sats -sputum culture 2. Severe seborrheic dermatitis facial rash, present on admission, acute -improving, continue Nizoral cream 3. Poorly controlled diabetes type 2 -acute hyperglycemia secondary to steroid and dietary non discretion, patient refuses carb controlled diet -Her A1c was 9 in May 2020 and is now 6.8 -continue Lantus 40 units a.m. and 60 units bedtime while on prednisone, NovoLog 15 units with meals, continue high-dose sliding scale -resume metformin and follow blood sugars -will continue to adjust insulin 4. Chronic pain syndrome with opiate dependency -discontinue gabapentin will start Lyrica although not sure Lyrica covered by health plan and probably should be back on gabapentin on discharge -She takes methadone 190 mg daily and we will need to find out how she takes it throughout the day. It is dispensed from the [facility] which is a [facility] -patient is on methadone for chronic pain 5. Hypothyroidism, present on admission. Chronic -on the admitting dose of 0.3 mg levothyroxine her TSH is less than 0.02 and the T4 is 1.28. -will decrease levothyroxine to 0.2 mg and defer further adjustments to her outpatient clinic. Patient with improving course in possibly will be able to discharge tomorrow to follow-up with her electrical wiring lineman.
--- NOTE | 2020-08-10 19:18 | PC.NURSE ---
ambulation trial 1900 pt up to ambulate in hallway with 8L portable O2. Pt ambulated from room 208 to 210 and had to take a seat in WC. Pt states back pain and feeling SOB both contributing factors. O2 checked and is 94%. Pt up to ambulate again this time from room 210 to 213 and then turned around and back to room 209 before needing to sit down. O2 checked and was 87% and pt SOB. O2 sats rebounded to mid 90s in less than 1 min. pt states longest distance she would need to travel at home is approx 150 feet from her home to her vehicle.
[2020-08-10] MEDS: MIRTAZAPINE 15 MG TABLET 30 MG PO (22:32)
[2020-08-10] MEDS: SENNOSIDES 8.6 MG TABLET 17.2 MG PO (22:32)
[2020-08-11] MEDS: LEVOTHYROXINE 100 MCG TABLET 200 MCG PO (05:52)
[2020-08-11 07:42] VITALS: PULSE 66; RESP 24; O2SAT 95
[2020-08-11] MEDS: ALBUTEROL HFA MDI 60 PUFF/8 GM INHALER INH (07:44)
[2020-08-11] MEDS: FLUTICASONE/SALMETEROL 250/50 60 PUFF DISKUS INH (07:44)
[2020-08-11] MEDS: INSULIN GLARGINE 100 UNIT/ML 3ML PEN 40 UNIT SUBCUT (08:12)
[2020-08-11] MEDS: INSULIN ASPART 100 UNIT/ML INSULN PEN 15 UNIT SUBCUT ×2 (08:13→12:34)
[2020-08-11] MEDS: POTASSIUM CHLORIDE 10 MEQ TAB PO (08:23)
[2020-08-11] MEDS: PREGABALIN 50 MG CAPSULE PO (08:24)
[2020-08-11] MEDS: hydrOXYzine pamoate 25 MG CAPSULE 50 MG PO (08:24)
[2020-08-11] MEDS: predniSONE 20 MG TABLET PO (08:24)
[2020-08-11] MEDS: TIZANIDINE 4 MG TABLET 6 MG PO (08:24)
[2020-08-11] MEDS: BENZONATATE 100 MG CAPSULE PO (08:24)
[2020-08-11] MEDS: PANTOPRAZOLE 40 MG TABLET PO (08:24)
[2020-08-11] MEDS: LORATADINE 10 MG TABLET PO (08:25)
[2020-08-11] MEDS: ENOXAPARIN 40 MG/0.4 ML SYRINGE SUBCUT (08:25)
[2020-08-11] MEDS: DAPSONE 100 MG TABLET PO (08:25)
[2020-08-11] MEDS: FLUTICASONE 120 SPRAY/16 GM SPRAY.SUSP NASAL (08:26)
[2020-08-11] MEDS: HYDROMORPHONE 2 MG TABLET PO (08:28)
[2020-08-11] MEDS: SODIUM CHLORIDE 0.9% FLUSH 10 ML IV (08:29)
[2020-08-11] MEDS: MYCOPHENOLATE MOFETIL 500 MG TABLET 1000 MG PO (08:37)
[2020-08-11] MEDS: METFORMIN HCL 500 MG TABLET 1000 MG PO (08:37)
[2020-08-11] MEDS: KETOCONAZOLE 2% 1 APPLIC TOP (08:37)
[2020-08-11 10:14] VITALS: BP 96/68; PULSE 68; RESP 18; TEMP 36.8; O2SAT 93
--- NOTE | 2020-08-11 10:56 | CM.DPC ---
DCP Cont: Discussed patient during team rounds. She had been ordering extra meals, and event lighting specialist had conversation with her, and , as well. Patient does have supportive family at home, and is on home oxygen at baseline, 6 liters. P: DCP to continue to follow for any needs. Patient should be able to go home when medically stable. Vannessa Crain RN/Veterinary X Ray Operator
--- NOTE | 2020-08-11 11:44 | P.DS_ITS ---
History of Present Illness History of Present Illness Chief complaint: FEVER RASH ON THE RIGHT OF FACE SOB Narrative: Carissa Gallardo is a 45-year-old home O2 dependent female with a complicated medical history that includes interstitial lung disease, morbid obesity, diabetes type 2, history of acute exacerbation of bronchiectasis, chronic respiratory failure with hypoxia and hypercapnia and chronic pain presented to the emergency room with pain in her face predominantly the left side. She was treated for a cellulitis and a possible herpes zoster in the ED. she then ambulated to the bathroom and became quite hypoxic into the 60s and low 80s. She was then evaluated and found to have a bilateral basilar pneumonia based on findings it on CT. The patient was recently discharged from [facility] [place] [facility] year for an acute exacerbation of bronchiectasis and acute respiratory failure and was given high dose steroids at that time. Given her diabetes they had to make a lot of insulin adjustments to correct for her increased hyperglycemia. The patient's main complaint is that since she has returned from [facility], her respiratory reserve seem to be decreasing and she can barely walk more than 20 ft before she gets winded. She uses 6 L of oxygen at home and when she ambulates she has to bump up the oxygen to 10 L. She is afebrile, denies chest pain, nausea vomiting, abdominal pain, dysuria, diarrhea or constipation. 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 Patient normally goes to the [facility] pulmonary service for respiratory issues. Her last hospitalization however was at [facility] and we do have records from [facility] from that hospital stay. Patient is afebrile, blood pressure 137/67, heart rate 100, respiratory rate of 19, oxygen saturation of 90% on 6 L, she weighs 127 kg with a BMI of 46.5. WBC was 15, RBC 4.49, hemoglobin 10.6, hematocrit 34.8, platelet count 304, VBG pH was 7.35 VBG pCO2 was 57.5 VBG PO2 was 23 VBG bicarb was 32 VBG total CO2 was 33 VBG oxygen saturation was 33% with an FiO2 of 44. Sodium is 137 potassium 4.6, chloride 96, CO2 38, creatinine 1.04, BUN 19, GFR is 57.6, glucose 164, lactate 1.6, calcium 10.1, magnesium 1.9, liver enzymes are within normal limits, total creatinine kinase was 148, CK-MB was 6.65, CRP was 2.6, procalcitonin was within normal limits, viral panel including COVID-19 PCRs were all negative. Discharge Providers Provider Date of admission: 08/06/20 04:16 Discharge Date: 08/11/20 Primary care physician: Alex Montoya MD Consults: 08/06/20 05:42 Consult to Dietitian, Adult Routine Comment: Reason For Exam: Interstitial lung disease, Obesity Consult to Pastoral Services Routine Comment: Presybeterian; Chronically ill 08/06/20 06:20 Consult to Respiratory Therapy Evaluate & Treat Comment: Physician Instructions: Evaluate and treat 08/06/20 06:31 Consult to Pharmacy Routine Comment: Pls confirm how she takes 190 mg of methodone 08/09/20 01:40 Consult to Dietitian, Adult Routine Comment: Reason For Exam: Uncontrolled diabetes Discharge provider: Gallo Mas MD Summary Hospital Course Discharge Diagnosis: 1. Acute on chronic hypoxic respiratory failure 2. Chronic bronchiectasis 3. Pulmonary fibrosis 4. Pulmonary hypertension 5. Type 2 diabetes poor control with steroid induced hyperglycemia 6. Opioid dependency 7. Marisol's Hypothyroidism, with iatrogenic hyperthyroidism 8. Seborrheic dermatitis causing facial rash 9. Stable 8 mm right upper lung nodule 10. Possible obstructive sleep apnea, untreated Patient has severe chronic lung disease with bronchiectasis, pulmonary fibrosis followed by Dr. Haris Orr at [facility] pulmonary medicine. She is normally on 6-8 L O2 nasal cannula at home. She was admitted due to exacerbation of her chronic respiratory failure. COVID was negative. Sputum culture was negative. There was no evidence of focal pneumonia. High- resolution CT showed moderate to severe pulmonary fibrosis and an 8 mm right upper lung nodule stable since October 2018. Pulmonary embolism was ruled out by CTA. She is on every other day azithromycin at home. In hospital, we treated her with daily Rocephin and azithromycin IV. She was also started on IV steroid which has been tapered to prednisone 20 mg daily for 5 more days on discharge. She was continued on torsemide 100 mg q.d. for pulmonary hypertension although she does admit to noncompliance with diuretic therapy. She was also continued on her dapsone and mycophenolate. Currently at rest she is requiring 6-8 L O2 but does get more dyspneic and desaturate with ambulatory trial. However her O2 sat recovers fairly quickly and she appears stable for home management. [facility] from [facility] in May raise concern about possible obstructive sleep apnea. She should get outpatient sleep study. She had severe hyperglycemia due to steroid therapy and dietary non discretion. Her blood sugars at time of discharge were much better with glucose less than 200. She will resume previous insulin regimen. Building Carpenter Helper did see patient and reviewed dietary recommendations for diabetes as well as calorie reduction for weight loss which should help her work of breathing. Regarding chronic pain management, she is on methadone 190 mg daily which was continued in hospital. In addition we discontinued gabapentin and started her on Lyrica 50 mg b.i.d.. Patient is instructed to go back on gabapentin if the Lyrica requires insurance preauthorization until PCP can handle this. Regarding hypothyroidism, her TSH was less than 0.02 with a normal free T4. In light of very suppressed TSH her levothyroxine was reduced from 0.3 mg down to 0.2 mg daily. She should have repeat TSH and free T4 in a month. Patient also had severe seborrheic dermatitis on admission which greatly improved with application of topical Nizoral. Patient is strongly advised to follow-up with her return clerk for outpatient management. I did try to touch base with Dr. Orr but have not heard back. Exam Vital Signs (past 8 hours): - 08/11/20 07:42 08/11/20 10:14 Temperature 98.2 F Pulse Rate 66 68 Respiratory Rate 24 18 Blood Pressure 96/68 Pulse Oximetry 95 93 Oxygen Delivery Method Nasal Cannula Oxygen Flow Rate 9 Objective Labs Result Diagrams: 08/09/20 05:50 08/09/20 05:50 [facility] Medical History (Updated 08/06/20 @ 16:42 by Nathan Chaparro MD) Diabetes Hypothyroidism (acquired) Interstitial lung disease Opioid use disorder Pulmonary edema Right sided sciatica Surgical History H/O enucleation of right eyeball Family History (Updated 08/06/20 @ 06:55 by CLINTON Massey) Mother Adopted Other [id number] deficiency Social History household members: significant other and other Smoking Status: Former smoker Discharge Plan Discharge Plan Patient Disposition: Home Provider Discharge Comment: Please follow up with your PCP and schedule appointment with your return clerk. I lowered your levothyroxine dose. Recheck TSH in a month. There is interaction called QT prolongation between your azithromycin and methadone. Please discuss this with Dr Orr. Decrease carbohydrate intake and try to cut down on calories to reduce weight. Discharge orders & Medications Prescriptions: New prednisone 20 mg Tablet 20 mg PO DAILY Qty: 5 RF: 0 pregabalin [Lyrica] 50 mg Capsule 50 mg PO BID Qty: 60 RF: 0 levothyroxine 200 mcg tablet 200 mcg PO DAILY Qty: 30 RF: 0 doxycycline hyclate 100 mg tablet 100 mg PO BID Qty: 14 RF: 0 meloxicam 7.5 mg tablet 7.5 mg PO DAILY Qty: 30 RF: 0 ketoconazole 2 % shampoo 1 applic topical 3XW Qty: 120 RF: 0 Continued azithromycin 250 mg tablet 250 mg PO Q OTHER DAY RF: 0 Novolin N NPH U-100 Insulin 100 unit/mL suspension 15 unit SUBCUT BEDTIME RF: 0 metformin 500 mg tablet extended release 24 hr 500 mg PO BID RF: 0 Novolin N Flexpen 100 unit/mL (3 mL) insulin pen 60 unit SUBCUT QAM RF: 0 benzonatate 100 mg Capsule 100 mg PO BID RF: 0 loratadine 10 mg Tablet 10 mg PO DAILY RF: 0 mycophenolate mofetil 500 mg Tablet 1,000 mg PO BID RF: 0 potassium chloride 10 mEq Tablet Extended Release 10 meq PO DAILY RF: 0 mirtazapine 30 mg Tablet 30 mg PO BEDTIME RF: 0 torsemide 100 mg Tablet 100 mg PO DAILY RF: 0 fluticasone propion-salmeterol 250-50 mcg/dose blister with device 1 puff Inhalation BID RF: 0 quetiapine 300 mg tablet 400 mg PO QPM RF: 0 hydroxyzine pamoate 50 mg capsule 50 mg PO DAILY RF: 0 omeprazole 40 mg capsule,delayed release(DR/EC) 40 mg PO BID RF: 0 imvcrnmowq-cbibwmihckvdu-jpqr 50-325-40 mg tablet 1 tab PO BID PRN (Reason: headache) RF: 0 dapsone 100 mg tablet 100 mg PO DAILY RF: 0 albuterol sulfate 90 mcg/actuation HFA aerosol inhaler 1 puff Inhalation BID RF: 0 fluticasone propionate 50 mcg/actuation spray,suspension 1 spray Intranasal DAILY RF: 0 diclofenac sodium 1 % gel 1 applic topical PRN PRN (Reason: pain) RF: 0 methadone 10 mg Tablet 190 mg PO DAILY RF: 0 Discontinued levothyroxine 300 mcg tablet 300 mcg PO DAILY RF: 0 gabapentin 300 mg capsule 900 mg PO TID RF: 0 Follow up/Referrals: Alex Montoya MD [Primary Care Provider] - Haris Orr MD [Non-Staff] - None Discharge Health Status Multidrug resistant organism: No MDRO Diet/Activity/Treatments Diet: Regular Visit Report/Discharge Packet Instructions: DI for Cellulitis -- Adult, Prednisone, Meloxicam, Pregabalin, Doxycycline Discharge Data Primary Care Provider: Alex Montoya
[2020-08-11] MEDS: METHADONE 10 MG TABLET 190 MG PO (12:33)
[2020-08-11] MEDS: INSULIN ASPART 100 UNIT/ML INSULN PEN SUBCUT (12:35)
--- NOTE | 2020-08-11 13:44 | PC.NURSE ---
Pt is dressed and ready for discharge home with Sharad Carballo. Discussed d/c meds, time of last dose, reviewed stroke education, completing abx as ordered, drinking fluid to prevent constipation or dehydration, eating a carb consistent diet, and follow up with Buckle Attaching Machine Operator and PCP. Pt and S.O. denied further questions and was taken out via w/c by RN with Sharad and all belongings.
== END 2020-08-11 13:47 | disposition home or self-care (01) | DRG 189 ==
LOC: ED 08-06 04:05 → AC 08-06 04:17
PROVIDERS: Family Medicine; Internal Medicine; Admitting Provider Nurse Practitioner Family; Emergency Provider Emergency Medicine; Family Provider Anesthesiology Pain Medicine; PCP Internal Medicine; Referring Provider Emergency Medicine; Visit Provider Nurse Practitioner Family
DX: J96.21 Acute and chronic respiratory failure with hypoxia (principal); Z68.42 Body mass index [BMI] 45.0-49.9, adult; J84.9 Interstitial pulmonary disease, unspecified; Z99.81 Dependence on supplemental oxygen; E66.01 Morbid (severe) obesity due to excess calories; L21.9 Seborrheic dermatitis, unspecified; E11.65 Type 2 diabetes mellitus with hyperglycemia; F11.21 Opioid dependence, in remission; G89.4 Chronic pain syndrome; E06.3 Autoimmune thyroiditis; T38.0X5A Adverse effect of glucocorticoids and synthetic analogues, initial encounter; R91.1 Solitary pulmonary nodule; G47.33 Obstructive sleep apnea (adult) (pediatric); Z20.822 Contact with and (suspected) exposure to COVID-19; Z79.4 Long term (current) use of insulin; Z87.891 Personal history of nicotine dependence
CPT/HCPCS: 36415; 36600; 71045; 71250; 71275; 80048; 80053; 82550; 82553; 82805; 82962; 83036; 83605; 83615; 83690; 83735; 83880; 84145; 84439; 84443; 84484; 85025; 85379; 85610; 86140; 87040; 87070; 87075; 87077; 87102; 87147; 87150; 87205; 87220; 87633; 87635; 93010; 94640; 94762; 96361; 96365; 96366; 96367; 96375; 96376; 99283; 99291; C9803; A9270; J0696; J1170; J1650; J1885; J2310; J2930; Q9967

== ENCOUNTER 2020-09-22 00:08 | Emergency (ER) | payer MEDICARE, MEDICAID, SELFPAY ==
[2018-10-31 11:30] VITALS: PULSE 88; RESP 19; O2SAT 98
[2020-08-06 04:35] VITALS: BMI 46.5
[2020-09-22] VITALS (14 sets, daily range): BP systolic 105–118; BP diastolic 57–78; PULSE 90–116; RESP 26; TEMP 37.8; O2SAT 88–97
--- NOTE | 2020-09-22 00:22 | ED.GENADULT ---
HPI - General Adult General Chief complaint: Shortness of Breath/Dyspnea Stated complaint: O2 problems Time Seen by Provider: 09/22/20 00:22 History of Present Illness HPI narrative: 45-year-old woman with a history of severe chronic lung disease with bronchiectasis, pulmonary fibrosis followed by Dr. Haris Orr at [facility] pulmonary medicine, presents with increasing hypoxia and oxygen requirements to the 15 L range. She is normally on 6-8 L O2 nasal cannula at home. Additional medical problems include pulmonary hypertension, type 2 diabetes, morbid obesity, chronic pain syndrome with opioid dependence and Marisol's hypothyroidism. She has had multiple recurrent hospitalizations. Initial severe lung disease was diagnosed about a year half ago with extended intubation. She has had recurrent admissions at our review, [facility] and [facility] for similar respiratory issues. She is finding that her exercise capacity is dramatically limited and getting worse(frequently unable to even walk across the room without desaturating), she has had fevers over the last couple of days and her usual cough has become even more productive. She is finding that her hospitalizations are becoming more and more frequent. With her last outpatient pulmonary follow up her azithromycin was increased from every other day to daily. She notes that after hospitalization with IV antibiotics she declines when she is home and IV antibiotics were discontinued. Most recent hospital admission was August [address] [facility] in [place]. She complains of increasing fatigue, no change to her chronic lower extremity edema or orthopnea, no palpitations and no chest pain. She complains of fullness over the anterior abdominal wall over the right upper quadrant. She has not noted specific skin changes and has no acute neurologic findings nor headache. She is not altered and able to participate completely with exam and history Related Data Home Medications Medication Instructions Recorded Confirmed albuterol sulfate 1 puff INHALATION BID 10/31/18 08/06/20 fypixvvloy-ezkxtaemnbhnk-qnok 1 tab PO BID PRN 10/31/18 08/06/20 dapsone 100 mg PO DAILY 10/31/18 08/06/20 diclofenac sodium 1 applic TOPICAL PRN PRN 10/31/18 08/06/20 fluticasone propion-salmeterol 1 puff INHALATION BID 10/31/18 08/06/20 fluticasone propionate 1 spray INTRANASAL DAILY 10/31/18 08/06/20 hydroxyzine pamoate 50 mg PO DAILY 10/31/18 08/06/20 methadone 190 mg PO DAILY 10/31/18 08/06/20 omeprazole 40 mg PO BID 10/31/18 08/06/20 quetiapine 400 mg PO QPM 10/31/18 08/06/20 Novolin N Flexpen 60 unit SUBCUT QAM 08/06/20 08/06/20 Novolin N NPH U-100 Insulin 15 unit SUBCUT BEDTIME 08/06/20 08/06/20 azithromycin 250 mg PO Q OTHER DAY 08/06/20 08/06/20 benzonatate 100 mg PO BID 08/06/20 08/06/20 loratadine 10 mg PO DAILY 08/06/20 08/06/20 metformin 500 mg PO BID 08/06/20 08/06/20 mirtazapine 30 mg PO BEDTIME 08/06/20 08/06/20 mycophenolate mofetil 1,000 mg PO BID 08/06/20 08/06/20 potassium chloride 10 meq PO DAILY 08/06/20 08/06/20 torsemide 100 mg PO DAILY 08/06/20 08/06/20 Previous Rx's Medication Instructions Recorded doxycycline monohydrate 100 mg PO BID #14 tab 08/11/20 ketoconazole 1 applic TOPICAL 3XW #120 ml 08/11/20 levothyroxine 200 mcg PO DAILY #30 tab 08/11/20 meloxicam 7.5 mg PO DAILY #30 tab 08/11/20 prednisone 20 mg PO DAILY #5 tab 08/11/20 pregabalin 50 mg PO BID #60 cap 08/11/20 Allergies Allergy/AdvReac Type Severity Reaction Status Date / Time levofloxacin [LEVOFLOXACIN] Allergy Unknown Verified 08/05/20 22:27 Penicillins [PENICILLINS] Allergy Unknown Verified 08/05/20 22:27 Sulfa (Sulfonamide Allergy Unknown Verified 08/05/20 22:27 Antibiotics) [SULFA (SULFONAMIDE ANTIBIOTICS)] trimethoprim [TRIMETHOPRIM] Allergy Unknown Verified 08/05/20 22:27 morphine AdvReac Gastrointestinal Verified 08/05/20 22:27 Upset Review of Systems Review of Systems ROS Unobtainable: All systems reviewed & are unremarkable except as noted in HPI and below Patient History Medical History Diabetes Hypothyroidism (acquired) Interstitial lung disease Opioid use disorder Pulmonary edema Right sided sciatica Surgical History H/O enucleation of right eyeball Family History Mother Adopted Other Kwfvr-[id number]-raefjwmazjw deficiency Social History household members: significant other and other Smoking Status: Former smoker Smoking Status: Former smoker alcohol intake frequency: holidays/special occasions only Substance Use Type: does not use Exam Narrative Exam Narrative: General: Morbid obesity with mild respiratory distress but able to give a complete and coherent history. HEENT: Moist mucous membranes, R eye enucleation, L eye unremarkable Neck: No JVD, supple Respiratory: Lungs with significant crackles in all lung [place]ed[place], mild scattered wheeze relatively good movement of air through all lung cedeno, no accessory muscle use Cardiac: Regular rate and rhythm no murmurs no bruits Abdomen: Soft, obese, complains of fullness over the right upper quadrant that I do not appreciate on physical exam, no rebound or guarding, good bowel tones, no flank pain Skin: Warm and dry, no rashes Neurologic: Grossly neurologically intact with no obvious asymmetries or abnormalities. Extremities: No trauma, well perfused, 1+ bilateral lower extremity edema Psych: Alert, Cooperative, appropriate insight and affect Initial Vital Signs Initial Vital Signs: Vital Signs Temperature 100.1 F H 09/22/20 00:27 Pulse Rate 95 H 09/22/20 00:27 Respiratory Rate 26 H 09/22/20 00:27 Blood Pressure 116/78 09/22/20 00:27 Pulse Oximetry 88 L 09/22/20 00:27 Course Orders Ordered: ED Orders 09/22/20 00:15 COVID19 Stat 09/22/20 00:25 XR chest 1V Stat EKG-12 Lead Stat 09/22/20 00:35 Arterial Blood Gas Stat 09/22/20 00:45 Complete Blood Count AUTO DIFF Stat Comprehensive Metabolic Panel Stat D Dimer Stat Lactate (Lactic Acid) Stat Lipase Stat Magnesium Stat NT-proBNP (BNP-Adult 18+) Stat Troponin I Stat 09/22/20 01:00 Blood Culture Stat 09/22/20 01:14 CT chest w con Stat 09/22/20 01:45 Urinalysis and Microscopic Stat 09/22/20 02:05 Respiratory Panel (Film Array) Stat 09/22/20 02:50 Sputum Culture Stat Hydromorphone HCl (Hydromorphone 0.5 Mg Inj) 0.5 mg IV Q15MIN PRN PRN Reason: Pain, Last Admin: 09/22/20 03:52 Dose: 0.5 mg Documented by: Admin: 09/22/20 02:46 Dose: 0.5 mg Documented by: Admin: 09/22/20 01:16 Dose: 0.5 mg Documented by: BRITTANY Discontinued Medications Vancomycin HCl/Dextrose (Vancomycin) 1,500 mg in 300 mls @ 200 mls/hr IV NOW ONE Stop: 09/22/20 02:40 Last Infusion: 09/22/20 03:45 Dose: 0 mls/hr Documented by: Admin: 09/22/20 01:44 Dose: 200 mls/hr Documented by: BRITTANY Meropenem 2 gm/ Sodium (Chloride) 100 mls @ 200 mls/hr IV NOW ONE Stop: 09/22/20 01:13 Last Infusion: 09/22/20 02:42 Dose: 0 mls/hr Documented by: Admin: 09/22/20 01:44 Dose: 200 mls/hr Documented by: BRITTANY Vital Signs Vital signs: Vital Signs - 8 hr 09/22/20 00:27 09/22/20 00:54 09/22/20 01:00 Temperature 100.1 F H Pulse Rate 95 H 99 H 91 H Respiratory Rate 26 H Blood Pressure 116/78 Pulse Oximetry 88 L 90 L 89 L 09/22/20 01:13 09/22/20 01:44 09/22/20 01:51 Temperature Pulse Rate 94 H 98 H 95 H Respiratory Rate 26 H Blood Pressure 115/57 L 116/78 Pulse Oximetry 97 90 L 88 L 09/22/20 02:00 09/22/20 02:14 09/22/20 02:30 Temperature Pulse Rate 91 H 90 93 H Respiratory Rate Blood Pressure 118/75 Pulse Oximetry 96 95 94 09/22/20 02:31 09/22/20 02:32 09/22/20 03:00 Temperature Pulse Rate 95 H 96 H 96 H Respiratory Rate Blood Pressure 115/73 105/58 L Pulse Oximetry 95 96 93 Medical Decision Making Medical Records Medical records reviewed: Yes I reviewed the patient's medical records. Lab Data Lab results reviewed: Yes I reviewed the patient's lab results. Result diagrams: 09/22/20 00:45 09/22/20 00:45 Labs: Lab Results 09/22/20 09/22/20 09/22/20 Range/Units 00:15 00:35 00:45 WBC 18.4 H (4.5-11.0) X10^3/uL RBC 3.97 L (4.0-5.2) X10^6/uL Hgb 9.8 L (12.0-16.0) g/dL Hct 31.9 L (36-46) % MCV 80.3 (80-100) fL MCH 24.6 L (26-34) PG MCHC 30.6 (30-36) % RDW 19.3 H (11.6-14.8) % Plt Count 365 (150-400) X10^3/uL Neut % (Auto) 67.4 (50-75) % Lymph % (Auto) 20.1 L (25-40) % [place] % (Auto) 4.9 (3-14) % Eos % (Auto) 6.2 H (2-4) % Baso % (Auto) 1.4 (0-2) % Neut # (Auto) 96646 H (9407-4094) /uL Lymph # (Auto) 3700 (4772-2311) /uL [place] # (Auto) 900 (0-900) /uL Eos # (Auto) 1100 H (0-450) /uL Baso # (Auto) 300 H (0-100) /uL D-Dimer (<230) ng/mL ABG pH 7.44 (7.35-7.45) ABG pCO2 47.3 H (35-45) mmHg ABG pO2 77 L (80-100) mmHg ABG HCO3 32 H (22-26) mmol/L ABG Total CO2 34 H (21-31) mmol/L ABG O2 Saturation 96 (95-100) % ABG Base Excess 8.0 H (-2-2) mmol/L FiO2 100 Sodium (137-145) mmol/L Potassium (3.4-5.1) mmol/L Chloride (98-107) mmol/L Carbon Dioxide (22-32) mmol/L BUN (7-17) mg/dL Creatinine (0.52-1.04) mg/dL Estimated GFR (>60) mL/min BUN/Creatinine Ratio (6-22) Glucose (70-100) mg/dL Lactate (0.7-2.1) mmol/L Calcium (8.4-10.2) mg/dL Magnesium (1.6-2.3) mg/dL Total Bilirubin (0.2-1.3) mg/dL AST (14-36) IU/L ALT (<35) IU/L Alkaline Phosphatase (38-126) U/L Troponin I (0.01-0.034) ng/mL NT-Pro-B Natriuret Pep (<125) pg/mL Total Protein (6.3-8.2) g/dL Albumin (3.5-5.0) g/dL Globulin (1.7-4.1) g/dL Albumin/Globulin Ratio (1.0-2.8) Lipase (23-300) U/L Urine Color Urine Appearance Urine pH (4.5-8.0) Ur Specific [place] (1.000-1.035) Urine Protein (Negative) Urine Glucose (UA) (Negative) g/dL Urine Ketones (NEGATIVE) Urine Occult Blood (Negative) Urine Nitrate (Negative) Urine Bilirubin (NEGATIVE) Urine Urobilinogen (0.2) E.U./dL Ur Leukocyte Esterase (NEGATIVE) Urine RBC (0-5/HPF) Urine WBC (0-5/HPF) Ur Squamous Epith Cells (0-5/HPF) Urine Bacteria (None) Ur Culture Indicated? Chlamy pneumoniae PCR (Not Detect) Adenovirus (PCR) (Not Detect) B. pertussis DNA (PCR) (Not Detecte) B.parapertussis DNA PCR (Not Detecte) Coronavirus OC43 (PCR) (Not Detect) Coronavirus HKU1 (PCR) (Not Detect) Coronavirus 229E (PCR) (Not Detect) SARS-CoV-2 (PCR) Negative (Negative) Coronavirus NL63 (PCR) (Not Detect) Human Metapneumovir PCR (Not Detect) Influenza Type A (PCR) (Not Detect) Influenza Type B (PCR) (Not Detect) M. pneumoniae (PCR) (Not Detect) Parainfluenza 1 (PCR) (Not Detect) Parainfluenza 2 (PCR) (Not Detect) Parainfluenza 3 (PCR) (Not Detect) Parainfluenza 4 (PCR) (Not Detect) RSV (PCR) (Not Detect) Entero/Rhino (PCR) (Not Detect) 09/22/20 09/22/20 09/22/20 Range/Units 00:45 00:45 00:45 WBC (4.5-11.0) X10^3/uL RBC (4.0-5.2) X10^6/uL Hgb (12.0-16.0) g/dL Hct (36-46) % MCV (80-100) fL MCH (26-34) PG MCHC (30-36) % RDW (11.6-14.8) % Plt Count (150-400) X10^3/uL Neut % (Auto) (50-75) % Lymph % (Auto) (25-40) % [place] % (Auto) (3-14) % Eos % (Auto) (2-4) % Baso % (Auto) (0-2) % Neut # (Auto) (3709-4724) /uL Lymph # (Auto) (7376-7050) /uL [place] # (Auto) (0-900) /uL Eos # (Auto) (0-450) /uL Baso # (Auto) (0-100) /uL D-Dimer < 200 (<230) ng/mL ABG pH (7.35-7.45) ABG pCO2 (35-45) mmHg ABG pO2 (80-100) mmHg ABG HCO3 (22-26) mmol/L ABG Total CO2 (21-31) mmol/L ABG O2 Saturation (95-100) % ABG Base Excess (-2-2) mmol/L FiO2 Sodium 134 L (137-145) mmol/L Potassium 4.2 (3.4-5.1) mmol/L Chloride 92 L (98-107) mmol/L Carbon Dioxide 38 H (22-32) mmol/L BUN 14 (7-17) mg/dL Creatinine 0.76 (0.52-1.04) mg/dL Estimated GFR > 60.0 (>60) mL/min BUN/Creatinine Ratio 18.4 (6-22) Glucose 296 H (70-100) mg/dL Lactate 2.2 H (0.7-2.1) mmol/L Calcium 10.0 (8.4-10.2) mg/dL Magnesium 1.8 (1.6-2.3) mg/dL Total Bilirubin 0.4 (0.2-1.3) mg/dL AST 26 (14-36) IU/L ALT 23 (<35) IU/L Alkaline Phosphatase 97 (38-126) U/L Troponin I < 0.012 (0.01-0.034) ng/mL NT-Pro-B Natriuret Pep 128 H (<125) pg/mL Total Protein 8.0 (6.3-8.2) g/dL Albumin 4.5 (3.5-5.0) g/dL Globulin 3.5 (1.7-4.1) g/dL Albumin/Globulin Ratio 1.3 (1.0-2.8) Lipase 26 (23-300) U/L Urine Color Urine Appearance Urine pH (4.5-8.0) Ur Specific [place] (1.000-1.035) Urine Protein (Negative) Urine Glucose (UA) (Negative) g/dL Urine Ketones (NEGATIVE) Urine Occult Blood (Negative) Urine Nitrate (Negative) Urine Bilirubin (NEGATIVE) Urine Urobilinogen (0.2) E.U./dL Ur Leukocyte Esterase (NEGATIVE) Urine RBC (0-5/HPF) Urine WBC (0-5/HPF) Ur Squamous Epith Cells (0-5/HPF) Urine Bacteria (None) Ur Culture Indicated? Chlamy pneumoniae PCR (Not Detect) Adenovirus (PCR) (Not Detect) B. pertussis DNA (PCR) (Not Detecte) B.parapertussis DNA PCR (Not Detecte) Coronavirus OC43 (PCR) (Not Detect) Coronavirus HKU1 (PCR) (Not Detect) Coronavirus 229E (PCR) (Not Detect) SARS-CoV-2 (PCR) (Negative) Coronavirus NL63 (PCR) (Not Detect) Human Metapneumovir PCR (Not Detect) Influenza Type A (PCR) (Not Detect) Influenza Type B (PCR) (Not Detect) M. pneumoniae (PCR) (Not Detect) Parainfluenza 1 (PCR) (Not Detect) Parainfluenza 2 (PCR) (Not Detect) Parainfluenza 3 (PCR) (Not Detect) Parainfluenza 4 (PCR) (Not Detect) RSV (PCR) (Not Detect) Entero/Rhino (PCR) (Not Detect) 09/22/20 09/22/20 09/22/20 Range/Units 01:45 02:05 02:55 WBC (4.5-11.0) X10^3/uL RBC (4.0-5.2) X10^6/uL Hgb (12.0-16.0) g/dL Hct (36-46) % MCV (80-100) fL MCH (26-34) PG MCHC (30-36) % RDW (11.6-14.8) % Plt Count (150-400) X10^3/uL Neut % (Auto) (50-75) % Lymph % (Auto) (25-40) % [place] % (Auto) (3-14) % Eos % (Auto) (2-4) % Baso % (Auto) (0-2) % Neut # (Auto) (6099-2995) /uL Lymph # (Auto) (8246-2671) /uL [place] # (Auto) (0-900) /uL Eos # (Auto) (0-450) /uL Baso # (Auto) (0-100) /uL D-Dimer (<230) ng/mL ABG pH (7.35-7.45) ABG pCO2 (35-45) mmHg ABG pO2 (80-100) mmHg ABG HCO3 (22-26) mmol/L ABG Total CO2 (21-31) mmol/L ABG O2 Saturation (95-100) % ABG Base Excess (-2-2) mmol/L FiO2 Sodium (137-145) mmol/L Potassium (3.4-5.1) mmol/L Chloride (98-107) mmol/L Carbon Dioxide (22-32) mmol/L BUN (7-17) mg/dL Creatinine (0.52-1.04) mg/dL Estimated GFR (>60) mL/min BUN/Creatinine Ratio (6-22) Glucose (70-100) mg/dL Lactate 2.0 (0.7-2.1) mmol/L Calcium (8.4-10.2) mg/dL Magnesium (1.6-2.3) mg/dL Total Bilirubin (0.2-1.3) mg/dL AST (14-36) IU/L ALT (<35) IU/L Alkaline Phosphatase (38-126) U/L Troponin I (0.01-0.034) ng/mL NT-Pro-B Natriuret Pep (<125) pg/mL Total Protein (6.3-8.2) g/dL Albumin (3.5-5.0) g/dL Globulin (1.7-4.1) g/dL Albumin/Globulin Ratio (1.0-2.8) Lipase (23-300) U/L Urine Color Yellow Urine Appearance Clear Urine pH 7.5 (4.5-8.0) Ur Specific [place] 1.015 (1.000-1.035) Urine Protein Negative (Negative) Urine Glucose (UA) 2+ H (Negative) g/dL Urine Ketones Negative (NEGATIVE) Urine Occult Blood Negative (Negative) Urine Nitrate Negative (Negative) Urine Bilirubin Negative (NEGATIVE) Urine Urobilinogen 0.2 (0.2) E.U./dL Ur Leukocyte Esterase Negative (NEGATIVE) Urine RBC None seen (0-5/HPF) Urine WBC None seen (0-5/HPF) Ur Squamous Epith Cells 1-5 /hpf (0-5/HPF) Urine Bacteria None seen (None) Ur Culture Indicated? Cult not indicated Chlamy pneumoniae PCR Not detected (Not Detect) Adenovirus (PCR) Not detected (Not Detect) B. pertussis DNA (PCR) Not detected (Not Detecte) B.parapertussis DNA PCR Not detected (Not Detecte) Coronavirus OC43 (PCR) Not detected (Not Detect) Coronavirus HKU1 (PCR) Not detected (Not Detect) Coronavirus 229E (PCR) Not detected (Not Detect) SARS-CoV-2 (PCR) Not detected (Negative) Coronavirus NL63 (PCR) Not detected (Not Detect) Human Metapneumovir PCR Not detected (Not Detect) Influenza Type A (PCR) Not detected (Not Detect) Influenza Type B (PCR) Not detected (Not Detect) M. pneumoniae (PCR) Not detected (Not Detect) Parainfluenza 1 (PCR) Not detected (Not Detect) Parainfluenza 2 (PCR) Not detected (Not Detect) Parainfluenza 3 (PCR) Not detected (Not Detect) Parainfluenza 4 (PCR) Not detected (Not Detect) RSV (PCR) Not detected (Not Detect) Entero/Rhino (PCR) Not detected (Not Detect) Imaging Data Chest x-ray: Attestation: I personally reviewed and interpreted this imaging study as follows: My Impression: I believe there is slight increased infiltrate and interstitial findings in all quadrants except the left upper quadrant Radiologist's Impression: Fibrotic changes are noted bilaterally superimposed infiltrate is suspected within the left lower quadrant Kirby Jurado MD CT scan - abdomen/pelvis: Radiologist's Impression: Worsening mediastinal and hilar adenopathy consider stage IV sarcoid No pneumothorax or pleural effusion Dr Anthony Zabala MD ECG Data Interpretation: Sinus rhythm at a rate of 91 Normal intervals, normal axis Nonspecific ST T wave changes without evidence of acute ischemia MDM Narrative Medical decision making narrative: 45-year-old woman with significant medical history and tenuous pulmonary status at baseline obviously worsening. Concern for pneumonia in the setting of pulmonary fibrosis/bronchiectasis with complicating pulmonary hypertension and baseline high oxygen demand. At home on 15 L on a non-rebreather oxygen saturations were in the upper 80s. She currently is on daily azithromycin prophylaxis, mycophenolate, dapsone and uses albuterol as well as fluticasone/salmeterol inhalers. Initial ABG suggests acute hypoxic respiratory failure, COVID study is negative. White blood cell count is elevated at 18.4 however she just completed a 90 day prednisone taper and discontinued her 5 mg of prednisone at the end of the taper 3 days ago. There is no significant left shift with that associated leukocytosis. CT scan of the chest is currently pending. Culture made to the [facility] system. Given her presumed pneumonia without concurrent sepsis she is started on meropenem and vancomycin. With concerns for volume overload and no evidence of hypotension aggressive fluid resuscitation is not initiated. She is improved slightly with high-flow oxygen and saturations are in the mid 90 range. Given her tenuous baseline pulmonary status and obvious I believe that admission at a facility where pulmonary specialists are available would be most appropriate. Given that her primary executive casino host is at the [facility] will see if beds are available there. Patient is amenable to transfer. CT scan raises the possibility of sarcoidosis that will need further evaluation. Care is reviewed with Dr. Harris, ICU attending [facility]. Except the patient for direct admission to the ICU. Will see which transfer port options are available to continue with the high-flow oxygen. 400am transport team is available. IV antibiotics have completed. She did develop some minor erythema over the left side of her face neck just as the vancomycin was ending. It is resolving at this time. She is currently in stable condition and safe for transport via ALS to [facility] intensive care unit with high-flow oxygen in place Critical Care Time Critical Care Time Critical Care Time: Yes Total Critical Care Time: 34 Attestation: Critical care time is separate from other billable procedures. This critical care time includes consultation with family and other consulting doctors, review of records, and interpretation of data from labs, EKGs and imaging as well as managements of hypoxic respiratory failure Discharge Plan Departure Patient Disposition: [facility] Clinical Impression: Acute and chronic respiratory failure with hypoxia, Pulmonary fibrosis Bronchiectasis Qualifiers: Bronchiectasis type: with acute exacerbation Qualified Code(s): J47.1 - Bronchiectasis with (acute) exacerbation Prescriptions: No Action azithromycin 250 mg tablet 250 mg PO Q OTHER DAY RF: 0 Novolin N NPH U-100 Insulin 100 unit/mL suspension 15 unit SUBCUT BEDTIME RF: 0 metformin 500 mg tablet extended release 24 hr 500 mg PO BID RF: 0 Novolin N Flexpen 100 unit/mL (3 mL) insulin pen 60 unit SUBCUT QAM RF: 0 benzonatate 100 mg Capsule 100 mg PO BID RF: 0 loratadine 10 mg Tablet 10 mg PO DAILY RF: 0 mycophenolate mofetil 500 mg Tablet 1,000 mg PO BID RF: 0 potassium chloride 10 mEq Tablet Extended Release 10 meq PO DAILY RF: 0 mirtazapine 30 mg Tablet 30 mg PO BEDTIME RF: 0 torsemide 100 mg Tablet 100 mg PO DAILY RF: 0 prednisone 20 mg tablet 20 mg PO DAILY Qty: 5 RF: 0 pregabalin 50 mg capsule 50 mg PO BID Qty: 60 RF: 0 levothyroxine 200 mcg tablet 200 mcg PO DAILY Qty: 30 RF: 0 doxycycline monohydrate 100 mg tablet 100 mg PO BID Qty: 14 RF: 0 meloxicam 7.5 mg tablet 7.5 mg PO DAILY Qty: 30 RF: 0 ketoconazole 2 % shampoo 1 applic topical 3XW Qty: 120 RF: 0 fluticasone propion-salmeterol 250-50 mcg/dose blister with device 1 puff Inhalation BID RF: 0 quetiapine 300 mg tablet 400 mg PO QPM RF: 0 hydroxyzine pamoate 50 mg capsule 50 mg PO DAILY RF: 0 omeprazole 40 mg capsule,delayed release(DR/EC) 40 mg PO BID RF: 0 acqnpsuscj-tasgkrfmbliqt-rbyg 50-325-40 mg tablet 1 tab PO BID PRN (Reason: headache) RF: 0 dapsone 100 mg tablet 100 mg PO DAILY RF: 0 albuterol sulfate 90 mcg/actuation HFA aerosol inhaler 1 puff Inhalation BID RF: 0 fluticasone propionate 50 mcg/actuation spray,suspension 1 spray Intranasal DAILY RF: 0 diclofenac sodium 1 % gel 1 applic topical PRN PRN (Reason: pain) RF: 0 methadone 10 mg Tablet 190 mg PO DAILY RF: 0 Referrals: Alex Montoya MD [Primary Care Provider] -
--- NOTE | 2020-09-22 00:25 | DI.RAD.S_ITS ---
PROCEDURE: XR CHEST 1V INDICATIONS: dyspnea TECHNIQUE: One view of the chest was acquired. COMPARISON: [facility], CR, XR CHEST 1V, 01/11/2019, 14:05. [facility], CR, XR CHEST 1V, 08/06/2020, 0:51. [facility], CR, XR CHEST 1V, 05/24/2020, 15:11. FINDINGS: Surgical changes and devices: None. Lungs and pleura: Lungs are abnormal with a generalized chronic interstitial prominence which appears slightly worsened from the comparison study 08/06/20. This may represent an artifact of reduced inspiratory volume.. No pleural effusions or pneumothorax. Mediastinum: Mediastinal contours appear normal. Heart size is normal. Bones and chest wall: No suspicious bony lesions. Overlying soft tissues appear unremarkable. IMPRESSION: Slight interval worsening in a chronic interstitial lung disease pattern, with reference to multiple prior plain films and CT scanning. A definite source of new acute dyspnea is not found. Dictated by: Khai Garrett M.D. on 09/22/2020 at 8:27 Approved by: Khai Garrett M.D. on 09/22/2020 at 8:29
[2020-09-22 00:37] LABS: COVID19 -Nasal RAPID Negative (Negative)
[2020-09-22 00:54] LABS: Add Manual Diff / Slide Review NO; Basophils Absolute Auto 300 /uL (0-100); Basophils Percent Auto 1.4 % (0-2); Eosinophils Absolute Auto 1100 /uL (0-450); Eosinophils Percent Auto 6.2 % (2-4); Hematocrit 31.9 % (36-46); Hemoglobin 9.8 g/dL (12.0-16.0); Lymphocytes Absolute Auto 3700 /uL (1100-4500); Lymphocytes Percent Auto 20.1 % (25-40); Mean Corpuscular HGB Conc 30.6 % (30-36); Mean Corpuscular Hemoglobin 24.6 PG (26-34); Mean Corpuscular Volume 80.3 fL (80-100); Monocytes Absolute Auto 900 /uL (0-900); Monocytes Percent Auto 4.9 % (3-14); Neutrophils Absolute Auto 12400 /uL (1500-7000); Neutrophils Percent Auto 67.4 % (50-75); Platelet Count 365 X10^3/uL (150-400); Red Blood Cell Count 3.97 X10^6/uL (4.0-5.2); Red Cell Distribution Width 19.3 % (11.6-14.8); White Blood Cell Count 18.4 X10^3/uL (4.5-11.0)
[2020-09-22 01:03] LABS: Lactate (Lactic Acid) 2.2 mmol/L (0.7-2.1)
[2020-09-22 01:04] LABS: Alanine Aminotransferase 23 IU/L (<35); Albumin 4.5 g/dL (3.5-5.0); Albumin Globulin Ratio 1.3 (1.0-2.8); Alkaline Phosphatase 97 U/L (38-126); Aspartate Aminotransferase 26 IU/L (14-36); BUN Creatinine Ratio 18.4 (6-22); Bilirubin Total 0.4 mg/dL (0.2-1.3); Blood Urea Nitrogen 14 mg/dL (7-17); Carbon Dioxide 38 mmol/L (22-32); Chloride 92 mmol/L (98-107); Estimated Glomerular Filt Rate > 60.0 mL/min (>60); Globulin 3.5 g/dL (1.7-4.1); Glucose 296 mg/dL (70-100); HEMOLYSIS < 15 (0-50); Lipase 26 U/L (23-300); Magnesium 1.8 mg/dL (1.6-2.3); Potassium 4.2 mmol/L (3.4-5.1); Sodium 134 mmol/L (137-145)
[2020-09-22 01:11] LABS: D Dimer < 200 ng/mL (<230)
--- NOTE | 2020-09-22 01:14 | DI.CT.S_ITS ---
PROCEDURE: CT CHEST W CON INDICATIONS: respiratory failure TECHNIQUE: After the administration of intravenous contrast, 5 mm thick sections acquired from the pulmonary apices to the posterior costophrenic angles. 1 mm axial lung, 5 mm thick coronal and sagittal reformats and 7 mm axial MIP were acquired. For radiation dose reduction, the following was used: automated exposure control, adjustment of mA and/or kV according to patient size. COMPARISON: [facility], CT, CT CHEST HIGH RESOLUTION, 08/07/2020, 18:52. [facility], CT, CT CHEST W CON, 01/11/2019, 15:08. FINDINGS: Image quality: Excellent. Lungs and pleura: There has been a longstanding chronic lung disease pattern, seen on multiple prior chest CTs, and most recently also evaluated 08/07/20. The current examination shows appreciable worsening perhaps reflecting alveolar edema superimposed on pulmonary fibrosis. This could be cardiogenic in origin, perhaps a manifestation of superimposed atypical/viral pneumonia, but also could represent an acute exacerbation of extrinsic allergic alveolitis. No pleural effusions or pneumothorax. Central and peripheral airways are patent and normal in caliber. Mediastinum: Heart size is normal. No pericardial effusion. No mediastinal or hilar adenopathy by size criteria. Thoracic aorta and central pulmonary arteries are normal in size. Esophagus is normal in caliber. No hiatal hernia. Bones and chest wall: No suspicious bony lesions. No vertebral body compression fractures. No axillary or supraclavicular adenopathy by size criteria. Thyroid gland appears normal where well seen . Abdomen: Visualized upper abdominal solid organs appear normal. Upper abdominal bowel loops are normal in caliber. IMPRESSION: Longstanding relatively severe chronic lung disease with pulmonary fibrosis that appears to have recently prominently worsened, which may reflect superimposed alveolar edema from any etiology as discussed above. Please correlate for possible superimposed CHF and also consider repeat exposure in the setting of longstanding extrinsic allergic alveolitis. Dictated by: Khai Garrett M.D. on 09/22/2020 at 8:57 Approved by: Khai Garrett M.D. on 09/22/2020 at 9:01
[2020-09-22 01:15] LABS: NT-proBNP (BNP-Adult 18+) 128 pg/mL (<125); Troponin I < 0.012 ng/mL (0.01-0.034)
[2020-09-22] MEDS: HYDROMORPHONE 0.5 MG INJ IV ×3 (01:16→03:52)
[2020-09-22 01:18] LABS: Fractionated Inspired Oxygen 100; HCO3 ABG 32 mmol/L (22-26); Oxygen Saturation ABG 96 % (95-100); PCO2 ABG 47.3 mmHg (35-45); PO2 ABG 77 mmHg (80-100); TCO2 ABG 34 mmol/L (21-31); pH ABG 7.44 (7.35-7.45)
[2020-09-22] MEDS: MEROPENEM 2 GM in SODIUM CHLORIDE 0.9% 100 ML 200 ML IV (01:44)
[2020-09-22] MEDS: VANCOMYCIN 1,500 MG/300 ML PIGGYBACK 200 MG IV (01:44)
[2020-09-22 01:54] LABS: Bacteria Urine None Seen; RBC Urine None Seen (0-5/HPF); WBC Urine None Seen (0-5/HPF)
[2020-09-22 01:56] LABS: Appearance Urine UA CLEAR; Bilirubin Urine UA NEGATIVE (NEGATIVE); Color Urine UA YELLOW; Glucose Urine UA 2+ g/dL (Negative); Ketones Urine UA NEGATIVE (NEGATIVE); Leukocyte Esterase Urine UA NEGATIVE (NEGATIVE); Nitrite Urine UA NEGATIVE (Negative); Occult Blood Urine UA NEGATIVE (Negative); Protein Urine UA NEGATIVE (Negative); Specific Gravity Urine UA 1.015 (1.000-1.035); Urobilinogen Urine UA 0.2 E.U./dL (0.2)
[2020-09-22 02:01] LABS: pH Urine UA 7.5 (4.5-8.0)
[2020-09-22 02:06] LABS: Culture Indicated Urine Cult Not Indicated; Squamous Epithelial Cell Urine 1-5 /HPF (0-5/HPF)
[2020-09-22 02:48] LABS: Reflexed Lactate in 2 Hours Y
[2020-09-22 03:17] LABS: Adenovirus Not Detected (Not Detect); B. parapertussis Not Detected (Not Detecte); Bordetella pertussis Not Detected (Not Detecte); Chlamydophila pneumoniae Not Detected (Not Detect); Coronavirus 229E Not Detected (Not Detect); Coronavirus HKU1 Not Detected (Not Detect); Coronavirus NL 63 Not Detected (Not Detect); Coronavirus OC43 Not Detected (Not Detect); Human Metapneumovirus Not Detected (Not Detect); Human Rhinovirus/Enterovirus Not Detected (Not Detect); Influenza A Not Detected (Not Detect); Influenza B Not Detected (Not Detect); Mycoplasma pneumoniae Not Detected (Not Detect); Parainfluenza Virus 1 Not Detected (Not Detect); Parainfluenza Virus 2 Not Detected (Not Detect); Parainfluenza Virus 3 Not Detected (Not Detect); Parainfluenza Virus 4 Not Detected (Not Detect); Respiratory Syncytial Virus Not Detected (Not Detect); SARS- CoV-2 Not Detected (Not Detecte)
== END 2020-09-22 04:14 | disposition short-term general hospital (02) ==
PROVIDERS: Emergency Provider Emergency Medicine; Family Provider Anesthesiology Pain Medicine; PCP Internal Medicine
DX: J96.21 Acute and chronic respiratory failure with hypoxia (principal); J47.1 Bronchiectasis with (acute) exacerbation; J84.10 Pulmonary fibrosis, unspecified; I27.20 Pulmonary hypertension, unspecified; E11.9 Type 2 diabetes mellitus without complications; E66.01 Morbid (severe) obesity due to excess calories; R50.9 Fever, unspecified; R05 Cough; Z20.822 Contact with and (suspected) exposure to COVID-19
CPT/HCPCS: 36415; 36600; 71045; 71260; 80053; 81001; 82805; 83605; 83690; 83735; 83880; 84484; 85025; 85379; 87040; 87070; 87077; 87147; 87186; 87205; 87633; 87635; 93005; 96365; 96366; 96368; 96375; 96376; 99285; 99291; C9803; J1170; J2185; Q9967

== ENCOUNTER 2020-10-24 04:52 | Emergency (ER) | payer MEDICARE, MEDICAID, SELFPAY ==
[2018-10-31 11:30] VITALS: PULSE 88; RESP 19; O2SAT 98
[2020-08-06 04:35] VITALS: BMI 46.5
[2020-10-24] VITALS (27 sets, daily range): BP systolic 120–139; BP diastolic 54–90; PULSE 89–118; RESP 18–30; TEMP 37.4; O2SAT 89–99; BMI 43.2
--- NOTE | 2020-10-24 05:08 | DI.RAD.S_ITS ---
PROCEDURE: XR CHEST 1V INDICATIONS: hypoxemia, short of breath TECHNIQUE: One view of the chest was acquired. COMPARISON: [facility], CR, XR CHEST 1V, 09/22/2020, 0:29. FINDINGS: Surgical changes and devices: None. Lungs and pleura: Diffuse, bilateral lung interstitial prominence stable compared to September 22, 2020. Focal opacity has developed in the right lung base. No pleural effusions or pneumothorax. Mediastinum: Mediastinal contours appear normal. Heart size is normal. Bones and chest wall: No suspicious bony lesions. Overlying soft tissues appear unremarkable. IMPRESSION: Patchy focal opacities in the right lung base which could represent atelectasis or pneumonia. Chronic interstitial lung disease. Dictated by: Cece Schultz MD, PhD on 10/24/2020 at 7:06 Approved by: Cece Shcultz MD, PhD on 10/24/2020 at 7:08
--- NOTE | 2020-10-24 05:19 | ED.SOB ---
HPI - SOB/Dyspnea <Yadiel Bernal, DO - Last Filed: 10/25/20 01:08> General Chief Complaint: Shortness of Breath/Dyspnea Stated Complaint: trouble breathing, keeps dsating Time Seen by Provider: 10/24/20 04:55 Source: patient and family Mode of arrival: Wheelchair History of Present Illness HPI Narrative: 45F former smoker with a history of severe (and worsening) chronic lung disease with bronchiectasis, pulmonary fibrosis followed by Dr. Haris Orr at , presents with her and chief complaint increasing hypoxemia and oxygen requirements to the 15 L range. She has been worsening at home over the past few days and they have maximized their ability to titrate up her oxygen at home. She has had pulse ox readings at home in the low to mid 70s with increased work of breathing from minimal exertion. She was most recently transferred from here on September 22 to [facility] and discharged on October 11 under very similar circumstances. She has been significantly short of breath and complains of cough productive of greyish sputum. She has ongoing sharp and stabbing reproducible R anterior chest pain which has been there for quite some time. Minimal exertion makes her quite short of breath. She's had a low grade fever around 99-100. She is hopeful for transplant. She denies runny nose, sore throat or headache. She denies any nausea, vomiting, diarrhea or urinary complaints. She has had no rash. She denies recent travel or exposure to those with known or suspected COVID MD Complaint: shortness of breath Onset (ago): day(s) Severity: similar to previous episodes Consistency/Duration: constant and progressively worsening Relieving factors: nothing and oxygen Exacerbating factors: exertion Treatment prior to arrival: oxygen Related Data Home oxygen amount: other Home Medications Medication Instructions Recorded Confirmed albuterol sulfate 1 puff INHALATION BID 10/31/18 10/24/20 [id number] 1 tab PO BID PRN 10/31/18 10/24/20 dapsone 100 mg PO DAILY 10/31/18 10/24/20 diclofenac sodium 1 applic TOPICAL PRN PRN 10/31/18 10/24/20 fluticasone propion-salmeterol 1 puff INHALATION BID 10/31/18 10/24/20 fluticasone propionate 1 spray INTRANASAL DAILY 10/31/18 10/24/20 hydroxyzine pamoate 50 mg PO DAILY 10/31/18 10/24/20 methadone 190 mg PO DAILY 10/31/18 10/24/20 omeprazole 40 mg PO BID 10/31/18 10/24/20 quetiapine 400 mg PO QPM 10/31/18 10/24/20 Novolin N Flexpen 60 unit SUBCUT QAM 08/06/20 10/24/20 Novolin N NPH U-100 Insulin 15 unit SUBCUT BEDTIME 08/06/20 10/24/20 azithromycin 250 mg PO Q OTHER DAY 08/06/20 10/24/20 benzonatate 100 mg PO BID 08/06/20 10/24/20 loratadine 10 mg PO DAILY 08/06/20 10/24/20 metformin 500 mg PO BID 08/06/20 10/24/20 mirtazapine 30 mg PO BEDTIME 08/06/20 10/24/20 mycophenolate mofetil 1,000 mg PO BID 08/06/20 10/24/20 potassium chloride 10 meq PO DAILY 08/06/20 10/24/20 torsemide 100 mg PO DAILY 08/06/20 10/24/20 Previous Rx's Medication Instructions Recorded ketoconazole 1 applic TOPICAL 3XW #120 ml 08/11/20 levothyroxine 200 mcg PO DAILY #30 tab 08/11/20 meloxicam 7.5 mg PO DAILY #30 tab 08/11/20 prednisone 20 mg PO DAILY #5 tab 08/11/20 pregabalin 50 mg PO BID #60 cap 08/11/20 Allergies Allergy/AdvReac Type Severity Reaction Status Date / Time levofloxacin [LEVOFLOXACIN] Allergy Unknown Verified 10/24/20 13:16 Penicillins [PENICILLINS] Allergy Unknown Verified 10/24/20 13:16 Sulfa (Sulfonamide Allergy Unknown Verified 10/24/20 13:16 Antibiotics) [SULFA (SULFONAMIDE ANTIBIOTICS)] trimethoprim [TRIMETHOPRIM] Allergy Unknown Verified 10/24/20 13:16 morphine AdvReac Gastrointestinal Verified 10/24/20 13:16 Upset Review of Systems <Yadiel Bernal, - Last Filed: 10/25/20 01:08> Constitutional Constitutional: Denies chills, Reports fatigue, Denies fever(s), Denies frequent falls, Reports lethargy and Reports weakness Eyes Eyes: Denies change in vision, Denies eye discharge, Denies irritation and Denies loss of vision ENT Ears, Nose, Mouth, and Throat: Denies change in voice, Denies dizziness, Denies neck pain, Denies sore throat and Denies throat swelling Comments: dry mucous membranes Cardiovascular Cardiovascular: Denies chest pain, Denies irregular heart rhythm, Denies lightheadedness, Denies palpitations, Reports dyspnea, Reports dyspnea on exertion and Denies orthopnea Respiratory Respiratory: Reports change in phlegm color, Reports cough, Reports dyspnea, Reports dyspnea on exertion and Denies wheezing Gastrointestinal Gastrointestinal: Denies abdominal pain, Denies change in bowel habits, Denies diarrhea, Denies nausea and Denies vomiting Musculoskeletal Musculoskeletal: Denies neck pain and Denies numbness Integumentary/Breasts Skin/Breast: Denies pruritus, Denies erythema, Denies rash and Denies wounds Neurologic Neurologic: Denies behavioral changes, Denies confusion, Denies dizziness, Denies frequent falls, Denies loss of vision, Denies numbness and Reports weakness Psychiatric Psychiatric: Denies anxiety, Denies behavioral changes, Denies confusion, Denies depression, Denies homicidal ideation and Denies suicidal ideation Endocrine Endocrine: Reports fatigue, Denies flushing and Denies palpitations Hematologic/Lymphatic Hematologic/Lymphatic: Denies easy bruising Allergic/Immunologic Allergic/Immunologic: Denies urticaria, Denies throat swelling and Denies wheezing Patient History <Yadiel Bernal DO - Last Filed: 10/25/20 01:08> Medical History Diabetes Hypothyroidism (acquired) Interstitial lung disease Opioid use disorder Pulmonary edema Right sided sciatica Surgical History H/O enucleation of right eyeball Family History Mother Adopted Other [id number] deficiency Social History household members: significant other and other Smoking Status: Former smoker Smoking Status: Former smoker alcohol intake frequency: holidays/special occasions only Substance Use Type: does not use Exam <Yadiel Bernal DO - Last Filed: 10/25/20 01:08> Narrative Exam Narrative: GENERAL: [45] year old patient appears stated age. Obviously in significant distress with increased work of breathing and conversational dyspnea. BMI 43.3 HEAD: Atraumatic. Normocephalic. EYES: Pupils equal round and reactive. Extraocular motions intact. No scleral icterus. No injection or drainage. ENT: Dry mucous membranes. Nose without bleeding, purulent drainage. Throat without erythema, tonsillar hypertrophy or exudate. Airway patent. NECK: Trachea midline. Non tender CARDIOVASCULAR: Tachycardic and regular without murmurs, gallops, or rubs. RESPIRATORY: Tachypnea, increased work of breathing, accessory muscle use, or crackles throughout GASTROINTESTINAL: Abdomen soft, tender in the right upper quadrant, nondistended. EXTREMITIES: 1+ pitting edema bilateral lower extremities BACK: Nontender without deformity or crepitance. No flank tenderness. NEURO: AOx3. SKIN: No rash or erythema of visible areas Initial Vital Signs Initial Vital Signs: Vital Signs Temperature 99.4 F 10/24/20 05:05 Pulse Rate 118 H 10/24/20 05:05 Respiratory Rate 26 H 10/24/20 05:05 Blood Pressure 129/90 10/24/20 05:05 Pulse Oximetry 97 10/24/20 05:05 <Yaneli aHy MD - Last Filed: 10/24/20 15:08> Initial Vital Signs Initial Vital Signs: Vital Signs Temperature 99.4 F 10/24/20 05:05 Pulse Rate 118 H 10/24/20 05:05 Respiratory Rate 26 H 10/24/20 05:05 Blood Pressure 129/90 10/24/20 05:05 Pulse Oximetry 97 10/24/20 05:05 Course <Yadiel Bernal DO - Last Filed: 10/25/20 01:08> Orders Ordered: Discontinued Medications Hydromorphone HCl (Hydromorphone 1 Mg Inj) 1 mg IM NOW ONE Stop: 10/24/20 06:01 Last Admin: 10/24/20 06:10 Dose: 1 mg Documented by: TONY Hydromorphone HCl (Hydromorphone 0.5 Mg Inj) 1 mg IV Q15MIN PRN PRN Reason: Pain, Last Admin: 10/24/20 08:32 Dose: 1 mg Documented by: SMICHEAU Hydromorphone HCl (Hydromorphone 1 Mg Inj) 1 mg IV NOW ONE Stop: 10/24/20 09:22 Last Admin: 10/24/20 09:33 Dose: 1 mg Documented by: KYM Hydromorphone HCl (Hydromorphone 1 Mg Inj) 1 mg IV NOW ONE Stop: 10/24/20 09:22 Last Admin: 10/24/20 11:15 Dose: 1 mg Documented by: KYM Hydromorphone HCl (Hydromorphone 1 Mg Inj) 1 mg IV NOW ONE Stop: 10/24/20 14:57 Last Admin: 10/24/20 15:02 Dose: 1 mg Documented by: KYM Sodium Chloride (Normal Saline 0.9%) 1,000 mls @ 125 mls/hr IV CONT SCOTTY Last Infusion: 10/24/20 15:10 Dose: 0 mls/hr Documented by: Admin: 10/24/20 08:12 Dose: 125 mls/hr Documented by: KYM Meropenem 2 gm/ Sodium (Chloride) 100 mls @ 200 mls/hr IV NOW ONE Stop: 10/24/20 06:06 Last Infusion: 10/24/20 07:46 Dose: 0 mls/hr Documented by: Admin: 10/24/20 06:57 Dose: 200 mls/hr Documented by: MANOHAR Azithromycin 500 mg/ Dextrose 250 mls @ 250 mls/hr IV NOW ONE Stop: 10/24/20 06:06 Last Infusion: 10/24/20 08:00 Dose: 0 mls/hr Documented by: Admin: 10/24/20 06:57 Dose: 250 mls/hr Documented by: MANOHAR Vancomycin HCl/Dextrose (Vancomycin) 2,000 mg in 400 mls @ 200 mls/hr IV NOW ONE Stop: 10/24/20 08:11 Last Infusion: 10/24/20 10:27 Dose: 0 mls/hr Documented by: Admin: 10/24/20 08:12 Dose: 200 mls/hr Documented by: KYM Meropenem 500 mg/ Sodium (Chloride) 100 mls @ 200 mls/hr IV Q6HR SCOTTY Last Infusion: 10/24/20 13:45 Dose: 0 mls/hr Documented by: Admin: 10/24/20 12:59 Dose: 200 mls/hr Documented by: KYM Methadone HCl (Methadone 5 Mg Tablet) 190 mg PO NOW ONE Stop: 10/24/20 11:16 Last Admin: 10/24/20 12:09 Dose: 190 mg Documented by: KYM Reevaluation(s) Reevaluation #1: Patient a very difficult IV start, multiple attempts used, PICC team contacted and states they are only 35 minutes out. She shows tremendous improvment after use of HFNC with improved RR, SpO2 to mid 90s. HR down to 90s. Reevaluation #2: PICC Team here. Delay in getting labs/ABX HR and RR are greatly improved with HFNC, will hold fluids of 30mL/kg for now given her tendency for fluid overload and 1+ edema in lower extremities. Initial paperwork to /[facility] [place] and Xray pushed. Vital Signs Vital signs: Vital Signs - 8 hr 10/24/20 07:30 10/24/20 08:00 10/24/20 08:02 Pulse Rate 97 H 97 H 102 H Respiratory Rate Blood Pressure 139/69 Pulse Oximetry 95 94 95 10/24/20 08:30 10/24/20 09:00 10/24/20 11:05 Pulse Rate 91 H 91 H 102 H Respiratory Rate Blood Pressure Pulse Oximetry 92 94 89 L 10/24/20 11:20 10/24/20 11:21 10/24/20 11:30 Pulse Rate 92 H 93 H 89 Respiratory Rate 22 Blood Pressure 126/64 126/64 131/65 Pulse Oximetry 91 91 92 10/24/20 12:00 10/24/20 12:30 10/24/20 13:00 Pulse Rate 92 H 111 H 91 H Respiratory Rate Blood Pressure 127/66 135/61 Pulse Oximetry 92 90 L 99 10/24/20 13:06 10/24/20 13:09 10/24/20 13:30 Pulse Rate 111 H 92 H 96 H Respiratory Rate 18 30 H Blood Pressure Pulse Oximetry 90 L 98 99 10/24/20 13:31 10/24/20 14:00 10/24/20 14:30 Pulse Rate 96 H 108 H 91 H Respiratory Rate Blood Pressure 120/54 L Pulse Oximetry 98 95 98 <Yaneli Hay MD - Last Filed: 10/24/20 15:08> Orders Ordered: Discontinued Medications Hydromorphone HCl (Hydromorphone 1 Mg Inj) 1 mg IM NOW ONE Stop: 10/24/20 06:01 Last Admin: 10/24/20 06:10 Dose: 1 mg Documented by: TONY Hydromorphone HCl (Hydromorphone 0.5 Mg Inj) 1 mg IV Q15MIN PRN PRN Reason: Pain, Last Admin: 10/24/20 08:32 Dose: 1 mg Documented by: KYM Hydromorphone HCl (Hydromorphone 1 Mg Inj) 1 mg IV NOW ONE Stop: 10/24/20 09:22 Last Admin: 10/24/20 09:33 Dose: 1 mg Documented by: KYM Hydromorphone HCl (Hydromorphone 1 Mg Inj) 1 mg IV NOW ONE Stop: 10/24/20 09:22 Last Admin: 10/24/20 11:15 Dose: 1 mg Documented by: KYM Hydromorphone HCl (Hydromorphone 1 Mg Inj) 1 mg IV NOW ONE Stop: 10/24/20 14:57 Last Admin: 10/24/20 15:02 Dose: 1 mg Documented by: KYM Sodium Chloride (Normal Saline 0.9%) 1,000 mls @ 125 mls/hr IV CONT SCOTTY Last Infusion: 10/24/20 15:10 Dose: 0 mls/hr Documented by: Admin: 10/24/20 08:12 Dose: 125 mls/hr Documented by: KYM Meropenem 2 gm/ Sodium (Chloride) 100 mls @ 200 mls/hr IV NOW ONE Stop: 10/24/20 06:06 Last Infusion: 10/24/20 07:46 Dose: 0 mls/hr Documented by: Admin: 10/24/20 06:57 Dose: 200 mls/hr Documented by: MANOHAR Azithromycin 500 mg/ Dextrose 250 mls @ 250 mls/hr IV NOW ONE Stop: 10/24/20 06:06 Last Infusion: 10/24/20 08:00 Dose: 0 mls/hr Documented by: Admin: 10/24/20 06:57 Dose: 250 mls/hr Documented by: MANOHAR Vancomycin HCl/Dextrose (Vancomycin) 2,000 mg in 400 mls @ 200 mls/hr IV NOW ONE Stop: 10/24/20 08:11 Last Infusion: 10/24/20 10:27 Dose: 0 mls/hr Documented by: Admin: 10/24/20 08:12 Dose: 200 mls/hr Documented by: KYM Meropenem 500 mg/ Sodium (Chloride) 100 mls @ 200 mls/hr IV Q6HR SCOTTY Last Infusion: 10/24/20 13:45 Dose: 0 mls/hr Documented by: Admin: 10/24/20 12:59 Dose: 200 mls/hr Documented by: KYM Methadone HCl (Methadone 5 Mg Tablet) 190 mg PO NOW ONE Stop: 10/24/20 11:16 Last Admin: 10/24/20 12:09 Dose: 190 mg Documented by: KYM Vital Signs Vital signs: Vital Signs - 8 hr 10/24/20 07:30 10/24/20 08:00 10/24/20 08:02 Pulse Rate 97 H 97 H 102 H Respiratory Rate Blood Pressure 139/69 Pulse Oximetry 95 94 95 10/24/20 08:30 10/24/20 09:00 10/24/20 11:05 Pulse Rate 91 H 91 H 102 H Respiratory Rate Blood Pressure Pulse Oximetry 92 94 89 L 10/24/20 11:20 10/24/20 11:21 10/24/20 11:30 Pulse Rate 92 H 93 H 89 Respiratory Rate 22 Blood Pressure 126/64 126/64 131/65 Pulse Oximetry 91 91 92 10/24/20 12:00 10/24/20 12:30 10/24/20 13:00 Pulse Rate 92 H 111 H 91 H Respiratory Rate Blood Pressure 127/66 135/61 Pulse Oximetry 92 90 L 99 10/24/20 13:06 10/24/20 13:09 10/24/20 13:30 Pulse Rate 111 H 92 H 96 H Respiratory Rate 18 30 H Blood Pressure Pulse Oximetry 90 L 98 99 10/24/20 13:31 10/24/20 14:00 10/24/20 14:30 Pulse Rate 96 H 108 H 91 H Respiratory Rate Blood Pressure 120/54 L Pulse Oximetry 98 95 98 MDM - SOB/Dyspnea <Yadiel Gabe, DO - Last Filed: 10/25/20 01:08> Lab Data Result diagrams: 10/24/20 07:05 10/24/20 07:05 Labs: Lab Results 10/24/20 10/24/20 10/24/20 Range/Units 05:20 05:53 07:05 WBC (4.5-11.0) X10^3/uL RBC (4.0-5.2) X10^6/uL Hgb (12.0-16.0) g/dL Hct (36-46) % MCV (80-100) fL MCH (26-34) PG MCHC (30-36) % RDW (11.6-14.8) % Plt Count (150-400) X10^3/uL Neut % (Auto) (50-75) % Lymph % (Auto) (25-40) % Rich % (Auto) (3-14) % Eos % (Auto) (2-4) % Baso % (Auto) (0-2) % Neut # (Auto) (6036-4725) /uL Lymph # (Auto) (5332-3092) /uL Rich # (Auto) (0-900) /uL Eos # (Auto) (0-450) /uL Baso # (Auto) (0-100) /uL RBC Morphology Hypochromasia Anisocytosis Microcytosis D-Dimer < 200 (<230) ng/mL VBG pH 7.39 (7.33-7.43) VBG pCO2 63.3 H (45-50) mmHg VBG pO2 23 L (35-45) mmHg VBG HCO3 38 H (23-28) mmol/L VBG Total CO2 40 H (24-29) mmol/L VBG O2 Saturation 36 L (70-75) % VBG Base Excess 13.0 H (0-4) mmol/L Sodium (137-145) mmol/L Potassium (3.4-5.1) mmol/L Chloride (98-107) mmol/L Carbon Dioxide (22-32) mmol/L BUN (7-17) mg/dL Creatinine (0.52-1.04) mg/dL Estimated GFR (>60) mL/min BUN/Creatinine Ratio (6-22) Glucose (70-100) mg/dL Lactate (0.7-2.1) mmol/L Calcium (8.4-10.2) mg/dL Total Bilirubin (0.2-1.3) mg/dL AST (14-36) IU/L ALT (<35) IU/L Alkaline Phosphatase (38-126) U/L Total Creatine Kinase (30-135) U/L CK-MB (CK-2) CK-MB (CK-2) Rel Index Troponin I (0.01-0.034) ng/mL C-Reactive Protein (<1.0) mg/dL NT-Pro-B Natriuret Pep (<125) pg/mL Total Protein (6.3-8.2) g/dL Albumin (3.5-5.0) g/dL Globulin (1.7-4.1) g/dL Albumin/Globulin Ratio (1.0-2.8) SARS-CoV-2 (PCR) Negative (Negative) 10/24/20 10/24/20 10/24/20 Range/Units 07:05 07:05 07:05 WBC 18.9 H (4.5-11.0) X10^3/uL RBC 4.17 (4.0-5.2) X10^6/uL Hgb 9.0 L (12.0-16.0) g/dL Hct 30.1 L (36-46) % MCV 72.2 L (80-100) fL MCH 21.6 L (26-34) PG MCHC 30.0 (30-36) % RDW 20.7 H (11.6-14.8) % Plt Count 503 H (150-400) X10^3/uL Neut % (Auto) 51.1 (50-75) % Lymph % (Auto) 34.2 (25-40) % Rich % (Auto) 7.6 (3-14) % Eos % (Auto) 5.7 H (2-4) % Baso % (Auto) 1.4 (0-2) % Neut # (Auto) 9600 H (0723-0555) /uL Lymph # (Auto) 6500 H (6222-9707) /uL Rich # (Auto) 1400 H (0-900) /uL Eos # (Auto) 1100 H (0-450) /uL Baso # (Auto) 300 H (0-100) /uL RBC Morphology See below Hypochromasia 2+ H Anisocytosis 2+ H Microcytosis 1+ H D-Dimer (<230) ng/mL VBG pH (7.33-7.43) VBG pCO2 (45-50) mmHg VBG pO2 (35-45) mmHg VBG HCO3 (23-28) mmol/L VBG Total CO2 (24-29) mmol/L VBG O2 Saturation (70-75) % VBG Base Excess (0-4) mmol/L Sodium 137 (137-145) mmol/L Potassium 4.0 (3.4-5.1) mmol/L Chloride 96 L (98-107) mmol/L Carbon Dioxide 34 H (22-32) mmol/L BUN 17 (7-17) mg/dL Creatinine 0.80 (0.52-1.04) mg/dL Estimated GFR > 60.0 (>60) mL/min BUN/Creatinine Ratio 21.3 (6-22) Glucose 85 (70-100) mg/dL Lactate 1.3 (0.7-2.1) mmol/L Calcium 9.8 (8.4-10.2) mg/dL Total Bilirubin 0.1 L (0.2-1.3) mg/dL AST 20 (14-36) IU/L ALT 18 (<35) IU/L Alkaline Phosphatase 89 (38-126) U/L Total Creatine Kinase 42 (30-135) U/L CK-MB (CK-2) TNP CK-MB (CK-2) Rel Index TNP Troponin I < 0.012 (0.01-0.034) ng/mL C-Reactive Protein 4.9 H (<1.0) mg/dL NT-Pro-B Natriuret Pep 53 (<125) pg/mL Total Protein 7.3 (6.3-8.2) g/dL Albumin 4.1 (3.5-5.0) g/dL Globulin 3.2 (1.7-4.1) g/dL Albumin/Globulin Ratio 1.3 (1.0-2.8) SARS-CoV-2 (PCR) (Negative) Point of Care Testing Glucose POC 99 Imaging Data Chest x-ray: Radiologist's Impression: Diffuse fibrotic changes with multi focal superimposed bilateral pulmonary infiltrates and minimally improved aeration of the left upper lobe. <Yaneli Hay MD - Last Filed: 10/24/20 15:08> Medical Records Attestation: I reviewed the patient's medical records. Lab Data Attestation: I reviewed the patient's lab results. Labs: Lab Results 10/24/20 10/24/20 10/24/20 Range/Units 05:20 05:53 07:05 WBC (4.5-11.0) X10^3/uL RBC (4.0-5.2) X10^6/uL Hgb (12.0-16.0) g/dL Hct (36-46) % MCV (80-100) fL MCH (26-34) PG MCHC (30-36) % RDW (11.6-14.8) % Plt Count (150-400) X10^3/uL Neut % (Auto) (50-75) % Lymph % (Auto) (25-40) % Rich % (Auto) (3-14) % Eos % (Auto) (2-4) % Baso % (Auto) (0-2) % Neut # (Auto) (8192-8915) /uL Lymph # (Auto) (7662-7011) /uL Rich # (Auto) (0-900) /uL Eos # (Auto) (0-450) /uL Baso # (Auto) (0-100) /uL RBC Morphology Hypochromasia Anisocytosis Microcytosis D-Dimer < 200 (<230) ng/mL VBG pH 7.39 (7.33-7.43) VBG pCO2 63.3 H (45-50) mmHg VBG pO2 23 L (35-45) mmHg VBG HCO3 38 H (23-28) mmol/L VBG Total CO2 40 H (24-29) mmol/L VBG O2 Saturation 36 L (70-75) % VBG Base Excess 13.0 H (0-4) mmol/L Sodium (137-145) mmol/L Potassium (3.4-5.1) mmol/L Chloride (98-107) mmol/L Carbon Dioxide (22-32) mmol/L BUN (7-17) mg/dL Creatinine (0.52-1.04) mg/dL Estimated GFR (>60) mL/min BUN/Creatinine Ratio (6-22) Glucose (70-100) mg/dL Lactate (0.7-2.1) mmol/L Calcium (8.4-10.2) mg/dL Total Bilirubin (0.2-1.3) mg/dL AST (14-36) IU/L ALT (<35) IU/L Alkaline Phosphatase (38-126) U/L Total Creatine Kinase (30-135) U/L CK-MB (CK-2) CK-MB (CK-2) Rel Index Troponin I (0.01-0.034) ng/mL C-Reactive Protein (<1.0) mg/dL NT-Pro-B Natriuret Pep (<125) pg/mL Total Protein (6.3-8.2) g/dL Albumin (3.5-5.0) g/dL Globulin (1.7-4.1) g/dL Albumin/Globulin Ratio (1.0-2.8) SARS-CoV-2 (PCR) Negative (Negative) 10/24/20 10/24/20 10/24/20 Range/Units 07:05 07:05 07:05 WBC 18.9 H (4.5-11.0) X10^3/uL RBC 4.17 (4.0-5.2) X10^6/uL Hgb 9.0 L (12.0-16.0) g/dL Hct 30.1 L (36-46) % MCV 72.2 L (80-100) fL MCH 21.6 L (26-34) PG MCHC 30.0 (30-36) % RDW 20.7 H (11.6-14.8) % Plt Count 503 H (150-400) X10^3/uL Neut % (Auto) 51.1 (50-75) % Lymph % (Auto) 34.2 (25-40) % Rich % (Auto) 7.6 (3-14) % Eos % (Auto) 5.7 H (2-4) % Baso % (Auto) 1.4 (0-2) % Neut # (Auto) 9600 H (9289-3043) /uL Lymph # (Auto) 6500 H (4199-6794) /uL Rich # (Auto) 1400 H (0-900) /uL Eos # (Auto) 1100 H (0-450) /uL Baso # (Auto) 300 H (0-100) /uL RBC Morphology See below Hypochromasia 2+ H Anisocytosis 2+ H Microcytosis 1+ H D-Dimer (<230) ng/mL VBG pH (7.33-7.43) VBG pCO2 (45-50) mmHg VBG pO2 (35-45) mmHg VBG HCO3 (23-28) mmol/L VBG Total CO2 (24-29) mmol/L VBG O2 Saturation (70-75) % VBG Base Excess (0-4) mmol/L Sodium 137 (137-145) mmol/L Potassium 4.0 (3.4-5.1) mmol/L Chloride 96 L (98-107) mmol/L Carbon Dioxide 34 H (22-32) mmol/L BUN 17 (7-17) mg/dL Creatinine 0.80 (0.52-1.04) mg/dL Estimated GFR > 60.0 (>60) mL/min BUN/Creatinine Ratio 21.3 (6-22) Glucose 85 (70-100) mg/dL Lactate 1.3 (0.7-2.1) mmol/L Calcium 9.8 (8.4-10.2) mg/dL Total Bilirubin 0.1 L (0.2-1.3) mg/dL AST 20 (14-36) IU/L ALT 18 (<35) IU/L Alkaline Phosphatase 89 (38-126) U/L Total Creatine Kinase 42 (30-135) U/L CK-MB (CK-2) TNP CK-MB (CK-2) Rel Index TNP Troponin I < 0.012 (0.01-0.034) ng/mL C-Reactive Protein 4.9 H (<1.0) mg/dL NT-Pro-B Natriuret Pep 53 (<125) pg/mL Total Protein 7.3 (6.3-8.2) g/dL Albumin 4.1 (3.5-5.0) g/dL Globulin 3.2 (1.7-4.1) g/dL Albumin/Globulin Ratio 1.3 (1.0-2.8) SARS-CoV-2 (PCR) (Negative) Point of Care Testing Glucose POC 99 Imaging Data Chest x-ray: Radiologist's Impression: FINDINGS: Surgical changes and devices: None. Lungs and pleura: Diffuse, bilateral lung interstitial prominence stable compared to September 22, 2020. Focal opacity has developed in the right lung base. No pleural effusions or pneumothorax. Mediastinum: Mediastinal contours appear normal. Heart size is normal. Bones and chest wall: No suspicious bony lesions. Overlying soft tissues appear unremarkable. IMPRESSION: Patchy focal opacities in the right lung base which could represent atelectasis or pneumonia. Chronic interstitial lung disease. Dictated by: Cece Schultz MD, PhD on 10/24/2020 at 7:06 [facility] Narrative Medical decision making narrative: 45-year-old woman with chronic interstitial lung disease at baseline on 8 L of oxygen recently extended stay at [facility] under the care for mushroom cutter with possibility of sarcoidosis and idiopathic pulmonary fibrosis both being considered. Was discharged on October 11 and over the last days has had increasing productive sputum and increasing oxygen needs. Was up to 15 L at home to get sats into the low 90s. She is tolerating high-flow oxygen much better here with some minor CO2 retention on initial ABG. Now able to speak in full sentences. Labs do suggest worsening infection with a white count back up with significant left shift (suggesting more than simple steroid leukocytosis). At this point she is comfortable on high-flow oxygen 45 L and 45%. Chest x-ray is consistent with patchy focal opacities and chronic interstitial lung disease no obvious consolidated finding in no pneumothorax. She has been given meropenem, vancomycin and IV azithromycin (she takes oral azithromycin every other day). Blood pressure heart rate and oxygenation are stable at this time and she is able to speak in full sentences with the high-flow oxygen in place. Currently waiting to hear from [facility] about bed availability and from there will moved to talking to accepting hospitalist/pulmonary team with anticipation of transfer given her complex progressive pulmonary issues and need for high-flow oxygen at this time. 830 update from [facility], working on bed availability. 9[address] Dr Denney. Med attending. Accepts patient to [facility]. Waiting for bed assignment. 1230 Dr Ching has taken over for Dr Denney. Called to touch [facility], make sure respiratory status is not declining. Still working on bed availability. 3pm Transport here, Bed available after 4pm today. Safe for transport with respiratory distress stable on high-flow oxygen. Discharge Plan Departure Patient Disposition: [facility] Clinical Impression: Acute hypoxemic respiratory failure, Pneumonia, Chronic interstitial lung disease Prescriptions: No Action azithromycin 250 mg tablet 250 mg PO Q OTHER DAY RF: 0 Novolin N NPH U-100 Insulin 100 unit/mL suspension 15 unit SUBCUT BEDTIME RF: 0 metformin 500 mg tablet extended release 24 hr 500 mg PO BID RF: 0 Novolin N Flexpen 100 unit/mL (3 mL) insulin pen 60 unit SUBCUT QAM RF: 0 benzonatate 100 mg Capsule 100 mg PO BID RF: 0 loratadine 10 mg Tablet 10 mg PO DAILY RF: 0 mycophenolate mofetil 500 mg Tablet 1,000 mg PO BID RF: 0 potassium chloride 10 mEq Tablet Extended Release 10 meq PO DAILY RF: 0 mirtazapine 30 mg Tablet 30 mg PO BEDTIME RF: 0 torsemide 100 mg Tablet 100 mg PO DAILY RF: 0 prednisone 20 mg tablet 20 mg PO DAILY Qty: 5 RF: 0 pregabalin 50 mg capsule 50 mg PO BID Qty: 60 RF: 0 levothyroxine 200 mcg tablet 200 mcg PO DAILY Qty: 30 RF: 0 meloxicam 7.5 mg tablet 7.5 mg PO DAILY Qty: 30 RF: 0 ketoconazole 2 % shampoo 1 applic topical 3XW Qty: 120 RF: 0 fluticasone propion-salmeterol 250-50 mcg/dose blister with device 1 puff Inhalation BID RF: 0 quetiapine 300 mg tablet 400 mg PO QPM RF: 0 hydroxyzine pamoate 50 mg capsule 50 mg PO DAILY RF: 0 omeprazole 40 mg capsule,delayed release(DR/EC) 40 mg PO BID RF: 0 hjbdpxrsro-hhumppwgrtfxn-gbqi 50-325-40 mg tablet 1 tab PO BID PRN (Reason: headache) RF: 0 dapsone 100 mg tablet 100 mg PO DAILY RF: 0 albuterol sulfate 90 mcg/actuation HFA aerosol inhaler 1 puff Inhalation BID RF: 0 fluticasone propionate 50 mcg/actuation spray,suspension 1 spray Intranasal DAILY RF: 0 diclofenac sodium 1 % gel 1 applic topical PRN PRN (Reason: pain) RF: 0 methadone 10 mg Tablet 190 mg PO DAILY RF: 0 Referrals: Alex Montoya MD [Primary Care Provider] -
[2020-10-24 05:40] LABS: COVID19 -Nasal RAPID Negative (Negative)
--- NOTE | 2020-10-24 05:48 | PC.NURSE ---
Pt arrived [facility], in severe respiratory distress, reporting increasing O2 demands for the last few days. Pt placed on high-flow NC and color/respiratory status/HR improved. Pt is very difficult IV start. [facility] phoned for stat PICC placement, ETA 30 minutes.
[2020-10-24] MEDS: HYDROMORPHONE 1 MG INJ IM (06:10)
--- NOTE | 2020-10-24 06:15 | PC.NURSE ---
[facility] nurse now at bedside for line placement.
--- NOTE | 2020-10-24 06:22 | RT ---
Pt placed on HHFNC at 45 LPM and 50% FiO2 at 0520. Pt tolerating settings on HHFNC. Pt states she takes Advair BID and has an Albuterol MDI PRN at homer. Will continue to monitor.
[2020-10-24 06:30] LABS: HCO3 VBG 38 mmol/L (23-28); Oxygen Saturation VBG 36 % (70-75); PCO2 VBG 63.3 mmHg (45-50); PO2 VBG 23 mmHg (35-45); Total CO2 VBG 40 mmol/L (24-29); pH VBG 7.39 (7.33-7.43)
[2020-10-24] MEDS: MEROPENEM 2 GM in SODIUM CHLORIDE 0.9% 100 ML 200 ML IV (06:57)
[2020-10-24] MEDS: AZITHROMYCIN 500 MG in DEXTROSE 5% IN WATER 250 ML IV (06:57)
--- NOTE | 2020-10-24 07:22 | PC.NURSE ---
All labs, including 2 sets of blood cultures, drawn from new left upper arm midline catheter.
[2020-10-24 07:23] LABS: Add Manual Diff / Slide Review NO; Basophils Absolute Auto 300 /uL (0-100); Basophils Percent Auto 1.4 % (0-2); Eosinophils Absolute Auto 1100 /uL (0-450); Eosinophils Percent Auto 5.7 % (2-4); Hematocrit 30.1 % (36-46); Lymphocytes Absolute Auto 6500 /uL (1100-4500); Lymphocytes Percent Auto 34.2 % (25-40); Mean Corpuscular Hemoglobin 21.6 PG (26-34); Mean Corpuscular Volume 72.2 fL (80-100); Monocytes Absolute Auto 1400 /uL (0-900); Monocytes Percent Auto 7.6 % (3-14); Neutrophils Absolute Auto 9600 /uL (1500-7000); Neutrophils Percent Auto 51.1 % (50-75); Platelet Count 503 X10^3/uL (150-400); Red Blood Cell Count 4.17 X10^6/uL (4.0-5.2); Red Cell Distribution Width 20.7 % (11.6-14.8); White Blood Cell Count 18.9 X10^3/uL (4.5-11.0)
[2020-10-24 07:38] LABS: Lactate (Lactic Acid) 1.3 mmol/L (0.7-2.1)
[2020-10-24 07:40] LABS: Alanine Aminotransferase 18 IU/L (<35); Albumin 4.1 g/dL (3.5-5.0); Albumin Globulin Ratio 1.3 (1.0-2.8); Alkaline Phosphatase 89 U/L (38-126); Aspartate Aminotransferase 20 IU/L (14-36); BUN Creatinine Ratio 21.3 (6-22); Bilirubin Total 0.1 mg/dL (0.2-1.3); Blood Urea Nitrogen 17 mg/dL (7-17); C-Reactive Protein Quant 4.9 mg/dL (<1.0); Calcium 9.8 mg/dL (8.4-10.2); Carbon Dioxide 34 mmol/L (22-32); Chloride 96 mmol/L (98-107); Creatine Kinase 42 U/L (30-135); Estimated Glomerular Filt Rate > 60.0 mL/min (>60); Globulin 3.2 g/dL (1.7-4.1); Glucose 85 mg/dL (70-100); HEMOLYSIS < 15 (0-50); Sodium 137 mmol/L (137-145); Total Protein 7.3 g/dL (6.3-8.2)
[2020-10-24 07:41] LABS: D Dimer < 200 ng/mL (<230)
--- NOTE | 2020-10-24 07:42 | PC.NURSE ---
pt request water level checked in high flow. rt reached and will be down.
[2020-10-24 07:49] LABS: NT-proBNP (BNP-Adult 18+) 53 pg/mL (<125); Troponin I < 0.012 ng/mL (0.01-0.034)
[2020-10-24 07:52] LABS: Anisocytosis 2+; Hypochromasia 2+; Microcytosis 1+
--- NOTE | 2020-10-24 08:03 | RT ---
Decreased FIO2 on HHFNC to 45%. Informed nurse Leida and MARIA D KRAUSE
[2020-10-24] MEDS: VANCOMYCIN 2,000 MG/400 ML PIGGYBACK 200 MG IV (08:12)
[2020-10-24] MEDS: SODIUM CHLORIDE 0.9% 1,000 ML 125 ML IV (08:12)
[2020-10-24] MEDS: HYDROMORPHONE 0.5 MG INJ 1 MG IV (08:32)
[2020-10-24] MEDS: HYDROMORPHONE 1 MG INJ IV ×3 (09:33→15:02)
[2020-10-24] MEDS: METHADONE 5 MG TABLET 190 MG PO (12:09)
[2020-10-24] MEDS: MEROPENEM 500 MG in SODIUM CHLORIDE 0.9% 100 ML 200 ML IV (12:59)
[2020-10-25 06:34] LABS: Enterococcus species Not Detected (Not Detect); Listeria monocytogenes Not Detected (Not Detect); Methicillin-resistant gene Detected (Not Detect); Staphylococcus species Detected (Not Detect); Streptococcus agalactiae (Gr B Not Detected (Not Detect); Streptococcus pneumonia Not Detected (Not Detect); Streptococcus pyogenes (Gr A) Not Detected (Not Detect); Streptococcus species Not Detected (Not Detect)
[2020-10-25 06:35] LABS: Acinetobacter baumannii Not Detected (Not Detect); Candida albicans Not Detected (Not Detect); Candida glabrata Not Detected (Not Detect); Candida krusei Not Detected (Not Detect); Candida parapsilosis Not Detected (Not Detect); Candida tropicalis Not Detected (Not Detect); E. coli Not Detected (Not Detect); Enterobacter cloacae complex Not Detected (Not Detect); Enterobacteriaceae species Not Detected (Not Detect); Haemophilus influenzae Not Detected (Not Detect); Neisseria meningitidis Not Detected (Not Detect); Proteus species Not Detected (Not Detect); Pseudomonas aeruginosa Not Detected (Not Detect); Serratia marcescens Not Detected (Not Detect)
== END 2020-10-24 15:20 | disposition short-term general hospital (02) ==
PROVIDERS: Emergency Medicine; Emergency Provider Emergency Medicine; Family Provider Anesthesiology Pain Medicine; PCP Internal Medicine
DX: J96.01 Acute respiratory failure with hypoxia (principal); J18.9 Pneumonia, unspecified organism; J44.9 Chronic obstructive pulmonary disease, unspecified
CPT/HCPCS: 36415; 71045; 80053; 82550; 82805; 82962; 83605; 83880; 84484; 85025; 85379; 86140; 87040; 87150; 87205; 87635; 93005; 96361; 96365; 96366; 96367; 96368; 96375; 96376; 99285; 99291; 99292; C9803; J1170; J2185

== ENCOUNTER 2021-01-14 10:17 | Emergency (ER) | payer MEDICARE, MEDICAID, SELFPAY ==
[2018-10-31 11:30] VITALS: PULSE 88; RESP 19; O2SAT 98
[2020-08-06 04:35] VITALS: BMI 46.5
[2021-01-14] VITALS (10 sets, daily range): BP systolic 128–145; BP diastolic 64–84; PULSE 107–117; RESP 13–27; TEMP 37.2; O2SAT 86–97; BMI 40.0
--- NOTE | 2021-01-14 10:47 | DI.RAD.S_ITS ---
PROCEDURE: XR CHEST 1V INDICATIONS: shortness of breath TECHNIQUE: One view of the chest was acquired. COMPARISON: [facility], CT, CT CHEST W CON, 09/22/2020, 1:19. [facility], CR, XR CHEST 1V, 10/24/2020, 5:20. FINDINGS: Surgical changes and devices: None. Lungs and pleura: Diffuse prominent changes of chronic interstitial pulmonary fibrosis. No pleural effusions or pneumothorax. Mediastinum: Bilateral hilar and subcarinal adenopathy. Heart size is normal. Bones and chest wall: No suspicious bony lesions. Overlying soft tissues appear unremarkable. IMPRESSION: Chronic interstitial pulmonary fibrosis with associated mediastinal adenopathy. Dictated by: Chris Butler M.D. on 01/14/2021 at 10:42 Approved by: Chris Butler M.D. on 01/14/2021 at 10:44
[2021-01-14 11:50] LABS: Add Manual Diff / Slide Review NO; Basophils Absolute Auto 100 /uL (0-100); Basophils Percent Auto 0.9 % (0-2); Eosinophils Absolute Auto 500 /uL (0-450); Lymphocytes Absolute Auto 2500 /uL (1100-4500); Lymphocytes Percent Auto 21.7 % (25-40); Mean Corpuscular HGB Conc 28.9 % (30-36); Mean Corpuscular Hemoglobin 18.6 PG (26-34); Mean Corpuscular Volume 64.3 fL (80-100); Monocytes Absolute Auto 1100 /uL (0-900); Monocytes Percent Auto 9.7 % (3-14); Neutrophils Absolute Auto 7400 /uL (1500-7000); Neutrophils Percent Auto 63.7 % (50-75); Platelet Count 407 X10^3/uL (150-400); Red Blood Cell Count 4.82 X10^6/uL (4.0-5.2); Red Cell Distribution Width 27.2 % (11.6-14.8); White Blood Cell Count 11.7 X10^3/uL (4.5-11.0)
--- NOTE | 2021-01-14 11:57 | DI.RAD.S_ITS ---
PROCEDURE: XR FOOT RT MIN 3V INDICATIONS: heel redness, pain TECHNIQUE: 3 views of the foot were acquired. COMPARISON: None. FINDINGS: Bones: No fractures or dislocations. No suspicious bony lesions. Soft tissues: No tibiotalar joint effusion. Achilles tendon appears normal. IMPRESSION: No evidence acute bony abnormality of the right foot. If clinical suspicion and/or symptoms persist, further assessment with repeat plain films, or advanced imaging (e.g., CT, MRI, or bone scan) may be helpful for further assessment. Dictated by: Chris Butler M.D. on 01/14/2021 at 11:47 Approved by: Chris Butler M.D. on 01/14/2021 at 11:48
--- NOTE | 2021-01-14 12:01 | ED.GENADULT ---
HPI - General Adult General Chief complaint: Shortness of Breath/Dyspnea Stated complaint: left foot numb/right foot hurts on heel, shaking Time Seen by Provider: 01/14/21 11:21 Source: patient and family Mode of arrival: Family Vehicle Limitations: no limitations History of Present Illness HPI narrative: This is a 45-year-old female who comes the emergency department with multiple complaints. Patient states she was not able to obtain her methadone today secondary to having been off her medication for several days and the physician was not available to sign off on it. She also has a history of severe chronic lung disease with bronchiectasis, pulmonary fibrosis which is followed by Dr. Haris Orr at . Patient uses high-flow O2 up to 10 L at her baseline. today patient denies any worsening shortness of breath, chest pain or pressure. She denies any fevers. She has had some nausea and vomiting over the last several days. She denies any current abdominal pain. She states she has been having bowel movements without any black or bloody stools. She has not appreciated any new urinary changes. Patient does note that her heel on her right foot has been erythematous and painful. The area has not been spreading but has been uncomfortable. She does not recall any trauma or injury. She was hospitalized 3 weeks ago for extended period of time but does not recall having any skin breakdown immediately after were or other heel pain. Patient has not had any other rashes. Patient states she has numbness in her left foot when her chronic and she has not had any new changes. He has had intermittent tingling in 1 of her fingers. She had a T-max at home of 100 F. Patient is accompanied by her here today. She states no new medication changes. No other recent surgeries or interventions since her last hospitalization. Related Data Home Medications Medication Instructions Recorded Confirmed albuterol sulfate 1 puff INHALATION BID 10/31/18 10/24/20 tfycrblgju-ckukrvyolzczy-tqwb 1 tab PO BID PRN 10/31/18 10/24/20 dapsone 100 mg PO DAILY 10/31/18 10/24/20 diclofenac sodium 1 applic TOPICAL PRN PRN 10/31/18 10/24/20 fluticasone propion-salmeterol 1 puff INHALATION BID 10/31/18 10/24/20 fluticasone propionate 1 spray INTRANASAL DAILY 10/31/18 10/24/20 hydroxyzine pamoate 50 mg PO DAILY 10/31/18 10/24/20 methadone 190 mg PO DAILY 10/31/18 10/24/20 omeprazole 40 mg PO BID 10/31/18 10/24/20 quetiapine 400 mg PO QPM 10/31/18 10/24/20 Novolin N Flexpen 60 unit SUBCUT QAM 08/06/20 10/24/20 Novolin N NPH U-100 Insulin 15 unit SUBCUT BEDTIME 08/06/20 10/24/20 azithromycin 250 mg PO Q OTHER DAY 08/06/20 10/24/20 benzonatate 100 mg PO BID 08/06/20 10/24/20 loratadine 10 mg PO DAILY 08/06/20 10/24/20 metformin 500 mg PO BID 08/06/20 10/24/20 mirtazapine 30 mg PO BEDTIME 08/06/20 10/24/20 mycophenolate mofetil 1,000 mg PO BID 08/06/20 10/24/20 potassium chloride 10 meq PO DAILY 08/06/20 10/24/20 torsemide 100 mg PO DAILY 08/06/20 10/24/20 Previous Rx's Medication Instructions Recorded ketoconazole 1 applic TOPICAL 3XW #120 ml 08/11/20 levothyroxine 200 mcg PO DAILY #30 tab 08/11/20 meloxicam 7.5 mg PO DAILY #30 tab 08/11/20 prednisone 20 mg PO DAILY #5 tab 08/11/20 pregabalin 50 mg PO BID #60 cap 08/11/20 clindamycin HCl 300 mg PO QID #28 cap 01/14/21 Allergies Allergy/AdvReac Type Severity Reaction Status Date / Time levofloxacin [LEVOFLOXACIN] Allergy Unknown Verified 01/14/21 10:40 Penicillins [PENICILLINS] Allergy Unknown Verified 01/14/21 10:40 Sulfa (Sulfonamide Allergy Unknown Verified 01/14/21 10:40 Antibiotics) [SULFA (SULFONAMIDE ANTIBIOTICS)] trimethoprim [TRIMETHOPRIM] Allergy Unknown Verified 01/14/21 10:40 morphine AdvReac Gastrointestinal Verified 01/14/21 10:40 Upset Review of Systems Review of Systems ROS Unobtainable: All systems reviewed & are unremarkable except as noted in HPI and below Patient History Medical History Diabetes Hypothyroidism (acquired) Interstitial lung disease Opioid use disorder Pulmonary edema Right sided sciatica Surgical History H/O enucleation of right eyeball Family History Mother Adopted Other Ridbg-2-xpvosejmdoq deficiency Social History household members: significant other and other Smoking Status: Former smoker Smoking Status: Former smoker alcohol intake frequency: holidays/special occasions only Substance Use Type: does not use Exam Narrative Exam Narrative: GENERAL: Alert and oriented x three, Female with BMI of 40, patient is on high-flow oxygen which is her normal. HEENT: Head normocephalic, atraumatic, EOMI, pupils reactive, face symmetric, moist mucous membranes, No facial droop. NECK: Supple, full range of motion CARDIOVASCULAR: Regular rate and rhythm without murmurs, rubs or gallops. RESPIRATORY: Breath sounds equal bilaterally, no wheezes rales or rhonchi. ABDOMEN: Soft, nontender. Normoactive bowel sounds all 4 quadrants. No guarding or rebound, rigidity, no mass : No CVA tenderness EXTREMITIES: Normal range of motion, no clubbing. Patient does have some erythema over the posterior heel of her right foot with some tenderness and there does appear to be some ecchymosis as well. No obvious deformity. There is some mild edema at that localized region. It is approximately 3 x 4 cm. Neurovascularly intact. NEUROLOGICAL: Cranial nerves II through XII grossly intact. Moving all extremities with full range of motion. Patient does have a mild fine tremor of her upper extremities. SKIN: Warm, dry, no petechiae, no rashes or lesions. Initial Vital Signs Initial Vital Signs: Vital Signs Temperature 99.0 F 01/14/21 10:40 Pulse Rate 110 H 01/14/21 10:40 Respiratory Rate 26 H 01/14/21 10:40 Blood Pressure 131/78 01/14/21 10:40 Pulse Oximetry 86 L 01/14/21 10:40 Scores GCS [place] coma scale eye opening: Spontaneous [place] coma scale verbal response: Orientated [place] coma scale motor response: Obey commands Jd coma scale total score: 15 Course Orders Ordered: Discontinued Medications Diphenhydramine HCl (Diphenhydramine 50 Mg/Ml Vial) 25 mg IV NOW ONE Stop: 01/14/21 12:38 Last Admin: 01/14/21 12:47 Dose: 25 mg Documented by: BUZZ Ketorolac Tromethamine (Ketorolac 30 Mg/Ml Vial) 15 mg IV NOW ONE Stop: 01/14/21 13:53 Last Admin: 01/14/21 14:26 Dose: 15 mg Documented by: BUZZ Methadone HCl (Methadone Intensol 10 Mg/Ml Oral.Conc) 190 mg PO NOW ONE Stop: 01/14/21 12:01 Last Admin: 01/14/21 12:16 Dose: 190 mg Documented by: BUZZ Reevaluation(s) Reevaluation #1: Patient tolerated oral medications and food from outside facility here in the department. She was given her normal dose of methadone. Time: 14:52 Vital Signs Vital signs: Vital Signs - 8 hr 01/14/21 10:40 01/14/21 10:54 01/14/21 12:26 Temperature 99.0 F Pulse Rate 110 H 110 H 114 H Respiratory Rate 26 H 24 17 Blood Pressure 131/78 131/78 Pulse Oximetry 86 L 96 96 01/14/21 12:30 01/14/21 13:00 01/14/21 13:30 Temperature Pulse Rate 116 H 109 H 117 H Respiratory Rate 16 17 Blood Pressure 138/64 132/66 135/84 Pulse Oximetry 94 95 94 01/14/21 14:00 01/14/21 14:30 Temperature Pulse Rate 108 H 107 H Respiratory Rate 13 25 H Blood Pressure 145/78 H 133/71 Pulse Oximetry 96 94 Medical Decision Making Medical Records Medical records reviewed: Yes I reviewed the patient's medical records. Medical records narrative: Patient records from [facility] were obtained from 3 week hospitalization. Lab Data Lab results reviewed: Yes I reviewed the patient's lab results. Result diagrams: 01/14/21 11:25 01/14/21 11:25 Labs: Lab Results 01/14/21 01/14/21 01/14/21 Range/Units 10:49 11:25 11:25 WBC 11.7 H (4.5-11.0) X10^3/uL RBC 4.82 (4.0-5.2) X10^6/uL Hgb 9.0 L (12.0-16.0) g/dL Hct 31.0 L (36-46) % MCV 64.3 L (80-100) fL MCH 18.6 L (26-34) PG MCHC 28.9 L (30-36) % RDW 27.2 H (11.6-14.8) % Plt Count 407 H (150-400) X10^3/uL Neut % (Auto) 63.7 (50-75) % Lymph % (Auto) 21.7 L (25-40) % Stan[place] % (Auto) 9.7 (3-14) % Eos % (Auto) 4.0 (2-4) % Baso % (Auto) 0.9 (0-2) % Neut # (Auto) 7400 H (2225-2642) /uL Lymph # (Auto) 2500 (1650-1053) /uL Stanly # (Auto) 1100 H (0-900) /uL Eos # (Auto) 500 H (0-450) /uL Baso # (Auto) 100 (0-100) /uL RBC Morphology Not Reportable Polychromasia 1+ H Hypochromasia 3+ H Anisocytosis 3+ H Microcytosis 3+ H Stomatocytes 1+ H Sodium 137 (137-145) mmol/L Potassium 4.0 (3.4-5.1) mmol/L Chloride 93 L (98-107) mmol/L Carbon Dioxide 38 H (22-32) mmol/L BUN 10 (7-17) mg/dL Creatinine 0.56 (0.52-1.04) mg/dL Estimated GFR > 60.0 (>60) mL/min BUN/Creatinine Ratio 17.9 (6-22) Glucose 208 H (70-100) mg/dL Lactate (0.7-2.1) mmol/L Calcium 10.2 (8.4-10.2) mg/dL Total Bilirubin 0.5 (0.2-1.3) mg/dL AST 28 (14-36) IU/L ALT 30 (<35) IU/L Alkaline Phosphatase 107 (38-126) U/L Total Creatine Kinase (30-135) U/L CK-MB (CK-2) CK-MB (CK-2) Rel Index Troponin I (0.01-0.034) ng/mL Total Protein 7.2 (6.3-8.2) g/dL Albumin 4.0 (3.5-5.0) g/dL Globulin 3.2 (1.7-4.1) g/dL Albumin/Globulin Ratio 1.3 (1.0-2.8) SARS-CoV-2 (PCR) Negative (Negative) 01/14/21 01/14/21 Range/Units 11:25 11:25 WBC (4.5-11.0) X10^3/uL RBC (4.0-5.2) X10^6/uL Hgb (12.0-16.0) g/dL Hct (36-46) % MCV (80-100) fL MCH (26-34) PG MCHC (30-36) % RDW (11.6-14.8) % Plt Count (150-400) X10^3/uL Neut % (Auto) (50-75) % Lymph % (Auto) (25-40) % Stan[place] % (Auto) (3-14) % Eos % (Auto) (2-4) % Baso % (Auto) (0-2) % Neut # (Auto) (9857-3613) /uL Lymph # (Auto) (6322-5691) /uL Stanly # (Auto) (0-900) /uL Eos # (Auto) (0-450) /uL Baso # (Auto) (0-100) /uL RBC Morphology Polychromasia Hypochromasia Anisocytosis Microcytosis Stomatocytes Sodium (137-145) mmol/L Potassium (3.4-5.1) mmol/L Chloride (98-107) mmol/L Carbon Dioxide (22-32) mmol/L BUN (7-17) mg/dL Creatinine (0.52-1.04) mg/dL Estimated GFR (>60) mL/min BUN/Creatinine Ratio (6-22) Glucose (70-100) mg/dL Lactate 1.9 (0.7-2.1) mmol/L Calcium (8.4-10.2) mg/dL Total Bilirubin (0.2-1.3) mg/dL AST (14-36) IU/L ALT (<35) IU/L Alkaline Phosphatase (38-126) U/L Total Creatine Kinase 65 (30-135) U/L CK-MB (CK-2) TNP CK-MB (CK-2) Rel Index TNP Troponin I < 0.012 (0.01-0.034) ng/mL Total Protein (6.3-8.2) g/dL Albumin (3.5-5.0) g/dL Globulin (1.7-4.1) g/dL Albumin/Globulin Ratio (1.0-2.8) SARS-CoV-2 (PCR) (Negative) Imaging Data Chest x-ray: Radiologist's Impression: [address] [id number] ReportSigned Patient: Carissa Gallardo RMR#: [id number]: [id number]:[id number]/Sex: 45 / FDate of Service: 01/14/21Loc: EDAccession Number: [id number] Procedure: XR chest 1V Ordering Provider: Bree Fishman D.O. PROCEDURE: XR CHEST 1V INDICATIONS: shortness of breath TECHNIQUE: One view of the chest was acquired. COMPARISON: [facility], CT, CT CHEST W CON, 09/22/2020, 1:19. [facility], CR, XR CHEST 1V, 10/24/2020, 5:20. FINDINGS: Surgical changes and devices: None. Lungs and pleura: Diffuse prominent changes of chronic interstitial pulmonary fibrosis. No pleural effusions or pneumothorax. Mediastinum: Bilateral hilar and subcarinal adenopathy. Heart size is normal. Bones and chest wall: No suspicious bony lesions. Overlying soft tissues appear unremarkable. IMPRESSION: Chronic interstitial pulmonary fibrosis with associated mediastinal adenopathy. Dictated by: Chris Butler M.D. on 01/14/2021 at 10:42 Approved by: Chris Butler M.D. on 01/14/2021 at 10:44 Extremity x-ray #1: Radiologist's Impression: Carissa Gallardo R 45 F [address] [id number] ReportSigned Patient: Carissa Gallardo RMR#: [id number]: [id number]:[id number]/Sex: 45 / FDate of Service: 01/14/21Loc: EDAccession Number: [id number] Procedure: XR foot RT min 3V Ordering Provider: Bree Fishman D.O. PROCEDURE: XR FOOT RT MIN 3V INDICATIONS: heel redness, pain TECHNIQUE: 3 views of the foot were acquired. COMPARISON: None. FINDINGS: Bones: No fractures or dislocations. No suspicious bony lesions. Soft tissues: No tibiotalar joint effusion. Achilles tendon appears normal. IMPRESSION: No evidence acute bony abnormality of the right foot. If clinical suspicion and/or symptoms persist, further assessment with repeat plain films, or advanced imaging (e.g., CT, MRI, or bone scan) may be helpful for further assessment. Dictated by: Chris Butler M.D. on 01/14/2021 at 11:47 Approved by: Chris Butler M.D. on 01/14/2021 at 11:48 ECG Data Attestation: I personally reviewed and interpreted this ECG as follows: Interpretation: Sinus tachycardia rate of 103 TN 150 QRS 80 QTC 440. No acute ST elevation or depression noted. MDM Narrative Medical decision making narrative: This is a 45-year-old female comes emergency department with significant medical issues including bronchiectasis and pulmonary fibrosis and is typically on high-flow oxygen at home 24 hours. She has not had increasing oxygen requirements. She does not seem to have any respiratory complaints today. Her main concern today is that she was not able to get her methadone 190 mg. patient states that she was nauseated and throwing up the last several days and that she did not go to get her methadone. She states she went today and was told by the nursing staff that they would have to contact the physician before they could distribute her methadone. Patient also notes that her right heel has been erythematous and uncomfortable and not spreading but is tender to touch. pressure ulcer or wound from her hospitalization was entertained as a possible diagnosis but it just began shortly and she is 3 weeks out from her stay so this seems less likely skin changes or localized just to the heel, x-ray was negative and discussed with patient there may be a component of action so was started on oral antibiotic. Patient was encouraged to return if not improving or worsening. Patient requested prescription for methadone but was told she needed to follow-up with her methadone provider. She states that they are not open tomorrow and will miss her dose and states that they typically get a lock box with her medications for the week. Patient states she had missed her last 3 doses And the exact course of events is unclear as to why she did not have available she typically brings them home a week at a time. as she has missed at least 3 days worth of her medication we discussed there may be a component of withdrawal to her symptoms. labs were otherwise reassuring, chest x-ray and EKG did not show any acute changes. Patient's vitals have been appropriate here in the department and she has been her usual amount of oxygen. Abdominal exam was reassuring, her labs show an elevated glucose but otherwise no significant changes and patient was eating and taking oral medications here in the department. Discharge Plan Departure Patient Disposition: Home Clinical Impression: Cellulitis of foot Instructions: DI for Cellulitis -- Adult Activity Restrictions/Additional Instructions: Follow up with your methadone clinic to get back on your regular medication dose and regimen. Some of your symptoms may be related with withdrawls if you have been off your medication for several days. You may continue your other home medications as prescribed. I do appreciate the changes on your heel, this may be infection verses injury and I would cover you with a short course of antibiotics but the x-ray itself is normal today. Please return for fevers, new difficulty with breathing, chest pain or shortness of breath, persistent vomiting, black or bloody stools, increasing redness, swelling of your foot, signs of an infection extending up your leg or other new or concerning symptoms. Prescriptions: New clindamycin HCl 300 mg capsule 300 mg PO QID Qty: 28 RF: 0 No Action azithromycin 250 mg tablet 250 mg PO Q OTHER DAY RF: 0 Novolin N NPH U-100 Insulin 100 unit/mL suspension 15 unit SUBCUT BEDTIME RF: 0 metformin 500 mg tablet extended release 24 hr 500 mg PO BID RF: 0 Novolin N Flexpen 100 unit/mL (3 mL) insulin pen 60 unit SUBCUT QAM RF: 0 benzonatate 100 mg Capsule 100 mg PO BID RF: 0 loratadine 10 mg Tablet 10 mg PO DAILY RF: 0 mycophenolate mofetil 500 mg Tablet 1,000 mg PO BID RF: 0 potassium chloride 10 mEq Tablet Extended Release 10 meq PO DAILY RF: 0 mirtazapine 30 mg Tablet 30 mg PO BEDTIME RF: 0 torsemide 100 mg Tablet 100 mg PO DAILY RF: 0 prednisone 20 mg tablet 20 mg PO DAILY Qty: 5 RF: 0 pregabalin 50 mg capsule 50 mg PO BID Qty: 60 RF: 0 levothyroxine 200 mcg tablet 200 mcg PO DAILY Qty: 30 RF: 0 meloxicam 7.5 mg tablet 7.5 mg PO DAILY Qty: 30 RF: 0 ketoconazole 2 % shampoo 1 applic topical 3XW Qty: 120 RF: 0 fluticasone propion-salmeterol 250-50 mcg/dose blister with device 1 puff Inhalation BID RF: 0 quetiapine 300 mg tablet 400 mg PO QPM RF: 0 hydroxyzine pamoate 50 mg capsule 50 mg PO DAILY RF: 0 omeprazole 40 mg capsule,delayed release(DR/EC) 40 mg PO BID RF: 0 nbawbcboer-ztxgrxbizoiwr-edby 50-325-40 mg tablet 1 tab PO BID PRN (Reason: headache) RF: 0 dapsone 100 mg tablet 100 mg PO DAILY RF: 0 albuterol sulfate 90 mcg/actuation HFA aerosol inhaler 1 puff Inhalation BID RF: 0 fluticasone propionate 50 mcg/actuation spray,suspension 1 spray Intranasal DAILY RF: 0 diclofenac sodium 1 % gel 1 applic topical PRN PRN (Reason: pain) RF: 0 methadone 10 mg Tablet 190 mg PO DAILY RF: 0 Referrals: Alex Montoya MD [Primary Care Provider] -
[2021-01-14 12:02] LABS: Creatine Kinase 65 U/L (30-135)
[2021-01-14 12:04] LABS: Alanine Aminotransferase 30 IU/L (<35); Albumin Globulin Ratio 1.3 (1.0-2.8); Alkaline Phosphatase 107 U/L (38-126); Aspartate Aminotransferase 28 IU/L (14-36); BUN Creatinine Ratio 17.9 (6-22); Bilirubin Total 0.5 mg/dL (0.2-1.3); Blood Urea Nitrogen 10 mg/dL (7-17); Calcium 10.2 mg/dL (8.4-10.2); Carbon Dioxide 38 mmol/L (22-32); Chloride 93 mmol/L (98-107); Estimated Glomerular Filt Rate > 60.0 mL/min (>60); Globulin 3.2 g/dL (1.7-4.1); Glucose 208 mg/dL (70-100); HEMOLYSIS < 15 (0-50); Sodium 137 mmol/L (137-145); Total Protein 7.2 g/dL (6.3-8.2)
[2021-01-14 12:15] LABS: Lactate (Lactic Acid) 1.9 mmol/L (0.7-2.1); Troponin I < 0.012 ng/mL (0.01-0.034)
[2021-01-14] MEDS: METHADONE INTENSOL 10 MG/ML ORAL.CONC 190 MG PO (12:16)
[2021-01-14 12:40] LABS: COVID19 - ADMIT (NP swab/PCR) Negative (Negative)
[2021-01-14] MEDS: diphenhydrAMINE 50 MG/ML VIAL 25 MG IV (12:47)
[2021-01-14 13:24] LABS: Anisocytosis 3+; Hypochromasia 3+; Microcytosis 3+
[2021-01-14 13:25] LABS: Polychromasia 1+; Stomatocytes 1+
[2021-01-14] MEDS: KETOROLAC 30 MG/ML VIAL 15 MG IV (14:26)
[2021-01-15 11:14] LABS: Acinetobacter baumannii Not Detected (Not Detect); Candida albicans Not Detected (Not Detect); Candida glabrata Not Detected (Not Detect); Candida krusei Not Detected (Not Detect); Candida parapsilosis Not Detected (Not Detect); Candida tropicalis Not Detected (Not Detect); E. coli Not Detected (Not Detect); Enterobacter cloacae complex Not Detected (Not Detect); Enterobacteriaceae species Not Detected (Not Detect); Enterococcus species Not Detected (Not Detect); Haemophilus influenzae Not Detected (Not Detect); Listeria monocytogenes Not Detected (Not Detect); Methicillin-resistant gene Detected (Not Detect); Neisseria meningitidis Not Detected (Not Detect); Proteus species Not Detected (Not Detect); Pseudomonas aeruginosa Not Detected (Not Detect); Serratia marcescens Not Detected (Not Detect); Staphylococcus species Detected (Not Detect); Streptococcus agalactiae (Gr B Not Detected (Not Detect); Streptococcus pneumonia Not Detected (Not Detect); Streptococcus pyogenes (Gr A) Not Detected (Not Detect); Streptococcus species Not Detected (Not Detect)
== END 2021-01-14 15:21 | disposition home or self-care (01) ==
PROVIDERS: Emergency Provider Emergency Medicine; Family Provider Anesthesiology Pain Medicine; PCP Internal Medicine
DX: L03.115 Cellulitis of right lower limb (principal); R06.02 Shortness of breath; R20.2 Paresthesia of skin; Z20.822 Contact with and (suspected) exposure to COVID-19
CPT/HCPCS: 36415; 71045; 73630; 80053; 82550; 83605; 84484; 85025; 87040; 87150; 87205; 87635; 93005; 93010; 96374; 96375; 99285; C9803; J1200; J1885

== ENCOUNTER 2021-07-08 20:59 | Inpatient (IN) | payer MEDICARE, MEDICAID, SELFPAY ==
[2018-10-31 11:30] VITALS: PULSE 88; RESP 19; O2SAT 98
[2020-08-06 04:35] VITALS: BMI 46.5
[2021-07-08] VITALS (10 sets, daily range): BP systolic 126–188; BP diastolic 78–104; PULSE 86–114; RESP 8–24; TEMP 36.7–37.1; O2SAT 87–98; BMI 43.2
--- NOTE | 2021-07-08 21:19 | DI.RAD.S_ITS ---
PROCEDURE: XR CHEST 1V INDICATIONS: chest pain TECHNIQUE: One view of the chest was acquired. COMPARISON: [facility], CR, XR CHEST 1V, 01/14/2021, 11:05. FINDINGS: Surgical changes and devices: None. Lungs and pleura: Bilateral lung interstitial prominence not significantly changed compared to January 14, 2021. Small focal opacity noted in the right upper lobe. No pleural effusions or pneumothorax. Mediastinum: Mediastinal contours appear normal. Heart size is normal. Bones and chest wall: No suspicious bony lesions. Overlying soft tissues appear unremarkable. IMPRESSION: Chronic interstitial lung disease. New small focal opacity in the right upper lobe which could represent atelectasis or pneumonia. Dictated by: Cece Schultz MD, PhD on 07/08/2021 at 21:49 Approved by: Cece Schultz MD, PhD on 07/08/2021 at 21:49
[2021-07-08 21:28] LABS: COVID19 -Nasal RAPID Negative (Negative)
[2021-07-08 21:42] LABS: Basophils Absolute Auto 300 /uL (0-100); Basophils Percent Auto 1.7 % (0-2); Eosinophils Absolute Auto 200 /uL (0-450); Eosinophils Percent Auto 0.9 % (2-4); Hematocrit 33.5 % (36-46); Hemoglobin 10.2 g/dL (12.0-16.0); Lymphocytes Absolute Auto 4800 /uL (1100-4500); Lymphocytes Percent Auto 23.3 % (25-40); Mean Corpuscular HGB Conc 30.4 % (30-36); Mean Corpuscular Hemoglobin 20.9 PG (26-34); Mean Corpuscular Volume 68.7 fL (80-100); Monocytes Absolute Auto 1600 /uL (0-900); Monocytes Percent Auto 7.9 % (3-14); Neutrophils Absolute Auto 13700 /uL (1500-7000); Neutrophils Percent Auto 66.2 % (50-75); Platelet Count 605 X10^3/uL (150-400); Red Blood Cell Count 4.87 X10^6/uL (4.0-5.2); Red Cell Distribution Width 22.3 % (11.6-14.8); White Blood Cell Count 20.6 X10^3/uL (4.5-11.0)
[2021-07-08 21:44] LABS: Add Manual Diff / Slide Review SLIDE REVIEW
--- NOTE | 2021-07-08 21:47 | ED.ALLEREA ---
HPI - Allergic Reaction General Chief complaint: Allergic Reaction Stated complaint: BI HANDS/FACE SWOLLEN AND PAINFUL Time Seen by Provider: 07/08/21 21:21 Source: patient Mode of arrival: Wheelchair Limitations: no limitations History of Present Illness HPI narrative: This is a 46-year-old female with severe interstitial pulmonary disease, patient is on home O2 up to 10 L frequently and is followed by pulmonology with Dr. Orr at [facility]. Patient also has a history of diabetes, hypothyroidism and opioid use disorder. She presents today with complaint of swelling of her face and hands. Patient states she has not had any fevers. She states she has had discomfort of her upper back and some redness intermittently but has been worsening over the last several days. She does have some scabs and excoriation in her posterior scalp. She has also had swelling of her ear and eye and face. When she appreciate swelling of both upper extremities. Patient states that the swelling for upper extremities has been intermittent over several weeks. She denies any swelling of her lower extremities. She denies any swelling of her lips, tongue or oropharynx. She has had some pain in between her back between the shoulder blades for several days. She has not had any fevers or chills but describes night sweats for the last 3 or 4 days soaking through her clothes. She denies any increasing shortness of breath or cough. She has not had increasing oxygen requirements. She has had some nausea today but no vomiting. She has been constipated but having bowel movements. She has not been started on any new medications recently. They states that they have had a better time controlling her glucose. She did have a prolonged hospitalization with intubation in the past. Related Data Home Medications Medication Instructions Recorded Confirmed albuterol sulfate 90 mcg/actuation 1 puff INHALATION BID 10/31/18 07/09/21 aerosol inhaler [id number] 1 tab PO BID PRN 10/31/18 07/09/21 50 mg-325 mg-40 mg tablet dapsone 100 mg tablet 100 mg PO DAILY 10/31/18 07/09/21 diclofenac sodium 1 % topical gel 1 applic TOPICAL PRN PRN 10/31/18 07/09/21 fluticasone 250 mcg-salmeterol 50 1 puff INHALATION BID 10/31/18 07/09/21 mcg/dose blistr powdr for inhalation fluticasone propionate 50 1 spray INTRANASAL DAILY 10/31/18 07/09/21 mcg/actuation nasal spray,suspension hydroxyzine pamoate 50 mg capsule 50 mg PO DAILY 10/31/18 07/09/21 methadone 10 mg tablet 190 mg PO DAILY 10/31/18 07/09/21 omeprazole 40 mg capsule,delayed 40 mg PO BID 10/31/18 07/09/21 release quetiapine 300 mg tablet 400 mg PO QPM 10/31/18 07/09/21 azithromycin 250 mg tablet 250 mg PO Q OTHER DAY 08/06/20 07/09/21 insulin NPH isoph U-100 human 100 60 unit SUBCUT QAM 08/06/20 07/09/21 unit/mL (3 mL) subcutaneous pen (Novolin N Flexpen) insulin NPH isoph U-100 human 100 15 unit SUBCUT BEDTIME 08/06/20 07/09/21 unit/mL subcutaneous suspension (Novolin N NPH U-100 Insulin isophane) loratadine 10 mg tablet 10 mg PO DAILY 08/06/20 07/09/21 mirtazapine 30 mg tablet 30 mg PO BEDTIME 08/06/20 07/09/21 mycophenolate mofetil 500 mg tablet 1,000 mg PO BID 08/06/20 07/09/21 torsemide 100 mg tablet 100 mg PO DAILY 08/06/20 07/09/21 prednisone 20 mg tablet 50 mg PO DAILY 07/09/21 07/09/21 pregabalin 50 mg capsule 150 mg PO BID 07/09/21 07/09/21 tizanidine 4 mg tablet 8 mg PO TID 07/09/21 07/09/21 Previous Rx's Medication Instructions Recorded ketoconazole 2 % shampoo 1 applic TOPICAL 3XW #120 ml 08/11/20 levothyroxine 200 mcg tablet 200 mcg PO DAILY #30 tab 08/11/20 Allergies Allergy/AdvReac Type Severity Reaction Status Date / Time levofloxacin [LEVOFLOXACIN] Allergy Unknown Verified 07/08/21 21:31 Penicillins [PENICILLINS] Allergy Unknown Verified 07/08/21 21:31 Sulfa (Sulfonamide Allergy Unknown Verified 07/08/21 21:31 Antibiotics) [SULFA (SULFONAMIDE ANTIBIOTICS)] trimethoprim [TRIMETHOPRIM] Allergy Unknown Verified 07/08/21 21:31 morphine AdvReac Gastrointestinal Verified 07/08/21 21:31 Upset Review of Systems Review of Systems ROS Unobtainable: All systems reviewed & are unremarkable except as noted in HPI and below Patient History Medical History Diabetes Hypothyroidism (acquired) Interstitial lung disease Opioid use disorder Pulmonary edema Right sided sciatica Surgical History H/O enucleation of right eyeball Family History Mother Adopted Other Etgae-[id number]-gcsktvawgki deficiency Social History household members: significant other and other Smoking Status: Former smoker alcohol intake: former Smoking Status: Former smoker alcohol intake frequency: holidays/special occasions only Substance Use Type: does not use Exam Narrative Exam Narrative: GEN: well nourished, well appearing female, alert and oriented x 3, patient appears to be in mild distress. HEENT: Atraumatic, pupils are equal round reactive to light on left, right eye enucleation, left movements are intact, nares are clear, TMs are clear with no fluid, there is erythema and swelling of the left pinna and neck wrapping around to her posterior neck and her upper back, the skin is warm and hot to the touch, there is no obvious fluid collection or fluctuance. She does have some mild skin breakdown in the lower hairline with excoriation but no obvious fluid collections or drainage from these areas. There is no conjunctival pallor. Throat is clear without any exudates, erythema, tonsillar enlargement or uvular deviation. Swelling of lips, tongue or oropharynx. No ulcerations. HEART: Regular rate (93) and rhythm without murmur, clicks, rubs. Patient has some mild swelling bilateral upper extremities. Not appreciable in lower extremities. LUNGS:Lungs clear to auscultation, no wheezes, rales, crackles, chest moves symmetrically, no tachypnea accessory muscle use. ABD:bowel sounds normal, soft, non-tender, no guarding, rebound, rigidity, no masses noted, no hepatosplenomegaly :No CVA tenderness BACK: No cervical, thoracic or lumbar vertebral point tenderness. Patient does have discomfort over her upper back in the thoracic region with erythema extending bilaterally over her posterior thoracic region which is warm and hot to the touch. Slightly decreased range of motion. Patient has full range of motion of bilateral upper extremities. She is able to roll over and move with minimal issue. MSCL: Non-tender, no muscle atrophy, muscles strength 5/5 upper and lower extremities, full range of motion NEURO:CN 2-12 intact, sensation normal SKIN: see above. Initial Vital Signs Initial Vital Signs: Vital Signs Temperature 98.0 F 07/08/21 21:01 Pulse Rate 114 H 07/08/21 21:01 Respiratory Rate 24 07/08/21 21:01 Blood Pressure 176/104 H 07/08/21 21:01 Pulse Oximetry 98 07/08/21 21:01 Course Orders Ordered: ED Orders 07/08/21 22:35 Blood Culture Stat 07/08/21 22:54 COVID19 - ADMIT (PRINCIPAL ARCHAEOLOGIST swab/PCR) Stat Acetaminophen (Acetaminophen 325 Mg Tablet) 650 mg PO Q6HR PRN PRN Reason: Fever/Mild Pain (1-3) Albuterol (Albuterol 2.5 Mg/3 Ml Neb (Adult)) 2.5 mg INH Q4HRWA SCOTTY Albuterol (Albuterol 2.5 Mg/3 Ml Neb (Adult)) 2.5 mg INH Q2H PRN PRN Reason: Shortness Of Breath Azithromycin (Azithromycin 250 Mg Tablet) 250 mg PO QOD SCOTTY Budesonide (Budesonide 0.5 Mg/2 Ml Neb) 0.5 mg INH RTBID SCOTTY Dapsone (Dapsone 100 Mg Tablet) 100 mg PO DAILY SCOTTY Dextrose (Dextrose 50 % In Water 25 Gm/50 Ml Syringe) 25 gm IV PRN PRN PRN Reason: Hypoglycemia Heparin Sodium (Porcine) (Heparin 5,000 Unit/Ml Vial) 5,000 unit SUBCUT BID SCOTTY Hydromorphone HCl (Hydromorphone 0.5 Mg Inj) 0.5 mg IV Q2H PRN PRN Reason: Pain, Moderate (4-6) Last Admin: 07/09/21 05:33 Dose: 0.5 mg Documented by: Admin: 07/09/21 03:26 Dose: 0.5 mg Documented by: Admin: 07/09/21 01:51 Dose: 0.5 mg Documented by: TONY Vancomycin HCl/Dextrose (Vancomycin) 2,000 mg in 400 mls @ 200 mls/hr IV Q12H SCOTTY Aztreonam 1 gm/ Dextrose 50 mls @ 100 mls/hr IV Q8H SCOTTY Last Admin: 07/09/21 02:48 Dose: 100 mls/hr Documented by: TAYLOR Sodium Chloride (Normal Saline 0.9%) 1,000 mls @ 100 mls/hr IV CONT [facility] Last Admin: 07/09/21 02:48 Dose: 100 mls/hr Documented by: TAYLOR Insulin Human Lispro (Insulin Lispro 100 Unit/Ml 3ml Vial) 0 unit SUBCUT ACHS SCOTTY; Protocol Insulin Human NPH (Insulin Nph 100 Unit/Ml Vial) 15 unit SUBCUT BEDTIME SCOTTY Insulin Human NPH (Insulin Nph 100 Unit/Ml Vial) 60 unit SUBCUT DAILY [facility] Levothyroxine Sodium (Levothyroxine 100 Mcg Tablet) 200 mcg PO 0600 [facility] Last Admin: 07/09/21 06:18 Dose: 200 mcg Documented by: TAYLOR Methadone HCl (Methadone 10 Mg Tablet) 190 mg PO DAILY [facility] Mirtazapine (Mirtazapine 15 Mg Tablet) 30 mg PO BEDTIME [facility] Mycophenolate Mofetil (Mycophenolate Mofetil 500 Mg Tablet) 1,000 mg PO BID [facility] Ondansetron HCl (Ondansetron 4 Mg/2 Ml Inj) 4 mg IV Q6HR PRN PRN Reason: Nausea And Vomiting Last Admin: 07/09/21 06:19 Dose: 4 mg Documented by: Admin: 07/09/21 01:51 Dose: 4 mg Documented by: TONY Oxycodone HCl (Oxycodone Ir 5 Mg Tablet) 5 mg PO Q6HR PRN PRN Reason: Pain, Moderate (4-6) Last Admin: 07/09/21 04:15 Dose: 5 mg Documented by: TAYLOR Prednisone (Prednisone 20 Mg Tablet) 50 mg PO DAILY [facility] Pregabalin (Pregabalin 50 Mg Capsule) 150 mg PO BID [facility] Quetiapine Fumarate (Quetiapine 100 Mg Tablet) 400 mg PO QPM [facility] Tizanidine HCl (Tizanidine 4 Mg Tablet) 8 mg PO TID [facility] Discontinued Medications Acetaminophen (Acetaminophen 325 Mg Tablet) 975 mg PO NOW ONE Stop: 07/09/21 00:01 Last Admin: 07/09/21 00:06 Dose: 975 mg Documented by: STEVE Hydromorphone HCl (Hydromorphone 0.5 Mg Inj) 0.5 mg IV NOW ONE Stop: 07/08/21 22:38 Last Admin: 07/08/21 22:48 Dose: 0.5 mg Documented by: STEVE Hydromorphone HCl (Hydromorphone 0.5 Mg Inj) 0.5 mg IV NOW ONE Stop: 07/08/21 23:36 Last Admin: 07/08/21 23:47 Dose: 0.5 mg Documented by: STEVE Clindamycin Phosphate (Cleocin) 900 mg in 50 mls @ 50 mls/hr IV NOW ONE Stop: 07/08/21 23:07 Last Infusion: 07/08/21 23:32 Dose: 0 mls/hr Documented by: Admin: 07/08/21 22:18 Dose: 50 mls/hr Documented by: STEVE Vancomycin HCl/Dextrose (Vancomycin) 1,500 mg in 300 mls @ 200 mls/hr IV NOW ONE Stop: 07/08/21 23:36 Last Infusion: 07/09/21 01:51 Dose: 0 mls/hr Documented by: Admin: 07/08/21 23:31 Dose: 200 mls/hr Documented by: STEVE Sodium Chloride (Normal Saline 0.9%) 1,000 mls @ 1,000 mls/hr IV BOLUS ONE Stop: 07/08/21 23:13 Last Infusion: 07/09/21 03:14 Dose: 0 mls/hr Documented by: Admin: 07/08/21 22:18 Dose: 1,000 mls/hr Documented by: STEVE Vancomycin HCl (Vancomycin) 1,000 mg in 200 mls @ 200 mls/hr IV NOW ONE Stop: 07/08/21 23:59 Last Infusion: 07/09/21 02:14 Dose: 0 mls/hr Documented by: Admin: 07/09/21 01:08 Dose: 200 mls/hr Documented by: STEVE Sodium Chloride (Normal Saline 0.9%) 1,000 mls @ 1,000 mls/hr IV BOLUS ONE Stop: 07/09/21 00:35 Last Admin: 07/09/21 03:14 Dose: Not Given Documented by: TAYLOR Non-Formulary Medication (Fluticasone Propion-Salmeterol) 1 puff INHALATION BID SCOTTY Non-Formulary Medication (Insulin Nph Isoph U-100 Human [Novolin N Flexpen]) 60 unit SUBCUT QAM SCOTTY Ondansetron HCl (Ondansetron 4 Mg/2 Ml Inj) 4 mg IV NOW ONE Stop: 07/08/21 22:44 Last Admin: 07/08/21 22:48 Dose: 4 mg Documented by: STEVE Ondansetron HCl (Ondansetron 4 Mg/2 Ml Inj) 4 mg IV Q8HR PRN PRN Reason: Nausea And Vomiting Vancomycin HCl (Vancomycin Per Pharmacy) 1 request MISC NOW ONE Stop: 07/09/21 01:53 Reevaluation(s) Reevaluation #1: Patient pain improved but still present. Patient given additional pain medication. Has not had worsening symptoms here in the department. Consultations Consultation #1: Dr. Ledesma, hospitalist. Accepts for admission. Discussion about cellulitis/sepsis although the pattern is somewhat atypical. was discussion about transfer, Dr. Ledesma spoke with tele-bellows tester and also contacted [facility] did discuss with rheumatology but they were not available. Patient was transferred upstairs. Vital Signs Vital signs: Vital Signs - 8 hr 07/08/21 23:00 07/08/21 23:30 Pulse Rate 92 H 88 Respiratory Rate 9 L 15 Blood Pressure 148/92 H 136/92 H Pulse Oximetry 98 95 MDM - Allergic Reaction Lab Data Result diagrams: 07/08/21 21:28 07/08/21 21:28 Labs: Lab Results 07/08/21 07/08/21 07/08/21 Range/Units 21:08 21:28 21:28 WBC 20.6 H (4.5-11.0) X10^3/uL RBC 4.87 (4.0-5.2) X10^6/uL Hgb 10.2 L (12.0-16.0) g/dL Hct 33.5 L (36-46) % MCV 68.7 L (80-100) fL MCH 20.9 L (26-34) PG MCHC 30.4 (30-36) % RDW 22.3 H (11.6-14.8) % Plt Count 605 H (150-400) X10^3/uL Neut % (Auto) 66.2 (50-75) % Lymph % (Auto) 23.3 L (25-40) % Bryan % (Auto) 7.9 (3-14) % Eos % (Auto) 0.9 L (2-4) % Baso % (Auto) 1.7 (0-2) % Neut # (Auto) 85011 H (9162-7865) /uL Lymph # (Auto) 4800 H (6951-4728) /uL Bryan # (Auto) 1600 H (0-900) /uL Eos # (Auto) 200 (0-450) /uL Baso # (Auto) 300 H (0-100) /uL RBC Morphology See below Polychromasia 1+ H Hypochromasia 1+ H Anisocytosis 3+ H Microcytosis 1+ H Sodium 142 (137-145) mmol/L Potassium 4.8 (3.4-5.1) mmol/L Chloride 90 L (98-107) mmol/L Carbon Dioxide 38 H (22-32) mmol/L BUN 24 H (7-17) mg/dL Creatinine 1.20 H (0.52-1.04) mg/dL Estimated GFR 48.6 L (>60) mL/min BUN/Creatinine Ratio 20.0 (6-22) Glucose 207 H (70-100) mg/dL Lactate (0.7-2.1) mmol/L Calcium 10.3 H (8.4-10.2) mg/dL Magnesium 2.4 H (1.6-2.3) mg/dL Total Bilirubin 0.6 (0.2-1.3) mg/dL AST 65 H (14-36) IU/L ALT 39 H (<35) IU/L Alkaline Phosphatase 89 (38-126) U/L Total Creatine Kinase 799 H (30-135) U/L CK-MB (CK-2) 8.31 H (<2.37) ng/mL CK-MB (CK-2) Rel Index 1.0 L (1.5-5.0) % Troponin I < 0.012 (0.01-0.034) ng/mL C-Reactive Protein (<1.0) mg/dL NT-Pro-B Natriuret Pep (<125) pg/mL Total Protein 10.2 H* (6.3-8.2) g/dL Albumin 5.2 H (3.5-5.0) g/dL Globulin 5.0 H (1.7-4.1) g/dL Albumin/Globulin Ratio 1.0 (1.0-2.8) Lipase 32 (23-300) U/L Procalcitonin (<0.5) ng/mL SARS-CoV-2 (PCR) Negative (Negative) 07/08/21 07/08/21 07/08/21 Range/Units 21:28 21:28 21:28 WBC (4.5-11.0) X10^3/uL RBC (4.0-5.2) X10^6/uL Hgb (12.0-16.0) g/dL Hct (36-46) % MCV (80-100) fL MCH (26-34) PG MCHC (30-36) % RDW (11.6-14.8) % Plt Count (150-400) X10^3/uL Neut % (Auto) (50-75) % Lymph % (Auto) (25-40) % Bryan % (Auto) (3-14) % Eos % (Auto) (2-4) % Baso % (Auto) (0-2) % Neut # (Auto) (6732-2790) /uL Lymph # (Auto) (4736-6335) /uL Bryan # (Auto) (0-900) /uL Eos # (Auto) (0-450) /uL Baso # (Auto) (0-100) /uL RBC Morphology Polychromasia Hypochromasia Anisocytosis Microcytosis Sodium (137-145) mmol/L Potassium (3.4-5.1) mmol/L Chloride (98-107) mmol/L Carbon Dioxide (22-32) mmol/L BUN (7-17) mg/dL Creatinine (0.52-1.04) mg/dL Estimated GFR (>60) mL/min BUN/Creatinine Ratio (6-22) Glucose (70-100) mg/dL Lactate 3.8 H (0.7-2.1) mmol/L Calcium (8.4-10.2) mg/dL Magnesium (1.6-2.3) mg/dL Total Bilirubin (0.2-1.3) mg/dL AST (14-36) IU/L ALT (<35) IU/L Alkaline Phosphatase (38-126) U/L Total Creatine Kinase (30-135) U/L CK-MB (CK-2) (<2.37) ng/mL CK-MB (CK-2) Rel Index (1.5-5.0) % Troponin I (0.01-0.034) ng/mL C-Reactive Protein (<1.0) mg/dL NT-Pro-B Natriuret Pep 123 (<125) pg/mL Total Protein (6.3-8.2) g/dL Albumin (3.5-5.0) g/dL Globulin (1.7-4.1) g/dL Albumin/Globulin Ratio (1.0-2.8) Lipase (23-300) U/L Procalcitonin 0.07 (<0.5) ng/mL SARS-CoV-2 (PCR) (Negative) 07/08/21 07/08/21 Range/Units 21:28 22:54 WBC (4.5-11.0) X10^3/uL RBC (4.0-5.2) X10^6/uL Hgb (12.0-16.0) g/dL Hct (36-46) % MCV (80-100) fL MCH (26-34) PG MCHC (30-36) % RDW (11.6-14.8) % Plt Count (150-400) X10^3/uL Neut % (Auto) (50-75) % Lymph % (Auto) (25-40) % Bryan % (Auto) (3-14) % Eos % (Auto) (2-4) % Baso % (Auto) (0-2) % Neut # (Auto) (2910-4191) /uL Lymph # (Auto) (6915-2447) /uL Bryan # (Auto) (0-900) /uL Eos # (Auto) (0-450) /uL Baso # (Auto) (0-100) /uL RBC Morphology Polychromasia Hypochromasia Anisocytosis Microcytosis Sodium (137-145) mmol/L Potassium (3.4-5.1) mmol/L Chloride (98-107) mmol/L Carbon Dioxide (22-32) mmol/L BUN (7-17) mg/dL Creatinine (0.52-1.04) mg/dL Estimated GFR (>60) mL/min BUN/Creatinine Ratio (6-22) Glucose (70-100) mg/dL Lactate (0.7-2.1) mmol/L Calcium (8.4-10.2) mg/dL Magnesium (1.6-2.3) mg/dL Total Bilirubin (0.2-1.3) mg/dL AST (14-36) IU/L ALT (<35) IU/L Alkaline Phosphatase (38-126) U/L Total Creatine Kinase (30-135) U/L CK-MB (CK-2) (<2.37) ng/mL CK-MB (CK-2) Rel Index (1.5-5.0) % Troponin I (0.01-0.034) ng/mL C-Reactive Protein 1.1 H (<1.0) mg/dL NT-Pro-B Natriuret Pep (<125) pg/mL Total Protein (6.3-8.2) g/dL Albumin (3.5-5.0) g/dL Globulin (1.7-4.1) g/dL Albumin/Globulin Ratio (1.0-2.8) Lipase (23-300) U/L Procalcitonin (<0.5) ng/mL SARS-CoV-2 (PCR) Negative (Negative) Imaging Data Chest x-ray: Radiologist's Impression: [address] [address] XRay Report Signed Patient: Carissa Gallardo MR#: [id number] : 1975 Acct:[id number] Age/Sex: 46 / F Date of Service: 07/08/21 Loc: ED Accession Number: [id number] ?? Procedure: XR chest 1V Ordering Provider: Bree Fishman D.O. PROCEDURE:? XR CHEST 1V ? INDICATIONS:? chest pain ? TECHNIQUE:? One view of the chest was acquired.? ? COMPARISON:? [facility], CR, XR CHEST 1V, 01/14/2021, 11:05. ? FINDINGS:? ? Surgical changes and devices:? None.? ? Lungs and pleura:? Bilateral lung interstitial prominence not significantly changed compared to January 14, 2021. Small focal opacity noted in the right upper lobe.? No pleural effusions or pneumothorax.? ? Mediastinum:? Mediastinal contours appear normal.? Heart size is normal.? ? Bones and chest wall:? No suspicious bony lesions.? Overlying soft tissues appear unremarkable.? ? IMPRESSION:? Chronic interstitial lung disease.? New small focal opacity in the right upper lobe which could represent atelectasis or pneumonia. ? ? Dictated by: Cece Schultz MD, PhD on 07/08/2021 at 21:49 ? ? Approved by: Cece Schultz MD, PhD on 07/08/2021 at 21:49? ECG Data Attestation: I personally reviewed and interpreted this ECG as follows: Prior ECG tracings: available for review Interpretation: Rate of 88 CA 176 QRS of 90 with QTC of 435. Patient appears have sinus rhythm with occasional PVCs. Nonspecific change but no acute ST changes in comparison to 01/14/2021 EKG. MDM Narrative Medical decision making narrative: This is a 46-year-old female with complex medical history with known interstitial lung disease who comes in with complaint of bilateral thoracic shoulder pain, swelling of her face and hands. Patient does appear to have would looks like a cellulitis extending from her upper thoracic back around her neck her left cheek. She does not have any warmth or erythema or hands but they do appear slightly swollen. Labs suggest infectious source but pattern is somewhat atypical although she has excoriations and open wounds in her posterior scalp which would it be a potential source. Patient was started on IV antibiotics. She has significant lung disease and is typically on higher levels of oxygen but has not been requiring additional O2 and does not feel short of breath or appear to have a pulmonary involvement at this time. She did have an elevated lactate, she has been tachycardic with a leukocytosis and meet septic criteria. Because of her medical issues did not feel it was appropriate to give her 30 cc/kilos bolus. This was also discussed with the hospitalist who agrees. Her lactate was improving with fluids. Dr. Tristin Francois 0 kindly accepts for admission after evaluation here in the department. Discharge Plan Departure Patient Disposition: Admitted As Inpatient Clinical Impression: Cellulitis of upper back excluding scapular region, Cellulitis of neck, Cellulitis of cheek, Sepsis Admit Date/Time: 07/08/21 23:55 Admit Provider: Luis A Ledesma
[2021-07-08 21:49] LABS: Alanine Aminotransferase 39 IU/L (<35); Albumin 5.2 g/dL (3.5-5.0); Alkaline Phosphatase 89 U/L (38-126); Bilirubin Total 0.6 mg/dL (0.2-1.3); Blood Urea Nitrogen 24 mg/dL (7-17); Calcium 10.3 mg/dL (8.4-10.2); Chloride 90 mmol/L (98-107); Creatine Kinase 799 U/L (30-135); Estimated Glomerular Filt Rate 48.6 mL/min (>60); Glucose 207 mg/dL (70-100); Lipase 32 U/L (23-300); Magnesium 2.4 mg/dL (1.6-2.3); Sodium 142 mmol/L (137-145)
[2021-07-08 21:55] LABS: Carbon Dioxide 38 mmol/L (22-32)
[2021-07-08 21:58] LABS: NT-proBNP (BNP-Adult 18+) 123 pg/mL (<125)
[2021-07-08 22:01] LABS: Troponin I < 0.012 ng/mL (0.01-0.034)
[2021-07-08 22:05] LABS: Creatine Kinase MB 8.31 ng/mL (<2.37)
[2021-07-08 22:07] LABS: HEMOLYSIS 58 (0-50)
[2021-07-08 22:08] LABS: Total Protein 10.2 g/dL (6.3-8.2)
[2021-07-08 22:09] LABS: Potassium 4.8 mmol/L (3.4-5.1)
[2021-07-08 22:10] LABS: Aspartate Aminotransferase 65 IU/L (14-36)
[2021-07-08] MEDS: SODIUM CHLORIDE 0.9% 1,000 ML 1000 ML IV (22:18)
[2021-07-08] MEDS: CLINDAMYCIN 900 MG/50 ML PIGGYBACK 50 MG IV (22:18)
[2021-07-08 22:44] LABS: Procalcitonin 0.07 ng/mL (<0.5)
[2021-07-08] MEDS: ONDANSETRON 4 MG/2 ML INJ IV (22:48)
[2021-07-08] MEDS: HYDROMORPHONE 0.5 MG INJ IV ×2 (22:48→23:47)
[2021-07-08 22:50] LABS: Lactate (Lactic Acid) 3.8 mmol/L (0.7-2.1)
--- NOTE | 2021-07-08 23:00 | PC.NURSE ---
Patient uses home O2 for lung disease, 10L by high flow nasal cannula.
[2021-07-08 23:15] LABS: Anisocytosis 3+; Hypochromasia 1+; Polychromasia 1+
[2021-07-08 23:16] LABS: Microcytosis 1+
[2021-07-08] MEDS: VANCOMYCIN 1,500 MG/300 ML PIGGYBACK 200 MG IV (23:31)
[2021-07-09] VITALS: BP 153/75; PULSE 91; RESP 38; O2SAT 95
[2021-07-09] LABS: COVID19 - ADMIT (NP swab/PCR) Negative (Negative)
[2021-07-09] MEDS: ACETAMINOPHEN 325 MG TABLET 975 MG PO (00:06)
[2021-07-09 00:35] VITALS: BP 143/89; PULSE 84; O2SAT 92
[2021-07-09 00:39] LABS: Reflexed Lactate in 2 Hours Y
[2021-07-09 01:05] LABS: Lactate 2HR (Lactic Acid Rflx) 2.3 mmol/L (0.7-2.1)
[2021-07-09] MEDS: VANCOMYCIN 1,000 MG/200 ML PIGGYBACK 200 MG IV (01:08)
[2021-07-09] MEDS: HYDROMORPHONE 0.5 MG INJ IV ×3 (01:51→05:33)
[2021-07-09] MEDS: ONDANSETRON 4 MG/2 ML INJ IV ×2 (01:51→06:19)
[2021-07-09 01:52] LABS: C-Reactive Protein Quant 1.1 mg/dL (<1.0)
[2021-07-09 02:15] VITALS: BP 148/77; PULSE 95; RESP 20; TEMP 36.8; O2SAT 93
[2021-07-09 02:27] VITALS: BMI 50.0
[2021-07-09] MEDS: SODIUM CHLORIDE 0.9% 1,000 ML 100 ML IV (02:48)
[2021-07-09] MEDS: AZTREONAM 1 GM in DEXTROSE 5 % IN WATER 50 ML 100 ML IV (02:48)
[2021-07-09 03:05] VITALS: O2SAT 99
[2021-07-09 04:00] VITALS: BP 157/78; PULSE 96; RESP 24; TEMP 37.3; O2SAT 95
[2021-07-09] MEDS: OXYCODONE IR 5 MG TABLET PO (04:15)
[2021-07-09 04:46] LABS: Appearance Urine UA CLEAR; Bilirubin Urine UA NEGATIVE (NEGATIVE); Color Urine UA YELLOW; Glucose Urine UA NEGATIVE (Negative); Ketones Urine UA NEGATIVE (NEGATIVE); Leukocyte Esterase Urine UA NEGATIVE (NEGATIVE); Nitrite Urine UA NEGATIVE (Negative); Occult Blood Urine UA TRACE-LYSED (Negative); Protein Urine UA 1+ (Negative); Specific Gravity Urine UA 1.015 (1.000-1.035); Urobilinogen Urine UA 0.2 E.U./dL (0.2)
--- NOTE | 2021-07-09 05:22 | P.HP_ITS ---
History of Present Illness History of Present Illness Date Patient Seen: 07/09/21 Time Patient Seen: 01:00 Chief complaint: BI HANDS/FACE SWOLLEN AND PAINFUL Narrative: Ms. 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 She denies fevers/chills. She has a very complicated past medical history and over the past year states she has been intubated 3 times, in multiple different hospitals and has spent almost more time in the hospital than outside of it. However she denies she has had any worsening of her respiratory status with no cough or shortness of breath. She states she has had discomfort of her upper back over a few days, she was unable to see if there were any changes there. She had some itching and has notable scabs near her hairline. Over the last day she has noted pain and swelling on the left side of her face and around her left eye. She has no ocular pain and no erythema there. She has also noted pain, redness, warmth of her left ear. She has felt over the pat approximate week that she has felt congested like she is swimming with congested hearing and nasal symptoms. No sore throat, no rhinnorhea. She notes bilateral upper extremity swelling. This really worsened over the last day where she now has quite exquisite pain of her right hand. She is having difficulty spreadning her fingers and bringing them back together. She has felt small lumps on the dorsal side of her right hand. She has had warmth and erythema in the proximal portion of her right hand. She has not had any fevers, but has had night sweats for 3-4 days. She has not been started on any new medications. For her ILD she is on prednisone and mycophenolate. In the ED workup was done, vitals notable for being afebrile, mildly tachycardic in the 100s, blood pressure in the 140s systolic, respiratory rate normal. Labs notable for WBC 20.6 66%PMNs, hgb 10.2 MCV of 68, plts 605. Creatinine 1.2, Lactate 3.8 improved to 2.3 after fluids, AST/ALT 65/39. CK 799. Total protein 10.2, albumin 5.2, procal 0.07. Chest xray showed chronic interstitial changes. She was given IV fluids, vancomycin and clindamycin and admitted for further evaluation. Patient History Medical History Diabetes Hypothyroidism (acquired) Interstitial lung disease Opioid use disorder Pulmonary edema Right sided sciatica Surgical History H/O enucleation of right eyeball Family & Social History Family History Mother Adopted Other [id number] deficiency Social History: household members significant other,other Prior Living Arrangements House Safety & Behavioral: Feels Safe in Current Yes Environment Been Physically Hurt or No Threatened By a Person Suicidal Ideation Description None Tobacco & Substance use: Smoking Status Former smoker alcohol intake former alcohol intake frequency holiday/special occasion Substance Use Type does not use Meds Home Medications and Allergies Home Medications Medication Instructions Recorded Confirmed Type albuterol sulfate 90 mcg/actuation 1 puff INHALATION BID 10/31/18 07/09/21 History aerosol inhaler [id number] 1 tab PO BID PRN 10/31/18 07/09/21 History 50 mg-325 mg-40 mg tablet dapsone 100 mg tablet 100 mg PO DAILY 10/31/18 07/09/21 History diclofenac sodium 1 % topical gel 1 applic TOPICAL PRN PRN 10/31/18 07/09/21 History fluticasone 250 mcg-salmeterol 50 1 puff INHALATION BID 10/31/18 07/09/21 History mcg/dose blistr powdr for inhalation fluticasone propionate 50 1 spray INTRANASAL DAILY 10/31/18 07/09/21 History mcg/actuation nasal spray,suspension hydroxyzine pamoate 50 mg capsule 50 mg PO DAILY 10/31/18 07/09/21 History methadone 10 mg tablet 190 mg PO DAILY 10/31/18 07/09/21 History omeprazole 40 mg capsule,delayed 40 mg PO BID 10/31/18 07/09/21 History release quetiapine 300 mg tablet 400 mg PO QPM 10/31/18 07/09/21 History azithromycin 250 mg tablet 250 mg PO Q OTHER DAY 08/06/20 07/09/21 History insulin NPH isoph U-100 human 100 60 unit SUBCUT QAM 08/06/20 07/09/21 History unit/mL (3 mL) subcutaneous pen (Novolin N Flexpen) insulin NPH isoph U-100 human 100 15 unit SUBCUT BEDTIME 08/06/20 07/09/21 History unit/mL subcutaneous suspension (Novolin N NPH U-100 Insulin isophane) loratadine 10 mg tablet 10 mg PO DAILY 08/06/20 07/09/21 History mirtazapine 30 mg tablet 30 mg PO BEDTIME 08/06/20 07/09/21 History mycophenolate mofetil 500 mg tablet 1,000 mg PO BID 08/06/20 07/09/21 History torsemide 100 mg tablet 100 mg PO DAILY 08/06/20 07/09/21 History ketoconazole 2 % shampoo 1 applic TOPICAL 3XW #120 ml 08/11/20 07/09/21 Rx levothyroxine 200 mcg tablet 200 mcg PO DAILY #30 tab 08/11/20 07/09/21 Rx prednisone 20 mg tablet 50 mg PO DAILY 07/09/21 07/09/21 History pregabalin 50 mg capsule 150 mg PO BID 07/09/21 07/09/21 History tizanidine 4 mg tablet 8 mg PO TID 07/09/21 07/09/21 History Allergies Allergy/AdvReac Type Severity Reaction Status Date / Time levofloxacin [LEVOFLOXACIN] Allergy Unknown Verified 07/08/21 21:31 Penicillins [PENICILLINS] Allergy Unknown Verified 07/08/21 21:31 Sulfa (Sulfonamide Allergy Unknown Verified 07/08/21 21:31 Antibiotics) [SULFA (SULFONAMIDE ANTIBIOTICS)] trimethoprim [TRIMETHOPRIM] Allergy Unknown Verified 07/08/21 21:31 morphine AdvReac Gastrointestinal Verified 07/08/21 21:31 Upset Review of Systems Review of Systems Narrative: 14 systems reviewed and negative aside from what is noted in HPI Exam Vital Signs (past 8 hours): - 07/08/21 21:30 07/08/21 21:32 07/08/21 22:00 Temperature 98.8 F Pulse Rate 98 H 93 H 92 H Respiratory Rate 18 15 Blood Pressure 188/99 H 171/92 H Pulse Oximetry 93 95 97 07/08/21 22:30 07/08/21 22:38 07/08/21 23:00 Temperature Pulse Rate 86 87 92 H Respiratory Rate 8 L 20 9 L Blood Pressure 126/78 148/92 H Pulse Oximetry 95 96 98 07/08/21 23:30 07/09/21 00:00 07/09/21 00:35 Temperature Pulse Rate 88 91 H 84 Respiratory Rate 15 38 H Blood Pressure 136/92 H 153/75 H 143/89 H Pulse Oximetry 95 95 92 07/09/21 02:15 07/09/21 03:05 07/09/21 04:00 Temperature 98.3 F 99.1 F Pulse Rate 95 H 96 H Respiratory Rate 20 24 Blood Pressure 148/77 H 157/78 H Pulse Oximetry 93 99 95 Oxygen Delivery Method High Flow Nasal Cannula Oxygen Flow Rate 10 Narrative Exam Narrative: GEN: mild distress secondary to pain HEENT: Atraumatic, pupils reactive on left, right eye enucleation, erythema of the left pinna, right eye enucleation, there is erythema and swelling of the left pinna, there is posterior neck and back neck pain that is warm and erythematous. There is edema surrounding the left eye CV: regular rate and rhythm with no murmurs PULM:clear bilaterally with no wheezes, rhonchi, rales ABD soft, non-tender, non-distended, no organomegaly :No CVA tenderness BACK:pain over the upper back with erythema and warmth, EXT: right extremity with erythema and warmth of the right arm, the distal right arm is not warm, skin has slight mottled appearance, the right hand is swollen with decreased movement of the right hand, there is significant difficulty with extension and splaying of her fingers, she has difficulty making a fist, she has significant dorsal tenderness to palpation of the hand with small discrete nodular/fluctuance of her hand, left hand swollen with no significant tenderness, lower extremities with 1+ edema MSK: Non-tender, 5/5 upper and lower strength NEURO: no focal deficits SKIN: see above Objective Labs Result Diagrams: 07/08/21 21:28 07/08/21 21:28 Labs: Laboratory Results - last 24 hr 07/08/21 07/08/21 07/08/21 21:08 21:28 21:28 WBC 20.6 H RBC 4.87 Hgb 10.2 L Hct 33.5 L MCV 68.7 L MCH 20.9 L MCHC 30.4 RDW 22.3 H Plt Count 605 H Neut % (Auto) 66.2 Lymph % (Auto) 23.3 L [place] % (Auto) 7.9 Eos % (Auto) 0.9 L Baso % (Auto) 1.7 Neut # (Auto) 88543 H Lymph # (Auto) 4800 H [place] # (Auto) 1600 H Eos # (Auto) 200 Baso # (Auto) 300 H RBC Morphology See below Polychromasia 1+ H Hypochromasia 1+ H Anisocytosis 3+ H Microcytosis 1+ H Sodium 142 Potassium 4.8 Chloride 90 L Carbon Dioxide 38 H BUN 24 H Creatinine 1.20 H Estimated GFR 48.6 L BUN/Creatinine Ratio 20.0 Glucose 207 H Lactate Calcium 10.3 H Magnesium 2.4 H Total Bilirubin 0.6 AST 65 H ALT 39 H Alkaline Phosphatase 89 Total Creatine Kinase 799 H CK-MB (CK-2) 8.31 H CK-MB (CK-2) Rel Index 1.0 L Troponin I < 0.012 C-Reactive Protein NT-Pro-B Natriuret Pep Total Protein 10.2 H* Albumin 5.2 H Globulin 5.0 H Albumin/Globulin Ratio 1.0 Lipase 32 Procalcitonin Urine Color Urine Appearance Urine pH Ur Specific [place] Urine Protein Urine Glucose (UA) Urine Ketones Urine Occult Blood Urine Nitrate Urine Bilirubin Urine Urobilinogen Ur Leukocyte Esterase SARS-CoV-2 (PCR) Negative 07/08/21 07/08/21 07/08/21 21:28 21:28 21:28 WBC RBC Hgb Hct MCV MCH MCHC RDW Plt Count Neut % (Auto) Lymph % (Auto) [place] % (Auto) Eos % (Auto) Baso % (Auto) Neut # (Auto) Lymph # (Auto) [place] # (Auto) Eos # (Auto) Baso # (Auto) RBC Morphology Polychromasia Hypochromasia Anisocytosis Microcytosis Sodium Potassium Chloride Carbon Dioxide BUN Creatinine Estimated GFR BUN/Creatinine Ratio Glucose Lactate 3.8 H Calcium Magnesium Total Bilirubin AST ALT Alkaline Phosphatase Total Creatine Kinase CK-MB (CK-2) CK-MB (CK-2) Rel Index Troponin I C-Reactive Protein NT-Pro-B Natriuret Pep 123 Total Protein Albumin Globulin Albumin/Globulin Ratio Lipase Procalcitonin 0.07 Urine Color Urine Appearance Urine pH Ur Specific [place] Urine Protein Urine Glucose (UA) Urine Ketones Urine Occult Blood Urine Nitrate Urine Bilirubin Urine Urobilinogen Ur Leukocyte Esterase SARS-CoV-2 (PCR) 07/08/21 07/08/21 07/09/21 21:28 22:54 00:49 WBC RBC Hgb Hct MCV MCH MCHC RDW Plt Count Neut % (Auto) Lymph % (Auto) [place] % (Auto) Eos % (Auto) Baso % (Auto) Neut # (Auto) Lymph # (Auto) [place] # (Auto) Eos # (Auto) Baso # (Auto) RBC Morphology Polychromasia Hypochromasia Anisocytosis Microcytosis Sodium Potassium Chloride Carbon Dioxide BUN Creatinine Estimated GFR BUN/Creatinine Ratio Glucose Lactate 2.3 H Calcium Magnesium Total Bilirubin AST ALT Alkaline Phosphatase Total Creatine Kinase CK-MB (CK-2) CK-MB (CK-2) Rel Index Troponin I C-Reactive Protein 1.1 H NT-Pro-B Natriuret Pep Total Protein Albumin Globulin Albumin/Globulin Ratio Lipase Procalcitonin Urine Color Urine Appearance Urine pH Ur Specific [place] Urine Protein Urine Glucose (UA) Urine Ketones Urine Occult Blood Urine Nitrate Urine Bilirubin Urine Urobilinogen Ur Leukocyte Esterase SARS-CoV-2 (PCR) Negative 07/09/21 04:36 WBC RBC Hgb Hct MCV MCH MCHC RDW Plt Count Neut % (Auto) Lymph % (Auto) [place] % (Auto) Eos % (Auto) Baso % (Auto) Neut # (Auto) Lymph # (Auto) [place] # (Auto) Eos # (Auto) Baso # (Auto) RBC Morphology Polychromasia Hypochromasia Anisocytosis Microcytosis Sodium Potassium Chloride Carbon Dioxide BUN Creatinine Estimated GFR BUN/Creatinine Ratio Glucose Lactate Calcium Magnesium Total Bilirubin AST ALT Alkaline Phosphatase Total Creatine Kinase CK-MB (CK-2) CK-MB (CK-2) Rel Index Troponin I C-Reactive Protein NT-Pro-B Natriuret Pep Total Protein Albumin Globulin Albumin/Globulin Ratio Lipase Procalcitonin Urine Color Yellow Urine Appearance Clear Urine pH 5.0 Ur Specific [place] 1.015 Urine Protein 1+ H Urine Glucose (UA) Negative Urine Ketones Negative Urine Occult Blood Trace-lysed Urine Nitrate Negative Urine Bilirubin Negative Urine Urobilinogen 0.2 Ur Leukocyte Esterase Negative SARS-CoV-2 (PCR) Assessment & Plan Assessment & Plan narrative: Ms. Gallardo is a 46W with PMH chronic respiratory failure from ILD who presents leukocytosis, skin erythema, R hand swelling and decreased strength and JAG. 1. Sepsis -initially presented with WBC 20, creatinine 1.2, tachycardia with infectious source of presumed cellulitis -did not get full 30cc/kg sepsis bolus dose as patient 136kg, and is on diuretics and with chronic severe respiratory failure -continue broad spectrum antibiotics as she is immunosuppressed -chest xray shows possible consolidation, but she denies respiratory symptoms -initial lactate 3.8, improved to 2.3 after fluids and antibiotics, continue to trend 2. Skin rash from possible cellulitis vs questionable vasculitis -continue broad spectrum antibiotics with vancomycin, and aztreonam (has listed sulfa, penicillin, and levofloxacin allergy -blood cultures pending -given immunosuppression list of infectious etiology is quite broad -concern for possible autoimmune/vasculitis etiology given presentation of rash and symptoms in a varied nature -CRP/ESR ordered -UA ordered to evaluate for infection, hematuria, proteinuria -with swollen ear could consider polychondritis (possible relapsing polychondritis), with rash on shoulders possible dermatomyositis vs other vasculitis 3. Swelling and difficulty with movement of hand -continue antibiotics -question of infection in hand, vs mixed connective tissue diseae vs vasculitis -ultrasound ordered to evaluate swelling for possible fluid collection -consider CT with contrast of extremity to evaluate vasculature -overall symptoms seem less consistent with SVC syndrome, but could consider further imaging to rule out more central obstruction leading to facial and arm swelling 4. JAG -creatinine of 1.2, with baseline 0.5-0.6 -possibly secondary to nsaids -other possibilities include prerenal from sepsis/infection or vasculitis causin g renal dysfunction -trend creatinine daily -empirically given IV fluids -monitor urine output -check UA for protein, hematuria 5. Chronic hypoxemic respiratory failure secondary to ILD -on 10L oxygen at baseline -continue prednisone at mycophenolate -currently her respiratory status at baseline 6. Questionable right upper lobe consolidation -cxray shows chronic interstitial changes and questionable consolidation of right upper lobe -already on antibiotics as above, but clinically does not appear as a pneumonia, procal 0.07 7. Morbid obesity -BMI 50 8. Type 2 Diabetes on insulin -continue insulin -check blood sugar ACHS 9. Anemia -mild with hgb 10.2 -MCV low in 60s, consistent with possible iron deficiency 10. Transaminitis -mildly elevated with AST 65, ALT 39, no elevated alk phos or bilirubin -could be from obesity, but December 2020 LFTs normal -could be from possible sepsis -continue to trend 10. Remote history of opiate use with chronic dependence -patient maintained on methadone 190mg daily -will continue once confirmed CODE: Full Proxy: Haris Schneider, life partner, I have utilized all resource available to reconcile the patient's medications Time Spent With Patient Critical Care time: I spent a total of [] minutes of critical care time on this patient's care today; this time is exclusive of procedural time. Quality MIPS - Admit I confirm the patient?s Advance Care Plan is present, Code status is documented, Surrogate decision maker is in patient?s record [If Yes, STOP here]: Yes
--- NOTE | 2021-07-09 05:56 | PC.ADMIT ---
Addendum entered by Sveta Rosas R.N. 07/09/21 08:00: Report given to or director at at 0730. No questions post-report. Addendum entered by Sveta Rosas R.N. 07/09/21 06:01: At approx 0500, this RN learned of imminent transfer of patient to outside medical facility. Transfer protocol initiated and patient notified. Original Note: [id number] Admission Note: The patient,Carissa Gallardo,46 y/o, was given written information regarding hospital policies, unit procedures and contact persons. Patient's smoking status: Former smoker. Patient arrived to floor in no acute respiratory or cardiovascular distress. Significant other at bedside. Alert and oriented. Missing R eye. Facial and periorbital edema. Redness over body, most prominently on upper back and arms. R hand w/ 2+ nonpitting edema. L hand & generalized 1+ non-pitting edema. Pt w/ severe nerve pain on L foot and R hand and would not allow the softest of touches on skin. Skin blanchable. No visible breakdown. RAC IV fluids going, patent. Pt insistent on getting pain meds, calling multiple times. This RN educated patient on appropriate dosing and timing of pain medications. Vital Signs - 8 hr 07/08/21 22:00 07/08/21 22:30 07/08/21 22:38 Temperature 98.8 F Pulse Rate 92 H 86 87 Respiratory Rate 15 8 L 20 Blood Pressure 171/92 H 126/78 Pulse Oximetry 97 95 96 07/08/21 23:00 07/08/21 23:30 07/09/21 00:00 Temperature Pulse Rate 92 H 88 91 H Respiratory Rate 9 L 15 38 H Blood Pressure 148/92 H 136/92 H 153/75 H Pulse Oximetry 98 95 95 07/09/21 00:35 07/09/21 02:15 07/09/21 03:05 Temperature 98.3 F Pulse Rate 84 95 H Respiratory Rate 20 Blood Pressure 143/89 H 148/77 H Pulse Oximetry 92 93 99 07/09/21 04:00 Temperature 99.1 F Pulse Rate 96 H Respiratory Rate 24 Blood Pressure 157/78 H Pulse Oximetry 95
--- NOTE | 2021-07-09 06:05 | PM.DS.1 ---
History of Present Illness History of Present Illness Chief complaint: BI HANDS/FACE SWOLLEN AND PAINFUL Narrative: Ms. 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 She denies fevers/chills. She has a very complicated past medical history and over the past year states she has been intubated 3 times, in multiple different hospitals and has spent almost more time in the hospital than outside of it. However she denies she has had any worsening of her respiratory status with no cough or shortness of breath. She states she has had discomfort of her upper back over a few days, she was unable to see if there were any changes there. She had some itching and has notable scabs near her hairline. Over the last day she has noted pain and swelling on the left side of her face and around her left eye. She has no ocular pain and no erythema there. She has also noted pain, redness, warmth of her left ear. She has felt over the pat approximate week that she has felt congested like she is swimming with congested hearing and nasal symptoms. No sore throat, no rhinnorhea. She notes bilateral upper extremity swelling. This really worsened over the last day where she now has quite exquisite pain of her right hand. She is having difficulty spreadning her fingers and bringing them back together. She has felt small lumps on the dorsal side of her right hand. She has had warmth and erythema in the proximal portion of her right hand. She has not had any fevers, but has had night sweats for 3-4 days. She has not been started on any new medications. For her ILD she is on prednisone and mycophenolate. In the ED workup was done, vitals notable for being afebrile, mildly tachycardic in the 100s, blood pressure in the 140s systolic, respiratory rate normal. Labs notable for WBC 20.6 66%PMNs, hgb 10.2 MCV of 68, plts 605. Creatinine 1.2, Lactate 3.8 improved to 2.3 after fluids, AST/ALT 65/39. CK 799. Total protein 10.2, albumin 5.2, procal 0.07. Chest xray showed chronic interstitial changes. She was given IV fluids, vancomycin and clindamycin and admitted for further evaluation. Discharge Providers Provider Date of admission: 07/08/21 23:55 Discharge Date: 07/09/21 Primary care physician: Shira Hernandez MD Consults: 07/09/21 02:36 Consult to Dietitian, Adult Routine Comment: Reason For Exam: morbid obesity, non-ada diet at home Discharge provider: Luis A Ledesma MD Summary Hospital Course Discharge Diagnosis: 1. Sepsis 2. Skin rash from possible cellulitis, question vasculitis, connective tissue disease 3. Facial swelling, bilateral upper extremity swelling 4. Swelling, pain on right hand with difficulty with movement 5. JAG 6. Chronic hypoxemic respiratory failure from ILD 7. Questionable right upper lobe consolidation 8. Morbid obesity 9. Chronic pain disorder, opiate dependence 10. Microcytic anemia 11. Type 2 Diabetes on insulin 12. Right eye enucleation 13. Transaminitis Hospital Course: Please see H and P for full details and list of diagnosis. She was admitted with new onset facial and upper extremity swelling. She had a rash on her back and arms. She had quite significant tenderness of her right hand with concern for subcutaneous swelling. Etiology is broad, but she was started on vancomycin and aztreonam for broad spectrum coverage for possible cellulitis. She was treated as sepsis from this infectious source. Blood cultures pending. Urine pending. Initial lactate 3.8, improved to 2.3 after fluids. She had left ear erythema, question of polychondritis. Her overall clinical picture was concerning for possible connective tissue/vasculitis presentation. Her right hand swelling was concerning for possible forming collection of infection. Ultrasound ordered but not performed prior to discharge. Additional etiology such as SVC syndrome thought less likely. Consideration was had to image her right extremity vasculature as well. Given her presentation, she was determined to likely benefit from higher level of care given concern of possible decopmensation and possible necessity from subspecialty care. Transfer request was made to and she was accepted and transferred for further workup. Exam Vital Signs (past 8 hours): - 07/08/21 22:30 07/08/21 22:38 07/08/21 23:00 Temperature Pulse Rate 86 87 92 H Respiratory Rate 8 L 20 9 L Blood Pressure 126/78 148/92 H Pulse Oximetry 95 96 98 07/08/21 23:30 07/09/21 00:00 07/09/21 00:35 Temperature Pulse Rate 88 91 H 84 Respiratory Rate 15 38 H Blood Pressure 136/92 H 153/75 H 143/89 H Pulse Oximetry 95 95 92 07/09/21 02:15 07/09/21 03:05 07/09/21 04:00 Temperature 98.3 F 99.1 F Pulse Rate 95 H 96 H Respiratory Rate 20 24 Blood Pressure 148/77 H 157/78 H Pulse Oximetry 93 99 95 Oxygen Delivery Method High Flow Nasal Cannula Oxygen Flow Rate 10 Narrative Exam Narrative: GEN: mild distress secondary to pain HEENT: Atraumatic, pupils reactive on left, right eye enucleation, erythema of the left pinna,? right eye enucleation, there is erythema and swelling of the left pinna, there is posterior neck and back neck pain that is warm and erythematous. There is edema surrounding the left eye CV: regular rate and rhythm with no murmurs PULM:clear bilaterally with no wheezes, rhonchi, rales ABD soft, non-tender, non-distended, no organomegaly :No CVA tenderness BACK:pain over the upper back with erythema and warmth,? EXT: right extremity with erythema and warmth of the right arm, the distal right arm is not warm, skin has slight mottled appearance, the right hand is swollen with decreased movement of the right hand, there is significant difficulty with extension and splaying of her fingers, she has difficulty making a fist, she has significant dorsal tenderness to palpation of the hand with small discrete nodular/fluctuance of her hand, left hand swollen with no significant tenderness, lower extremities with 1+ edema MSK: Non-tender, 5/5 upper and lower strength NEURO: no focal deficits SKIN: see above Objective Labs Result Diagrams: 07/08/21 21:28 07/08/21 21:28 Labs: Laboratory Results - last 24 hr 07/08/21 07/08/21 07/08/21 21:08 21:28 21:28 WBC 20.6 H RBC 4.87 Hgb 10.2 L Hct 33.5 L MCV 68.7 L MCH 20.9 L MCHC 30.4 RDW 22.3 H Plt Count 605 H Neut % (Auto) 66.2 Lymph % (Auto) 23.3 L [place] % (Auto) 7.9 Eos % (Auto) 0.9 L Baso % (Auto) 1.7 Neut # (Auto) 75910 H Lymph # (Auto) 4800 H [place] # (Auto) 1600 H Eos # (Auto) 200 Baso # (Auto) 300 H RBC Morphology See below Polychromasia 1+ H Hypochromasia 1+ H Anisocytosis 3+ H Microcytosis 1+ H Sodium 142 Potassium 4.8 Chloride 90 L Carbon Dioxide 38 H BUN 24 H Creatinine 1.20 H Estimated GFR 48.6 L BUN/Creatinine Ratio 20.0 Glucose 207 H Lactate Calcium 10.3 H Magnesium 2.4 H Total Bilirubin 0.6 AST 65 H ALT 39 H Alkaline Phosphatase 89 Total Creatine Kinase 799 H CK-MB (CK-2) 8.31 H CK-MB (CK-2) Rel Index 1.0 L Troponin I < 0.012 C-Reactive Protein NT-Pro-B Natriuret Pep Total Protein 10.2 H* Albumin 5.2 H Globulin 5.0 H Albumin/Globulin Ratio 1.0 Lipase 32 Procalcitonin Urine Color Urine Appearance Urine pH Ur Specific [place] Urine Protein Urine Glucose (UA) Urine Ketones Urine Occult Blood Urine Nitrate Urine Bilirubin Urine Urobilinogen Ur Leukocyte Esterase SARS-CoV-2 (PCR) Negative 07/08/21 07/08/21 07/08/21 21:28 21:28 21:28 WBC RBC Hgb Hct MCV MCH MCHC RDW Plt Count Neut % (Auto) Lymph % (Auto) [place] % (Auto) Eos % (Auto) Baso % (Auto) Neut # (Auto) Lymph # (Auto) [place] # (Auto) Eos # (Auto) Baso # (Auto) RBC Morphology Polychromasia Hypochromasia Anisocytosis Microcytosis Sodium Potassium Chloride Carbon Dioxide BUN Creatinine Estimated GFR BUN/Creatinine Ratio Glucose Lactate 3.8 H Calcium Magnesium Total Bilirubin AST ALT Alkaline Phosphatase Total Creatine Kinase CK-MB (CK-2) CK-MB (CK-2) Rel Index Troponin I C-Reactive Protein NT-Pro-B Natriuret Pep 123 Total Protein Albumin Globulin Albumin/Globulin Ratio Lipase Procalcitonin 0.07 Urine Color Urine Appearance Urine pH Ur Specific [place] Urine Protein Urine Glucose (UA) Urine Ketones Urine Occult Blood Urine Nitrate Urine Bilirubin Urine Urobilinogen Ur Leukocyte Esterase SARS-CoV-2 (PCR) 07/08/21 07/08/21 07/09/21 21:28 22:54 00:49 WBC RBC Hgb Hct MCV MCH MCHC RDW Plt Count Neut % (Auto) Lymph % (Auto) [place] % (Auto) Eos % (Auto) Baso % (Auto) Neut # (Auto) Lymph # (Auto) [place] # (Auto) Eos # (Auto) Baso # (Auto) RBC Morphology Polychromasia Hypochromasia Anisocytosis Microcytosis Sodium Potassium Chloride Carbon Dioxide BUN Creatinine Estimated GFR BUN/Creatinine Ratio Glucose Lactate 2.3 H Calcium Magnesium Total Bilirubin AST ALT Alkaline Phosphatase Total Creatine Kinase CK-MB (CK-2) CK-MB (CK-2) Rel Index Troponin I C-Reactive Protein 1.1 H NT-Pro-B Natriuret Pep Total Protein Albumin Globulin Albumin/Globulin Ratio Lipase Procalcitonin Urine Color Urine Appearance Urine pH Ur Specific [place] Urine Protein Urine Glucose (UA) Urine Ketones Urine Occult Blood Urine Nitrate Urine Bilirubin Urine Urobilinogen Ur Leukocyte Esterase SARS-CoV-2 (PCR) Negative 07/09/21 04:36 WBC RBC Hgb Hct MCV MCH MCHC RDW Plt Count Neut % (Auto) Lymph % (Auto) [place] % (Auto) Eos % (Auto) Baso % (Auto) Neut # (Auto) Lymph # (Auto) [place] # (Auto) Eos # (Auto) Baso # (Auto) RBC Morphology Polychromasia Hypochromasia Anisocytosis Microcytosis Sodium Potassium Chloride Carbon Dioxide BUN Creatinine Estimated GFR BUN/Creatinine Ratio Glucose Lactate Calcium Magnesium Total Bilirubin AST ALT Alkaline Phosphatase Total Creatine Kinase CK-MB (CK-2) CK-MB (CK-2) Rel Index Troponin I C-Reactive Protein NT-Pro-B Natriuret Pep Total Protein Albumin Globulin Albumin/Globulin Ratio Lipase Procalcitonin Urine Color Yellow Urine Appearance Clear Urine pH 5.0 Ur Specific [place] 1.015 Urine Protein 1+ H Urine Glucose (UA) Negative Urine Ketones Negative Urine Occult Blood Trace-lysed Urine Nitrate Negative Urine Bilirubin Negative Urine Urobilinogen 0.2 Ur Leukocyte Esterase Negative SARS-CoV-2 (PCR) [facility] Medical History Diabetes Hypothyroidism (acquired) Interstitial lung disease Opioid use disorder Pulmonary edema Right sided sciatica Surgical History H/O enucleation of right eyeball Family History Mother Adopted Other [id number] deficiency Social History household members: significant other and other Smoking Status: Former smoker alcohol intake: former Discharge Plan Discharge Plan Patient Disposition: [facility] Provider Discharge Comment: transfer to higher level of care at Discharge Health Status Multidrug resistant organism: No MDRO Diet/Activity/Treatments Diet: Carb-consistent/Diabetic Liquid consistency: Normal/Thin Food texture: Regular Discharge Data Primary Care Provider: Shira Hernandez
[2021-07-09] MEDS: LEVOTHYROXINE 100 MCG TABLET 200 MCG PO (06:18)
[2021-07-09 06:57] LABS: RBC Urine 1-5/HPF (0-5/HPF); WBC Urine 0-1/HPF (0-5/HPF)
[2021-07-09 06:58] LABS: Bacteria Urine Few (2-10); Culture Indicated Urine Cult Not Indicated; Hyaline Casts Urine 5-10/LPF; Squamous Epithelial Cell Urine 1-5 /HPF (0-5/HPF)
--- NOTE | 2021-07-09 08:00 | CM.DANOTE ---
DCP Brief Assessment Note Patient is a 46 yo female who was admitted on 07/08/21 for Likely Cellulitis/Sepsis. Pt has MCR and TREASURE for insurnace and her PCP is Dr. Shira Hernandez. EMR was reviewed. Per MD, due to pt's multiple medical comorbidities and likely complications pt was accepted at for hospital transfer for higher level of care. Pt's significant other was bedside and per RN pt was transferred prior to SW shift at 0600 this morning. DAWNA Marshall
[2021-07-10 20:22] LABS: Acinetobacter baumannii Not Detected (Not Detect); Enterobacteriaceae species Not Detected (Not Detect); Enterococcus species Not Detected (Not Detect); Listeria monocytogenes Not Detected (Not Detect); Methicillin-resistant gene Detected (Not Detect); Staphylococcus species Detected (Not Detect); Streptococcus agalactiae (Gr B Not Detected (Not Detect); Streptococcus pneumonia Not Detected (Not Detect); Streptococcus pyogenes (Gr A) Not Detected (Not Detect); Streptococcus species Not Detected (Not Detect)
[2021-07-10 20:23] LABS: Candida albicans Not Detected (Not Detect); Candida glabrata Not Detected (Not Detect); Candida krusei Not Detected (Not Detect); Candida parapsilosis Not Detected (Not Detect); Candida tropicalis Not Detected (Not Detect); E. coli Not Detected (Not Detect); Enterobacter cloacae complex Not Detected (Not Detect); Haemophilus influenzae Not Detected (Not Detect); Neisseria meningitidis Not Detected (Not Detect); Proteus species Not Detected (Not Detect); Pseudomonas aeruginosa Not Detected (Not Detect); Serratia marcescens Not Detected (Not Detect)
== END 2021-07-09 06:35 | disposition short-term general hospital (02) | DRG 872 ==
LOC: ED 23:54 → AC 23:56
PROVIDERS: Admitting Provider Internal Medicine; Emergency Provider Emergency Medicine; Family Provider Anesthesiology Pain Medicine; PCP Internal Medicine; Referring Provider Emergency Medicine; Visit Provider Internal Medicine
DX: A41.9 Sepsis, unspecified organism (principal); L03.113 Cellulitis of right upper limb; N17.9 Acute kidney failure, unspecified; J96.11 Chronic respiratory failure with hypoxia; J84.9 Interstitial pulmonary disease, unspecified; F11.20 Opioid dependence, uncomplicated; Z68.43 Body mass index [BMI] 50.0-59.9, adult; D84.9 Immunodeficiency, unspecified; R65.20 Severe sepsis without septic shock; I77.6 Arteritis, unspecified; Z99.81 Dependence on supplemental oxygen; Z20.822 Contact with and (suspected) exposure to COVID-19; E11.9 Type 2 diabetes mellitus without complications; Z79.4 Long term (current) use of insulin; E03.9 Hypothyroidism, unspecified; E66.01 Morbid (severe) obesity due to excess calories; Z79.52 Long term (current) use of systemic steroids; D50.9 Iron deficiency anemia, unspecified; R74.01 Elevation of levels of liver transaminase levels; Z87.891 Personal history of nicotine dependence
CPT/HCPCS: 36415; 71045; 80053; 81001; 82550; 82553; 83605; 83690; 83735; 83880; 84145; 84484; 85025; 86140; 87040; 87150; 87205; 87635; 93005; 93010; 94760; 96361; 96365; 96366; 96367; 96368; 96375; 99285; C9803; J1170; J1815; J2405